=== PATIENT | male | born 1935 | race Caucasian/White ===

== ENCOUNTER 2016-07-09 16:25 | Inpatient (IN) | payer MEDICARE ==
[2016-07-09] MEDS ORDERED: SODIUM CHLORIDE 0.9% 1,000 ML IV ONE (18:22)
--- NOTE | 2016-07-09 18:29 | ED ---
Eye Problem HPI - General Chief complaint: Eye Problems Stated complaint: Eye Problems, sent by dr Time Seen by Provider: 07/09/16 18:03 Source: patient, RN notes reviewed Mode of arrival: wheelchair Limitations: no limitations - History of Present Illness Initial comments: Patient is an 81-year-old male presents to the emergency room for evaluation of right eye swelling and pain. Patient states about a month ago he began having right upper eyelid swelling. Patient states he went to his time study engineer and they prescribed him eyedrops. Patient states that eye swelling did slightly subside and then came back. Patient states that he went to his eye doctor again on and was prescribed doxycycline. Patient's son is present with patient. Patient's son states that patient moved and on Thursday he noticed that his right eye was very swollen. Patient went back to his eye doctor today and was advised to come to the emergency room for IV antibiotics. Patient states he is currently going through chemo for lymphoma. - Related Data Home Medications Medication Instructions Recorded Confirmed Losartan [Cozaar] 25 mg PO DAILY 12/07/15 07/09/16 Metoprolol Succinate (ER) [Toprol 25 mg PO HS 12/07/15 07/09/16 Xl] Omeprazole 20 mg PO DAILY 12/07/15 07/09/16 Simvastatin [Zocor] 40 mg PO HS 12/07/15 07/09/16 traZODone HCL [Desyrel] 100 mg PO HS 12/07/15 07/09/16 Doxycycline Hyclate [Vibramycin] 100 mg PO BID 07/09/16 07/09/16 Gentamicin/Prednisol AC [Pred-G 1 applicate RIGHT EYE HS 07/09/16 07/09/16 S.O.P. Eye Ointment] Gluten Aid 1 tab PO DAILY 07/09/16 07/09/16 Naproxen Na-Diphenhydramin HCl 1 tab PO HS PRN 07/09/16 07/09/16 [Aleve Pm Caplet] Propylene Glycol/Peg 400/Pf 1 dropper RIGHT EYE BID 07/09/16 07/09/16 [Systane 0.3-0.4% Eye Drops] Sertraline [Zoloft] 100 mg PO QAM 07/09/16 07/09/16 Allergies Allergy/AdvReac Type Severity Reaction Status Date / Time gluten AdvReac Severe Diarrhea Verified 06/13/16 12:59 Review of Systems ROS Statement: Those systems with pertinent positive or pertinent negative responses have been documented in the HPI. ROS Other: All systems not noted in ROS Statement are negative. 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 HX MELANOMA CHEST. UCHE RETINITIS PIGMENTOSIS, LOSS OF PERIPHERAL VISION, LEGALLY BLIND. SL NELSON LAGOON. History of Any Multi-Drug Resistant Organisms: None Reported Past Surgical History: Heart Catheterization With Stent, Hernia Repair, Orthopedic Surgery, Tonsillectomy Additional Past Surgical History / Comment(s): EXC RFA, LYMPH NODE RESECTION, SPLENECTOMY 1974. UCHE ING HERNIA. ORIF RT ELBOW. Past Anesthesia/Blood Transfusion Reactions: No Reported Reaction Date of Last Stent Placement:: 2009 Past Psychological History: No Psychological Hx Reported Smoking Status: Never smoker Past Alcohol Use History: None Reported Past Drug Use History: None Reported - Past Family History Mother Family Medical History: No Reported History Father Family Medical History: CVA/TIA, Deep Vein Thrombosis (DVT) General Exam - General Exam Comments Initial Comments: Laying in exam room in no acute distress. Limitations: no limitations General appearance: alert, in no apparent distress Head exam: Present: atraumatic, normocephalic, normal inspection Expanded Eyelids: Swelling: Right (edema of upper eyelid) Pupils: Regular, Round: Right, Reactive: Right Sclera/Conjunctival: Injection: Right, Exudate: Right ENT exam: Present: normal exam Neck exam: Present: normal inspection Respiratory exam: Present: normal lung sounds bilaterally. Absent: respiratory distress Cardiovascular Exam: Present: regular rate, normal rhythm, normal heart sounds Extremities exam: Present: normal inspection Back exam: Present: normal inspection Neurological exam: Present: alert, oriented X3, CN II-XII intact, normal gait Psychiatric exam: Present: normal affect, normal mood Skin exam: Present: warm, dry, intact, normal color. Absent: rash Course Vital Signs 07/09/16 07/09/16 07/09/16 16:39 18:07 20:00 Temperature 98.2 F Pulse Rate 75 72 74 Respiratory 18 15 16 Rate Blood Pressure 145/72 140/84 141/72 O2 Sat by Pulse 95 98 97 Oximetry 07/09/16 22:26 Temperature Pulse Rate 64 Respiratory 16 Rate Blood Pressure 136/88 O2 Sat by Pulse 97 Oximetry Medical Decision Making - Medical Decision Making Patient is a 81-year-old male presents to the emergency room for evaluation of right eye swelling and pain. CT orbits with contrast: Significant preseptal soft tissue swelling on the right side. This is consistent with cellulitis. No drainable fluid collection seen. No evidence of an abscess (per radiology). Patient started on vancomycin and Zosyn. Patient switched to Cipro eyedrops. Case discussed with Dr. Dye. Dr. Dye discussed case with Dr. Gomes agreed to admit patient. Patient will be consulted with infectious disease and ophthalmology. Patient will also be consulted with oncology due to lymphoma. Results and plan discussed with patient and his son. - Lab Data Result diagrams: 07/09/16 19:28 07/09/16 19:28 Lab Results 07/09/16 07/09/16 07/09/16 Range/Units 19:28 19:28 19:28 WBC 3.2 L (3.8-10.6) k/uL RBC 3.84 L (4.30-5.90) m/uL Hgb 13.5 (13.0-17.5) gm/dL Hct 39.1 (39.0-53.0) % MCV 101.7 H (80.0-100.0) fL MCH 35.1 H (25.0-35.0) pg MCHC 34.5 (31.0-37.0) g/dL RDW 14.2 (11.5-15.5) % Plt Count 92 L (150-450) k/uL Neutrophils % (Manual) 65.0 % Band Neutrophils % 2.0 % Lymphocytes % (Manual) 14.0 % Monocytes % (Manual) 15.0 % Eosinophils % (Manual) 4.0 % Neutrophils # (Manual) 2.1 (1.3-7.7) k/uL Lymphocytes # (Manual) 0.4 L (1.0-4.8) k/uL Monocytes # (Manual) 0.5 (0-1.0) k/uL Eosinophils # (Manual) 0.1 (0-0.7) k/uL Nucleated RBCs 0 (0-0) /100 WBC Polychromasia Present Macrocytosis Slight Sodium 139 (137-145) mmol/L Potassium 3.9 (3.5-5.1) mmol/L Chloride 106 (98-107) mmol/L Carbon Dioxide 25 (22-30) mmol/L Anion Gap 8 mmol/L BUN 21 H (9-20) mg/dL Creatinine 0.97 (0.66-1.25) mg/dL Est GFR (MDRD) Af Amer >60 (>60 ml/min/1.73 sqM) Est GFR (MDRD) Non-Af >60 (>60 ml/min/1.73 sqM) Glucose 108 H (74-99) mg/dL Plasma Lactic Acid Carson 0.8 (0.7-2.0) mmol/L Calcium 9.0 (8.4-10.2) mg/dL Total Bilirubin 0.7 (0.2-1.3) mg/dL AST 40 (17-59) U/L ALT 32 (21-72) U/L Alkaline Phosphatase 94 (38-126) U/L Total Protein 6.0 L (6.3-8.2) g/dL Albumin 3.3 L (3.5-5.0) g/dL - Radiology Data Radiology results: report reviewed, image reviewed Disposition Clinical Impression: Periorbital cellulitis of right eye Disposition: ADMITTED IP TO THIS [facility] Condition: Stable Decision Date: 07/09/16
[2016-07-09] MEDS ORDERED: RX INFO: IV CONTRAST WAS GIVEN 1 EACH MISC MISCELLANE PRN (18:30)
[2016-07-09] MEDS ORDERED: IV VANCOMYCIN PER PHARMACY 1 EACH MISC MISCELLANE PRN (18:31)
[2016-07-09] MEDS ORDERED: PROPARACAINE 0.5% OPHTH DROPS 15 ML BTL RIGHT EYE STA (18:32)
[2016-07-09] MEDS ORDERED: VANCOMYCIN 1,500 MG in SODIUM CHLORIDE 0.9% 250 ML IVPB STA (18:42)
[2016-07-09] MEDS ORDERED: CIPROFLOXACIN 0.3% OPHTH SOLN 2.5 ML BTL RIGHT EYE STA (19:07)
[2016-07-09 19:56] LABS: ALT 32 U/L (21-72); AST 40 U/L (17-59); Alkaline Phosphatase 94 U/L (38-126); Anion Gap 8 mmol/L; Blood Urea Nitrogen 21 mg/dL (9-20); CH 34.7; CHCM 34.3; Carbon Dioxide 25 mmol/L (22-30); Chloride 106 mmol/L (98-107); Glucose 108 mg/dL (74-99); HCT 39.1 % (39.0-53.0); HDW 2.36; HGB 13.5 gm/dL (13.0-17.5); MCH 35.1 pg (25.0-35.0); MCHC 34.5 g/dL (31.0-37.0); MCV 101.7 fL (80.0-100.0); Macrocytosis Slight; Non-African American GFR(MDRD) >60 (>60 ml/min/1.73 sqM); Potassium 3.9 mmol/L (3.5-5.1); RBC 3.84 m/uL (4.30-5.90); RDW 14.2 % (11.5-15.5); Sodium 139 mmol/L (137-145); Total Bilirubin 0.7 mg/dL (0.2-1.3); WBC 3.2 k/uL (3.8-10.6); WBC (Perox) 3.25
[2016-07-09 20:23] LABS: Add Differential Manual Differential
[2016-07-09 20:25] LABS: Nucleated Red Blood Cells 0 /100 WBC (0-0); Total Cells Counted 100
[2016-07-09 20:26] LABS: Polychromasia Present
[2016-07-09] MEDS ORDERED: ACETAMINOPHEN TAB 500 MG TAB PO STA (21:00)
--- NOTE | 2016-07-09 21:00 | CT ---
EXAMINATION TYPE: CT orbits w con DATE OF EXAM: 07/09/2016 8:43 PM COMPARISON: NONE HISTORY: Right sided eye swelling. CT DLP: 416.5 mGycm Automated exposure control for dose reduction was used. CONTRAST: Performed with IV Contrast, patient injected with 100 mL of Omnipaque 300. FINDINGS: There is significant soft tissue swelling anterior to the right globe. This appears to be preseptal s oft tissue swelling that measures up to 1.3 cm in thickness. The globes are symmetric. There is no ev idence of a retro-orbital mass. Nasal bone appears intact. There is minimal mucosal thickening in the frontal sinus. Maxillary sinuses are fairly well aerated. There is patency of the ostiomeatal comple x bilaterally. There is minimal mucosal thickening at the floor of the right maxillary sinus. The orb ital margins are intact. There is no evidence of a radiopaque foreign body. There is enhancement of t he soft tissues related to the preseptal swelling on the right side. Zygomatic arches appear normal. The maxilla appears intact. IMPRESSION: THERE IS SIGNIFICANT PRESEPTAL SOFT TISSUE SWELLING ON THE RIGHT SIDE. THIS IS CONSISTENT WITH CELLUL ITIS. NO DRAINABLE FLUID COLLECTION SEEN. NO EVIDENCE OF AN ABSCESS. MINIMAL FRONTAL SINUSITIS.
[2016-07-09] MEDS ORDERED: PIPERACILLIN-TAZOBACTAM 3.375 GM in DEXTROSE/WATER 1 50ML.BAG IVPB STA (21:06)
[2016-07-09] MEDS ORDERED: NALOXONE 0.4 MG/ML 1 ML VIAL IV PRN (21:37)
[2016-07-09] MEDS ORDERED: HYDROmorphone 1 MG/ML 1 ML SYRINGE IV PRN (21:37)
[2016-07-09] MEDS: SODIUM CHLORIDE 0.9% 1,000 ML IV SCH (23:00)
[2016-07-09 23:24] VITALS: BMI 25.4
[2016-07-09] MEDS: ATORVASTATIN 20 MG TAB PO SCH (23:44)
[2016-07-09] MEDS: traZODone HCL 100 MG TAB PO SCH (23:45)
[2016-07-09] MEDS: METOPROLOL SUCCINATE (ER) 25 MG TAB.ER.24H PO SCH (23:45)
[2016-07-10] MEDS: VANCOMYCIN 1,500 MG in SODIUM CHLORIDE 0.9% 250 ML IVPB SCH ×2 (05:10→18:10)
[2016-07-10 07:49] LABS: Anion Gap 10 mmol/L; Blood Urea Nitrogen 18 mg/dL (9-20); Calcium 8.8 mg/dL (8.4-10.2); Carbon Dioxide 26 mmol/L (22-30); Chloride 107 mmol/L (98-107); Glucose 85 mg/dL (74-99); Non-African American GFR(MDRD) >60 (>60 ml/min/1.73 sqM); Potassium 4.2 mmol/L (3.5-5.1); Sodium 143 mmol/L (137-145)
[2016-07-10] MEDS: SERTRALINE 100 MG TAB PO SCH (07:58)
[2016-07-10] MEDS: LOSARTAN 25 MG TAB PO SCH (07:59)
[2016-07-10] MEDS: PIPERACILLIN-TAZOBACTAM 3.375 GM in DEXTROSE/WATER 1 50ML.BAG IVPB SCH ×2 (12:44→21:08)
[2016-07-10] MEDS: ARTIFICIAL TEARS-HYPROMELLOSE DROPS 15 ML BTL RIGHT EYE SCH ×2 (13:58→21:08)
[2016-07-10] MEDS: ENOXAPARIN 40 MG/0.4 ML SYRINGE SQ SCH (13:58)
[2016-07-10] MEDS: PANTOPRAZOLE 40 MG TABLET PO SCH (13:58)
--- NOTE | 2016-07-10 16:13 | HP ---
DATE OF ADMISSION: 07/09/2016 PRESENTING COMPLAINT: Swelling of the right eye. HISTORY OF PRESENTING COMPLAINT: This is an 81-year-old patient of Dr. Marta Ignacio whose chronic stable medical conditions include coronary artery disease with stent, GERD, hyperlipidemia, hypertension; also has had B-cell lymphoma. The patient also has retinitis pigmentosa with loss of vision. Patient is also undergoing chemotherapy currently for a type of lymphoma; he does not know which type. Five weeks ago patient noticed swelling of the right eye. His oncologist gave him antibiotics, which really did not help much. Subsequently he went to see an eye doctor and was given eyedrops and antibiotics. That did not help. Then last he went to see Dr. Godinez and was given some antibiotics again and a hot compress. Things really did not get better, so he decided to come in. Right eyelid is rather swollen, especially the upper eyelid. There is not much pain. There is no fever. There is no headache. REVIEW OF SYSTEMS: CONSTITUTIONAL: None. HEENT: As above. RESPIRATORY: None. CARDIOVASCULAR: None. GASTROINTESTINAL: None. GENITOURINARY: None. MUSCULOSKELETAL: None. DERMATOLOGIC: As above. LYMPHATICS: As above. PSYCHIATRY: None. NEUROLOGICAL: None. PAST HISTORY: 1. Coronary artery disease with stent. 2. GERD. 3. Hyperlipidemia. 4. Hypertension. 5. Lymphoma. 6. Retinitis pigmentosa with limited vision. PAST SURGICAL HISTORY: 1. Cardiac catheterization with stent. 2. Hernia repair. 3. Tonsillectomy. 4. Lymph node resection. 5. Splenectomy in 1974. 6. Bilateral inguinal hernia. 7. ORIF of the right elbow. SOCIAL HISTORY: No smoking or alcohol. Living with son. FAMILY HISTORY: Reviewed; non-contributory to presentation. HOME MEDICATIONS: 1. Systane 0.3% to 0.4% eyedrops one drop to right eye b.i.d. 2. Gentamicin steroid one application to right eye at bedtime. 3. Toprol XL 25 mg at bedtime. 4. Cozaar 25 mg p.o. daily. 5. Gluten Aid 1 tablet p.o. daily. 6. Doxycycline 100 mg p.o. b.i.d. 7. Zoloft 100 mg p.o. daily. 8. Omeprazole 20 mg p.o. daily. 9. Aleve P.M. tablets 1 tablet at bedtime p.r.n. 10. Trazodone 100 mg at bedtime. 11. Zocor 40 mg at bedtime. ALLERGIES: GLUTEN. On examination, temperature 98.2, pulse 75, respiration 18, blood pressure 141/72, pulse ox 95% on room air. GENERAL APPEARANCE: Average build. Sitting up. EYES: Right eyelid is swollen, especially the upper eyelid, but it is not much tender. It is somewhat inflamed. The conjunctiva seems to be a bit swollen; the palpable part. Has decreased vision. NECK: JVD not raised. Mass not palpable. RESPIRATORY: Effort normal. LUNGS: Fair air entry. CARDIOVASCULAR: First and second sounds normal. No edema. ABDOMEN: Soft, nontender. Liver and spleen not palpable. LYMPHATIC: No lymph node palpable in neck or axillae. PSYCHIATRY: Alert and oriented x3. Mood and affect normal. NEUROLOGICAL: Pupils equal. Diminished vision. No facial asymmetry. Power and sensation grossly intact. INVESTIGATIONS: White count 3.2, hemoglobin 13.5, platelets 92. Potassium 3.9. BUN 21, creatinine 0.97. ASSESSMENT: 1. Swelling of the right eyelid. This could be inflammation. Infection is possible, but patient is not much tender. This could be some chronic changes. 2. Coronary artery disease with prior history of stent. 3. Gastroesophageal reflux disease. 4. Hyperlipidemia. 5. Hypertension. 6. Lymphoma; getting treated; type unknown. 7. Retinitis pigmentosa with peripheral decreased vision. PLAN: Dr. Godinez was consulted from the ER. Patient is on vancomycin and Zosyn. Also Dr. Rothman was consulted; so was Oncology. Home medications are resumed. Care was discussed with the patient. Will await input from Dr. Godinez and my colleagues.
[2016-07-10] MEDS: ACETAMINOPHEN TAB 325 MG TAB PO PRN (18:13)
--- NOTE | 2016-07-10 18:33 | CONS ---
DATE OF CONSULTATION: This is an 81-year-old white male known to my office with a history of retinitis pigmentosa. This patient has been undergoing chemotherapy treatments for the last several months. The patient states that several weeks ago he noticed some swelling on his right upper lid and has been treated with initially some topical eye drops prescribed by a primary care physician. These had not improved his situation and eventually he was seen repeatedly. The patient was seen repeatedly over the last few weeks by his oncologist and as well as an integrity manager who last week prescribed oral antibiotics for presumed preseptal cellulitis of the right upper lid. I personally have not seen this patient for this problem. The patient reported to my integrity manager again yesterday who noted that instead of the doxycycline and topical drops improving his condition, the swelling was markedly worse and the patient was referred to [facility] for admission and IV antibiotics. Exam: The patient was resting comfortably. He states that his vision is poor in the right eye though he does not believe it is any worse than what he has been experiencing in the office. Visual acuity measured "hand motion" bilaterally. The pupils were equal and reactive to light. There was no afferent defect noted. There was marked swelling of the right upper lid and in fact I was forced to pry the lid open forcibly in order to visualize the ocular globe. Extraocular movements were full in all gaze positions with the exception of possibly some lateral abduction deficits in the right side. The patient did not complain of diplopia in any gaze position so with such poor vision due to is retinitis pigmentosa, this was not surprising. Other than the marked lid swelling, there was a mild amount of ( ) present of the conjunctivae along with a 2+ injection. The cornea was clear. The anterior chamber was well formed and the posterior chamber intraocular lens appeared centered. IMPRESSION: 1. Preseptal cellulitis this likely has worsened due to the patient's immunosuppressed status and his ongoing chemo treatment, due to from his ongoing chemotherapy treatment. He is currently on IV vancomycin and Zosyn, which have only been administered over the last 12 hours or so. He does not report any significant improvement yet though I believe it is likely this will start to improve in the next 48 hours. I would also recommend using warm compresses topically 3 to 4 times daily, which will help diminish some of the swelling. I will continue to follow this patient. Thank you very much for this consultation. Sincerely yours,
[2016-07-10] MEDS: SODIUM CHLORIDE 0.9% 1,000 ML IV SCH (19:08)
[2016-07-10] MEDS: GENTAMICIN/PREDNISOL AC OPHTH OINT 3.5GM RIGHT EYE SCH (21:08)
[2016-07-10] MEDS: traZODone HCL 100 MG TAB PO SCH (21:09)
[2016-07-10] MEDS: ATORVASTATIN 20 MG TAB PO SCH (21:09)
[2016-07-10] MEDS: METOPROLOL SUCCINATE (ER) 25 MG TAB.ER.24H PO SCH (21:09)
--- NOTE | 2016-07-10 22:17 | P.CONS ---
History of Present Illness - Reason for Consult Consult date: 07/10/16 - Chief Complaint Right eye pain and swelling - History of Present Illness Lina 81-year-old male who is a known history of B-cell lymphoma currently receiving chemotherapy. He was due to have some chemotherapy at this point in time. However was put on hold because of his several-day history of increasing pain and swelling to his right eye. 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 Despite oral antibiotic therapy, and ophthalmic antibiotics he was not improving. And because of this was admitted to hospital for further intervention. Chemotherapy is on hold because of his infection. Due to the significant abnormalities on exam and the computed tomography scan the infectious diseases consultation was requested. 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 This developed later in his life and did not stop him from having a long working career. The patient relates he is feeling slightly better. Still having some significant discomfort to the swelling of the eye but the pain is not severe. He's had some chill without significant fever or rigor. He has had several loose stools throughout the day. Is denying crampy abdominal pain. Does not have significant troubles with diarrhea usually. Review of Systems HEENT:Denies headache he has baseline poor vision. Denies sinus or mouth discomforts. Denies neck stiffness or pain. Denies significant oral cavity pain. Denies difficulty on swallowing. As per the HPI has a significant swelling to the right eye Lungs: Denies significant shortness of breath, cough, sputum production, or hemoptysis. Cardiovascular: Denies significant shortness of breath, chest pain, chest wall pain, orthopnea, dyspnea on exertion, syncope Gastrointestinal:Denies nausea, vomiting, constipation, hematemesis, melena, hematochezia. As noted is having diarrhea. Musculoskeletal: denies significant myalgias or arthralgias. No new joint swelling. Denies new back pain. Skin: Denies new rash or lesions. No new ulcers or wounds are related.. Neuro: Denies headache or visual change. Denies any new onset weakness or difficulty with ambulation. Denies falls or seizures. Psychiatric:Denies anxiety or depression. Endocrine: Denies significant fatigue, denies significant weight loss or weight gain. 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 HX MELANOMA CHEST. UCHE RETINITIS PIGMENTOSIS, LOSS OF PERIPHERAL VISION, LEGALLY BLIND. SL TELIDA. History of Any Multi-Drug Resistant Organisms: None Reported Past Surgical History: Heart Catheterization With Stent, Hernia Repair, Orthopedic Surgery, Tonsillectomy Additional Past Surgical History / Comment(s): EXC RFA, LYMPH NODE RESECTION, SPLENECTOMY 1974. UCEH ING HERNIA. ORIF RT ELBOW. Past Anesthesia/Blood Transfusion Reactions: No Reported Reaction Additional Past Anesthesia/Blood Transfusion Reaction / Comm: NO HISTORY OF BLOOD TRANSFUSION Date of Last Stent Placement:: 2009 Past Psychological History: No Psychological Hx Reported Additional Psychological History / Comment(s): Retired from [employer]. has adult son and [id number] who he lives with. Was in the [employer] stationed in [place]. Denies tobacco use or alcohol use. No recreational drug use. No animal exposures. 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 [employer] Smoking Status: Never smoker Past Alcohol Use History: None Reported Past Drug Use History: None Reported - Past Family History Mother Family Medical History: No Reported History Father Family Medical History: CVA/TIA, Deep Vein Thrombosis (DVT) Medications and Allergies Home Medications and Allergies Comment(s): Current Medications Acetaminophen (Tylenol Tab) 650 mg PO Q6HR PRN PRN Reason: Mild Pain or Fever > 100.5 Last Admin: 07/10/16 18:13 Dose: 650 mg Acetaminophen/Hydrocodone Bitart (Bristow 5-325) 1 each PO Q4HR PRN PRN Reason: Moderate Pain Artificial Tears (Artificial Tear Drops) 1 drops RIGHT EYE BID [facility] Last Admin: 07/10/16 21:08 Dose: 1 drops Atorvastatin Calcium (Lipitor) 20 mg PO HS [facility] Last Admin: 07/10/16 21:09 Dose: 20 mg Cholestyramine Resin (Questran) 4 gm PO TID BETWEEN MEALS [facility] Enoxaparin Sodium (Lovenox) 40 mg SQ DAILY [facility] Last Admin: 07/10/16 13:58 Dose: 40 mg Hydromorphone HCl (Dilaudid) 1 mg IV Q3HR PRN PRN Reason: Severe Pain Vancomycin HCl 1,500 mg/ (Sodium Chloride) 250 mls @ 125 mls/hr IVPB Q12H [facility] Last Admin: 07/10/16 18:10 Dose: 125 mls/hr Sodium Chloride (Saline 0.9%) 1,000 mls @ 75 mls/hr IV .[id number] [facility] Last Admin: 07/10/16 19:08 Dose: Not Given Piperacillin/Tazobactam/ (Dextrose 3.375 gm/ IV Solution) 50 mls @ 12.5 mls/hr IVPB Q8H [facility] Last Admin: 07/10/16 21:08 Dose: 12.5 mls/hr Losartan Potassium (Cozaar) 25 mg PO DAILY [facility] Last Admin: 07/10/16 07:59 Dose: 25 mg Metoprolol Succinate (Toprol Xl) 25 mg PO [facility] Last Admin: 07/10/16 21:09 Dose: 25 mg Miscellaneous Information (Rx Info: Iv Contrast Was Given) 1 each MISCELLANE DAILY PRN PRN Reason: Per Protocol Stop: 07/11/16 18:30 Miscellaneous Information (Vancomycin Trough Due) 0 each MISCELLANE DIRECTED ONE Stop: 07/11/16 05:01 Naloxone HCl (Narcan) 0.2 mg IV Q2M PRN PRN Reason: Opioid Reversal Pantoprazole Sodium (Protonix) 40 mg PO [id number] [facility] Last Admin: 07/10/16 13:58 Dose: 40 mg Prednisolone Acet/Gentamicin Sulf (Pred-G S.O.P. Eye Ointment) 1 applic RIGHT EYE [facility] Last Admin: 07/10/16 21:08 Dose: 1 applic Sertraline HCl (Zoloft) 100 mg PO QAM [facility] Last Admin: 07/10/16 07:58 Dose: 100 mg Trazodone HCl (Desyrel) 100 mg PO [facility] Last Admin: 07/10/16 21:09 Dose: 100 mg Home Medications Medication Instructions Recorded Confirmed Type Losartan [Cozaar] 25 mg PO DAILY 12/07/15 07/09/16 History Metoprolol Succinate (ER) [Toprol 25 mg PO 12/07/15 07/09/16 History Xl] Omeprazole 20 mg PO DAILY 12/07/15 07/09/16 History Simvastatin [Zocor] 40 mg PO 12/07/15 07/09/16 History traZODone HCL [Desyrel] 100 mg PO HS 12/07/15 07/09/16 History Doxycycline Hyclate [Vibramycin] 100 mg PO BID 07/09/16 07/09/16 History Gentamicin/Prednisol AC [Pred-G 1 applicate RIGHT EYE HS 07/09/16 07/09/16 History S.O.P. Eye Ointment] Gluten Aid 1 tab PO DAILY 07/09/16 07/09/16 History Naproxen Na-Diphenhydramin HCl 1 tab PO HS PRN 07/09/16 07/09/16 History [Aleve Pm Caplet] Propylene Glycol/Peg 400/Pf 1 dropper RIGHT EYE BID 07/09/16 07/09/16 History [Systane 0.3-0.4% Eye Drops] Sertraline [Zoloft] 100 mg PO QAM 07/09/16 07/09/16 History Allergies Allergy/AdvReac Type Severity Reaction Status Date / Time gluten AdvReac Severe Diarrhea Verified 06/13/16 12:59 Physical Exam Vitals: Vital Signs Temp Pulse Pulse Resp BP BP Pulse Ox 07/10/16 20:00 97.4 F L 76 16 154/72 94 L 07/10/16 15:38 97.8 F 61 16 133/71 97 07/10/16 07:00 97.4 F L 56 L 16 150/88 98 07/10/16 05:05 64 16 129/67 07/09/16 22:50 98.0 F 67 16 170/89 98 07/09/16 22:26 64 16 136/88 97 Intake and Output 07/10/16 07/10/16 07/10/16 06:59 14:59 22:59 Intake Total 600 590 0 Output Total 500 600 Balance 600 90 -600 Intake: IV 600 300 Sodium Chloride 0.9% 1, 600 300 000 ml @ 75 mls/hr IV . [id number] [facility] Rx#:[id number] Intake, IV Titration 50 Amount Piperacillin-Tazobactam 3 50 .375 gm In Dextrose/Water 1 50ml.bag @ 12.5 mls/hr IVPB Q8H [facility] Rx#: [id number] Oral 240 0 Output: Urine 500 600 Other: Voiding Method Urinal # Voids 1 2 # Bowel Movements 1 1 Weight 89.811 kg 81-year-old male relates to minimal discomfort but has significant swelling to his right eye. HEENT: Left eye without abnormalities. Right eye shows evidence of the extensive swelling of the upper lid with significant injection of the sclera. There is not maxime purulence but there is some scant drainage. There is distinct swelling also above the tissue around the upper lid. It does not cross the midline. There is no significant lesions seen on the nares ,below the eye, also no lesions seen on the right auricle or within the external auditory canal. No lesions on the scalp. nasal mucosa grossly intact without significant lesions, there is no thrush. Neck: The neck is supple without significant lymphadenopathy or thyromegaly. Lungs: Good bilateral air entry without significant crackles or wheezing. There is no significant bronchial sounds. There is no egophony or dullness. Heart: Regular rate and rhythm with an audible S1-S2, no S3 no S4. There is no significant murmur click or rub, PMI was nondisplaced. Abdomen: Positive bowel sounds soft and nontender without palpable masses or organomegaly. There was no guarding or rebound. Extremities: The upper extremities have excellent pulses they are symmetric, no significant petechiae or telangiectasia. No splinter hemorrhages were noted. The lower extremities are free from significant edema. The peripheral pulses were 2+ and symmetric. Neuro: Awake alert oriented to person place and time. There are no acute new gross focal sensory motor deficits. The patient has hand motion only upon approach I exam which is not new. Results Results: Laboratory Results WBC 3.2 k/uL (3.8-10.6) L 07/09/16 19: RBC 3.84 m/uL (4.30-5.90) L 07/09/16 19:28 Hgb 13.5 gm/dL (13.0-17.5) 07/09/16 19: Hct 39.1 % (39.0-53.0) 07/09/16 19: MCV 101.7 fL (80.0-100.0) H 07/09/16 19:28 MCH 35.1 pg (25.0-35.0) H 07/09/16 19: MCHC 34.5 g/dL (31.0-37.0) 07/09/16 19: RDW 14.2 % (11.5-15.5) 07/09/16 19:28 Plt Count 92 k/uL (150-450) L 07/09/16 19: Neutrophils % (Manual) 65.0 % 07/09/16 19: Band Neutrophils % 2.0 % 07/09/16 19: Lymphocytes % (Manual) 14.0 % 07/09/16 19: Monocytes % (Manual) 15.0 % 07/09/16 19: Eosinophils % (Manual) 4.0 % 07/09/16 19: Neutrophils # (Manual) 2.1 k/uL (1.3-7.7) 07/09/16 19: Lymphocytes # (Manual) 0.4 k/uL (1.0-4.8) L 07/09/16: Monocytes # (Manual) 0.5 k/uL (0-1.0) 07/09/16: Eosinophils # (Manual) 0.1 k/uL (0-0.7) 07/09/16 19: Nucleated RBCs 0 /100 WBC (0-0) 07/09/16 19: Polychromasia Present 07/09/16 19:28 Macrocytosis Slight 07/09/16 19:28 Sodium 143 mmol/L (137-145) 07/10/16 07:03 Potassium 4.2 mmol/L (3.5-5.1) 07/10/16 07:03 Chloride 107 mmol/L (98-107) 07/10/16 07:03 Carbon Dioxide 26 mmol/L (22-30) 07/10/16 07:03 Anion Gap 10 mmol/L 07/10/16 07:03 BUN 18 mg/dL (9-20) 07/10/16 07:03 Creatinine 1.01 mg/dL (0.66-1.25) 07/10/16 07:03 Est GFR (MDRD) Af Amer >60 (>60 ml/min/1.73 sqM) 07/10/16 07:03 Est GFR (MDRD) Non-Af >60 (>60 ml/min/1.73 sqM) 07/10/16 07:03 Glucose 85 mg/dL (74-99) 07/10/16 07:03 Plasma Lactic Acid Carson 0.8 mmol/L (0.7-2.0) 07/09/16 19: Calcium 8.8 mg/dL (8.4-10.2) 07/10/16 07:03 Total Bilirubin 0.7 mg/dL (0.2-1.3) 07/09/16 19:28 AST 40 U/L (17-59) 07/09/16 19: ALT 32 U/L (21-72) 07/09/16: Alkaline Phosphatase 94 U/L (38-126) 07/09/16 19: Total Protein 6.0 g/dL (6.3-8.2) L 07/09/16: Albumin 3.3 g/dL (3.5-5.0) L 07/09/16: CBC & Chem 7: 07/09/16 19:28 07/10/16 07:03 Labs: Microbiology 07/09/16: Blood Blood Culture - Preliminary No Growth after 24 hours Assessment and Plan (1) Preseptal cellulitis of right upper eyelid Narrative/Plan: Pleasant 81-year-old male presents to Hospital with significant swelling some discomfort to the right eye. Given following the outpatient setting with oral antibiotic therapy and topical antibiotic to the eye. There was no severe improvement and constantly was admitted to hospital. He has been seen by ophthalmology without need for surgical intervention. Intravenous antibiotic therapy with vancomycin was started at admission and at the time of the consult ,piperacillin tazobactam was added for coverage of the other pathogens of the upper respiratory tract including pseudomonas given his immunocompromised status. Blood cultures are in process and are negative so far. The patient does have history of lymphoma, in the middle of chemotherapy. He is immunocompromised. We'll check his pre-albumin to assess his nutritional status and supplement as indicated . IgG level also be obtained and supplemented if indicated. Patient is complaining of some diarrhea. If it persisted has the consistency a C. diff test should be performed. Status: Acute (2) Periorbital cellulitis of right eye Status: Acute (3) Lymphoma Status: Acute (4) Leukopenia Status: Acute
[2016-07-10] MEDS: CHOLESTYRAMINE (WITH SUGAR) 4 GM PACKET PO SCH (22:46)
[2016-07-11] MEDS: SODIUM CHLORIDE 0.9% 1,000 ML IV SCH ×2 (02:16→14:42)
[2016-07-11] MEDS ORDERED: VANCOMYCIN TROUGH DUE 1 EACH MISC MISCELLANE ONE (05:00)
[2016-07-11 06:06] LABS: Anion Gap 8 mmol/L; Blood Urea Nitrogen 14 mg/dL (9-20); Calcium 8.4 mg/dL (8.4-10.2); Carbon Dioxide 24 mmol/L (22-30); Chloride 110 mmol/L (98-107); Glucose 104 mg/dL (74-99); Non-African American GFR(MDRD) >60 (>60 ml/min/1.73 sqM); Potassium 3.8 mmol/L (3.5-5.1); Sodium 142 mmol/L (137-145)
[2016-07-11] MEDS: VANCOMYCIN 1,500 MG in SODIUM CHLORIDE 0.9% 250 ML IVPB SCH ×2 (06:09→19:58)
[2016-07-11] MEDS: PANTOPRAZOLE 40 MG TABLET PO SCH (07:36)
[2016-07-11] MEDS: ENOXAPARIN 40 MG/0.4 ML SYRINGE SQ SCH (07:36)
[2016-07-11] MEDS: SERTRALINE 100 MG TAB PO SCH (07:36)
[2016-07-11] MEDS: LOSARTAN 25 MG TAB PO SCH (07:37)
[2016-07-11] MEDS: ARTIFICIAL TEARS-HYPROMELLOSE DROPS 15 ML BTL RIGHT EYE SCH ×2 (07:37→19:59)
[2016-07-11] MEDS ORDERED: PIPERACILLIN-TAZOBACTAM 3.375 GM in DEXTROSE/WATER 1 50ML.BAG IVPB SCH (08:00)
[2016-07-11] MEDS: CHOLESTYRAMINE (WITH SUGAR) 4 GM PACKET PO SCH ×3 (12:32→17:59)
[2016-07-11] MEDS: PIPERACILLIN-TAZOBACTAM 3.375 GM in DEXTROSE/WATER 1 50ML.BAG IVPB SCH ×2 (15:50→23:56)
--- NOTE | 2016-07-11 17:41 | P.CONS ---
History of Present Illness - Reason for Consult Consult date: 07/11/16 Orbital cellulitis, on chemo for lymphoma - History of Present Illness The patient is an 81-year-old gentleman well known to our service. He is followed by Dr. forrest in the outpatient setting. He was diagnosed with lymphoma initially in 1974 any headache had a large mass in the medial aspect of the right forearm. This was treated with resection and right axillary node dissection and splenectomy. He then received radiation to the right upper extremity primary site and the axilla. In 10/31 he presented to his PCP with enlarging painless neck nodes. He had an FNA on 11/15/15, positive for large B-cell lymphoma. PET scan in 11/30 showed hypermetabolic lymphadenopathy involving the neck, bilateral axillae, mediastinum, as well as abdominopelvic lymph nodes. He was started on chemotherapy with bendamustine and Rituxan, and has completed 7 of the planned 8 cycles. Follow-up PET scan in 04/02 showed marked improvement. He was supposed to receive his last cycle on 07/10/16. When seen in the office on 06/06/16, he had complained of some right eye redness and irritation. He was felt to have conjunctivitis and was given a prescription of Cipro ophthalmic solution. However his symptoms did not improve. 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 He continued to have progressive swelling of the upper eyelid, which was later reduced eye opening. He was therefore sent in to the hospital. He underwent a computed tomography scan, which showed no evidence of an abscess, but significant preseptal cellulitis. He was therefore admitted for further management with IV antibiotics Review of Systems Constitutional: Reports weakness Eyes: right discharge, right itching, bilateral decreased vision Ears: deny: decreased hearing, ear discharge, earache, tinnitus Ears, nose, mouth and throat: Denies headache, Denies sore throat Cardiovascular: Denies chest pain, Denies shortness of breath Respiratory: Denies cough Gastrointestinal: Denies abdominal pain, Denies diarrhea, Denies nausea, Denies vomiting Genitourinary: Reports as per HPI (No specific complete) Musculoskeletal: Denies myalgias Integumentary: Denies pruritus, Denies rash Neurological: Reports visual changes (Markedly reduced vision on the left eye due to retinitis pigmentosa.), Denies numbness, Denies weakness Psychiatric: Denies anxiety, Denies depression Endocrine: Denies fatigue, Denies weight change Hematologic/Lymphatic: Reports as per HPI Past Medical History Past Medical History: Coronary Artery Disease (CAD), Cancer, Eye Disorder, GERD/ Reflux, Hearing Disorder / Deafness, Hyperlipidemia, Hypertension, Skin Disorder Additional Past Medical History / Comment(s): 1974 LYMPHOMA, TREATED W/ RADIATION; 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 HX MELANOMA CHEST. UCHE RETINITIS PIGMENTOSIS, LOSS OF PERIPHERAL VISION, LEGALLY BLIND. SL ANGOON. History of Any Multi-Drug Resistant Organisms: None Reported Past Surgical History: Heart Catheterization With Stent, Hernia Repair, Orthopedic Surgery, Tonsillectomy Additional Past Surgical History / Comment(s): EXC RFA, LYMPH NODE RESECTION, SPLENECTOMY 1974. UCHE ING HERNIA. ORIF RT ELBOW. Past Anesthesia/Blood Transfusion Reactions: No Reported Reaction Additional Past Anesthesia/Blood Transfusion Reaction / Comm: NO HISTORY OF BLOOD TRANSFUSION Date of Last Stent Placement:: 2009 Past Psychological History: No Psychological Hx Reported Additional Psychological History / Comment(s): Retired from [employer]. has adult son and [id number] who he lives with. Was in the [employer] stationed in [place]. Denies tobacco use or alcohol use. No recreational drug use. No animal exposures. 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 [employer] Smoking Status: Never smoker Past Alcohol Use History: None Reported Past Drug Use History: None Reported - Past Family History Mother Family Medical History: No Reported History Father Family Medical History: CVA/TIA, Deep Vein Thrombosis (DVT) Medications and Allergies Home Medications Medication Instructions Recorded Confirmed Type Losartan [Cozaar] 25 mg PO DAILY 12/07/15 07/09/16 History Metoprolol Succinate (ER) [Toprol 25 mg PO HS 12/07/15 07/09/16 History Xl] Omeprazole 20 mg PO DAILY 12/07/15 07/09/16 History Simvastatin [Zocor] 40 mg PO HS 12/07/15 07/09/16 History traZODone HCL [Desyrel] 100 mg PO HS 12/07/15 07/09/16 History Doxycycline Hyclate [Vibramycin] 100 mg PO BID 07/09/16 07/09/16 History Gentamicin/Prednisol AC [Pred-G 1 applicate RIGHT EYE HS 07/09/16 07/09/16 History S.O.P. Eye Ointment] Gluten Aid 1 tab PO DAILY 07/09/16 07/09/16 History Naproxen Na-Diphenhydramin HCl 1 tab PO HS PRN 07/09/16 07/09/16 History [Aleve Pm Caplet] Propylene Glycol/Peg 400/Pf 1 dropper RIGHT EYE BID 07/09/16 07/09/16 History [Systane 0.3-0.4% Eye Drops] Sertraline [Zoloft] 100 mg PO QAM 07/09/16 07/09/16 History Allergies Allergy/AdvReac Type Severity Reaction Status Date / Time gluten AdvReac Severe Diarrhea Verified 06/13/16 12:59 Physical Exam Vitals: Vital Signs Temp Pulse Resp BP Pulse Ox 07/11/16 14:55 98.2 F 71 16 130/64 98 07/11/16 07:49 98.0 F 66 17 142/87 95 07/11/16 02:12 97.4 F L 88 16 172/81 93 L 07/10/16 20:00 97.4 F L 76 16 154/72 94 L 07/10/16 15:38 97.8 F 61 16 133/71 97 Intake and Output 07/11/16 07/11/16 07/11/16 06:59 14:59 22:59 Intake Total 600 450 Balance 600 450 Intake: IV 600 150 Sodium Chloride 0.9% 1, 600 150 000 ml @ 75 mls/hr IV . [id number] [facility] Rx#:[id number] Intake, IV Titration 300 Amount Piperacillin-Tazobactam 3 50 .375 gm In Dextrose/Water 1 50ml.bag @ 12.5 mls/hr IVPB 0000,0800,1500 [facility] Rx#:[id number] Vancomycin 1,500 mg In 250 Sodium Chloride 0.9% 250 ml @ 125 mls/hr IVPB Q12H [facility] Rx#:[id number] Other: # Voids 2 # Bowel Movements 1 - Constitutional General appearance: no acute distress - EENT Marked swelling and redness of the right upper eyelid. The patient cannot open the right eye. Vision is markedly diminished in the left eye. Left pupil is reactive ENT: normal oropharynx - Neck Neck: no lymphadenopathy Thyroid: bilateral: normal size - Respiratory Respiratory: bilateral: CTA - Cardiovascular Rhythm: regular Heart sounds: normal: S1, S2 - Gastrointestinal General gastrointestinal: normal bowel sounds, soft - Integumentary Integumentary: cellulitis (Right eyelid) - Neurologic Neurologic: CNII-XII intact - Musculoskeletal Musculoskeletal: strength equal bilaterally - Psychiatric Psychiatric: A&O x's 3, appropriate affect Results CBC & Chem 7: 07/09/16 19:28 07/11/16 05:24 Labs: Abnormal Lab Results - Last 24 Hours (Table) 07/11/16 Range/Units 05:24 Chloride 110 H (98-107) mmol/L Glucose 104 H (74-99) mg/dL Comments: Report of CT of the head and orbit reviewed Assessment and Plan (1) Preseptal cellulitis of right upper eyelid Narrative/Plan: The patient's course is as noted in the HPI. He was admitted for IV antibiotics. The case was discussed with the admitting service, as well as infectious diseases. He has had significant improvement in the swelling. Continue antibiotics per ID. His white blood cell count, though reduced, is adequate. Given his history, and the nature of infection, it would be reasonable to check immunoglobulin levels, and infuse IVIG if found to be low. This was discussed with ID, already ordered the IgG levels. We'll await the same. Status: Acute (2) Bicytopenia Narrative/Plan: This is due to chemotherapy effect. White cell count is in a safe range with ANC well above 1000. Platelets are also in the 90,000 range. Continue to monitor. Status: Acute (3) Lymphoma Narrative/Plan: The patient has diffuse large B-cell non-Hodgkin's lymphoma, at least stage III. He has responded well to chemotherapy and had 1 cycle remaining. That was due yesterday . Chemotherapy will be on hold to acute condition resolves. Status: Acute
[2016-07-11] MEDS: ACETAMINOPHEN TAB 325 MG TAB PO PRN (17:57)
--- NOTE | 2016-07-11 18:03 | P.PN ---
Subjective Principal diagnosis: Right eye pain and swelling Lina 81-year-old male who is a known history of B-cell lymphoma currently receiving chemotherapy. He was due to have some chemotherapy at this point in time. However was put on hold because of his several-day history of increasing pain and swelling to his right eye. 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 Despite oral antibiotic therapy, and ophthalmic antibiotics he was not improving. And because of this was admitted to hospital for further intervention. Chemotherapy is on hold because of his infection. Due to the significant abnormalities on exam and the computed tomography scan the infectious diseases consultation was requested. 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 This developed later in his life and did not stop him from having a long working career. The patient relates he is feeling slightly better. Still having some significant discomfort to the swelling of the eye but the pain is not severe. He's had some chill without significant fever or rigor. The patient had multiple loose stools yesterday. This is now markedly improved. Had one soft stool today. No more diarrhea has occurred and he is feeling considerably better. He has very little discomfort to the eye today. Objective - Vital Signs Vital signs: Vital Signs Temp 98.2 F 07/11/16 14:55 Pulse 71 07/11/16 14:55 Resp 16 07/11/16 14:55 BP 130/64 07/11/16 14:55 Pulse Ox 98 07/11/16 14:55 Intake & Output 07/10/16 07/11/16 07/11/16 18:59 06:59 18:59 Intake Total 590 825 450 Output Total 1100 Balance -510 825 450 Intake: IV 300 825 150 Sodium Chloride 0.9% 1, 300 825 150 000 ml @ 75 mls/hr IV . [id number] [facility] Rx#:[id number] Intake, IV Titration 50 300 Amount Piperacillin-Tazobactam 3 50 .375 gm In Dextrose/Water 1 50ml.bag @ 12.5 mls/hr IVPB 0000,0800,1500 [facility] Rx#:[id number] Piperacillin-Tazobactam 3 50 .375 gm In Dextrose/Water 1 50ml.bag @ 12.5 mls/hr IVPB Q8H [facility] Rx#: [id number] Vancomycin 1,500 mg In 250 Sodium Chloride 0.9% 250 ml @ 125 mls/hr IVPB Q12H [facility] Rx#:[id number] Oral 240 Output: Urine 1100 Other: Voiding Method Toilet Toilet Urinal Urinal # Voids 2 2 # Bowel Movements 1 1 - Exam 81-year-old male relates to minimal discomfort but has significant swelling to his right eye. HEENT: Left eye without abnormalities. Right eye shows evidence of the extensive swelling of the upper lid with significant injection of the sclera. There is not maxime purulence but there is some scant drainage. There is distinct swelling also above the tissue around the upper lid. It does not cross the midline. There is no significant lesions seen on the nares ,below the eye, also no lesions seen on the right auricle or within the external auditory canal. No lesions on the scalp. nasal mucosa grossly intact without significant lesions, there is no thrush. Neck: The neck is supple without significant lymphadenopathy or thyromegaly. Lungs: Good bilateral air entry without significant crackles or wheezing. There is no significant bronchial sounds. There is no egophony or dullness. Heart: Regular rate and rhythm with an audible S1-S2, no S3 no S4. There is no significant murmur click or rub, PMI was nondisplaced. Abdomen: Positive bowel sounds soft and nontender without palpable masses or organomegaly. There was no guarding or rebound. Extremities: The upper extremities have excellent pulses they are symmetric, no significant petechiae or telangiectasia. No splinter hemorrhages were noted. The lower extremities are free from significant edema. The peripheral pulses were 2+ and symmetric. Neuro: Awake alert oriented to person place and time. There are no acute new gross focal sensory motor deficits. The patient has hand motion only upon approach I exam which is not new. - Labs CBC & Chem 7: 07/09/16 19:28 07/11/16 05:24 Labs: Abnormal Lab Results - Last 24 Hours (Table) 07/11/16 Range/Units 05:24 Chloride 110 H (98-107) mmol/L Glucose 104 H (74-99) mg/dL Assessment and Plan (1) Preseptal cellulitis of right upper eyelid Narrative/Plan: Pleasant 81-year-old male presents to Hospital with significant swelling some discomfort to the right eye. Given following the outpatient setting with oral antibiotic therapy and topical antibiotic to the eye. There was no severe improvement and constantly was admitted to hospital. He has been seen by ophthalmology without need for surgical intervention. Intravenous antibiotic therapy with vancomycin was started at admission and at the time of the consult ,piperacillin tazobactam was added for coverage of the other pathogens of the upper respiratory tract including pseudomonas given his immunocompromised status. Blood cultures are in process and are negative so far. The patient does have history of lymphoma, in the middle of chemotherapy. He is immunocompromised. We'll check his pre-albumin to assess his nutritional status and supplement as indicated . IgG level also be obtained and supplemented if indicated. The patient has much improvement in his diarrhea. Does not appear to have C. diff at this time. Await the IgG level to determine if he needs an intravenous in the globulin supplement. Status: Acute (2) Periorbital cellulitis of right eye Status: Acute (3) Lymphoma Status: Acute (4) Leukopenia Status: Acute
--- NOTE | 2016-07-11 18:34 | PN ---
DATE OF SERVICE: 07/11/2016 PRESENTING COMPLAINT: Cellulitis and periorbital cellulitis over the right eye. INTERVAL HISTORY: This patient presented with having failed outpatient treatment for cellulitis of the right eyelid and periorbital viral cellulitis, been on antibiotics, feels a bit better. Seen by Dr. Godinez yesterday. The patient chronically has diminished vision. Review of systems done for constitutional, cardiovascular, GI, pulmonary; relevant findings as above. The patient did have some diarrhea last night which was actually better. Current medications are reviewed that include: 1. Artificial tears. 2. Questran. 3. IV Zosyn. 4. Prednisone. 5. Gentamicin eye drops. 6. Vancomycin. 7. Clindamycin. On examination, temperature 98.2, pulse 71, respirations 16, blood pressure 130/64, pulse ox 98% on room air. GENERAL APPEARANCE: Lying in bed, comfortable. EYES: Right upper eyelid is swollen and red. Slightly less than before and decreased tenderness. LUNGS: Clear. CARDIOVASCULAR: First and second sounds normal. ABDOMEN: Soft, nontender. Liver and spleen not palpable. PSYCHIATRY: Alert and oriented x3. Mood and affect normal. INVESTIGATIONS: Potassium 3.8. Blood cultures are negative. ASSESSMENT: 1. Acute infection/inflammation of the right eyelid and periorbital cellulitis having failed outpatient treatment. 2. Coronary artery disease with prior history of stent. 3. Gastroesophageal reflux disease. 4. Hyperlipidemia. 5. Essential hypertension. 6. Lymphoma type unknown, getting treated. 7. Retinitis pigmentosa with peripheral decreased vision. PLAN: Continue current medication treatment plan. Care was discussed with the patient. Will follow.
[2016-07-11] MEDS: ATORVASTATIN 20 MG TAB PO SCH (19:59)
[2016-07-11] MEDS: GENTAMICIN/PREDNISOL AC OPHTH OINT 3.5GM RIGHT EYE SCH (19:59)
[2016-07-11] MEDS: traZODone HCL 100 MG TAB PO SCH (19:59)
[2016-07-11] MEDS: METOPROLOL SUCCINATE (ER) 25 MG TAB.ER.24H PO SCH (20:03)
[2016-07-12] MEDS: SODIUM CHLORIDE 0.9% 1,000 ML IV SCH ×2 (03:05→15:44)
[2016-07-12] MEDS: VANCOMYCIN 1,500 MG in SODIUM CHLORIDE 0.9% 250 ML IVPB SCH ×2 (06:23→17:33)
[2016-07-12 07:42] LABS: Basophils % (A) 1 %; CH 34.3; CHCM 33.4; Eosinophils # (A) 0.2 k/uL (0-0.7); Eosinophils % (A) 5 %; HCT 37.6 % (39.0-53.0); HDW 2.38; HGB 12.6 gm/dL (13.0-17.5); Luc # (Auto) 0.11; Luc % (Auto) 4; Lymphocytes # (A) 0.4 k/uL (1.0-4.8); Lymphocytes % (A) 13 %; MCH 34.6 pg (25.0-35.0); MCHC 33.5 g/dL (31.0-37.0); MCV 103.1 fL (80.0-100.0); Macrocytosis Slight; Mean Platelet Volume 7.7; Monocytes # (A) 0.3 k/uL (0-1.0); Monocytes % (A) 11 %; Neutrophils # (A) 1.9 k/uL (1.3-7.7); Neutrophils % (A) 66 %; RBC 3.65 m/uL (4.30-5.90); WBC 2.9 k/uL (3.8-10.6); WBC (Perox) 3.09
[2016-07-12 07:57] LABS: Anion Gap 7 mmol/L; Blood Urea Nitrogen 11 mg/dL (9-20); Calcium 8.2 mg/dL (8.4-10.2); Carbon Dioxide 26 mmol/L (22-30); Chloride 110 mmol/L (98-107); Glucose 91 mg/dL (74-99); Non-African American GFR(MDRD) >60 (>60 ml/min/1.73 sqM); Potassium 3.5 mmol/L (3.5-5.1); Sodium 143 mmol/L (137-145)
[2016-07-12] MEDS: CHOLESTYRAMINE (WITH SUGAR) 4 GM PACKET PO SCH ×3 (08:43→17:34)
[2016-07-12] MEDS: ENOXAPARIN 40 MG/0.4 ML SYRINGE SQ SCH (08:43)
[2016-07-12] MEDS: SERTRALINE 100 MG TAB PO SCH (08:43)
[2016-07-12] MEDS: ARTIFICIAL TEARS-HYPROMELLOSE DROPS 15 ML BTL RIGHT EYE SCH ×2 (08:43→20:44)
[2016-07-12] MEDS: PIPERACILLIN-TAZOBACTAM 3.375 GM in DEXTROSE/WATER 1 50ML.BAG IVPB SCH ×3 (08:43→23:15)
[2016-07-12] MEDS: PANTOPRAZOLE 40 MG TABLET PO SCH (08:43)
[2016-07-12] MEDS: LOSARTAN 25 MG TAB PO SCH (08:43)
--- NOTE | 2016-07-12 15:38 | P.PN ---
Subjective Principal diagnosis: Right eye pain and swelling Lina 81-year-old male who is a known history of B-cell lymphoma currently receiving chemotherapy. He was due to have some chemotherapy at this point in time. However was put on hold because of his several-day history of increasing pain and swelling to his right eye. 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 Despite oral antibiotic therapy, and ophthalmic antibiotics he was not improving. And because of this was admitted to hospital for further intervention. Chemotherapy is on hold because of his infection. Due to the significant abnormalities on exam and the computed tomography scan the infectious diseases consultation was requested. 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 This developed later in his life and did not stop him from having a long working career. The patient relates he is feeling slightly better. Still having some significant discomfort to the swelling of the eye but the pain is not severe. He's had some chill without significant fever or rigor. The patient had multiple loose stools yesterday. This is now markedly improved. Had one soft stool today. No more diarrhea has occurred and he is feeling considerably better. . He has very little discomfort to the eye but is noting some drainage which is not painful. Objective - Vital Signs Vital signs: Vital Signs Temp 98.2 F 07/12/16 07:00 Pulse 64 07/12/16 07:00 Resp 18 07/12/16 07:00 BP 146/79 07/12/16 07:00 Pulse Ox 93 L 07/12/16 07:00 Intake & Output 07/11/16 07/12/16 07/12/16 18:59 06:59 18:59 Intake Total 450 540 350 Balance 450 540 350 Intake: IV 150 300 300 Sodium Chloride 0.9% 1, 150 300 300 000 ml @ 75 mls/hr IV . [id number] [facility] Rx#:[id number] Intake, IV Titration 300 50 Amount Piperacillin-Tazobactam 3 50 50 .375 gm In Dextrose/Water 1 50ml.bag @ 12.5 mls/hr IVPB 0000,0800,1500 [facility] Rx#:[id number] Vancomycin 1,500 mg In 250 Sodium Chloride 0.9% 250 ml @ 125 mls/hr IVPB Q12H [facility] Rx#:[id number] Oral 240 Other: Voiding Method Toilet Toilet Urinal Urinal # Voids 1 # Bowel Movements 1 - Exam 81-year-old male relates to minimal discomfort but has significant swelling to his right eye. HEENT: Left eye without abnormalities. Right eye shows evidence of the extensive swelling of the upper lid with significant injection of the sclera. There is now some purulent and bloody drainage coming from the upper lid and is most medial aspect. Manipulation of the lid causes some drainage. It is not extremely tender. There is distinct swelling also above the tissue around the upper lid. It does not cross the midline. There is no significant lesions seen on the nares ,below the eye, also no lesions seen on the right auricle or within the external auditory canal. No lesions on the scalp. nasal mucosa grossly intact without significant lesions, there is no thrush. Neck: The neck is supple without significant lymphadenopathy or thyromegaly. Lungs: Good bilateral air entry without significant crackles or wheezing. There is no significant bronchial sounds. There is no egophony or dullness. Heart: Regular rate and rhythm with an audible S1-S2, no S3 no S4. There is no significant murmur click or rub, PMI was nondisplaced. Abdomen: Positive bowel sounds soft and nontender without palpable masses or organomegaly. There was no guarding or rebound. Extremities: The upper extremities have excellent pulses they are symmetric, no significant petechiae or telangiectasia. No splinter hemorrhages were noted. The lower extremities are free from significant edema. The peripheral pulses were 2+ and symmetric. Neuro: Awake alert oriented to person place and time. There are no acute new gross focal sensory motor deficits. The patient has hand motion only upon approach I exam which is not new. - Labs CBC & Chem 7: 07/12/16 06:00 07/12/16 06:00 Labs: Abnormal Lab Results - Last 24 Hours (Table) 07/12/16 07/12/16 Range/Units 06:00 06:00 WBC 2.9 L (3.8-10.6) k/uL RBC 3.65 L (4.30-5.90) m/uL Hgb 12.6 L (13.0-17.5) gm/dL Hct 37.6 L (39.0-53.0) % MCV 103.1 H (80.0-100.0) fL Plt Count 80 L (150-450) k/uL Lymphocytes # 0.4 L (1.0-4.8) k/uL Chloride 110 H (98-107) mmol/L Calcium 8.2 L (8.4-10.2) mg/dL Laboratory Results WBC 2.9 k/uL (3.8-10.6) L 07/12/16 06:00 RBC 3.65 m/uL (4.30-5.90) L 07/12/16 06:00 Hgb 12.6 gm/dL (13.0-17.5) L 07/12/16 06:00 Hct 37.6 % (39.0-53.0) L 07/12/16 06:00 MCV 103.1 fL (80.0-100.0) H 07/12/16 06:00 MCH 34.6 pg (25.0-35.0) 07/12/16 06:00 MCHC 33.5 g/dL (31.0-37.0) 07/12/16 06:00 RDW 14.0 % (11.5-15.5) 07/12/16 06:00 Plt Count 80 k/uL (150-450) L 07/12/16 06:00 Neutrophils % 66 % 07/12/16 06:00 Neutrophils % (Manual) 65.0 % 07/09/16 19:28 Band Neutrophils % 2.0 % 07/09/16 19:28 Lymphocytes % 13 % 07/12/16 06:00 Lymphocytes % (Manual) 14.0 % 07/09/16 19:28 Monocytes % 11 % 07/12/16 06:00 Monocytes % (Manual) 15.0 % 07/09/16 19:28 Eosinophils % 5 % 07/12/16 06:00 Eosinophils % (Manual) 4.0 % 07/09/16 19:28 Basophils % 1 % 07/12/16 06:00 Neutrophils # 1.9 k/uL (1.3-7.7) 07/12/16 06:00 Neutrophils # (Manual) 2.1 k/uL (1.3-7.7) 07/09/16 19:28 Lymphocytes # 0.4 k/uL (1.0-4.8) L 07/12/16 06:00 Lymphocytes # (Manual) 0.4 k/uL (1.0-4.8) L 07/09/16 19: Monocytes # 0.3 k/uL (0-1.0) 07/12/16 06:00 Monocytes # (Manual) 0.5 k/uL (0-1.0) 07/09/16 19: Eosinophils # 0.2 k/uL (0-0.7) 07/12/16 06:00 Eosinophils # (Manual) 0.1 k/uL (0-0.7) 07/09/16 19:28 Basophils # 0.0 k/uL (0-0.2) 07/12/16 06:00 Nucleated RBCs 0 /100 WBC (0-0) 07/09/16: Polychromasia Present 07/09/16: Macrocytosis Slight 07/12/16 06:00 Sodium 143 mmol/L (137-145) 07/12/16 06:00 Potassium 3.5 mmol/L (3.5-5.1) 07/12/16 06:00 Chloride 110 mmol/L (98-107) H 07/12/16 06:00 Carbon Dioxide 26 mmol/L (22-30) 07/12/16 06:00 Anion Gap 7 mmol/L 07/12/16 06:00 BUN 11 mg/dL (9-20) 07/12/16 06:00 Creatinine 1.00 mg/dL (0.66-1.25) 07/12/16 06:00 Est GFR (MDRD) Af Amer >60 (>60 ml/min/1.73 sqM) 07/12/16 06:00 Est GFR (MDRD) Non-Af >60 (>60 ml/min/1.73 sqM) 07/12/16 06:00 Glucose 91 mg/dL (74-99) 07/12/16 06:00 Plasma Lactic Acid Carson 0.8 mmol/L (0.7-2.0) 07/09/16: Calcium 8.2 mg/dL (8.4-10.2) L 07/12/16 06:00 Total Bilirubin 0.7 mg/dL (0.2-1.3) 07/09/16: AST 40 U/L (17-59) 07/09/16 19:28 ALT 32 U/L (21-72) 07/09/16 19:28 Alkaline Phosphatase 94 U/L (38-126) 07/09/16 19:28 Total Protein 6.0 g/dL (6.3-8.2) L 07/09/16 19:28 Albumin 3.3 g/dL (3.5-5.0) L 07/09/16 19:28 Prealbumin 18 mg/dL (18-36) 07/10/16 07:03 Vancomycin Trough 17.2 ug/mL 07/11/16 05:24 Microbiology 07/09/16 19:28 Blood Blood Culture - Preliminary No Growth after 48 hours Assessment and Plan (1) Preseptal cellulitis of right upper eyelid Narrative/Plan: Pleasant 81-year-old male presents to Hospital with significant swelling some discomfort to the right eye. Given following the outpatient setting with oral antibiotic therapy and topical antibiotic to the eye. There was no severe improvement and constantly was admitted to hospital. He has been seen by ophthalmology without need for surgical intervention. Intravenous antibiotic therapy with vancomycin was started at admission and at the time of the consult ,piperacillin tazobactam was added for coverage of the other pathogens of the upper respiratory tract including pseudomonas given his immunocompromised status. Blood cultures are in process and are negative so far. The patient does have history of lymphoma, in the middle of chemotherapy. He is immunocompromised. We'll check his pre-albumin to assess his nutritional status and supplement as indicated . IgG level also be obtained and supplemented if indicated. The patient has much improvement in his diarrhea. Does not appear to have C. diff at this time. Await the IgG level to determine if he needs an intravenous in the globulin supplement. Status: Acute (2) Periorbital cellulitis of right eye Status: Acute (3) Lymphoma Status: Acute (4) Leukopenia Status: Acute
[2016-07-12] MEDS ORDERED: MD COMMUNICATION TO PHARMACY 1 EACH MISC PO SCH (16:30)
[2016-07-12] MEDS: METOPROLOL SUCCINATE (ER) 25 MG TAB.ER.24H PO SCH (20:46)
[2016-07-12] MEDS: ATORVASTATIN 20 MG TAB PO SCH (20:46)
[2016-07-12] MEDS: GENTAMICIN/PREDNISOL AC OPHTH OINT 3.5GM RIGHT EYE SCH (20:46)
[2016-07-12] MEDS: traZODone HCL 100 MG TAB PO SCH (20:46)
[2016-07-12] MEDS: HYDROcodone/APAP 5-325MG 1 EACH TAB PO PRN (23:18)
[2016-07-13] MEDS: VANCOMYCIN 1,500 MG in SODIUM CHLORIDE 0.9% 250 ML IVPB SCH ×2 (06:09→18:32)
[2016-07-13] MEDS: SODIUM CHLORIDE 0.9% 1,000 ML IV SCH ×2 (06:10→18:38)
[2016-07-13 06:39] LABS: Anion Gap 7 mmol/L; Blood Urea Nitrogen 10 mg/dL (9-20); Calcium 8.2 mg/dL (8.4-10.2); Carbon Dioxide 27 mmol/L (22-30); Chloride 109 mmol/L (98-107); Glucose 91 mg/dL (74-99); Non-African American GFR(MDRD) >60 (>60 ml/min/1.73 sqM); Potassium 3.5 mmol/L (3.5-5.1); Sodium 143 mmol/L (137-145)
[2016-07-13] MEDS: ARTIFICIAL TEARS-HYPROMELLOSE DROPS 15 ML BTL RIGHT EYE SCH ×2 (08:39→20:51)
[2016-07-13] MEDS: ENOXAPARIN 40 MG/0.4 ML SYRINGE SQ SCH (08:39)
[2016-07-13] MEDS: PANTOPRAZOLE 40 MG TABLET PO SCH (08:39)
[2016-07-13] MEDS: SERTRALINE 100 MG TAB PO SCH (08:39)
[2016-07-13] MEDS: LOSARTAN 25 MG TAB PO SCH (08:39)
[2016-07-13] MEDS: PIPERACILLIN-TAZOBACTAM 3.375 GM in DEXTROSE/WATER 1 50ML.BAG IVPB SCH ×3 (08:40→23:34)
[2016-07-13] MEDS: CHOLESTYRAMINE (WITH SUGAR) 4 GM PACKET PO SCH ×3 (10:15→18:32)
[2016-07-13] MEDS: HYDROcodone/APAP 5-325MG 1 EACH TAB PO PRN ×3 (12:10→18:32)
--- NOTE | 2016-07-13 12:27 | PN ---
DATE OF SERVICE: 07/12/2016 PRESENTING COMPLAINT: Right eyelid cellulitis. INTERVAL HISTORY: This patient was seen by me yesterday on 07/12/2016 for right eyelid cellulitis. Pain and swelling has been coming down. Feels a bit better. Tolerating a diet. Patient had some diarrhea initially which has settled down. Review of systems done for constitutional, cardiovascular, GI, pulmonary, eyes; relevant findings as above. The patient has chronically diminished vision. Current medications are reviewed. On examination, temperature 98.6, pulse 55, respirations 18, blood pressure 150/84, pulse ox 95% on room air. GENERAL APPEARANCE: Lying in bed, comfortable. EYES: Right upper eyelid is slightly less red and swollen; decreased tenderness. LUNGS: Clear. CARDIOVASCULAR: First and second sounds normal. No edema. ABDOMEN: Soft, nontender. Liver and spleen and spleen not palpable. PSYCHIATRY: Alert and oriented x3. Mood and affect normal. NEUROLOGICAL: Diminished vision. INVESTIGATIONS: White count 2.9, hemoglobin 12.6, platelets 80, potassium 3.5. ASSESSMENT: 1. Acute infection inflammation of the right eye lid and periorbital cellulitis having failed outpatient treatment. 2. Coronary artery disease with prior history of stent. 3. Gastroesophageal reflux disease. 4. Hyperlipidemia. 5. Essential hypertension. 6. Lymphoma type unknown, getting treated. 7. Retinitis pigmentosa with peripheral decreased vision. PLAN: Continue current medication and treatment plan. Spoke to nurse to reinforce moist to warm compresses right eyelid and to the patient.
--- NOTE | 2016-07-13 13:35 | P.PN ---
Subjective Principal diagnosis: Right eye pain and swelling Lina 81-year-old male who is a known history of B-cell lymphoma currently receiving chemotherapy. He was due to have some chemotherapy at this point in time. However was put on hold because of his several-day history of increasing pain and swelling to his right eye. 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 Despite oral antibiotic therapy, and ophthalmic antibiotics he was not improving. And because of this was admitted to hospital for further intervention. Chemotherapy is on hold because of his infection. Due to the significant abnormalities on exam and the computed tomography scan the infectious diseases consultation was requested. 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 This developed later in his life and did not stop him from having a long working career. The patient relates he is feeling slightly better. Still having some significant discomfort to the swelling of the eye but the pain is not severe. He's had some chill without significant fever or rigor. The patient had multiple loose stools yesterday. This is now markedly improved. Had one soft stool today. No more diarrhea has occurred and he is feeling considerably better. . He has very little discomfort to the eye but is noting some drainage which is not painful. Objective - Vital Signs Vital signs: Vital Signs Temp 97.8 F 07/13/16 07:00 Pulse 60 07/13/16 07:00 Resp 16 07/13/16 07:00 BP 115/57 07/13/16 07:00 Pulse Ox 95 07/13/16 07:00 Intake & Output 07/12/16 07/13/16 07/13/16 18:59 06:59 18:59 Intake Total 570 650 Output Total 325 500 Balance 245 150 Intake: IV 300 650 Piperacillin-Tazobactam 3 50 .375 gm In Dextrose/Water 1 50ml.bag @ 12.5 mls/hr IVPB 0000,0800,1500 [facility] Rx#:[id number] Sodium Chloride 0.9% 1, 300 600 000 ml @ 75 mls/hr IV . [id number] [facility] Rx#:[id number] Intake, IV Titration 50 Amount Piperacillin-Tazobactam 3 50 .375 gm In Dextrose/Water 1 50ml.bag @ 12.5 mls/hr IVPB 0000,0800,1500 [facility] Rx#:[id number] Oral 220 Output: Urine 325 500 Other: Voiding Method Urinal Urinal - Exam 81-year-old male relates to minimal discomfort but has significant swelling to his right eye. HEENT: Left eye without abnormalities. Right eye shows evidence of the extensive swelling of the upper lid with significant injection of the sclera. There is now some purulent and bloody drainage coming from the upper lid and is most medial aspect. Manipulation of the lid causes some drainage. It is not extremely tender. There is distinct swelling also above the tissue around the upper lid. It does not cross the midline. There is no significant lesions seen on the nares ,below the eye, also no lesions seen on the right auricle or within the external auditory canal. No lesions on the scalp. nasal mucosa grossly intact without significant lesions, there is no thrush. Neck: The neck is supple without significant lymphadenopathy or thyromegaly. Lungs: Good bilateral air entry without significant crackles or wheezing. There is no significant bronchial sounds. There is no egophony or dullness. Heart: Regular rate and rhythm with an audible S1-S2, no S3 no S4. There is no significant murmur click or rub, PMI was nondisplaced. Abdomen: Positive bowel sounds soft and nontender without palpable masses or organomegaly. There was no guarding or rebound. Extremities: The upper extremities have excellent pulses they are symmetric, no significant petechiae or telangiectasia. No splinter hemorrhages were noted. The lower extremities are free from significant edema. The peripheral pulses were 2+ and symmetric. Neuro: Awake alert oriented to person place and time. There are no acute new gross focal sensory motor deficits. The patient has hand motion only upon approach I exam which is not new. - Labs CBC & Chem 7: 07/12/16 06:00 07/13/16 06:15 Labs: Abnormal Lab Results - Last 24 Hours (Table) 07/13/16 Range/Units 06:15 Chloride 109 H (98-107) mmol/L Calcium 8.2 L (8.4-10.2) mg/dL Laboratory Results WBC 2.9 k/uL (3.8-10.6) L 07/12/16 06:00 RBC 3.65 m/uL (4.30-5.90) L 07/12/16 06:00 Hgb 12.6 gm/dL (13.0-17.5) L 07/12/16 06:00 Hct 37.6 % (39.0-53.0) L 07/12/16 06:00 MCV 103.1 fL (80.0-100.0) H 07/12/16 06:00 MCH 34.6 pg (25.0-35.0) 07/12/16 06:00 MCHC 33.5 g/dL (31.0-37.0) 07/12/16 06:00 RDW 14.0 % (11.5-15.5) 07/12/16 06:00 Plt Count 80 k/uL (150-450) L 07/12/16 06:00 Neutrophils % 66 % 07/12/16 06:00 Neutrophils % (Manual) 65.0 % 07/09/16 19:28 Band Neutrophils % 2.0 % 07/09/16 19:28 Lymphocytes % 13 % 07/12/16 06:00 Lymphocytes % (Manual) 14.0 % 07/09/16 19:28 Monocytes % 11 % 07/12/16 06:00 Monocytes % (Manual) 15.0 % 07/09/16 19:28 Eosinophils % 5 % 07/12/16 06:00 Eosinophils % (Manual) 4.0 % 07/09/16 19:28 Basophils % 1 % 07/12/16 06:00 Neutrophils # 1.9 k/uL (1.3-7.7) 07/12/16 06:00 Neutrophils # (Manual) 2.1 k/uL (1.3-7.7) 07/09/16 19:28 Lymphocytes # 0.4 k/uL (1.0-4.8) L 07/12/16 06:00 Lymphocytes # (Manual) 0.4 k/uL (1.0-4.8) L 07/09/16 19:28 Monocytes # 0.3 k/uL (0-1.0) 07/12/16 06:00 Monocytes # (Manual) 0.5 k/uL (0-1.0) 07/09/16 19:28 Eosinophils # 0.2 k/uL (0-0.7) 07/12/16 06:00 Eosinophils # (Manual) 0.1 k/uL (0-0.7) 07/09/16 19:28 Basophils # 0.0 k/uL (0-0.2) 07/12/16 06:00 Nucleated RBCs 0 /100 WBC (0-0) 07/09/16 19:28 Polychromasia Present 07/09/16 19:28 Macrocytosis Slight 07/12/16 06:00 Sodium 143 mmol/L (137-145) 07/13/16 06:15 Potassium 3.5 mmol/L (3.5-5.1) 07/13/16 06:15 Chloride 109 mmol/L (98-107) H 07/13/16 06:15 Carbon Dioxide 27 mmol/L (22-30) 07/13/16 06:15 Anion Gap 7 mmol/L 07/13/16 06:15 BUN 10 mg/dL (9-20) 07/13/16 06:15 Creatinine 0.99 mg/dL (0.66-1.25) 07/13/16 06:15 Est GFR (MDRD) Af Amer >60 (>60 ml/min/1.73 sqM) 07/13/16 06:15 Est GFR (MDRD) Non-Af >60 (>60 ml/min/1.73 sqM) 07/13/16 06:15 Glucose 91 mg/dL (74-99) 07/13/16 06:15 Plasma Lactic Acid Carson 0.8 mmol/L (0.7-2.0) 07/09/16 19:28 Calcium 8.2 mg/dL (8.4-10.2) L 07/13/16 06:15 Total Bilirubin 0.7 mg/dL (0.2-1.3) 07/09/16 19:28 AST 40 U/L (17-59) 07/09/16 19:28 ALT 32 U/L (21-72) 07/09/16 19:28 Alkaline Phosphatase 94 U/L (38-126) 07/09/16 19:28 Total Protein 6.0 g/dL (6.3-8.2) L 07/09/16 19:28 Albumin 3.3 g/dL (3.5-5.0) L 07/09/16 19:28 Prealbumin 18 mg/dL (18-36) 07/10/16 07:03 Vancomycin Trough 17.2 ug/mL 07/11/16 05:24 Microbiology 07/09/16 19:28 Blood Blood Culture - Preliminary No Growth after 72 hours Assessment and Plan (1) Preseptal cellulitis of right upper eyelid Narrative/Plan: Pleasant 81-year-old male presents to Hospital with significant swelling some discomfort to the right eye. Given following the outpatient setting with oral antibiotic therapy and topical antibiotic to the eye. There was no severe improvement and constantly was admitted to hospital. He has been seen by ophthalmology without need for surgical intervention. Intravenous antibiotic therapy with vancomycin was started at admission and at the time of the consult ,piperacillin tazobactam was added for coverage of the other pathogens of the upper respiratory tract including pseudomonas given his immunocompromised status. Blood cultures are in process and are negative so far. The patient does have history of lymphoma, in the middle of chemotherapy. He is immunocompromised. We'll check his pre-albumin to assess his nutritional status and supplement as indicated . IgG level also be obtained and supplemented if indicated. The patient has much improvement in his diarrhea. Does not appear to have C. diff at this time. Await the IgG level to determine if he needs an intravenous in the globulin supplement. With a slow improvement would like to have ophthalmology come back to see him once more to ensure that he does not need a surgical incision and drainage to the site for assisting in his improvement. Status: Acute (2) Periorbital cellulitis of right eye Status: Acute (3) Lymphoma Status: Acute (4) Leukopenia Status: Acute
[2016-07-13] MEDS: GENTAMICIN/PREDNISOL AC OPHTH OINT 3.5GM RIGHT EYE SCH (20:50)
[2016-07-13] MEDS: traZODone HCL 100 MG TAB PO SCH (20:50)
[2016-07-13] MEDS: METOPROLOL SUCCINATE (ER) 25 MG TAB.ER.24H PO SCH (20:50)
[2016-07-13] MEDS: ATORVASTATIN 20 MG TAB PO SCH (20:50)
[2016-07-14] MEDS: VANCOMYCIN 1,500 MG in SODIUM CHLORIDE 0.9% 250 ML IVPB SCH ×2 (06:03→19:50)
[2016-07-14 06:40] LABS: Anion Gap 6 mmol/L; Blood Urea Nitrogen 10 mg/dL (9-20); Calcium 8.3 mg/dL (8.4-10.2); Carbon Dioxide 26 mmol/L (22-30); Chloride 110 mmol/L (98-107); Glucose 88 mg/dL (74-99); Non-African American GFR(MDRD) >60 (>60 ml/min/1.73 sqM); Potassium 3.5 mmol/L (3.5-5.1); Sodium 142 mmol/L (137-145)
[2016-07-14] MEDS: PIPERACILLIN-TAZOBACTAM 3.375 GM in DEXTROSE/WATER 1 50ML.BAG IVPB SCH ×3 (07:03→23:48)
[2016-07-14] MEDS: SODIUM CHLORIDE 0.9% 1,000 ML IV SCH (07:05)
[2016-07-14] MEDS: PANTOPRAZOLE 40 MG TABLET PO SCH (07:05)
[2016-07-14] MEDS: ENOXAPARIN 40 MG/0.4 ML SYRINGE SQ SCH (07:06)
[2016-07-14] MEDS: ARTIFICIAL TEARS-HYPROMELLOSE DROPS 15 ML BTL RIGHT EYE SCH ×2 (07:06→19:57)
[2016-07-14] MEDS: SERTRALINE 100 MG TAB PO SCH (07:07)
[2016-07-14] MEDS: LOSARTAN 25 MG TAB PO SCH (07:08)
[2016-07-14] MEDS: ACETAMINOPHEN TAB 325 MG TAB PO PRN ×2 (07:18→21:30)
--- NOTE | 2016-07-14 07:57 | PN ---
DATE OF SERVICE: 07/13/2016 PRESENTING COMPLAINT: Right eye cellulitis. INTERVAL HISTORY: This patient presented with right eye cellulitis having failed outpatient treatment, was on IV antibiotics, not taking his warm compresses. Otherwise, tolerating a diet, comfortable. Vision is chronically down. Review of systems done for constitutional, cardiovascular, GI, pulmonary; relevant findings as above. Current medications are reviewed that include IV Zosyn and vancomycin and eye ointment. On examination, temperature 98, pulse 59, respiratory rate 16, blood pressure 142/70, pulse ox 95% on room air. GENERAL APPEARANCE: Sitting up, not in distress. EYES: Right eyelid is red and swollen from admission. LUNGS: Clear. CARDIOVASCULAR: First and second sounds normal. No edema. ABDOMEN: Soft, nontender. Liver and spleen not palpable. NEUROLOGICAL: Alert and oriented x3. Mood and affect normal. Vision is chronically decreased. INVESTIGATIONS: Potassium 3.5. BUN and Creatinine are normal. ASSESSMENT: 1. Acute infectious inflammation of the right eyelid with ( ) cellulitis having failed outpatient treatment showing clinical response. 2. Coronary artery disease with prior history of stent. 3. Gastroesophageal reflux disease. 4. Hyperlipidemia. 5. Essential hypertension. 6. Lymphoma ( ) getting treated. 7. Retina pigmentosa with peripheral decreased vision. PLAN: Continue current medication and treatment plan. Again the patient was told to use warm eye compress. Follow.
[2016-07-14] MEDS: CHOLESTYRAMINE (WITH SUGAR) 4 GM PACKET PO SCH ×3 (09:26→19:49)
--- NOTE | 2016-07-14 18:53 | P.PN ---
Subjective Principal diagnosis: Right eye pain and swelling Lina 81-year-old male who is a known history of B-cell lymphoma currently receiving chemotherapy. He was due to have some chemotherapy at this point in time. However was put on hold because of his several-day history of increasing pain and swelling to his right eye. 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 Despite oral antibiotic therapy, and ophthalmic antibiotics he was not improving. And because of this was admitted to hospital for further intervention. Chemotherapy is on hold because of his infection. Due to the significant abnormalities on exam and the computed tomography scan the infectious diseases consultation was requested. 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 This developed later in his life and did not stop him from having a long working career. The patient relates he is feeling slightly better. Still having some significant discomfort to the swelling of the eye but the pain is not severe. He's had some chill without significant fever or rigor. The patient had multiple loose stools yesterday. This is now markedly improved. Had one soft stool today. No more diarrhea has occurred and he is feeling considerably better. . He has very little discomfort to the eye but is noting some drainage which is not painful. Drainage is sent for culture Objective - Vital Signs Vital signs: Vital Signs Temp 98.2 F 07/14/16 15:00 Pulse 77 07/14/16 15:00 Resp 16 07/14/16 16:00 BP 177/80 07/14/16 15:00 Pulse Ox 96 07/14/16 15:00 Intake & Output 07/13/16 07/14/16 07/14/16 18:59 06:59 18:59 Intake Total 632 1090 Output Total 800 1100 Balance 632 290 -1100 Weight 89.811 kg Intake: IV 750 Piperacillin-Tazobactam 3 50 .375 gm In Dextrose/Water 1 50ml.bag @ 12.5 mls/hr IVPB 0000,0800,1500 [facility] Rx#:[id number] Sodium Chloride 0.9% 1, 450 000 ml @ 75 mls/hr IV . [id number] [facility] Rx#:[id number] Vancomycin 1,500 mg In 250 Sodium Chloride 0.9% 250 ml @ 125 mls/hr IVPB Q12H [facility] Rx#:[id number] Intake, IV Titration 632 Amount Piperacillin-Tazobactam 3 50 .375 gm In Dextrose/Water 1 50ml.bag @ 12.5 mls/hr IVPB 0000,0800,1500 [facility] Rx#:[id number] Sodium Chloride 0.9% 1, 582 000 ml @ 75 mls/hr IV . [id number] [facility] Rx#:[id number] Oral 340 Output: Urine 800 1100 Other: Voiding Method Urinal Urinal Urinal # Voids 1 - Exam 81-year-old male relates to minimal discomfort but has significant swelling to his right eye. HEENT: Left eye without abnormalities. Right eye shows evidence of the extensive swelling of the upper lid with significant injection of the sclera. There is now some purulent and bloody drainage coming from the upper lid and is most medial aspect. Manipulation of the lid causes some drainage. It is not extremely tender. There is distinct swelling also above the tissue around the upper lid. It does not cross the midline. There is no significant lesions seen on the nares ,below the eye, also no lesions seen on the right auricle or within the external auditory canal. No lesions on the scalp. nasal mucosa grossly intact without significant lesions, there is no thrush. Neck: The neck is supple without significant lymphadenopathy or thyromegaly. Lungs: Good bilateral air entry without significant crackles or wheezing. There is no significant bronchial sounds. There is no egophony or dullness. Heart: Regular rate and rhythm with an audible S1-S2, no S3 no S4. There is no significant murmur click or rub, PMI was nondisplaced. Abdomen: Positive bowel sounds soft and nontender without palpable masses or organomegaly. There was no guarding or rebound. Extremities: The upper extremities have excellent pulses they are symmetric, no significant petechiae or telangiectasia. No splinter hemorrhages were noted. The lower extremities are free from significant edema. The peripheral pulses were 2+ and symmetric. Neuro: Awake alert oriented to person place and time. There are no acute new gross focal sensory motor deficits. The patient has hand motion only upon visual approach on exam which is not new. - Labs CBC & Chem 7: 07/12/16 06:00 07/14/16 06:05 Labs: Abnormal Lab Results - Last 24 Hours (Table) 07/10/16 07/14/16 Range/Units 07:03 06:05 Chloride 110 H (98-107) mmol/L Calcium 8.3 L (8.4-10.2) mg/dL IgM 24 L (40 - 230) mg/dL Laboratory Results WBC 2.9 k/uL (3.8-10.6) L 07/12/16 06:00 RBC 3.65 m/uL (4.30-5.90) L 07/12/16 06:00 Hgb 12.6 gm/dL (13.0-17.5) L 07/12/16 06:00 Hct 37.6 % (39.0-53.0) L 07/12/16 06:00 MCV 103.1 fL (80.0-100.0) H 07/12/16 06:00 MCH 34.6 pg (25.0-35.0) 07/12/16 06:00 MCHC 33.5 g/dL (31.0-37.0) 07/12/16 06:00 RDW 14.0 % (11.5-15.5) 07/12/16 06:00 Plt Count 80 k/uL (150-450) L 07/12/16 06:00 Neutrophils % 66 % 07/12/16 06:00 Neutrophils % (Manual) 65.0 % 07/09/16 19:28 Band Neutrophils % 2.0 % 07/09/16 19:28 Lymphocytes % 13 % 07/12/16 06:00 Lymphocytes % (Manual) 14.0 % 07/09/16 19:28 Monocytes % 11 % 07/12/16 06:00 Monocytes % (Manual) 15.0 % 07/09/16 19:28 Eosinophils % 5 % 07/12/16 06:00 Eosinophils % (Manual) 4.0 % 07/09/16 19:28 Basophils % 1 % 07/12/16 06:00 Neutrophils # 1.9 k/uL (1.3-7.7) 07/12/16 06:00 Neutrophils # (Manual) 2.1 k/uL (1.3-7.7) 07/09/16 19:28 Lymphocytes # 0.4 k/uL (1.0-4.8) L 07/12/16 06:00 Lymphocytes # (Manual) 0.4 k/uL (1.0-4.8) L 07/09/16 19:28 Monocytes # 0.3 k/uL (0-1.0) 07/12/16 06:00 Monocytes # (Manual) 0.5 k/uL (0-1.0) 07/09/16 19:28 Eosinophils # 0.2 k/uL (0-0.7) 07/12/16 06:00 Eosinophils # (Manual) 0.1 k/uL (0-0.7) 07/09/16 19: Basophils # 0.0 k/uL (0-0.2) 07/12/16 06:00 Nucleated RBCs 0 /100 WBC (0-0) 07/09/16 19: Polychromasia Present 07/09/16 19: Macrocytosis Slight 07/12/16 06:00 Sodium 142 mmol/L (137-145) 07/14/16 06:05 Potassium 3.5 mmol/L (3.5-5.1) 07/14/16 06:05 Chloride 110 mmol/L (98-107) H 07/14/16 06:05 Carbon Dioxide 26 mmol/L (22-30) 07/14/16 06:05 Anion Gap 6 mmol/L 07/14/16 06:05 BUN 10 mg/dL (9-20) 07/14/16 06:05 Creatinine 1.00 mg/dL (0.66-1.25) 07/14/16 06:05 Est GFR (MDRD) Af Amer >60 (>60 ml/min/1.73 sqM) 07/14/16 06:05 Est GFR (MDRD) Non-Af >60 (>60 ml/min/1.73 sqM) 07/14/16 06:05 Glucose 88 mg/dL (74-99) 07/14/16 06:05 Plasma Lactic Acid Carson 0.8 mmol/L (0.7-2.0) 07/09/16 19: Calcium 8.3 mg/dL (8.4-10.2) L 07/14/16 06:05 Total Bilirubin 0.7 mg/dL (0.2-1.3) 07/09/16 19: AST 40 U/L (17-59) 07/09/16 19:28 ALT 32 U/L (21-72) 07/09/16 19:28 Alkaline Phosphatase 94 U/L (38-126) 07/09/16 19:28 Total Protein 6.0 g/dL (6.3-8.2) L 07/09/16 19:28 Albumin 3.3 g/dL (3.5-5.0) L 07/09/16 19:28 Prealbumin 18 mg/dL (18-36) 07/10/16 07:03 Vancomycin Trough 17.2 ug/mL 07/11/16 05:24 IgG 825 mg/dL (700 - 1600) 07/10/16 07:03 IgA 179 mg/dL (70 - 400) 07/10/16 07:03 IgM 24 mg/dL (40 - 230) L 07/10/16 07:03 IgE 32.4 IU/mL (<114.0) 07/10/16 07:03 Microbiology 07/09/16 19:28 Blood Blood Culture - Preliminary No Growth after 96 hours Assessment and Plan (1) Preseptal cellulitis of right upper eyelid Narrative/Plan: Pleasant 81-year-old male presents to Hospital with significant swelling some discomfort to the right eye. Given following the outpatient setting with oral antibiotic therapy and topical antibiotic to the eye. There was no severe improvement and constantly was admitted to hospital. He has been seen by ophthalmology without need for surgical intervention. Intravenous antibiotic therapy with vancomycin was started at admission and at the time of the consult ,piperacillin tazobactam was added for coverage of the other pathogens of the upper respiratory tract including pseudomonas given his immunocompromised status. Blood cultures are in process and are negative so far. The patient does have history of lymphoma, in the middle of chemotherapy. He is immunocompromised. We'll check his pre-albumin to assess his nutritional status and supplement as indicated . The patient has much improvement in his diarrhea. Does not appear to have C. diff at this time. IgG level comes back again 825 and the patient does not need intravenous immunoglobulin. With a slow improvement would like to have ophthalmology come back to see him once more to ensure that he does not need a surgical incision and drainage to the site for assisting in his improvement. We'll make arrangements for outpatient intravenous antibiotic therapy. He already has a port in place. Prescription is sent to [facility] for antibiotic therapy. Status: Acute (2) Periorbital cellulitis of right eye Status: Acute (3) Lymphoma Status: Acute (4) Leukopenia Status: Acute
[2016-07-14] MEDS: METOPROLOL SUCCINATE (ER) 25 MG TAB.ER.24H PO SCH (19:54)
[2016-07-14] MEDS: traZODone HCL 100 MG TAB PO SCH ×2 (19:54→19:57)
[2016-07-14] MEDS: GENTAMICIN/PREDNISOL AC OPHTH OINT 3.5GM RIGHT EYE SCH (19:57)
[2016-07-14] MEDS: ATORVASTATIN 20 MG TAB PO SCH (21:31)
--- NOTE | 2016-07-14 22:31 | PN ---
DATE OF SERVICE: 07/14/2016 PRESENTING COMPLAINT: Right eyelid cellulitis. INTERVAL HISTORY: This patient presented with right eyelid cellulitis of the upper lid, having failed outpatient treatment. Continues on IV antibiotics. Pain and swelling continue to go down. Tolerating a diet. Review of systems done for constitutional, cardiovascular, GI, pulmonary; relevant findings as above. Current medications are reviewed that include IV Zosyn and vancomycin. On examination, temperature 97.9, pulse 63, respiration 18, blood pressure 150/72, pulse ox 97% on room air. GENERAL APPEARANCE: Sitting up, comfortable. EYES: Right eyelid is less red and swollen from admission. LUNGS: Clear. CARDIOVASCULAR: First and second sounds normal. No edema. ABDOMEN: Soft, nontender. Liver and spleen not palpable. PSYCHIATRY: Alert and oriented x3. Mood and affect normal. INVESTIGATIONS: Potassium 3.5. ASSESSMENT: 1. Acute infection and inflammation of the right upper eyelid with cellulitis, having failed outpatient treatment. 2. Coronary artery disease with prior history of stent. 3. Gastroesophageal reflux disease. 4. Hyperlipidemia. 5. Essential hypertension. 6. Lymphoma, type unknown, getting treated. 7. Retinitis pigmentosa, chronic, with peripherally decreased vision. PLAN: Continue current medication and treatment plan. Per Dr. Rothman, he is planning to send the patient home on IV antibiotics. Will follow.
[2016-07-15] MEDS: SODIUM CHLORIDE 0.9% 1,000 ML IV SCH ×2 (06:23→11:21)
[2016-07-15] MEDS: VANCOMYCIN 1,500 MG in SODIUM CHLORIDE 0.9% 250 ML IVPB SCH (06:23)
[2016-07-15 08:36] VITALS: BP 149/66; PULSE 57; RESP 18; TEMP 97.5
[2016-07-15] MEDS: ARTIFICIAL TEARS-HYPROMELLOSE DROPS 15 ML BTL RIGHT EYE SCH (08:37)
[2016-07-15] MEDS: PIPERACILLIN-TAZOBACTAM 3.375 GM in DEXTROSE/WATER 1 50ML.BAG IVPB SCH (08:37)
[2016-07-15] MEDS: ENOXAPARIN 40 MG/0.4 ML SYRINGE SQ SCH (08:37)
[2016-07-15] MEDS: PANTOPRAZOLE 40 MG TABLET PO SCH (08:38)
[2016-07-15] MEDS: SERTRALINE 100 MG TAB PO SCH (08:38)
[2016-07-15] MEDS: CHOLESTYRAMINE (WITH SUGAR) 4 GM PACKET PO SCH (08:38)
[2016-07-15] MEDS: LOSARTAN 25 MG TAB PO SCH (08:38)
--- NOTE | 2016-07-15 19:14 | P.PN ---
Subjective Principal diagnosis: Right eye pain and swelling Pleasant 81-year-old male who is a known history of B-cell lymphoma currently receiving chemotherapy. He was due to have some chemotherapy at this point in time. However was put on hold because of his several-day history of increasing pain and swelling to his right eye. 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 Despite oral antibiotic therapy, and ophthalmic antibiotics he was not improving. And because of this was admitted to hospital for further intervention. Chemotherapy is on hold because of his infection. Due to the significant abnormalities on exam and the computed tomography scan the infectious diseases consultation was requested. 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 This developed later in his life and did not stop him from having a long working career. The patient relates he is feeling slightly better. Still having some significant discomfort to the swelling of the eye but the pain is not severe. He's had some chill without significant fever or rigor. The patient had multiple loose stools yesterday. This is now markedly improved. Had one soft stool today. No more diarrhea has occurred and he is feeling considerably better. . He has very little discomfort to the eye but is noting some drainage which is not painful. Drainage is sent for culture Objective - Vital Signs Vital signs: Vital Signs Temp 97.5 F L 07/15/16 07:00 Pulse 57 L 07/15/16 07:00 Resp 18 07/15/16 07:00 BP 149/66 07/15/16 07:00 Pulse Ox 96 07/15/16 07:00 Intake & Output 07/15/16 07/15/16 07/16/16 06:59 18:59 06:59 Intake Total 1180 350 Output Total 700 200 Balance 480 150 Intake: IV 350 Piperacillin-Tazobactam 3 50 .375 gm In Dextrose/Water 1 50ml.bag @ 12.5 mls/hr IVPB 0000,0800,1500 [facility] Rx#:[id number] Sodium Chloride 0.9% 1, 300 000 ml @ 75 mls/hr IV . [id number] MANDY Rx#:[id number] Oral 1180 Output: Urine 700 200 Other: Voiding Method Urinal # Voids 1 # Bowel Movements 1 - Exam 81-year-old male relates to minimal discomfort but has significant swelling to his right eye. HEENT: Left eye without abnormalities. Right eye shows evidence of the extensive swelling of the upper lid with significant injection of the sclera. There is now some purulent and bloody drainage coming from the upper lid and is most medial aspect. Manipulation of the lid causes some drainage. It is not extremely tender. The swelling around the eye has generally resolved now only significant swelling left lid itself There is no significant lesions seen on the nares ,below the eye, also no lesions seen on the right auricle or within the external auditory canal. No lesions on the scalp. nasal mucosa grossly intact without significant lesions, there is no thrush. Neck: The neck is supple without significant lymphadenopathy or thyromegaly. Lungs: Good bilateral air entry without significant crackles or wheezing. There is no significant bronchial sounds. There is no egophony or dullness. Heart: Regular rate and rhythm with an audible S1-S2, no S3 no S4. There is no significant murmur click or rub, PMI was nondisplaced. Abdomen: Positive bowel sounds soft and nontender without palpable masses or organomegaly. There was no guarding or rebound. Extremities: The upper extremities have excellent pulses they are symmetric, no significant petechiae or telangiectasia. No splinter hemorrhages were noted. The lower extremities are free from significant edema. The peripheral pulses were 2+ and symmetric. Neuro: Awake alert oriented to person place and time. There are no acute new gross focal sensory motor deficits. The patient has hand motion only upon visual approach on exam which is not new. - Labs CBC & Chem 7: 07/12/16 06:00 07/14/16 06:05 Labs: Microbiology - Last 24 Hours (Table) 07/14/16 15:45 Gram Stain - Preliminary Eye - Right Wound Culture - Preliminary Laboratory Results WBC 2.9 k/uL (3.8-10.6) L 07/12/16 06:00 RBC 3.65 m/uL (4.30-5.90) L 07/12/16 06:00 Hgb 12.6 gm/dL (13.0-17.5) L 07/12/16 06:00 Hct 37.6 % (39.0-53.0) L 07/12/16 06:00 MCV 103.1 fL (80.0-100.0) H 07/12/16 06:00 MCH 34.6 pg (25.0-35.0) 07/12/16 06:00 MCHC 33.5 g/dL (31.0-37.0) 07/12/16 06:00 RDW 14.0 % (11.5-15.5) 07/12/16 06:00 Plt Count 80 k/uL (150-450) L 07/12/16 06:00 Neutrophils % 66 % 07/12/16 06:00 Neutrophils % (Manual) 65.0 % 07/09/16 19:28 Band Neutrophils % 2.0 % 07/09/16 19:28 Lymphocytes % 13 % 07/12/16 06:00 Lymphocytes % (Manual) 14.0 % 07/09/16 19:28 Monocytes % 11 % 07/12/16 06:00 Monocytes % (Manual) 15.0 % 07/09/16 19:28 Eosinophils % 5 % 07/12/16 06:00 Eosinophils % (Manual) 4.0 % 07/09/16 19:28 Basophils % 1 % 07/12/16 06:00 Neutrophils # 1.9 k/uL (1.3-7.7) 07/12/16 06:00 Neutrophils # (Manual) 2.1 k/uL (1.3-7.7) 07/09/16 19:28 Lymphocytes # 0.4 k/uL (1.0-4.8) L 07/12/16 06:00 Lymphocytes # (Manual) 0.4 k/uL (1.0-4.8) L 07/09/16 19:28 Monocytes # 0.3 k/uL (0-1.0) 07/12/16 06:00 Monocytes # (Manual) 0.5 k/uL (0-1.0) 07/09/16 19:28 Eosinophils # 0.2 k/uL (0-0.7) 07/12/16 06:00 Eosinophils # (Manual) 0.1 k/uL (0-0.7) 07/09/16 19:28 Basophils # 0.0 k/uL (0-0.2) 07/12/16 06:00 Nucleated RBCs 0 /100 WBC (0-0) 07/09/16 19:28 Polychromasia Present 07/09/16 19:28 Macrocytosis Slight 07/12/16 06:00 Sodium 142 mmol/L (137-145) 07/14/16 06:05 Potassium 3.5 mmol/L (3.5-5.1) 07/14/16 06:05 Chloride 110 mmol/L (98-107) H 07/14/16 06:05 Carbon Dioxide 26 mmol/L (22-30) 07/14/16 06:05 Anion Gap 6 mmol/L 07/14/16 06:05 BUN 10 mg/dL (9-20) 07/14/16 06:05 Creatinine 1.00 mg/dL (0.66-1.25) 07/14/16 06:05 Est GFR (MDRD) Af Amer >60 (>60 ml/min/1.73 sqM) 07/14/16 06:05 Est GFR (MDRD) Non-Af >60 (>60 ml/min/1.73 sqM) 07/14/16 06:05 Glucose 88 mg/dL (74-99) 07/14/16 06:05 Plasma Lactic Acid Carson 0.8 mmol/L (0.7-2.0) 07/09/16 19:28 Calcium 8.3 mg/dL (8.4-10.2) L 07/14/16 06:05 Total Bilirubin 0.7 mg/dL (0.2-1.3) 07/09/16 19:28 AST 40 U/L (17-59) 07/09/16 19:28 ALT 32 U/L (21-72) 07/09/16 19:28 Alkaline Phosphatase 94 U/L (38-126) 07/09/16 19:28 Total Protein 6.0 g/dL (6.3-8.2) L 07/09/16 19:28 Albumin 3.3 g/dL (3.5-5.0) L 07/09/16 19:28 Prealbumin 18 mg/dL (18-36) 07/10/16 07:03 Vancomycin Trough 17.2 ug/mL 07/11/16 05:24 IgG 825 mg/dL (700 - 1600) 07/10/16 07:03 IgA 179 mg/dL (70 - 400) 07/10/16 07:03 IgM 24 mg/dL (40 - 230) L 07/10/16 07:03 IgE 32.4 IU/mL (<114.0) 07/10/16 07:03 Microbiology 07/14/16 15:45 Eye - Right Gram Stain - Preliminary 07/14/16 15:45 Eye - Right Wound Culture - Preliminary 07/09/16 19:28 Blood Blood Culture - Preliminary No Growth after 120 hours Assessment and Plan (1) Preseptal cellulitis of right upper eyelid Narrative/Plan: Pleasant 81-year-old male presents to Hospital with significant swelling some discomfort to the right eye. Given following the outpatient setting with oral antibiotic therapy and topical antibiotic to the eye. There was no severe improvement and constantly was admitted to hospital. He has been seen by ophthalmology without need for surgical intervention. Intravenous antibiotic therapy with vancomycin was started at admission and at the time of the consult ,piperacillin tazobactam was added for coverage of the other pathogens of the upper respiratory tract including pseudomonas given his immunocompromised status. Blood cultures are in process and are negative so far. The patient does have history of lymphoma, in the middle of chemotherapy. He is immunocompromised. We'll check his pre-albumin to assess his nutritional status and supplement as indicated . The patient has much improvement in his diarrhea. Does not appear to have C. diff at this time. IgG level comes back again 825 and the patient does not need intravenous immunoglobulin. With a slow improvement would like to have ophthalmology come back to see him once more to ensure that he does not need a surgical incision and drainage to the site for assisting in his improvement. We'll follow-up with ophthalmology as an outpatient We'll make arrangements for outpatient intravenous antibiotic therapy. He already has a port in place. She did receive Invanz 1 g daily follow up in the office within 2 weeks. Status: Acute (2) Periorbital cellulitis of right eye Status: Acute (3) Lymphoma Status: Acute (4) Leukopenia Status: Acute
--- NOTE | 2016-07-16 08:52 | DS ---
DATE OF ADMISSION: 07/09/2016 DATE OF DISCHARGE: 07/15/2016 FINAL DIAGNOSES: 1. Acute severe right upper eyelid cellulitis, having failed outpatient treatment. 2. Coronary artery disease with prior history of stent. 3. Gastroesophageal reflux disease. 4. Hyperlipidemia. 5. Essential hypertension. 6. Lymphoma type unknown, getting treated as an outpatient. 7. Retinitis pigmentosa chronic with peripherally decreased vision. HOSPITAL COURSE: This patient presented with right upper eyelid severe cellulitis having failed outpatient took course of antibiotics. Patient was given IV Zosyn and vancomycin here and warm compresses, doing much better at the time of discharge. CONSULTATIONS: 1. Dr. Godinez from Ophthalmology. 2. Dr. Rothman from Infectious Disease. 3. Dr. Martin from Oncology. 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 Patient to follow up with Dr. Godinez on 07/17/2016; Dr. Marta Ignacio on 07/22/2016 and follow with his oncologist. LABS: CBC, BMP as ordered. DISCHARGE MEDICATIONS: 1. Cozaar 25 mg a day. 2. Toprol-XL 25 mg q.h.s. 3. Omeprazole 20 mg a day. 4. Zocor 40 mg at bedtime. 5. Desyrel 100 mg q.h.s. 6. Prednisone-G S.O.P. eye ointment 1 application right eye q.h.s. 7. Gluten Aid 1 tablet p.o. daily. 8. Systane 0.3-0.4% eye drop, 1 drop to right eye b.i.d. 9. Zoloft 100 mg p.o. daily. 10. Invanz 1 gm IV piggyback q.24 for 10 days. 11. Questran 4 gm p.o. t.i.d. 30 packets. [facility] to follow.
--- NOTE | 2016-08-05 14:52 | DS ---
ADDENDUM: DATE OF ADMISSION: 07/09/2016 DATE OF DISCHARGE: 07/15/2016 On examination, the right eyelid is swollen, slightly tender. Patient is able to answer questions. This is a ( ) examination upon discharge.
== END 2016-07-15 16:30 | disposition home health service (06) | DRG 603 ==
LOC: EC 16:25 → 3SUR 21:45 → 5ONC 07-11 11:15
PROVIDERS: ADMIT Hospitalist; ATTEND Hospitalist
DX: L03.213 Periorbital cellulitis (principal); C85.98 Non-Hodgkin lymphoma, unspecified, lymph nodes of multiple sites; I10 Essential (primary) hypertension; I25.10 Atherosclerotic heart disease of native coronary artery without angina pectoris; R19.7 Diarrhea, unspecified; H35.52 Pigmentary retinal dystrophy; H91.90 Unspecified hearing loss, unspecified ear; D72.819 Decreased white blood cell count, unspecified; T45.1X5A Adverse effect of antineoplastic and immunosuppressive drugs, initial encounter; K21.9 Gastro-esophageal reflux disease without esophagitis; E78.5 Hyperlipidemia, unspecified; H54.8 Legal blindness, as defined in USA; R51 Headache; R68.83 Chills (without fever); Z95.5 Presence of coronary angioplasty implant and graft; Z79.2 Long term (current) use of antibiotics; Z79.1 Long term (current) use of non-steroidal anti-inflammatories (NSAID); Z88.8 Allergy status to other drugs, medicaments and biological substances; Z92.21 Personal history of antineoplastic chemotherapy; Z82.3 Family history of stroke; Z82.49 Family history of ischemic heart disease and other diseases of the circulatory system; Z90.81 Acquired absence of spleen; Z87.81 Personal history of (healed) traumatic fracture; Z79.899 Other long term (current) drug therapy; Z92.3 Personal history of irradiation; Z85.820 Personal history of malignant melanoma of skin
CPT/HCPCS: 36415; 70481; 80048; 80053; 80202; 82784; 82785; 83605; 84134; 85025; 87040; 87070; 87205; 96365; 96366; 99284

== ENCOUNTER 2016-07-27 12:35 | Inpatient (IN) | payer MEDICARE ==
--- NOTE | 2016-07-27 13:13 | ED ---
General Adult HPI - General Chief complaint: Urogenital Stated complaint: Poss UTI Time Seen by Provider: 07/27/16 12:48 Source: patient, family, RN notes reviewed Mode of arrival: wheelchair Limitations: no limitations - History of Present Illness Initial comments: This is an 81-year-old male presents emergency with family chief complaint of urinary frequency, confusion and hallucinations. Family states that he's been hallucinating at home has been more confused than usual over the last week. Patient recently stopped IV antibiotics for right orbital cellulitis. Patient was on Invanz. Patient scheduled see an proposal specialist for his right eyelid secondary to large hematoma. Patient's states that he has no history of urinary tract infections. Patient has had some urinary incontinence. Patient denies abdominal pain, nausea, vomiting diarrhea constipation. Denies fever, chills. Patient does have lymphoma and currently sees Dr. Zuleta. Patient was scheduled for his last treatment though they postponed it secondary to his recent infections. - Related Data Home Medications Medication Instructions Recorded Confirmed Losartan [Cozaar] 25 mg PO DAILY 12/07/15 07/27/16 Metoprolol Succinate (ER) [Toprol 25 mg PO HS 12/07/15 07/27/16 XL] Omeprazole 20 mg PO DAILY 12/07/15 07/27/16 Simvastatin [Zocor] 40 mg PO HS 12/07/15 07/27/16 traZODone HCL [Desyrel] 100 mg PO HS 12/07/15 07/27/16 Gentamicin/Prednisol AC [Pred-G 1 applicate RIGHT EYE HS 07/09/16 07/27/16 S.O.P. Eye Ointment] Gluten Aid 1 tab PO DAILY 07/09/16 07/27/16 Naproxen Na-Diphenhydramin HCl 1 tab PO HS PRN 07/09/16 07/27/16 [Aleve Pm Caplet] Propylene Glycol/Peg 400/Pf 1 dropper RIGHT EYE BID 07/09/16 07/27/16 [Systane 0.3-0.4% Eye Drops] Sertraline [Zoloft] 100 mg PO QAM 07/09/16 07/27/16 Nystatin 100,000 Unit/ml Susp 1,000,000 unit PO QID 07/27/16 07/27/16 [Mycostatin Oral Susp] Previous Rx's Medication Instructions Recorded Ertapenem [INVanz] 1 gm IVPB Q24H #10 bag 07/14/16 Cholestyramine (with Sugar) 4 gm PO TID BETWEEN MEALS #30 07/15/16 [Questran Packet] packet Allergies Allergy/AdvReac Type Severity Reaction Status Date / Time gluten AdvReac Severe Diarrhea Verified 07/27/16 13:02 Review of Systems ROS Statement: Those systems with pertinent positive or pertinent negative responses have been documented in the HPI. ROS Other: All systems not noted in ROS Statement are negative. 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 HX MELANOMA CHEST. UCHE RETINITIS PIGMENTOSIS, LOSS OF PERIPHERAL VISION, LEGALLY BLIND. SL H[place]IL[place]. History of Any Multi-Drug Resistant Organisms: None Reported Past Surgical History: Heart Catheterization With Stent, Hernia Repair, Orthopedic Surgery, Tonsillectomy Additional Past Surgical History / Comment(s): EXC RFA, LYMPH NODE RESECTION, SPLENECTOMY 1974. UCHE ING HERNIA. ORIF RT ELBOW. Past Anesthesia/Blood Transfusion Reactions: No Reported Reaction Additional Past Anesthesia/Blood Transfusion Reaction / Comment(s): NO HISTORY OF BLOOD TRANSFUSION Date of Last Stent Placement:: 2009 Past Psychological History: No Psychological Hx Reported Additional Psychological History / Comment(s): Retired from [employer]. has adult son and [id number] who he lives with. Was in the [employer] stationed in [place]. Denies tobacco use or alcohol use. No recreational drug use. No animal exposures. 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 Absent: normal appearance (Large hematoma noted of the right eyelid), scleral icterus, conjunctival injection, periorbital swelling ENT exam: Present: normal exam, normal oropharynx, mucous membranes moist, TM's normal bilaterally, normal external ear exam Neck exam: Present: normal inspection, full ROM. Absent: tenderness, meningismus, lymphadenopathy Respiratory exam: Present: normal lung sounds bilaterally. Absent: respiratory distress, wheezes, rales, rhonchi, stridor Cardiovascular Exam: Present: regular rate, normal rhythm, normal heart sounds. Absent: systolic murmur, diastolic murmur, rubs, gallop, clicks GI/Abdominal exam: Present: soft, normal bowel sounds. Absent: distended, tenderness, guarding, rebound, rigid Back exam: Absent: CVA tenderness (R), CVA tenderness (L) Neurological exam: Present: alert, oriented X3, CN II-XII intact Skin exam: Present: warm, dry, intact, normal color. Absent: rash Course Vital Signs 07/27/16 07/27/16 12:40 13:14 Temperature 98.1 F 98 F Pulse Rate 71 71 Respiratory 18 18 Rate Blood Pressure 135/69 162/89 O2 Sat by Pulse 97 Oximetry Medical Decision Making - Lab Data Result diagrams: 07/27/16 13:09 07/27/16 13:09 Lab Results 07/27/16 07/27/16 07/27/16 Range/Units 13:09 13:09 13:09 WBC 3.2 L (3.8-10.6) k/uL RBC 3.63 L (4.30-5.90) m/uL Hgb 12.5 L (13.0-17.5) gm/dL Hct 37.5 L (39.0-53.0) % MCV 103.3 H (80.0-100.0) fL MCH 34.5 (25.0-35.0) pg MCHC 33.4 (31.0-37.0) g/dL RDW 14.2 (11.5-15.5) % Plt Count 149 L (150-450) k/uL Neutrophils % (Manual) 65.5 % Band Neutrophils % 4.0 % Lymphocytes % (Manual) 11.5 % Monocytes % (Manual) 15.0 % Eosinophils % (Manual) 3.0 % Metamyelocytes % 1.0 % Neutrophils # (Manual) 2.2 (1.3-7.7) k/uL Lymphocytes # (Manual) 0.4 L (1.0-4.8) k/uL Monocytes # (Manual) 0.5 (0-1.0) k/uL Eosinophils # (Manual) 0.1 (0-0.7) k/uL Nucleated RBCs 0 (0-0) /100 WBC Manual Slide Review Performed Macrocytosis Slight PT (9.0-12.0) sec INR (<1.1) APTT (22.0-30.0) sec Sodium 141 (137-145) mmol/L Potassium 4.1 (3.5-5.1) mmol/L Chloride 104 (98-107) mmol/L Carbon Dioxide 27 (22-30) mmol/L Anion Gap 10 mmol/L BUN 19 (9-20) mg/dL Creatinine 1.50 H (0.66-1.25) mg/dL Est GFR (MDRD) Af Amer 54 (>60 ml/min/1.73 sqM) Est GFR (MDRD) Non-Af 45 (>60 ml/min/1.73 sqM) Glucose 104 H (74-99) mg/dL Plasma Lactic Acid Carson 1.0 (0.7-2.0) mmol/L Calcium 9.0 (8.4-10.2) mg/dL Total Bilirubin 0.7 (0.2-1.3) mg/dL AST 53 (17-59) U/L ALT 46 (21-72) U/L Alkaline Phosphatase 100 (38-126) U/L Total Protein 6.0 L (6.3-8.2) g/dL Albumin 3.4 L (3.5-5.0) g/dL Urine Color Urine Appearance (Clear) Urine pH (5.0-8.0) Ur Specific [place] (1.001-1.035) Urine Protein (Negative) Urine Glucose (UA) (Negative) Urine Ketones (Negative) Urine Blood (Negative) Urine Nitrate (Negative) Urine Bilirubin (Negative) Urine Urobilinogen (<2.0) mg/dL Ur Leukocyte Esterase (Negative) Urine RBC (0-5) /hpf Urine WBC (0-5) /hpf Ur Squamous Epith Cells (0-4) /hpf Urine Bacteria (None) /hpf Urine Mucus (None) /hpf 07/27/16 07/27/16 Range/Units 13:09 13:09 WBC (3.8-10.6) k/uL RBC (4.30-5.90) m/uL Hgb (13.0-17.5) gm/dL Hct (39.0-53.0) % MCV (80.0-100.0) fL MCH (25.0-35.0) pg MCHC (31.0-37.0) g/dL RDW (11.5-15.5) % Plt Count (150-450) k/uL Neutrophils % (Manual) % Band Neutrophils % % Lymphocytes % (Manual) % Monocytes % (Manual) % Eosinophils % (Manual) % Metamyelocytes % % Neutrophils # (Manual) (1.3-7.7) k/uL Lymphocytes # (Manual) (1.0-4.8) k/uL Monocytes # (Manual) (0-1.0) k/uL Eosinophils # (Manual) (0-0.7) k/uL Nucleated RBCs (0-0) /100 WBC Manual Slide Review Macrocytosis PT 11.8 (9.0-12.0) sec INR 1.2 (<1.1) APTT 28.1 (22.0-30.0) sec Sodium (137-145) mmol/L Potassium (3.5-5.1) mmol/L Chloride (98-107) mmol/L Carbon Dioxide (22-30) mmol/L Anion Gap mmol/L BUN (9-20) mg/dL Creatinine (0.66-1.25) mg/dL Est GFR (MDRD) Af Amer (>60 ml/min/1.73 sqM) Est GFR (MDRD) Non-Af (>60 ml/min/1.73 sqM) Glucose (74-99) mg/dL Plasma Lactic Acid Carson (0.7-2.0) mmol/L Calcium (8.4-10.2) mg/dL Total Bilirubin (0.2-1.3) mg/dL AST (17-59) U/L ALT (21-72) U/L Alkaline Phosphatase (38-126) U/L Total Protein (6.3-8.2) g/dL Albumin (3.5-5.0) g/dL Urine Color Yellow Urine Appearance Clear (Clear) Urine pH 5.5 (5.0-8.0) Ur Specific [place] 1.010 (1.001-1.035) Urine Protein Negative (Negative) Urine Glucose (UA) Negative (Negative) Urine Ketones Negative (Negative) Urine Blood Small H (Negative) Urine Nitrate Negative (Negative) Urine Bilirubin Negative (Negative) Urine Urobilinogen <2.0 (<2.0) mg/dL Ur Leukocyte Esterase Negative (Negative) Urine RBC 16 H (0-5) /hpf Urine WBC 2 (0-5) /hpf Ur Squamous Epith Cells <1 (0-4) /hpf Urine Bacteria Rare H (None) /hpf Urine Mucus Rare H (None) /hpf Disposition Clinical Impression: Hallucinations, Intermittent confusion, Lymphoma, Traumatic hematoma of eyelid Disposition: ADMITTED IP TO THIS HOSP Condition: Fair Referrals: Marta Ignacio MD [Primary Care Provider] - 1-2 days Decision to Admit Reason: Admit from EC Decision Date: 07/27/16 Decision Time: 15:40
[2016-07-27 13:31] LABS: HCT 37.5 % (39.0-53.0); HDW 2.39; HGB 12.5 gm/dL (13.0-17.5); Immature Gran Flag Marked; MCH 34.5 pg (25.0-35.0); MCHC 33.4 g/dL (31.0-37.0); MCV 103.3 fL (80.0-100.0); Macrocytosis Slight; Mean Platelet Volume 8.3; RBC 3.63 m/uL (4.30-5.90); RDW 14.2 % (11.5-15.5); WBC 3.2 k/uL (3.8-10.6); WBC (Perox) 3.57
[2016-07-27 13:38] LABS: Appearance,Urine Clear (Clear); Bacteria,Urine Rare /hpf; Bilirubin,Urine Negative (Negative); Glucose,Urine (UA) Negative (Negative); Ketones,Urine Negative (Negative); Leukocyte Esterase,Urine Negative (Negative); Mucus,Urine Rare /hpf; Nitrite,Urine Negative (Negative); PH, Urine 5.5 (5.0-8.0); Particle Count 1760; Protein,Urine Negative (Negative); RBC,Urine 16 /hpf (0-5); Squamous Epithelial Cell,Urine <1 /hpf (0-4); UA Billing (MACRO vs. MICRO) MICRO; Urobilinogen,Urine <2.0 mg/dL (<2.0); WBC,Urine 2 /hpf (0-5)
[2016-07-27 13:42] LABS: Potassium 4.1 mmol/L (3.5-5.1); Total Bilirubin 0.7 mg/dL (0.2-1.3)
[2016-07-27 13:50] LABS: INR 1.2 (<1.1); Partial Thromboplastin Time 28.1 sec (22.0-30.0); Prothrombin Time 11.8 sec (9.0-12.0)
[2016-07-27 13:55] LABS: Add Differential Manual Differential
[2016-07-27 14:02] LABS: Nucleated Red Blood Cells 0 /100 WBC (0-0); Total Cells Counted 200
[2016-07-27 14:04] LABS: Manual Review Performed
--- NOTE | 2016-07-27 14:38 | CT ---
EXAMINATION TYPE: CT brain wo con DATE OF EXAM: 07/27/2016 2:11 PM COMPARISON: CT orbits July 09, 2016 HISTORY: Decreased mental status. History of lymphoma. Hallucinations. CT DLP: 1090.4 mGycm. Automated Exposure Control for Dose Reduction was Utilized. FINDINGS: There is no acute intracranial hemorrhage or midline shift identified. There is diffuse v entricular and sulcal prominence consistent with diffuse age-related cerebral atrophy. There is low- attenuation in the periventricular white matter consistent with chronic small vessel ischemic change. Focus of hyperdensity left paraventricular level is nonspecific favor dural calcification, acute int raparenchymal hemorrhage felt less likely as is not significantly hyperdense. There are bilateral fro ntal more holes. The paranasal sinuses are clear. There is curvilinear heterogeneous soft tissue dens ity anterior to the right globe causing mass effect redemonstrated. Etiology uncertain. No signific ant change from prior study is seen. Patchy soft tissue density bilateral external auditory canals li art reflects cerumen. IMPRESSION: No acute intracranial hemorrhage or midline shift. There is mild to moderate diffuse ag e-related cerebral atrophy and moderate chronic small vessel ischemic change noted. Prominent right p reseptal soft tissue or hyperdense fluid redemonstrated surrounding the anterior aspect right globe, etiology uncertain.
--- NOTE | 2016-07-27 14:45 | CT ---
EXAMINATION TYPE: CT abdomen pelvis wo con DATE OF EXAM: 07/27/2016 2:11 PM HISTORY: Increased frequency of urination. Known lymphoma. CT DLP: 477.3 mGycm. Automated Exposure Control for Dose Reduction was Utilized. TECHNIQUE: CT scan of the abdomen and pelvis is performed without oral or IV contrast. COMPARISON: PET/CT March 29, 2016 FINDINGS: Within the limitations of a non-contrast study, the following observations are made. LUNG BASES: Dependent atelectatic change is present. Coronary artery calcification or stent in the ri ght coronary distribution is redemonstrated. LIVER/GB: No significant abnormality is appreciated. PANCREAS: Surgical clips surrounding pancreatic head are redemonstrated. SPLEEN: Multiple splenules or splenosis is redemonstrated ADRENALS: No significant abnormality is seen. KIDNEYS: There are scattered simple appearing cysts and nonobstructing renal calculi bilaterally. The re is some cortical thinning in both kidneys. No hydronephrosis is evident bilaterally. BOWEL: Evaluation bowel is suboptimal due to lack of enteric contrast. There is no suspicious small o r large bowel dilatation seen. There are diverticula sigmoid colon without CT evidence for acute dive rticulitis. GENITAL ORGANS: Central zone calcifications are seen in prostate gland. Higher dense round lesions co uld reflect brachii therapy seeds. LYMPH NODES: There is abnormal right groin lymph node on axial image 90 measuring 2.5 x 1.6 cm on cur rent study increased in size from prior. Second enlarged lymph node inferiorly on axial image 102 is noted. There are surgical clips along left iliac chain vessels. OSSEOUS STRUCTURES: There is disc space narrowing L2-L3 and L5-S1 levels with vacuum disc phenomenon present. OTHER: There is narrow neck ventral wall hernia containing fat and mesenteric vessels just above umbi licus redemonstrated on axial image 51 IMPRESSION: 1. Redemonstration of nonobstructing bilateral renal calculi bilaterally. No hydronephrosis is eviden t bilaterally. 2. Increasing right groin adenopathy is consistent with neoplastic or lymphoma progression.
[2016-07-27] MEDS ORDERED: NALOXONE 0.4 MG/ML 1 ML VIAL IV PRN (15:40)
[2016-07-27 18:14] VITALS: BMI 23.2
[2016-07-27] MEDS ORDERED: ACETAMINOPHEN TAB 500 MG TAB PO STA (21:14)
[2016-07-27] MEDS ORDERED: NAPROXEN NA DIPHENHYDRAMIN HCL PO PRN (23:06)
[2016-07-27] MEDS: traZODone HCL 100 MG TAB PO SCH (23:31)
[2016-07-27] MEDS: ARTIFICIAL TEARS-HYPROMELLOSE DROPS 15 ML BTL RIGHT EYE SCH (23:32)
[2016-07-28] MEDS: METOPROLOL SUCCINATE (ER) 25 MG TAB.ER.24H PO SCH ×2 (00:19→21:38)
[2016-07-28] MEDS: ATORVASTATIN 20 MG TAB PO SCH ×2 (01:39→22:37)
[2016-07-28] MEDS ORDERED: ERTAPENEM 1 GM VIAL IVPB SCH ×2 (09:00→11:15)
[2016-07-28] MEDS: PANTOPRAZOLE 40 MG TABLET PO SCH (09:37)
[2016-07-28] MEDS: LOSARTAN 25 MG TAB PO SCH (09:37)
[2016-07-28] MEDS: SERTRALINE 100 MG TAB PO SCH (09:37)
[2016-07-28] MEDS: CHOLESTYRAMINE (WITH SUGAR) 4 GM PACKET PO SCH ×2 (09:37→16:44)
[2016-07-28] MEDS: NYSTATIN 100,000 UNIT/ML SUSP 500,000 UNIT/5 ML CUP PO SCH ×4 (09:37→21:38)
--- NOTE | 2016-07-28 17:33 | P.CONS ---
History of Present Illness - Reason for Consult Consult date: 07/28/16 B cell lymphoma, chemotherapy Requesting physician: Glenn Hope - Chief Complaint confusion, AMS - History of Present Illness Mr. Coley is a very pleasant male pt of Dr. Penn who was initially diagnosed with Lymphoma in 1974. He presented with a large mass on medial aspect of R forearm, this was resected with right axillary lymph node dissection and splenectomy with adjuvant radiation RUE and R axilla. He presented to his PCP Dr. Ignacio in October of 2015 with c/o painless, enlarging cervical nodules, then referred to Dr. Sapp, CT scan was suggestive of multiple lymph node involvement, suspect recurrent lymphoma, FNA on 11/15/15 path revealed large B-Cell Lymphoma, pt was otherwise asymptomatic. He started Rituxan/Bendeka in November of 2015, follow up PET after 4 treatments showed significant improvement and he has now had 7 of 8 cycles, with decent tolerance to treatment. Unfortunately in May pt started having right eye pain and redness , he was treated for conjunctivitis without improvement and actually has had progression of symptoms over the last few weeks, he was being seen by eye doctor out patient and being treated with otic agents. Pt was brought to the hospital with hallucinations x 1 week, he was also feeling dizzy and unstable, he denies fevers, nasuea, vomiting, diarrhea. He feels ok today, his eye is not hurting at this time. He is not confused today. 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 HX MELANOMA CHEST. UCHE RETINITIS PIGMENTOSIS, LOSS OF PERIPHERAL VISION, LEGALLY BLIND. LOWER BRULE. History of Any Multi-Drug Resistant Organisms: None Reported Past Surgical History: Heart Catheterization With Stent, Hernia Repair, Orthopedic Surgery, Tonsillectomy Additional Past Surgical History / Comment(s): EXC RFA, LYMPH NODE RESECTION, SPLENECTOMY 1974. UCHE ING HERNIA. ORIF RT ELBOW. Past Anesthesia/Blood Transfusion Reactions: No Reported Reaction Additional Past Anesthesia/Blood Transfusion Reaction / Comm: NO HISTORY OF BLOOD TRANSFUSION Date of Last Stent Placement:: 2009 Past Psychological History: No Psychological Hx Reported Additional Psychological History / Comment(s): Retired from [employer]. has adult son and [id number] who he lives with. Was in the [employer] stationed in [place]. Denies tobacco use or alcohol use. No recreational drug use. No animal exposures. Works in [employer] for [employer] Smoking Status: Never smoker Past Alcohol Use History: None Reported Past Drug Use History: None Reported - Past Family History Mother Family Medical History: No Reported History Father Family Medical History: CVA/TIA, Deep Vein Thrombosis (DVT) Medications and Allergies Home Medications Medication Instructions Recorded Confirmed Type Losartan [Cozaar] 25 mg PO DAILY 12/07/15 07/27/16 History Metoprolol Succinate (ER) [Toprol 25 mg PO HS 12/07/15 07/27/16 History XL] Omeprazole 20 mg PO DAILY 12/07/15 07/27/16 History Simvastatin [Zocor] 40 mg PO HS 12/07/15 07/27/16 History traZODone HCL [Desyrel] 100 mg PO HS 12/07/15 07/27/16 History Gentamicin/Prednisol AC [Pred-G 1 applicate RIGHT EYE HS 07/09/16 07/27/16 History S.O.P. Eye Ointment] Gluten Aid 1 tab PO DAILY 07/09/16 07/27/16 History Naproxen Na-Diphenhydramin HCl 1 tab PO HS PRN 07/09/16 07/27/16 History [Aleve Pm Caplet] Propylene Glycol/Peg 400/Pf 1 dropper RIGHT EYE BID 07/09/16 07/27/16 History [Systane 0.3-0.4% Eye Drops] Sertraline [Zoloft] 100 mg PO QAM 07/09/16 07/27/16 History Nystatin 100,000 Unit/ml Susp 1,000,000 unit PO QID 07/27/16 07/27/16 History [Mycostatin Oral Susp] Allergies Allergy/AdvReac Type Severity Reaction Status Date / Time gluten AdvReac Severe Diarrhea Verified 07/27/16 13:02 Physical Exam Vitals: Vital Signs Temp Pulse Pulse Resp BP Pulse Ox 07/28/16 15:00 98.1 F 65 16 178/75 95 07/28/16 07:00 97.6 F 60 16 173/92 95 07/28/16 00:00 64 70 16 07/27/16 23:00 98.3 F 64 16 180/84 94 L 07/27/16 17:38 98.3 F 70 16 188/88 93 L Intake and Output 07/28/16 07/28/16 07/28/16 06:59 14:59 22:59 Intake Total 10 240 Output Total 300 Balance 10 -60 Intake: IV 10 0.9 NS flush 10ML 10 Oral 240 Output: Urine 300 Other: Voiding Method Urinal # Voids 2 3 # Bowel Movements 1 - Constitutional General appearance: average body habitus, cooperative, no acute distress - EENT right eyeball severely swollen, red conjunctiva, thick yellow/white drainage, no swelling around the eye. left eye, EOMs intact Pt is legally blind - Neck Neck: no lymphadenopathy - Respiratory Respiratory: bilateral: CTA - Cardiovascular Heart sounds: normal: S1, S2 leg Peripheral Edema: bilateral: None - Gastrointestinal General gastrointestinal: no absent bowel sounds, no decreased bowel sounds, no distended, no hepatomegaly, no hyperactive bowel sounds, normal bowel sounds, no organomegaly, no rigid, no scaphoid, soft, no splenomegaly, no tenderness, no umbilical hernia, no ventral hernia - Musculoskeletal Musculoskeletal: generalized weakness, strength equal bilaterally - Psychiatric Pt oriented to self, place, time, situation (he did get date wrong, he thought it was the 11th) Psychiatric: A&O x's 3, appropriate affect, intact judgment & insight Results CBC & Chem 7: 07/27/16 13:09 07/27/16 13:09 CT scan - abdomen: report reviewed CT Scan - head: report reviewed CT scan - pelvis: report reviewed Assessment and Plan (1) B-cell lymphoma Narrative/Plan: Pt was supposed to have 8th cycle of treatment a few weeks ago, it is not exactly clear if pt received, I believe it would have been delayed due to his right eye infection, will verify with Zeinabmer. If pt did or did not have treatment his CBC is adequate at this time. Cultures are pending. Ig levels will be evaluated. Pt confusion is improved since admission, will continue to monitor. Status: Chronic (2) Pancytopenia due to antineoplastic chemotherapy Narrative/Plan: Very mild, no interventions required. Status: Acute Plan: Ophthalmology has been consulted
[2016-07-28] MEDS ORDERED: METOPROLOL SUCCINATE (ER) 25 MG TAB.ER.24H PO SCH (21:00)
[2016-07-28] MEDS ORDERED: ATORVASTATIN 20 MG TAB PO SCH (21:00)
[2016-07-28] MEDS: ARTIFICIAL TEARS-HYPROMELLOSE DROPS 15 ML BTL RIGHT EYE SCH (21:37)
[2016-07-28] MEDS: traZODone HCL 100 MG TAB PO SCH (21:38)
[2016-07-28] MEDS: GENTAMICIN/PREDNISOL AC OPHTH OINT 3.5GM RIGHT EYE SCH (21:38)
--- NOTE | 2016-07-29 07:55 | HP ---
DATE OF ADMISSION: 07/27/2016 PRESENTING COMPLAINT: Hallucinations, swelling of the right eyelid. HISTORY OF PRESENTING COMPLAINT: This is a very pleasant 81-year-old patient who was discharged from the hospital recently on 07/15/2016. The patient follows with Dr. Ignacio whose chronic stable medical conditions include coronary artery disease with stent, GERD, hyperlipidemia, hypertension, B-cell lymphoma. Patient also has retinitis pigmentosa with loss of vision and has been undergoing chemotherapy for the lymphoma. Patient prior to the previous admission had swelling of the right eye for 5 weeks. He did get a course of antibiotics. Then he went to see an eye doctor and got eye drops and further antibiotics and then after the third course he decided to come to the hospital. Patient was seen by Dr. Rothman from infectious disease and was sent home on Invanz for 10 days. He was seen by Dr. Godinez from eye and patient was given topical eye drops. The patient now returns because of some urinary frequency, confusion, hallucinations and patient just finished his course of Invanz antibiotic. Patient apparently was told by eye doctor that he may also have a large hematoma. When I reviewed the patient today, patient knows where he is and why he is here. Able to answer questions. REVIEW OF SYSTEMS: CONSTITUTIONAL: Tired. HEENT: Swelling of the right upper eyelid and decreased vision in both the eyes. RESPIRATORY: None. CARDIOVASCULAR: None. GASTROINTESTINAL: Diarrhea now resolved. GENITOURINARY: None. MUSCULOSKELETAL: None. DERMATOLOGICAL: None. HEMATOLOGICAL: None. LYMPHATICS: Treated for B-cell lymphoma. PSYCHIATRY: Some hallucinations at home. NEUROLOGICAL: None. Past history of coronary artery disease with stent, GERD, hyperlipidemia, hypertension, lymphoma, retinitis pigmentosa, limited vision. PAST SURGICAL HISTORY: Cardiac cath with stent, hernia repair, tonsillectomy, lymph node resection, splenectomy in 1974, bilateral inguinal hernia repair, ORIF of the right elbow. SOCIAL HISTORY: No smoking. No alcohol. Lives with his son. FAMILY HISTORY: Reviewed, noncontributory to presentation. HOME MEDICATIONS: 1. Desyrel 100 mg q.h.s. 2. Zocor 40 mg q.h.s. 3. Zoloft 100 mg p.o. daily. 4. Systane 0.3-0.4% one drop to right eye b.i.d. 5. Omeprazole 20 mg daily. 6. Nystatin ( ) units p.o. q.i.d. 7. Aleve PM caplet 1 tablet q.h.s. p.r.n. 8. Toprol XL 25 mg q.h.s. 9. Cozaar 25 mg a day. 10. Gluten Aid 1 tablet p.o. daily. 11. Gentamicin prednisolone AC one application right eye q.h.s. 12. Questran 4 grams p.o. t.i.d. between meals. Allergies to GLUTEN. ON EXAMINATION: VITAL SIGNS ON PRESENTATION: Temperature 98.1, pulse 71, respirations 18, blood pressure 135/69, pulse ox 97% on room air. GENERAL APPEARANCE: Lying in bed, awake. EYES: Decreased vision. Right eyelid is greatly swollen with some tenderness. NECK: JVD not raised. Mass not palpable. RESPIRATORY: Effort normal. LUNGS: Fair air entry. CARDIOVASCULAR: First and second sounds normal. No edema. ABDOMEN: Soft, nontender. Liver and spleen not palpable. LYMPHATIC: No lymph nodes palpable in the neck or axillae. PSYCHIATRY: Alert and oriented x3. Mood and affect normal. NEUROLOGICAL: Pupils equal. Cranial nerves grossly intact. Power and sensation grossly intact. INVESTIGATIONS: White count 3.2, hemoglobin 12.5, platelet count 49. Potassium 4.1. BUN 19, creatinine 1.50. ASSESSMENT: 1. Acute delirium at home, could be from underlying infection or renal failure. 2. Acute renal failure. Patient's creatinine has been ( ) since last admission. 3. Swelling of the right eyelid with underlying inflammation, infection and could be underlying hematoma. 4. Coronary artery disease with prior history of stent. 5. Gastroesophageal reflux disease. 6. Hyperlipidemia. 7. Hypertension. 8. Lymphoma, type unknown. 9. Retinitis pigmentosa, peripherally decreased vision. 10. Acute renal failure, present on admission, probably prerenal. Patient was on Cozaar. PLAN: Patient's Cozaar will be discontinued. Patient will be given IV fluids 125 an hour. Infection Disease and Dr. Godinez from eye will be consulted. Overall prognosis is guarded. Warm compress to right eye will be resumed.
[2016-07-29] MEDS: PANTOPRAZOLE 40 MG TABLET PO SCH (09:30)
[2016-07-29 09:52] LABS: Potassium 3.9 mmol/L (3.5-5.1)
[2016-07-29] MEDS: ARTIFICIAL TEARS-HYPROMELLOSE DROPS 15 ML BTL RIGHT EYE SCH ×2 (10:33→21:47)
[2016-07-29] MEDS: NYSTATIN 100,000 UNIT/ML SUSP 500,000 UNIT/5 ML CUP PO SCH ×4 (10:34→21:46)
[2016-07-29] MEDS: LOSARTAN 25 MG TAB PO SCH (10:34)
[2016-07-29] MEDS: SERTRALINE 100 MG TAB PO SCH (10:34)
--- NOTE | 2016-07-29 12:10 | CONS ---
DATE OF CONSULTATION: HISTORY: This is an 81-year-old white male known to my practice with a history of retinitis pigmentosa. More recently the patient has been undergoing chemotherapy as treatment for lymphoma. Several weeks ago the patient was seen in my office with acute onset of swelling and inflammation of his right upper lid. He was treated initially with oral antibiotics and did not respond. Ultimately, he was admitted to the hospital for a course of IV antibiotics as treatment for preseptal and/or orbital cellulitis. He was subsequently discharged from the hospital on oral antibiotics and followed up in my office where there was mild improvement of his lid swelling. There was no resolution of it, however. Examining the patient showed continued upper lid swelling and the possibility of hematoma due to her low platelet count as a direct result of his chemotherapy was considered along with the possibility of a metastatic lesion of his lymphoma to the upper lid. Arrangements were made for him to see the eye and oculoplastic specialist on an outpatient basis; however, the patient has subsequently been readmitted to this hospital. He is lying comfortably and states that he continues to exhibit swelling of his right upper lid with no significant improvement from the last visit in my office. Visual acuity measured 2200 bilaterally. The pupils are equal and reactive to light. There was no afferent defect. Extraocular movements were full in all gaze positions. On examination, the right upper lid exhibited marked swelling although there was no accompanying erythema. The lid was discolored a bluish purple color. The conjunctiva was quiet, both corneas were clear and the remainder of the anterior segment exam was otherwise unremarkable. IMPRESSION: 1. Right upper lid swelling: This patient has persistent swelling of his right upper lid and the possibility of a lymphomatous metastasis should be considered. I will obtain an MRI of the brain and orbits with and without contrast and hope to determine the consistency of this lesion and whether further intervention is indicated. 2. Retinitis pigmentosa: This is long-standing and the natural course of this has already taken place. There is no indication for intervention at this time. Thank you for this consultation. I will continue to follow this patient closely and will help determine the best course of action for treatment.
[2016-07-29] MEDS ORDERED: SODIUM CHLORIDE 0.9% 1,000 ML IV SCH (20:00)
--- NOTE | 2016-07-29 21:24 | MR ---
MR brain and orbits with and without contrast HISTORY: Lymphoma, I swelling Multiplanar multisequence and postcontrast images obtained through the brain and orbits following 15 cc MultiHance IV. Correlated to CT brain 27 July 2016, CT orbits 09 July 2016 Right frontal craniotomy change, encephalomalacia present likely due to prior shunt placement, left c raniotomy change also present. Periventricular white matter shows patchy increased signal on inversio n recovery and T2-weighted sequences compatible with chronic small vessel ischemia. There is no hemor rhage or hydrocephalus. Corpus callosum, pituitary, cervical medullary junction, cerebellopontine ang les are within normal limits. Cortical atrophy is present. No definite subacute ischemia, small focus of T2 shine through suspected in the periventricular white matter on the left. Posterior scalp sebac eous cyst is noted incidentally measuring 2 cm towards the convexity on the left. Orbits show the previously identified mass within the right orbit causing mass effect on the globe an d encasing the anterior aspect of the right globe and extending from the anterior aspect of the orbit peripherally. Mass effect is noted on the lateral aspect of the globe and there is likely involvemen t of the extraocular musculature laterally with the tumor mass. The lesion measures approximately 4 c m in transverse dimension by 4.4 cm in anterior to posterior dimension by 3.3 cm in cephalocaudal dim ension. The mass is relatively decreased signal on T2-weighted sequences, isointense on T1 weighted s equences and shows relatively uniform enhancement following contrast administration. There is some mo tion the exam. This may limit sensitivity. 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 There is motion on the exam. P robable chronic small vessel ischemia, age related atrophy, postop changes as described.
[2016-07-29] MEDS: METOPROLOL SUCCINATE (ER) 25 MG TAB.ER.24H PO SCH (21:48)
[2016-07-29] MEDS: traZODone HCL 100 MG TAB PO SCH (21:48)
[2016-07-29] MEDS: ATORVASTATIN 20 MG TAB PO SCH (21:48)
[2016-07-29] MEDS: GENTAMICIN/PREDNISOL AC OPHTH OINT 3.5GM RIGHT EYE SCH (21:48)
--- NOTE | 2016-07-29 23:42 | PN ---
DATE OF SERVICE: 07/29/2016 PRESENTING COMPLAINT: Hallucinations and swelling of the right eyelid. INTERVAL HISTORY: This is a patient with a diagnosis of B-cell lymphoma ( ) presented yet again with significant swelling of the right eyelid. The diagnosis is not clear whether this is a hematoma, cellulitis or extremely unlikely ( ) lymphoma present. Patient has some pain and discomfort in the eyelid. Review of systems done for constitutional, cardiovascular, GI, pulmonary; relevant findings as above. Current medications are reviewed. On examination, temperature 97.7, pulse 74, respiration 16, blood pressure 154/73, pulse ox 96% on room air. GENERAL APPEARANCE: Lying in bed. EYES: Swelling of the right upper eyelid; not extremely warm, but still a little bit tender. Mainly ( ) in upper eyelid. RESPIRATORY: Effort normal. LUNGS: Clear. CARDIOVASCULAR: First and second sounds normal. No edema. ABDOMEN: Soft, nontender. Liver and spleen not palpable. PSYCHIATRY: Alert and oriented x3. Mood and affect normal. NEUROLOGICAL: Patient's vision is limited. INVESTIGATIONS: Potassium 3.9. BUN 18, creatinine 1.49. ASSESSMENT: 1. Acute delirium at home; could be underlying infection or renal failure, improving. 2. Acute renal failure, present on admission. 3. Acute severe swelling of the right eyelid with possible inflammation, infection and hematoma or localized lymphoma, all in the differential. 4. Coronary artery disease with prior history of stent. 5. Gastroesophageal reflux disease. 6. Hyperlipidemia. 7. Hypertension. 8. B-cell lymphoma. 9. Retinitis pigmentosa, peripherally decreased vision. PLAN: I did talk to Dr. Godinez, who ordered an MRA of the eye. Also spoke to Dr. Martin from Oncology. If need be, patient may get localized radiation treatment here. Also Dr. Rothman was consulted to see if any antibiotics will be given at the present time. Continue current medication and treatment plan, hydration. Will follow.
[2016-07-30 07:49] VITALS: RESP 16
[2016-07-30] MEDS: NYSTATIN 100,000 UNIT/ML SUSP 500,000 UNIT/5 ML CUP PO SCH ×4 (09:20→21:37)
[2016-07-30] MEDS: SERTRALINE 100 MG TAB PO SCH (09:20)
[2016-07-30] MEDS: ARTIFICIAL TEARS-HYPROMELLOSE DROPS 15 ML BTL RIGHT EYE SCH ×2 (09:20→21:37)
[2016-07-30] MEDS: PANTOPRAZOLE 40 MG TABLET PO SCH (09:21)
[2016-07-30 12:46] LABS: Calcium 9.3 mg/dL (8.4-10.2); Potassium 4.1 mmol/L (3.5-5.1)
--- NOTE | 2016-07-30 15:36 | P.CONS ---
History of Present Illness - Reason for Consult Consult date: 07/30/16 Eye infection - History of Present Illness This is an 81-year-old male who is a known history of B-cell lymphoma currently receiving chemotherapyhe is known to ID service as he had a recent hospitalization June for possible cellulitis of the right upper eyelid for which she was treated with antibiotics and discharged home on Invanz which he completed. Patient now presented to [facility] emergency center due to urinary frequency, confusion and hallucinations going on for the past week. Patient was afebrile with white count of 3.2, platelet count 149. BUN 19 and creatinine 1.5. Albumin 3.4. Urinalysis was clear nitrate and leukoesterase negative. Blood culture shows no growth at 48 hours and urine culture finalized with no growth. He underwent a CAT scan of the brain showed no acute intracranial hemorrhage or midline shift. There is [id number] diffuse age-related cerebral atrophy and moderate chronic small vessel ischemic change. Prominent right preseptal soft tissue or hyperdense fluid redemonstrate around the anterior aspect of the right globe.patient has been admitted to the oncology unit. He has not had antibiotics. He underwent CAT scan of the abdomen and pelvis without contrast that showed a nonobstructive bilateral renal calculi. No hydronephrosis. Increased right groin adenopathy consistent with neoplastic or lymphoma progression. He has been seen by oncology and also by Dr. 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 He subsequently underwent an MRI of the orbits which showed orbital involvement of lymphoma on the right. Probable chronic small vessel ischemia, age-related atrophy. apparently patient has also had worsening of his mental status over the past couple of days and is very confused at this point. Patient is unable to provide any history. He can follow a few simple commands. 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 HX MELANOMA CHEST. UCHE RETINITIS PIGMENTOSIS, LOSS OF PERIPHERAL VISION, LEGALLY BLIND. [place]. History of Any Multi-Drug Resistant Organisms: None Reported Past Surgical History: Heart Catheterization With Stent, Hernia Repair, Orthopedic Surgery, Tonsillectomy Additional Past Surgical History / Comment(s): EXC RFA, LYMPH NODE RESECTION, SPLENECTOMY 1974. UCHE ING HERNIA. ORIF RT ELBOW. Past Anesthesia/Blood Transfusion Reactions: No Reported Reaction Additional Past Anesthesia/Blood Transfusion Reaction / Comm: NO HISTORY OF BLOOD TRANSFUSION Date of Last Stent Placement:: 2009 Past Psychological History: No Psychological Hx Reported Additional Psychological History / Comment(s): Retired from [employer]. has adult son and [id number] who he lives with. Was in the [employer] stationed in [place]. Denies tobacco use or alcohol use. No recreational drug use. No animal exposures. 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 [employer] Smoking Status: Never smoker Past Alcohol Use History: None Reported Past Drug Use History: None Reported - Past Family History Mother Family Medical History: No Reported History Father Family Medical History: CVA/TIA, Deep Vein Thrombosis (DVT) Medications and Allergies Home Medications Medication Instructions Recorded Confirmed Type Losartan [Cozaar] 25 mg PO DAILY 12/07/15 07/27/16 History Metoprolol Succinate (ER) [Toprol 25 mg PO HS 12/07/15 07/27/16 History XL] Omeprazole 20 mg PO DAILY 12/07/15 07/27/16 History Simvastatin [Zocor] 40 mg PO HS 12/07/15 07/27/16 History traZODone HCL [Desyrel] 100 mg PO HS 12/07/15 07/27/16 History Gentamicin/Prednisol AC [Pred-G 1 applicate RIGHT EYE HS 07/09/16 07/27/16 History S.O.P. Eye Ointment] Gluten Aid 1 tab PO DAILY 07/09/16 07/27/16 History Naproxen Na-Diphenhydramin HCl 1 tab PO HS PRN 07/09/16 07/27/16 History [Aleve Pm Caplet] Propylene Glycol/Peg 400/Pf 1 dropper RIGHT EYE BID 07/09/16 07/27/16 History [Systane 0.3-0.4% Eye Drops] Sertraline [Zoloft] 100 mg PO QAM 07/09/16 07/27/16 History Nystatin 100,000 Unit/ml Susp 1,000,000 unit PO QID 07/27/16 07/27/16 History [Mycostatin Oral Susp] Allergies Allergy/AdvReac Type Severity Reaction Status Date / Time gluten AdvReac Severe Diarrhea Verified 07/27/16 13:02 Physical Exam Vitals: Vital Signs Temp Pulse Pulse Resp BP Pulse Ox 07/30/16 07:00 99 F 84 16 160/72 93 L 07/30/16 00:00 74 18 07/29/16 22:45 97.9 F 65 18 166/81 93 L 07/29/16 16:00 16 07/29/16 15:00 97.7 F 74 16 154/73 96 Intake and Output 07/29/16 07/30/16 07/30/16 22:59 06:59 14:59 Intake Total 250 10 Output Total 150 Balance 250 -140 Intake: IV 10 10 0.9 NS flush 10ML 10 10 Oral 240 Output: Urine 150 Other: Voiding Method Urinal Urinal Urinal Diaper Diaper Diaper # Voids 1 2 Gen: This is an 81-year-old male. He is in bed and slid down with his feet against the board. He does not open his eyes until requested to do so. HEENT: Head is atraumatic. left pupil round and reactive to light. Right thigh shows extensive swelling to the upper lid. NECK: Supple. No JVD. No lymphadenopathy. No thyromegaly. LUNGS: Clear to auscultation. No wheezes or rhonchi. No intercostal retractions. HEART: Regular rate and rhythm. No murmur. ABDOMEN: Soft. Bowel sounds are present. No masses. No tenderness. EXTREMITIES: No pedal edema. No calf tenderness. NEUROLOGICAL: Patient is awake, and can follow a few simple commands such as hand sign maker or lifting his leg. He does not make eye contact. He is unable to sit himself up in bed. Hand laundry machine tender are moderately strong and equal bilaterally as well as foot push pull equal bilaterally. Sitter is at the bedside. Results Results: Laboratory Results WBC 3.2 k/uL (3.8-10.6) L 07/27/16 13:09 RBC 3.63 m/uL (4.30-5.90) L 07/27/16 13:09 Hgb 12.5 gm/dL (13.0-17.5) L 07/27/16 13:09 Hct 37.5 % (39.0-53.0) L 07/27/16 13:09 MCV 103.3 fL (80.0-100.0) H 07/27/16 13:09 MCH 34.5 pg (25.0-35.0) 07/27/16 13:09 MCHC 33.4 g/dL (31.0-37.0) 07/27/16 13:09 RDW 14.2 % (11.5-15.5) 07/27/16 13:09 Plt Count 149 k/uL (150-450) L 07/27/16 13:09 Neutrophils % (Manual) 65.5 % 07/27/16 13:09 Band Neutrophils % 4.0 % 07/27/16 13:09 Lymphocytes % (Manual) 11.5 % 07/27/16 13:09 Monocytes % (Manual) 15.0 % 07/27/16 13:09 Eosinophils % (Manual) 3.0 % 07/27/16 13:09 Metamyelocytes % 1.0 % 07/27/16 13:09 Neutrophils # (Manual) 2.2 k/uL (1.3-7.7) 07/27/16 13:09 Lymphocytes # (Manual) 0.4 k/uL (1.0-4.8) L 07/27/16 13:09 Monocytes # (Manual) 0.5 k/uL (0-1.0) 07/27/16 13:09 Eosinophils # (Manual) 0.1 k/uL (0-0.7) 07/27/16 13:09 Nucleated RBCs 0 /100 WBC (0-0) 07/27/16 13:09 Manual Slide Review Performed 07/27/16 13:09 Macrocytosis Slight 07/27/16 13:09 PT 11.8 sec (9.0-12.0) 07/27/16 13:09 INR 1.2 (<1.1) 07/27/16 13:09 APTT 28.1 sec (22.0-30.0) 07/27/16 13:09 Sodium 143 mmol/L (137-145) 07/30/16 11:50 Potassium 4.1 mmol/L (3.5-5.1) 07/30/16 11:50 Chloride 105 mmol/L (98-107) 07/30/16 11:50 Carbon Dioxide 29 mmol/L (22-30) 07/30/16 11:50 Anion Gap 9 mmol/L 07/30/16 11:50 BUN 18 mg/dL (9-20) 07/30/16 11:50 Creatinine 1.65 mg/dL (0.66-1.25) H 07/30/16 11:50 Est GFR (MDRD) Af Amer 49 (>60 ml/min/1.73 sqM) 07/30/16 11:50 Est GFR (MDRD) Non-Af 40 (>60 ml/min/1.73 sqM) 07/30/16 11:50 Glucose 101 mg/dL (74-99) H 07/30/16 11:50 Plasma Lactic Acid [place] 1.0 mmol/L (0.7-2.0) 07/27/16 13:09 Calcium 9.3 mg/dL (8.4-10.2) 07/30/16 11:50 Total Bilirubin 0.7 mg/dL (0.2-1.3) 07/27/16 13:09 AST 53 U/L (17-59) 07/27/16 13:09 ALT 46 U/L (21-72) 07/27/16 13:09 Alkaline Phosphatase 100 U/L (38-126) 07/27/16 13:09 Total Protein 6.0 g/dL (6.3-8.2) L 07/27/16 13:09 Albumin 3.4 g/dL (3.5-5.0) L 07/27/16 13:09 Urine Color Yellow 07/27/16 13:09 Urine Appearance Clear (Clear) 07/27/16 13:09 Urine pH 5.5 (5.0-8.0) 07/27/16 13:09 Ur Specific [place] 1.010 (1.001-1.035) 07/27/16 13:09 Urine Protein Negative (Negative) 07/27/16 13:09 Urine Glucose (UA) Negative (Negative) 07/27/16 13:09 Urine Ketones Negative (Negative) 07/27/16 13:09 Urine Blood Small (Negative) H 07/27/16 13:09 Urine Nitrate Negative (Negative) 07/27/16 13:09 Urine Bilirubin Negative (Negative) 07/27/16 13:09 Urine Urobilinogen <2.0 mg/dL (<2.0) 07/27/16 13:09 Ur Leukocyte Esterase Negative (Negative) 07/27/16 13:09 Urine RBC 16 /hpf (0-5) H 07/27/16 13:09 Urine WBC 2 /hpf (0-5) 07/27/16 13:09 Ur Squamous Epith Cells <1 /hpf (0-4) 07/27/16 13:09 Urine Bacteria Rare /hpf (None) H 07/27/16 13:09 Urine Mucus Rare /hpf (None) H 07/27/16 13:09 CBC & Chem 7: 07/27/16 13:09 07/30/16 11:50 Assessment and Plan Plan: this is an 81-year-old male with history of B-cell lymphoma with involvement of the right orbit. At this time, no signs of infection and no plan for antibiotics. Blood culture and urine culture are both showing no growth. At this time, patient may be good candidate for palliative or hospice care. Further recommendations as patient progresses. The above dictated assessment and findings were discussed with Dr. Rothman. The impression and plan of care have been directed as dictated. Devika Montgomery nurse practitioner acting as scribe for Dr. Rothman. Time with Patient: Greater than 30
--- NOTE | 2016-07-30 19:17 | P.PN ---
Subjective Principal diagnosis: B cell lymphoma, recent treatment Pt seen today in follow up, he is eating breakfast, he denies any pain, nausea, KATIA, abd pain, diarrhea or constipation. He states he feels good. Objective - Vital Signs Vital signs: Vital Signs Temp 98.2 F 07/30/16 15:00 Pulse 87 07/30/16 15:00 Resp 16 07/30/16 15:00 BP 138/77 07/30/16 15:00 Pulse Ox 93 L 07/30/16 15:00 Intake & Output 07/30/16 07/30/16 07/31/16 06:59 18:59 06:59 Intake Total 260 Output Total 150 Balance 110 Intake: IV 20 0.9 NS flush 10ML 20 Oral 240 Output: Urine 150 Other: Voiding Method Urinal Urinal Diaper Diaper # Voids 2 3 # Bowel Movements 1 - Constitutional General appearance: Present: cooperative, no acute distress, thin - EENT EENT Comment(s): right eye lid is profoundly swollen, small amt of white drainage noted under eye , lid is purple in color, venous prominence, firm to touch, cannot palpate a specific mass - Respiratory Respiratory: bilateral: CTA - Cardiovascular Heart sounds: normal: S1, S2 - Peripheral edema foot Peripheral Edema: bilateral: None - Gastrointestinal General gastrointestinal: Present: normal bowel sounds, soft - Musculoskeletal Musculoskeletal: Present: generalized weakness, strength equal bilaterally - Psychiatric Psychiatric: Present: A&O x's 3, appropriate affect, intact judgment & insight - Labs CBC & Chem 7: 07/27/16 13:09 07/30/16 11:50 Labs: Abnormal Lab Results - Last 24 Hours (Table) 07/30/16 Range/Units 11:50 Creatinine 1.65 H (0.66-1.25) mg/dL Glucose 101 H (74-99) mg/dL Assessment and Plan (1) B-cell lymphoma Narrative/Plan: Pt did not have 8th cycle of treatment due to eye infection. Ig levels evaluated, no acute intervention. CBC in AM. Pt confusion improved. Pt disease had a very good response to treatment, pt tolerated treatment well. Status: Chronic (2) Pancytopenia due to antineoplastic chemotherapy Narrative/Plan: Labs in AM Status: Acute Plan: Eye lid selling vs mass behind the eye. Image was viewed. Dr. Martin is going to discuss the case with Radiology, case briefly discussed with IM. Once there is verification of a mass plan will be for biopsy. Concern is that with good response systemically of pt lymphoma to treatment what is truly going on with the eye. Recommendations and orders to follow.
--- NOTE | 2016-07-30 19:50 | P.CON ---
Consult Note - . Consult date: 07/30/16 Assessment/Plan:: This is an 81-year-old male who is a known history of B-cell lymphoma currently receiving chemotherapyhe is known to ID service as he had a recent hospitalization June for possible cellulitis of the right upper eyelid for which she was treated with antibiotics and discharged home on Invanz which he completed. Patient now presented to [facility] emergency center due to urinary frequency, confusion and hallucinations going on for the past week. Patient was afebrile with white count of 3.2, platelet count 149. BUN 19 and creatinine 1.5. Albumin 3.4. Urinalysis was clear nitrate and leukoesterase negative. Blood culture shows no growth at 48 hours and urine culture finalized with no growth. He underwent a CAT scan of the brain showed no acute intracranial hemorrhage or midline shift. There is [id number] diffuse age-related cerebral atrophy and moderate chronic small vessel ischemic change. Prominent right preseptal soft tissue or hyperdense fluid redemonstrate around the anterior aspect of the right globe.patient has been admitted to the oncology unit. He has not had antibiotics. He underwent CAT scan of the abdomen and pelvis without contrast that showed a nonobstructive bilateral renal calculi. No hydronephrosis. Increased right groin adenopathy consistent with neoplastic or lymphoma progression. He has been seen by oncology and also by Dr. 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 He subsequently underwent an MRI of the orbits which showed orbital involvement of lymphoma on the right. Probable chronic small vessel ischemia, age-related atrophy. apparently patient has also had worsening of his mental status over the past couple of days and is very confused at this point. Patient is unable to provide any history. He can follow a few simple commands. Please see the consult note as dictated by nurse practitioner Giancarlo Devika Montgomery. He has noted this pleasant gentleman is having ongoing difficulties related to his right eye. During his last stay he was seen by ophthalmology. He was treated for an infectious etiology. He however was not improving and was directed back to ophthalmology. However is status change and he became admitted. MRI is now been performed. It is noted shows evidence of the lymphoma involvement into the right eye explaining the marked abnormality center being seen. Ophthalmology is following and we await further input from oncology as to the potentials for treatment. Especially if there is going to be localized radiation to the area. Receiving topical antibiotic therapy but will not need systemic antibiotic therapy. The patient is a full code. He is an excellent candidate for palliative care at this time. I agree with evaluation, assessment and plan as dictated by nurse practitioner Mrs. Devika Montgomery.
[2016-07-30] MEDS: traZODone HCL 100 MG TAB PO SCH (21:37)
[2016-07-30] MEDS: ATORVASTATIN 20 MG TAB PO SCH (21:37)
[2016-07-30] MEDS: GENTAMICIN/PREDNISOL AC OPHTH OINT 3.5GM RIGHT EYE SCH (21:37)
[2016-07-30] MEDS: METOPROLOL SUCCINATE (ER) 25 MG TAB.ER.24H PO SCH (21:37)
--- NOTE | 2016-07-30 23:22 | PN ---
DATE OF SERVICE: 07/30/2016 PRESENTING COMPLAINT: Tired. INTERVAL HISTORY: This is a patient with ( ) B-cell lymphoma, had an MRA of the right eyelid, now suggestive of lymphoma. Dr. Martin from oncology will take this further in view to questionable biopsy for confirmatory diagnosis before treatment. Patient is eating about 50% of her meals. Review of systems done for constitutional, cardiovascular, GI, pulmonary; relevant findings as above. The patient does feel weak and tired. Current medications are reviewed that include IV fluids. On examination, temperature 99, pulse 84, respirations 16, blood pressure 150/72, pulse ox 93% on room air. GENERAL: Sitting up in bed, tired appearing. Oral cavity with dry mucous membrane. EYES: Pupils equal. Swelling of the right upper eyelid with some tenderness. RESPIRATORY: Effort normal. LUNGS: Clear. CARDIOVASCULAR: First and second sounds normal. No edema. ABDOMEN: Soft. Liver and spleen not palpable. PSYCHIATRY: Patient answering simple questions. NEUROLOGICAL: Vision is limited. INVESTIGATIONS: Potassium 4.1, creatinine 1.65. ASSESSMENT: 1. Acute delirium, could be from underlying lymphoma. 2. Acute renal failure, present at admission, probably acute tubular necrosis. 3. Acute severe swelling of the right eyelid now suggestive of lymphoma per MRI. 4. Coronary artery disease with prior history of stent. 5. Gastroesophageal reflux disease. 6. Hyperlipidemia. 7. Hypertension. 8. B cell lymphoma. 9. Retinitis pigmentosa with peripherally decreased vision. PLAN: I did communicate with Dr. Martin's team. He will take it further from here. I also informed Dr. Rothman. Will stay with the current medication.
[2016-07-31 06:31] LABS: CH 34.9; CHCM 33.4; HCT 38.3 % (39.0-53.0); HDW 2.29; HGB 12.6 gm/dL (13.0-17.5); Immature Gran Flag Marked; MCH 34.6 pg (25.0-35.0); MCV 104.8 fL (80.0-100.0); Macrocytosis Moderate; Mean Platelet Volume 7.9; RBC 3.65 m/uL (4.30-5.90); RDW 14.3 % (11.5-15.5); WBC 4.4 k/uL (3.8-10.6); WBC (Perox) 4.71
[2016-07-31 06:54] LABS: Add Differential Manual Differential
[2016-07-31 06:57] LABS: Manual Review Performed; Nucleated Red Blood Cells 0 /100 WBC (0-0); Total Cells Counted 100
[2016-07-31 08:00] VITALS: PULSE 71
[2016-07-31] MEDS: NYSTATIN 100,000 UNIT/ML SUSP 500,000 UNIT/5 ML CUP PO SCH ×3 (08:40→19:19)
[2016-07-31] MEDS: SERTRALINE 100 MG TAB PO SCH (08:40)
[2016-07-31] MEDS: PANTOPRAZOLE 40 MG TABLET PO SCH (08:40)
[2016-07-31] MEDS: ARTIFICIAL TEARS-HYPROMELLOSE DROPS 15 ML BTL RIGHT EYE SCH (08:41)
[2016-07-31] MEDS ORDERED: ACETAMINOPHEN TAB 325 MG TAB PO PRN (14:13)
[2016-07-31 15:47] VITALS: BP 136/86; TEMP 98.6
--- NOTE | 2016-07-31 22:21 | P.PN ---
Subjective Principal diagnosis: Swelling right eye This is an 81-year-old male who is a known history of B-cell lymphoma currently receiving chemotherapyhe is known to ID service as he had a recent hospitalization June for possible cellulitis of the right upper eyelid for which she was treated with antibiotics and discharged home on Invanz which he completed. Patient now presented to [facility] emergency center due to urinary frequency, confusion and hallucinations going on for the past week. Patient was afebrile with white count of 3.2, platelet count 149. BUN 19 and creatinine 1.5. Albumin 3.4. Urinalysis was clear nitrate and leukoesterase negative. Blood culture shows no growth at 48 hours and urine culture finalized with no growth. He underwent a CAT scan of the brain showed no acute intracranial hemorrhage or midline shift. There is [id number] diffuse age-related cerebral atrophy and moderate chronic small vessel ischemic change. Prominent right preseptal soft tissue or hyperdense fluid redemonstrate around the anterior aspect of the right globe.patient has been admitted to the oncology unit. He has not had antibiotics. He underwent CAT scan of the abdomen and pelvis without contrast that showed a nonobstructive bilateral renal calculi. No hydronephrosis. Increased right groin adenopathy consistent with neoplastic or lymphoma progression. He has been seen by oncology and also by Dr. 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 He subsequently underwent an MRI of the orbits which showed orbital involvement of lymphoma on the right. Probable chronic small vessel ischemia, age-related atrophy. apparently patient has also had worsening of his mental status over the past couple of days and is very confused at this point. Patient is unable to provide any history. He can follow a few simple commands. As noted the MRI is evidence the marked abnormality like lymphoma. We transferred to [place] for further intervention. PET scan is planned. And then biopsy of lid or area for further diagnostics and plans down for radiation therapy if indicated. Objective - Vital Signs Vital signs: Vital Signs Temp 98.6 F 07/31/16 15:00 Pulse 71 07/31/16 15:00 Resp 16 07/31/16 15:00 BP 136/86 07/31/16 15:00 Pulse Ox 96 07/31/16 15:00 Intake & Output 07/31/16 07/31/16 08/01/16 06:59 18:59 06:59 Output Total 275 Balance -275 Output: Urine 275 Other: Voiding Method Urinal Urinal Diaper Diaper # Voids 1 1 # Bowel Movements 1 - Exam Gen: This is an 81-year-old male. He is in bed and slid down with his feet against the board. He does not open his eyes until requested to do so. HEENT: Head is atraumatic. left pupil round and reactive to light. Right thigh shows extensive swelling to the upper lid. NECK: Supple. No JVD. No lymphadenopathy. No thyromegaly. LUNGS: Clear to auscultation. No wheezes or rhonchi. No intercostal retractions. HEART: Regular rate and rhythm. No murmur. ABDOMEN: Soft. Bowel sounds are present. No masses. No tenderness. EXTREMITIES: No pedal edema. No calf tenderness. NEUROLOGICAL: Patient is awake, and can follow a few simple commands such as hand cut lace machine operator or lifting his leg. He does not make eye contact. He is unable to sit himself up in bed. Hand bunch breaker are moderately strong and equal bilaterally as well as foot push pull equal bilaterally. - Labs CBC & Chem 7: 07/31/16 06:23 07/30/16 11:50 Labs: Abnormal Lab Results - Last 24 Hours (Table) 07/31/16 Range/Units 06:23 RBC 3.65 L (4.30-5.90) m/uL Hgb 12.6 L (13.0-17.5) gm/dL Hct 38.3 L (39.0-53.0) % MCV 104.8 H (80.0-100.0) fL Lymphocytes # (Manual) 0.7 L (1.0-4.8) k/uL Laboratory Results WBC 4.4 k/uL (3.8-10.6) 07/31/16 06:23 RBC 3.65 m/uL (4.30-5.90) L 07/31/16 06:23 Hgb 12.6 gm/dL (13.0-17.5) L 07/31/16 06:23 Hct 38.3 % (39.0-53.0) L 07/31/16 06:23 MCV 104.8 fL (80.0-100.0) H 07/31/16 06:23 MCH 34.6 pg (25.0-35.0) 07/31/16 06:23 MCHC 33.0 g/dL (31.0-37.0) 07/31/16 06:23 RDW 14.3 % (11.5-15.5) 07/31/16 06:23 Plt Count 158 k/uL (150-450) 07/31/16 06:23 Neutrophils % (Manual) 65.0 % 07/31/16 06:23 Band Neutrophils % 4.0 % 07/27/16 13:09 Lymphocytes % (Manual) 17.0 % 07/31/16 06:23 Monocytes % (Manual) 14.0 % 07/31/16 06:23 Eosinophils % (Manual) 4.0 % 07/31/16 06:23 Metamyelocytes % 1.0 % 07/27/16 13:09 Neutrophils # (Manual) 2.9 k/uL (1.3-7.7) 07/31/16 06:23 Lymphocytes # (Manual) 0.7 k/uL (1.0-4.8) L 07/31/16 06:23 Monocytes # (Manual) 0.6 k/uL (0-1.0) 07/31/16 06:23 Eosinophils # (Manual) 0.2 k/uL (0-0.7) 07/31/16 06:23 Nucleated RBCs 0 /100 WBC (0-0) 07/31/16 06:23 Manual Slide Review Performed 07/31/16 06:23 Macrocytosis Moderate 07/31/16 06:23 PT 11.8 sec (9.0-12.0) 07/27/16 13:09 INR 1.2 (<1.1) 07/27/16 13:09 APTT 28.1 sec (22.0-30.0) 07/27/16 13:09 Sodium 143 mmol/L (137-145) 07/30/16 11:50 Potassium 4.1 mmol/L (3.5-5.1) 07/30/16 11:50 Chloride 105 mmol/L (98-107) 07/30/16 11:50 Carbon Dioxide 29 mmol/L (22-30) 07/30/16 11:50 Anion Gap 9 mmol/L 07/30/16 11:50 BUN 18 mg/dL (9-20) 07/30/16 11:50 Creatinine 1.65 mg/dL (0.66-1.25) H 07/30/16 11:50 Est GFR (MDRD) Af Amer 49 (>60 ml/min/1.73 sqM) 07/30/16 11:50 Est GFR (MDRD) Non-Af 40 (>60 ml/min/1.73 sqM) 07/30/16 11:50 Glucose 101 mg/dL (74-99) H 07/30/16 11:50 Plasma Lactic Acid [place] 1.0 mmol/L (0.7-2.0) 07/27/16 13:09 Calcium 9.3 mg/dL (8.4-10.2) 07/30/16 11:50 Total Bilirubin 0.7 mg/dL (0.2-1.3) 07/27/16 13:09 AST 53 U/L (17-59) 07/27/16 13:09 ALT 46 U/L (21-72) 07/27/16 13:09 Alkaline Phosphatase 100 U/L (38-126) 07/27/16 13:09 Total Protein 6.0 g/dL (6.3-8.2) L 07/27/16 13:09 Albumin 3.4 g/dL (3.5-5.0) L 07/27/16 13:09 Urine Color Yellow 07/27/16 13:09 Urine Appearance Clear (Clear) 07/27/16 13:09 Urine pH 5.5 (5.0-8.0) 07/27/16 13:09 Ur Specific [place] 1.010 (1.001-1.035) 07/27/16 13:09 Urine Protein Negative (Negative) 07/27/16 13:09 Urine Glucose (UA) Negative (Negative) 07/27/16 13:09 Urine Ketones Negative (Negative) 07/27/16 13:09 Urine Blood Small (Negative) H 07/27/16 13:09 Urine Nitrate Negative (Negative) 07/27/16 13:09 Urine Bilirubin Negative (Negative) 07/27/16 13:09 Urine Urobilinogen <2.0 mg/dL (<2.0) 07/27/16 13:09 Ur Leukocyte Esterase Negative (Negative) 07/27/16 13:09 Urine RBC 16 /hpf (0-5) H 07/27/16 13:09 Urine WBC 2 /hpf (0-5) 07/27/16 13:09 Ur Squamous Epith Cells <1 /hpf (0-4) 07/27/16 13:09 Urine Bacteria Rare /hpf (None) H 07/27/16 13:09 Urine Mucus Rare /hpf (None) H 07/27/16 13:09 Microbiology 07/27/16 13:09 Blood Blood Culture - Preliminary No Growth after 96 hours 07/27/16 13:09 Urine,Clean Catch Urine Culture - Final Assessment and Plan (1) Lymphoma Narrative/Plan: 81-year-old gentleman who has a history of lymphoma who now appears to have involvement of the disease to the periorbital area and the lid. Because of the complexity of this he was transferred to [facility] for further ophthalmologic and oncology evaluations with this very specific disease. It appears that he will have biopsy either of the lid or orbit for further diagnostic. PET scan will be performed. It will then be plans for potential localized radiation therapy if possible. We have negative cultures History been treated with a course of intravenous antibiotic therapy with no improvement making infection distinctly unlikely. However topical antibiotics are being utilized because of the irritation to the eye. Status: Acute
--- NOTE | 2016-08-02 13:41 | DS ---
DATE OF ADMISSION: 07/27/2016 DATE OF DISCHARGE: 07/31/2016 FINAL DIAGNOSES: 1. Acute delirium probably from underlying lymphoma and renal failure, metabolic. 2. Acute renal failure, present on admission, probably acute tubular necrosis. 3. Right eyelid lymphoma involvement, upper eyelid. 4. Coronary artery disease with prior history of stent. 5. Gastroesophageal reflux disease. 6. Hyperlipidemia. 7. Hypertension. 8. B cell lymphoma. 9. Retinitis pigmentosa with peripherally decreased vision. HOSPITAL COURSE: This is a patient who is getting treated for B-cell lymphoma, had a good response. Recently in the hospital what was felt to be right eyelid infection, which has actually gotten better with home antibiotics. Presented yet again with right eyelid swelling. MRI was strongly suggestive of B-cell lymphoma. Patient was seen by Dr. Daniels of infection disease; Dr. Martin from oncology and Dr. Godinez from ophthalmology. Dr. Godinez got a contact at [facility]. Patient will be transferred down there and may have a biopsy/PET scan and may have to get local irradiation. Prognosis is still decent. Patient's vision anyways is restricted by peripherally decreased vision. On exam, lungs decreased breath sounds. CARDIOVASCULAR: First and second sounds normal. MEDICATIONS: 1. Cozaar 25 mg a day. 2. Toprol-XL 25 mg q.h.s. 3. Omeprazole 20 mg p.o. daily. 4. Zocor 40 mg at bedtime. 5. Desyrel 100 mg q.h.s. 6. Prednisone G ( ) topical right eye q.h.s. 7. Gluten Aid 1 tablet p.o. daily. 8. Aleve PM 1 tablet q.h.s. p.r.n. 9. Systane 0.3% to 0.4% eye drop one drop to right eye b.i.d. 10. Zoloft 1 mg p.o. daily. 11. Questran 4 grams p.o. daily between meals. 12. Mycostatin 1 mg p.o. q.i.d. DISPOSITION: [facility]. Follow with Dr. Hortencia Ignacio on discharge from there and follow-up with Oncologist. Discharge planning more than 35 minutes. On examination, the right eyelid is swollen. LUNGS: Fair air entry. CARDIOVASCULAR: First and second sounds are normal. Patient is answering simple questions. Tolerating a diet.
== END 2016-07-31 20:10 | disposition short-term general hospital (02) | DRG 840 ==
LOC: EC 12:35 → 5ONC 16:05
PROVIDERS: ADMIT Hospitalist; ATTEND Hospitalist
DX: C85.11 Unspecified B-cell lymphoma, lymph nodes of head, face, and neck (principal); N17.0 Acute kidney failure with tubular necrosis; D61.810 Antineoplastic chemotherapy induced pancytopenia; F05 Delirium due to known physiological condition; I25.10 Atherosclerotic heart disease of native coronary artery without angina pectoris; K21.9 Gastro-esophageal reflux disease without esophagitis; E78.5 Hyperlipidemia, unspecified; H35.52 Pigmentary retinal dystrophy; H54.8 Legal blindness, as defined in USA; H91.90 Unspecified hearing loss, unspecified ear; T45.1X5A Adverse effect of antineoplastic and immunosuppressive drugs, initial encounter; I10 Essential (primary) hypertension; N20.0 Calculus of kidney; R32 Unspecified urinary incontinence; Z95.5 Presence of coronary angioplasty implant and graft; Z92.3 Personal history of irradiation; Z85.820 Personal history of malignant melanoma of skin; Z79.899 Other long term (current) drug therapy
CPT/HCPCS: 36415; 70450; 70543; 70553; 74176; 80048; 80053; 81001; 83605; 85025; 85610; 85730; 87040; 87086; 99285

== ENCOUNTER → 2016-09-01 | Outpatient (CLI) | payer MEDICARE ==
--- NOTE | 2016-09-02 10:14 | ECHOF ---
Referral Reason:C85.81 Nonhodgkins Lymphoma MEASUREMENTS -------- HEIGHT: 182.9 cm WEIGHT: 83.9 kg BP: IVSd: 1.1 cm (0.6 - 1.1) LVIDd: 5.6 cm (3.9 - 5.3) LVPWd: 1.2 cm (0.6 - 1.1) IVSs: 2.0 cm LVIDs: 3.3 cm LVPWs: 1.4 cm Ao Diam: 3.1 cm (2.0 - 3.7) AV Cusp: 2.5 cm (1.5 - 2.6) LA Diam: 3.2 cm (2.7 - 3.8) MV EXCURSION: 16.009 mm (> 18.000) MV EF SLOPE: 78 mm/s (70 - 150) EPSS: 2.6 cm MV E Steve: 0.71 m/s MV DecT: 208 ms MV A Steve: 0.85 m/s MV E/A Ratio: 0.84 RAP: 5.00 mmHg RVSP: 33.06 mmHg FINDINGS -------- Sinus rhythm. This was a technically good study. There is mild concentric left ventricular hypertrophy. Overall left ventricular systolic function is normal with, an EF between 55 - 60 %. The right ventricle is normal in size and function. The left atrium is normal in size. The right atrium is normal in size. Aortic valve is trileaflet and is mildly thickened. The mitral valve leaflets are mildly thickened. Mild mitral regurgitation is present. Trace tricuspid regurgitation present. The right ventricular systolic pressure, as measured by Doppler, is 33.06mmHg. Pulmonic valve appears structurally normal. The aortic root, ascending aorta and aortic arch are normal. The pericardium is normal. CONCLUSIONS -------- 1. Sinus rhythm. 2. Mild mitral regurgitation is present. 3. Trace tricuspid regurgitation present. 4. The right ventricular systolic pressure, as measured by Doppler, is 33.06mmHg. 5. Pulmonic valve appears structurally normal. 6. The aortic root, ascending aorta and aortic arch are normal. 7. The pericardium is normal. 8. This was a technically good study. 9. There is mild concentric left ventricular hypertrophy. 10. Overall left ventricular systolic function is normal with, an EF between 55 - 60 %. 11. The right ventricle is normal in size and function. 12. The left atrium is normal in size. 13. The right atrium is normal in size. 14. Aortic valve is trileaflet and is mildly thickened. 15. The mitral valve leaflets are mildly thickened. POLYMER TESTER: Jessica Marion RDCS
== END ==
LOC: RADECHMAIN 13:18
PROVIDERS: ATTEND Radiology Radiation Oncology
DX: C85.90 Non-Hodgkin lymphoma, unspecified, unspecified site (principal); I08.1 Rheumatic disorders of both mitral and tricuspid valves
CPT/HCPCS: 93306

== ENCOUNTER → 2016-09-06 | Outpatient (CLI) | payer MEDICARE ==
--- NOTE | 2016-09-07 10:19 | PE ---
EXAMINATION TYPE: PET CT fusion skull to thigh DATE OF EXAM: 09/06/2016 6:30 PM COMPARISON: CT abdomen pelvis 07/27/2016 Prior PET/CT: None HISTORY: Non-Hodgkin's lymphoma TECHNIQUE: Following the intravenous administration of 13.8 mCi of F-18 FDG, whole body images are p erformed from the skull base to the midthigh. Images are reviewed on the computer in the coronal, ax ial, and sagittal planes. Reconstructed rotating images are created on independent workstation and r eviewed on the computer. A localization and attenuation correction CT is performed in conjunction w ith the PET scan. DLP: 428.99 and 125.58 mGycm SCAN: Initial Blood glucose: 76 mg/dL Average Mediastinum SUV: 1.7 Average Liver SUV: 2.5 FINDINGS: NECK: There is an area of increased uptake in the preauricular region subcutaneous tissues. This has an SUV value of 3.7 could represent small lymph node. There is intense activity in the right parotid gland region with an SUV value of 11.9. There is a focal area of increased uptake within the deep ri ght parotid gland with an SUV value of 12.7 there is intense uptake within the region of the lateral right hypopharynx with an SUV value of 12.9. Within the subcutaneous tissues at this level there is a n additional area of uptake with an SUV value of 3.2, tiny underlying, lymph node may be present. In the right supraclavicular region there is a lymph node the level of the hyoid measuring 10.5 SUV valu e. Subtle increased uptake is in the subcutaneous tissue at this level with an SUV value of 3.3 THORAX: There is uptake in the superior mediastinum adjacent to the left border of the trachea with a n SUV value of 6.0 which can be compatible with a neoplastic process. Additional mediastinal adenopat hy is not evident. ABDOMEN: No abnormal uptake PELVIS: There is uptake within the left iliac chain with an SUV value of 16.6. Uptake within the ante rior right hemipelvis at this same level may be within a loop of bowel potentially could be normal. A bnormal neoplastic process with an SUV value of 8.9 is not excluded. There is a punctate nodular dens ity just posterior to the left external iliac artery PET image 219 with an SUV value of 4.1 suspiciou s for neoplastic metastasis. Additional hyperintense lymph node slightly more inferior with an SUV va lue of 7.2 approaching left inguinal region. There is a left inguinal lymph node of hyperintensity me asuring 7.1 marked increased uptake is within a large right inguinal lymph node measuring 22. Lower extremities: There is some intense uptake in the left popliteal space which may be related to a small lymph node. This has an SUV value of 7.3. There is some right uptake present as well related t o the vascular structures this level. Additional uptake is present posterior to the popliteal space c loser to the joint space this has marked increased uptake with an SUV value of 10.3. Fluid within the left knee joint space is hyperintense with an SUV value 1.6. This could be inflammatory. Some inflam matory type fluid may also be in the right knee joint space which appears smaller with an SUV value 1 .7. OSSEOUS STRUCTURES: No abnormal uptake within the osseous structures is identified. LOCALIZATION CT: Coronary artery calcification is noted. Renal stones without obstruction are present . Cysts are present on the kidneys. After calcification is within the aorta. Anterior abdominal wall hernia containing mesenteric fat is present. COMPARISON: Lymphadenopathy within the right inguinal region appears to have increased in size over t he interval 05/06/2017. IMPRESSION: 1. Multiple scattered areas suspicious for lymphoma including obvious masses in the neck, right supra clavicular region, superior mediastinum, left iliac chain, bilateral inguinal regions, posterior popl iteal spaces. 2. Malignant effusions within the knee joint spaces is not excluded.
== END | disposition home or self-care (01) ==
LOC: RADPETMAIN 12:38
PROVIDERS: ATTEND Radiology Radiation Oncology
DX: C85.81 Other specified types of non-Hodgkin lymphoma, lymph nodes of head, face, and neck (principal)
CPT/HCPCS: 78815; A9552

== ENCOUNTER 2016-09-18 09:33 | Inpatient (IN) | payer MEDICARE ==
[2016-09-18] MEDS ORDERED: SODIUM CHLORIDE 0.9% 1,000 ML IV STA (10:01)
--- NOTE | 2016-09-18 10:12 | ED ---
General Adult HPI - General Chief complaint: Shortness of Breath Stated complaint: Weakness Time Seen by Provider: 09/18/16 09:40 Source: patient, RN notes reviewed Mode of arrival: EMS Limitations: no limitations - History of Present Illness Initial comments: This is an 81-year-old male who comes in with a past medical history significant for lymphoma. Patient states he's had radiation on his eye and he has also had chemotherapy approximately 2 weeks ago per patient states he went to the cancer Center yesterday to give him a couple liters of fluid because he was dehydrated however this morning when he woke up he was so weak. Patient denies any focal weakness or focal numbness per patient denies any injury or trauma. Patient denies any headache patient denies any chest pain palpitations difficulty breathing or shortness of breath per patient denies abdominal pain. Patient denies any recent vomiting or diarrhea. Patient states his only complaint is he is just too tired to even get up on his own. - Related Data Home Medications Medication Instructions Recorded Confirmed Losartan [Cozaar] 25 mg PO DAILY 12/07/15 09/18/16 Metoprolol Succinate (ER) [Toprol 25 mg PO HS 12/07/15 09/18/16 XL] Omeprazole 20 mg PO DAILY 12/07/15 09/18/16 Simvastatin [Zocor] 40 mg PO HS 12/07/15 09/18/16 traZODone HCL [Desyrel] 50 - 100 mg PO HS 12/07/15 09/18/16 Gluten Aid 1 tab PO DAILY 07/09/16 09/18/16 Sertraline [Zoloft] 100 mg PO QA 07/09/16 09/18/16 Tamsulosin [Flomax] 0.4 mg PO DAILY 09/18/16 09/18/16 predniSONE [Deltasone] 100 mg PO DAILY 09/18/16 09/18/16 Allergies Allergy/AdvReac Type Severity Reaction Status Date / Time gluten AdvReac Severe Diarrhea Verified 09/18/16 10:15 Review of Systems ROS Statement: Those systems with pertinent positive or pertinent negative responses have been documented in the HPI. ROS Other: All systems not noted in ROS Statement are negative. 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 HX MELANOMA CHEST. UCHE RETINITIS PIGMENTOSIS, LOSS OF PERIPHERAL VISION, LEGALLY BLIND. SL GALENA. History of Any Multi-Drug Resistant Organisms: None Reported Past Surgical History: Heart Catheterization With Stent, Hernia Repair, Orthopedic Surgery, Tonsillectomy Additional Past Surgical History / Comment(s): EXC RFA, LYMPH NODE RESECTION, SPLENECTOMY 1974. UCHE ING HERNIA. ORIF RT ELBOW. Past Anesthesia/Blood Transfusion Reactions: No Reported Reaction Additional Past Anesthesia/Blood Transfusion Reaction / Comment(s): NO HISTORY OF BLOOD TRANSFUSION Date of Last Stent Placement:: 2009 Past Psychological History: No Psychological Hx Reported Additional Psychological History / Comment(s): Retired from [employer]. has adult son and [id number] who he lives with. Was in the [employer] stationed in [place]. Denies tobacco use or alcohol use. No recreational drug use. No animal exposures. 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 Patient is nontoxic and well- hydrated and is in mild distress. ENT: Neck is soft and supple. No significant lymphadenopathy is noted. Oropharynx is clear. Dry mucous membranes. Neck has full range of motion without eliciting any pain. EYES: The sclera were anicteric and conjunctiva were pink and moist. Extraocular movements were intact and pupils were equal round and reactive to light. Eyelids were unremarkable. PULMONARY: Unlabored respirations. Good breath sounds bilaterally. No audible rales rhonchi or wheezing was noted. CARDIOVASCULAR: There is a regular rate and rhythm without any murmurs gallops or rubs. ABDOMEN: Soft and nontender with normal bowel sounds. No palpable organomegaly was noted. There is no palpable pulsatile mass. SKIN: Skin is clear with no lesions or rashes and otherwise unremarkable. NEUROLOGIC: Patient is alert and oriented x3. Cranial nerves II through XII are grossly intact. Motor and sensory are also intact. Normal speech, volume and content. Symmetrical smile. MUSCULOSKELETAL: Normal extremities with adequate strength and full range of motion. No lower extremity swelling or edema. No calf tenderness. LYMPHATICS: No significant lymphadenopathy is noted PSYCHIATRIC: Normal psychiatric evaluation. Normal interpersonal interactions appears functionally intact in deals appropriately with others. No signs of depression. No signs of anxiety. Limitations: no limitations Course Vital Signs 09/18/16 09/18/16 09/18/16 09:41 10:51 12:09 Temperature 99.2 F 100.5 F H 97.7 F Pulse Rate 110 H 105 H 94 Respiratory 18 18 Rate Blood Pressure 125/60 134/65 159/74 O2 Sat by Pulse 99 97 100 Oximetry 09/18/16 09/18/16 13:09 14:19 Temperature 100.6 F H Pulse Rate 106 H 112 H Respiratory 18 18 Rate Blood Pressure 146/76 150/71 O2 Sat by Pulse 98 97 Oximetry Medical Decision Making - Medical Decision Making EKG shows sinus tachycardia at 112 bpm ID interval is 128 QRSs 82 QT interval 334 QTC is 455. Patient's EKG shows no ST segment elevation or depression or T- wave abdomen is noted. Patient's urine showed some bacteria and minimal white cells. Patient spiked a fever at 220/started the patient on Levaquin at this time and ordered blood cultures as well as lactic gas. I spoke with Dr. Moralez he agrees to admit the patient I wrote admitting orders - Lab Data Result diagrams: 09/18/16 10:40 09/18/16 10:40 Lab Results 09/18/16 09/18/16 09/18/16 Range/Units 10:40 10:40 10:40 WBC 0.1 L* (3.8-10.6) k/uL RBC 3.78 L (4.30-5.90) m/uL Hgb 12.9 L (13.0-17.5) gm/dL Hct 38.1 L (39.0-53.0) % MCV 101.0 H (80.0-100.0) fL MCH 34.2 (25.0-35.0) pg MCHC 33.9 (31.0-37.0) g/dL RDW 13.6 (11.5-15.5) % Plt Count 45 L* D (150-450) k/uL Differential Comment Manual Slide Review Performed Polychromasia Present Macrocytosis Slight PT (9.0-12.0) sec INR (<1.1) APTT (22.0-30.0) sec Sodium 141 (137-145) mmol/L Potassium 3.2 L (3.5-5.1) mmol/L Chloride 106 (98-107) mmol/L Carbon Dioxide 25 (22-30) mmol/L Anion Gap 10 mmol/L BUN 29 H (9-20) mg/dL Creatinine 1.02 (0.66-1.25) mg/dL Est GFR (MDRD) Af Amer >60 (>60 ml/min/1.73 sqM) Est GFR (MDRD) Non-Af >60 (>60 ml/min/1.73 sqM) Glucose 207 H (74-99) mg/dL Calcium 8.0 L (8.4-10.2) mg/dL Magnesium 1.5 L (1.6-2.3) mg/dL Total Bilirubin 2.6 H (0.2-1.3) mg/dL AST 38 (17-59) U/L ALT 100 H (21-72) U/L Alkaline Phosphatase 58 (38-126) U/L Total Creatine Kinase <20 L (55-170) U/L CK-MB (CK-2) <0.2 (0.0-2.4) ng/mL CK-MB (CK-2) Rel Index Troponin I 0.023 (0.000-0.034) ng/mL Total Protein 5.2 L (6.3-8.2) g/dL Albumin 2.7 L (3.5-5.0) g/dL Urine Color Urine Appearance (Clear) Urine pH (5.0-8.0) Ur Specific [place] (1.001-1.035) Urine Protein (Negative) Urine Glucose (UA) (Negative) Urine Ketones (Negative) Urine Blood (Negative) Urine Nitrite (Negative) Urine Bilirubin (Negative) Urine Urobilinogen (<2.0) mg/dL Ur Leukocyte Esterase (Negative) Urine WBC (0-5) /hpf Urine Bacteria (None) /hpf Urine Mucus (None) /hpf 09/18/16 09/18/16 Range/Units 10:40 12:35 WBC (3.8-10.6) k/uL RBC (4.30-5.90) m/uL Hgb (13.0-17.5) gm/dL Hct (39.0-53.0) % MCV (80.0-100.0) fL MCH (25.0-35.0) pg MCHC (31.0-37.0) g/dL RDW (11.5-15.5) % Plt Count (150-450) k/uL Differential Comment Manual Slide Review Polychromasia Macrocytosis PT 12.5 H (9.0-12.0) sec INR 1.3 (<1.1) APTT 40.0 H (22.0-30.0) sec Sodium (137-145) mmol/L Potassium (3.5-5.1) mmol/L Chloride (98-107) mmol/L Carbon Dioxide (22-30) mmol/L Anion Gap mmol/L BUN (9-20) mg/dL Creatinine (0.66-1.25) mg/dL Est GFR (MDRD) Af Amer (>60 ml/min/1.73 sqM) Est GFR (MDRD) Non-Af (>60 ml/min/1.73 sqM) Glucose (74-99) mg/dL Calcium (8.4-10.2) mg/dL Magnesium (1.6-2.3) mg/dL Total Bilirubin (0.2-1.3) mg/dL AST (17-59) U/L ALT (21-72) U/L Alkaline Phosphatase (38-126) U/L Total Creatine Kinase (55-170) U/L CK-MB (CK-2) (0.0-2.4) ng/mL CK-MB (CK-2) Rel Index Troponin I (0.000-0.034) ng/mL Total Protein (6.3-8.2) g/dL Albumin (3.5-5.0) g/dL Urine Color [place] Urine Appearance Cloudy (Clear) Urine pH 5.5 (5.0-8.0) Ur Specific [place] 1.013 (1.001-1.035) Urine Protein 1+ H (Negative) Urine Glucose (UA) Negative (Negative) Urine Ketones Negative (Negative) Urine Blood Moderate H (Negative) Urine Nitrite Negative (Negative) Urine Bilirubin 1+ H (Negative) Urine Urobilinogen 2.0 (<2.0) mg/dL Ur Leukocyte Esterase Small H (Negative) Urine WBC 14 H (0-5) /hpf Urine Bacteria Many H (None) /hpf Urine Mucus Rare H (None) /hpf Disposition Clinical Impression: Urinary tract infection, Generalized weakness, Neutropenia Disposition: ADMITTED IP TO THIS HOSP Referrals: Marta Ignacio MD [Primary Care Provider] - 1-2 days Time of Disposition: 14:32
[2016-09-18 11:06] LABS: ALT 100 U/L (21-72); AST 38 U/L (17-59); Alkaline Phosphatase 58 U/L (38-126); Anion Gap 10 mmol/L; Blood Urea Nitrogen 29 mg/dL (9-20); Carbon Dioxide 25 mmol/L (22-30); Chloride 106 mmol/L (98-107); Glucose 207 mg/dL (74-99); Magnesium 1.5 mg/dL (1.6-2.3); Non-African American GFR(MDRD) >60 (>60 ml/min/1.73 sqM); Potassium 3.2 mmol/L (3.5-5.1); Sodium 141 mmol/L (137-145); Total Bilirubin 2.6 mg/dL (0.2-1.3); Total Protein 5.2 g/dL (6.3-8.2)
[2016-09-18 11:14] LABS: Aty Lym Flag Marked; CHCM 34.7; HCT 38.1 % (39.0-53.0); HDW 2.24; HGB 12.9 gm/dL (13.0-17.5); Immature Gran Flag Marked; MCH 34.2 pg (25.0-35.0); MCHC 33.9 g/dL (31.0-37.0); Macrocytosis Slight; Mean Platelet Volume 9.1; RBC 3.78 m/uL (4.30-5.90); RDW 13.6 % (11.5-15.5); WBC (Perox) 0.04
--- NOTE | 2016-09-18 11:25 | XR ---
EXAMINATION TYPE: XR chest 2V DATE OF EXAM: 09/18/2016 11:22 AM COMPARISON: 12/10/2015 HISTORY: Shortness of breath TECHNIQUE: Frontal and lateral views of the chest are obtained. FINDINGS: Scattered senescent parenchymal changes noted. Hyperinflation compatible with COPD. No evidence for infiltrate. No evidence for atelectasis. Heart size is stable. Mediastinal structures are stable and grossly unremarkable. No evidence for hilar prominence. Degenerative changes dorsal spine. IMPRESSION: 1. No evidence for acute pulmonary disease.
[2016-09-18 11:35] LABS: INR 1.3 (<1.1); Prothrombin Time 12.5 sec (9.0-12.0)
[2016-09-18 11:43] LABS: WBC 0.1 k/uL (3.8-10.6)
[2016-09-18 11:44] LABS: Add Differential Manual Differential
[2016-09-18 11:46] LABS: Manual Review Performed; Polychromasia Present
[2016-09-18 11:56] LABS: Creatine Kinase <20 U/L (55-170)
[2016-09-18 12:08] LABS: Creatine Kinase MB <0.2 ng/mL (0.0-2.4); Troponin I 0.023 ng/mL (0.000-0.034)
[2016-09-18 12:57] LABS: Appearance,Urine Cloudy (Clear); Bacteria,Urine Many /hpf; Bilirubin,Urine 1+ (Negative); Glucose,Urine (UA) Negative (Negative); Ketones,Urine Negative (Negative); Leukocyte Esterase,Urine Small (Negative); Mucus,Urine Rare /hpf; Nitrite,Urine Negative (Negative); PH, Urine 5.5 (5.0-8.0); Particle Count 18210; Protein,Urine 1+ (Negative); Specific Gravity,Urine 1.013 (1.001-1.035); UA Billing (MACRO vs. MICRO) MICRO; WBC,Urine 14 /hpf (0-5)
[2016-09-18] MEDS ORDERED: LEVOFLOXACIN 750MG-D5W PMX 750 MG in DEXTROSE/WATER 1 150ML.BAG IVPB STA (13:14)
[2016-09-18] MEDS ORDERED: LEVOFLOXACIN 750MG-D5W PMX 750 MG in DEXTROSE/WATER 1 150ML.BAG IVPB SCH (13:15)
[2016-09-18] MEDS ORDERED: ACETAMINOPHEN TAB 500 MG TAB PO STA (14:26)
[2016-09-18] MEDS ORDERED: SODIUM CHLORIDE 0.9% 1,000 ML IV ONE ×3 (14:33→17:59)
[2016-09-18] MEDS ORDERED: IV VANCOMYCIN PER PHARMACY 1 EACH MISC MISCELLANE PRN (14:34)
[2016-09-18] MEDS ORDERED: CEFEPIME 2 GM in SODIUM CHLORIDE 0.9% 50 ML IVPB STA (14:34)
[2016-09-18] MEDS ORDERED: VANCOMYCIN 1,750 MG in SODIUM CHLORIDE 0.9% 250 ML IVPB STA (15:10)
[2016-09-18] MEDS ORDERED: POTASSIUM CHLORIDE ER 20 MEQ TAB.ER PO STA (16:25)
[2016-09-18 18:51] LABS: Glucose,Whole Blood 108 mg/dL (75-99)
[2016-09-18] MEDS: MAGNESIUM SULFATE-D5W PMX 1 GM in DEXTROSE/WATER 1 100ML.BAG IVPB SCH ×2 (19:04→20:42)
[2016-09-18] MEDS ORDERED: NALOXONE 0.4 MG/ML 1 ML VIAL IV PRN (20:00)
--- NOTE | 2016-09-18 21:34 | HP ---
DATE OF ADMISSION: Patient is an 81-year-old male with a past medical history significant for lymphoma. Patient received chemotherapy recently and patient is severely neutropenic and quite weak; unable to get much of the history from the patient. Patient started having diarrhea today; quite dehydrated. Patient has having chills and low-grade fever. Patient is admitted for neutropenic fever. Chest x-ray did not show any pneumonic process. UA showed 1+ protein, moderate amount of blood, 1+ bilirubin, small leukocyte esterase, 40 WBCs. UTI cannot be ruled out as a source. Since patient is having diarrhea, will obtain C difficile testing. That can be a source, too. Patient is severely neutropenic with total WBC count of 1000. I do not have an absolute neutrophil count available at this point of time. Patient has an elevated MCV and pancytopenia secondary to chemotherapy. Patient also has electrolyte abnormalities which will be corrected. Plasma lactic acid is 1.5. Patient appears to be quite a bit dehydrated. Patient was started on vancomycin and cefepime, which is appropriate. Patient is immunosuppressed secondary to neutropenia secondary to chemotherapy. ROS: All others systems were reviewed and were negative. Home medications include: 1. Losartan. 2. Metoprolol. 3. Omeprazole. 4. Simvastatin. 5. Trazodone. 6. Sertraline. 7. Tamsulosin. 8. Prednisone. Past medical history is significant for: 1. Coronary artery disease. 2. Patient is blind secondary to his previous what appears like radiation therapies. Patient is legally blind. 3. Gastroesophageal reflux disease. 4. Hearing disorder. 5. Hyperlipidemia. 6. Hypertension. 7. Patient apparently has bilateral retinitis pigmentosa with loss of peripheral vision and legally blind. 8. Melanoma of the chest. 9. Cardiac catheterization and stent placement. 10. Hernia repair. 11. Orthopedic surgery. 12. Tonsillectomy. SOCIAL HISTORY: Denied any smoking, alcohol abuse or any drug abuse. FAMILY HISTORY: Significant for CVA, TIA, DVT in father. PHYSICAL EXAMINATION: Temperature 97.9, pulse of 115, respiratory rate of 18. Blood pressure is 148/80. Saturating at 99% on 4 L of oxygen by nasal cannula. GENERAL: Very thin build. Alert. Shivering, shaking. Appears to be septic. HEENT: Patient's right eye is closed. Patient is also legally blind in the left eye. Patient keeps his left eye always closed, the right eye always closed apparently. Patient is very thin. Alert, oriented times almost 3. Normocephalic, atraumatic. No pharyngeal erythema. No thyromegaly. CARDIOVASCULAR: S1 and S2 present. Patient is tachycardic; appears to be sinus tachycardia. PULMONARY: Chest is clear to auscultation, no wheezing or crackles. ABDOMEN: Soft, nontender, nondistended, normoactive bowel sounds. No palpable organomegaly. MUSCULOSKELETAL: No joint swelling or deformity. EXTREMITIES: No cyanosis, clubbing, or pedal edema. NEUROLOGICAL: Gross neurological examination did not reveal any focal deficits. SKIN: No rashes. LABORATORY DATA: CBC, CMP are abnormal for low WBC count, low hemoglobin of 12.9 secondary to chemotherapy, low platelet count of 45,000. Potassium of 3.2. Lactic acid is 1.5. Magnesium 1.5, which will be supplemented. UA as mentioned above. Chest x-ray did not show any pneumonic process. ASSESSMENT AND PLAN: 1. Neutropenic fever and sepsis. Source can be urinary tract infection. Patient is also having diarrhea. Will obtain Clostridium difficile testing. Patient is on broad-spectrum antibiotics cefepime and vancomycin, which will be continued. Levofloxacin will be discontinued. 2. Pancytopenia secondary to chemotherapy. Not sure whether patient is receiving Neulasta or not. 3. Electrolyte abnormalities, including hypomagnesemia and hypokalemia which will be supplemented. 4. Coronary artery disease. Continue with beta brianda and statin. 5. Gastroesophageal reflux disease. 6. Retinitis pigmentosa. No further intervention at this point of time. 7. Hypertension. Hold off on the YENNI inhibitor. Continue with beta brianda. 8. Tachycardia secondary to sepsis. Patient will be on IV fluids. MTDD
[2016-09-18] MEDS: METOPROLOL SUCCINATE (ER) 25 MG TAB.ER.24H PO SCH (23:11)
[2016-09-18] MEDS: traZODone HCL 50 MG TAB PO PRN (23:11)
[2016-09-18] MEDS: ATORVASTATIN 20 MG TAB PO SCH (23:12)
[2016-09-18] MEDS ORDERED: ONDANSETRON 4 MG/2 ML VIAL IVP PRN (23:42)
[2016-09-19] MEDS: CEFEPIME 2 GM in SODIUM CHLORIDE 0.9% 50 ML IVPB SCH ×3 (00:04→16:44)
[2016-09-19 00:45] LABS: Amorphous Sediment,Urine Rare /hpf; Appearance,Urine Cloudy (Clear); Bacteria,Urine Many /hpf; Bilirubin,Urine Negative (Negative); Glucose,Urine (UA) Negative (Negative); Granular Casts,Urine 9 /lpf (0); Ketones,Urine Negative (Negative); Leukocyte Esterase,Urine Negative (Negative); Mucus,Urine Occasional /hpf; Nitrite,Urine Negative (Negative); PH, Urine 5.5 (5.0-8.0); Particle Count 17089; Protein,Urine 1+ (Negative); RBC,Urine 5 /hpf (0-5); Specific Gravity,Urine 1.014 (1.001-1.035); UA Billing (MACRO vs. MICRO) MICRO; Urobilinogen,Urine <2.0 mg/dL (<2.0); WBC,Urine 7 /hpf (0-5)
[2016-09-19] MEDS ORDERED: ONDANSETRON 4 MG/2 ML VIAL IVP STA (03:58)
[2016-09-19 06:02] LABS: Anion Gap 7 mmol/L; Blood Urea Nitrogen 35 mg/dL (9-20); Calcium 7.2 mg/dL (8.4-10.2); Carbon Dioxide 20 mmol/L (22-30); Chloride 114 mmol/L (98-107); Glucose 109 mg/dL (74-99); Magnesium 1.8 mg/dL (1.6-2.3); Non-African American GFR(MDRD) 53 (>60 ml/min/1.73 sqM); Phosphorous 2.4 mg/dL (2.5-4.5); Sodium 141 mmol/L (137-145)
[2016-09-19] MEDS: VANCOMYCIN 1,500 MG in SODIUM CHLORIDE 0.9% 250 ML IVPB SCH ×2 (06:26→21:20)
[2016-09-19 06:34] LABS: Potassium 2.8 mmol/L (3.5-5.1)
[2016-09-19 06:58] LABS: CH 34.5; CHCM 34.3; HCT 30.6 % (39.0-53.0); HDW 2.25; HGB 10.7 gm/dL (13.0-17.5); Immature Gran Flag Marked; MCH 35.1 pg (25.0-35.0); MCHC 34.8 g/dL (31.0-37.0); MCV 100.8 fL (80.0-100.0); Macrocytosis Slight; Mean Platelet Volume 9.7; RBC 3.04 m/uL (4.30-5.90); RDW 13.8 % (11.5-15.5); WBC (Perox) 0.09
[2016-09-19 07:06] LABS: WBC 0.1 k/uL (3.8-10.6)
[2016-09-19] MEDS ORDERED: POTASSIUM PHOSPHATE 10 MMOL in SODIUM CHLORIDE 0.9% 100 ML IV ONE (07:30)
--- NOTE | 2016-09-19 07:49 | XR ---
EXAMINATION TYPE: XR chest 1V DATE OF EXAM: 09/19/2016 6:44 AM COMPARISON: Prior chest x-ray fourth of September 2016 HISTORY: Lung status evaluation, lymphoma and shortness of breath TECHNIQUE: Single frontal view of the chest is obtained. FINDINGS: Patient is rotated. There is a port present in the right chest with the tip coursing to th e superior vena cava. Heart may be enlarged. Exam is expiratory. No evident pneumothorax or pleural e ffusion. High riding left shoulder compatible with chronic rotator cuff tear. IMPRESSION: Heart size accentuation may be due to technique. Expiratory rotated exam, follow-up as i ndicated
[2016-09-19] MEDS ORDERED: POTASSIUM CHLORIDE 20 MEQ in WATER FOR INJECTION 1 100ML.BAG IVPB ONE ×3 (08:00→15:16)
[2016-09-19] MEDS ORDERED: predniSONE 20 MG TAB PO SCH (09:00)
[2016-09-19] MEDS: SERTRALINE 100 MG TAB PO SCH (09:17)
[2016-09-19] MEDS: TAMSULOSIN 0.4 MG CAP.ER.24H PO SCH (09:17)
[2016-09-19] MEDS: PANTOPRAZOLE 40 MG TABLET PO SCH (09:17)
[2016-09-19] MEDS: MAGNESIUM SULFATE-D5W PMX 1 GM in DEXTROSE/WATER 1 100ML.BAG IVPB SCH ×2 (10:00→10:26)
[2016-09-19 10:16] LABS: Add Differential Manual Differential; Manual Review Performed
[2016-09-19 14:18] LABS: Anion Gap 7 mmol/L; Blood Urea Nitrogen 35 mg/dL (9-20); Calcium 7.4 mg/dL (8.4-10.2); Carbon Dioxide 22 mmol/L (22-30); Chloride 114 mmol/L (98-107); Glucose 117 mg/dL (74-99); Non-African American GFR(MDRD) 53 (>60 ml/min/1.73 sqM); Sodium 143 mmol/L (137-145)
[2016-09-19 14:26] LABS: Potassium 2.8 mmol/L (3.5-5.1)
--- NOTE | 2016-09-19 14:27 | P.CNPUL ---
History of Present Illness Consult date: 09/19/16 Requesting physician: Huy Mckinney Reason for consult: other (Acute neutropenic sepsis) Chief complaint: Weakness and shortness of breath. History of present illness: This is an 81-year-old white male who was initially diagnosed with lymphoma in 1974. At that time the patient presented with a large mass on medial aspect of right forearm. This was resected with a right axillary lymph node dissection and splenectomy with adjuvant radiation to the right upper extremity and right axilla. Patient presented to his primary care physician in October of 2015 with painless enlarging cervical nodule. Patient was referred to Dr. Rojo and computed tomography scan showed multiple lymph nodes hence recurrent lymphoma was suspected. 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 Patient was started on rituxan,/benedeka. Follow-up PET scan after 4 treatments showed significant improvement patient received a total of 7 cycles. In May of 2016, patient presented with right eye pain and redness. This, later turned out to be lymphoma involving the right eye. And required radiation treatment and chemotherapy 2 weeks ago.. Patient is now legally blind. Patient went back to see Dr. Penn, and couple of weeks ago, patient received chemotherapy again. Presented to the ER on 2016 and he was complaining of generalized weakness, felt dehydrated, no headache, no blurred vision, no dizziness, no fever, no chills, he had 1 episode of slight diarrhea. Workup in the ER included a CBC which showed WBC count of 0.1, hemoglobin 10.7, platelets 20,000, potassium of 2.8, BUN of 35, creatinine of 1.30, lactic acid of 1.5. Urinalysis is relatively unremarkable except for small blood, and many bacteria noted in the urine. Patient was admitted, required fluid boluses, and empiric antibiotics utilizing vancomycin and cefepime. And I was asked to see him on consultation. No hemodynamic instability noted during that admission, patient did not require any pressors, did receive 2 L of fluid boluses in the ER. Upon my evaluation, the patient was already feeling a bit better. Denies any headache no blurred vision no dizziness, no nausea no vomiting no chest pain no shortness of breath. 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 UCHE RETINITIS PIGMENTOSIS, LOSS OF PERIPHERAL VISION (UCHE), LEGALLY BLIND. SL TUSCARORA.2004 HEAD INJURY D/T FALL- DEVELOPED BLOOD CLOT ON BRAIN HAD SX. ANX,DEPRESSION History of Any Multi-Drug Resistant Organisms: None Reported Past Surgical History: Heart Catheterization With Stent, Hernia Repair, Orthopedic Surgery, Tonsillectomy Additional Past Surgical History / Comment(s): EXC RFA, LYMPH NODE RESECTION, SPLENECTOMY 1974. UCHE ING HERNIA. ORIF RT ELBOW Past Anesthesia/Blood Transfusion Reactions: No Reported Reaction Additional Past Anesthesia/Blood Transfusion Reaction / Comment(s): NO HISTORY OF BLOOD TRANSFUSION Date of Last Stent Placement:: 2009 Past Psychological History: No Psychological Hx Reported Additional Psychological History / Comment(s): Retired from [employer]. has adult son and [id number]-dr-fks who he lives with. Was in the [employer] stationed in [place]. Denies tobacco use or alcohol use. No recreational drug use. No animal exposures. 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 [employer] Smoking Status: Never smoker Past Alcohol Use History: None Reported Past Drug Use History: None Reported - Past Family History Mother Family Medical History: No Reported History Father Family Medical History: CVA/TIA, Deep Vein Thrombosis (DVT) Medications and Allergies Home Medications Medication Instructions Recorded Confirmed Type Losartan [Cozaar] 25 mg PO DAILY 12/07/15 09/18/16 History Metoprolol Succinate (ER) [Toprol 25 mg PO HS 12/07/15 09/18/16 History XL] Omeprazole 20 mg PO DAILY 12/07/15 09/18/16 History Simvastatin [Zocor] 40 mg PO HS 12/07/15 09/18/16 History traZODone HCL [Desyrel] 50 - 100 mg PO HS 12/07/15 09/18/16 History Gluten Aid 1 tab PO DAILY 07/09/16 09/18/16 History Sertraline [Zoloft] 100 mg PO QAM 07/09/16 09/18/16 History Tamsulosin [Flomax] 0.4 mg PO DAILY 09/18/16 09/18/16 History predniSONE [Deltasone] 100 mg PO DAILY 09/18/16 09/18/16 History Allergies Allergy/AdvReac Type Severity Reaction Status Date / Time gluten AdvReac Severe Diarrhea Verified 09/18/16 10:15 Physical Exam Vitals: Vital Signs Temp Pulse Pulse Pulse Resp BP BP 09/19/16 13:00 109 H 19 155/60 09/19/16 12:00 109 H 19 142/59 09/19/16 11:00 114 H 25 H 136/60 09/19/16 10:00 110 H 24 119/76 09/19/16 09:00 114 H 22 148/69 09/19/16 08:00 98.4 F 109 H 19 09/19/16 06:30 110 H 24 09/19/16 06:00 114 H 24 09/19/16 05:30 114 H 26 H 09/19/16 05:00 110 H 24 09/19/16 04:30 98.2 F 112 H 26 H 09/19/16 04:00 112 H 26 H 09/19/16 03:30 104 H 26 H 09/19/16 03:00 98 24 09/19/16 02:30 98 22 09/19/16 02:00 100 24 09/19/16 01:30 99 16 102/59 09/19/16 01:15 100 21 108/58 09/19/16 01:00 98 18 95/58 09/19/16 00:45 101 H 21 109/58 09/19/16 00:30 99 13 108/74 09/19/16 00:00 98 24 73/24 09/18/16 23:30 97.0 F L 98 28 H 98/57 09/18/16 23:00 104 H 22 95/54 09/18/16 22:30 106 H 23 90/61 09/18/16 22:00 113 H 17 97/54 09/18/16 21:30 119 H 23 101/48 09/18/16 21:00 92 23 102/51 09/18/16 20:30 96.9 F L 110 H 27 H 93/51 09/18/16 20:00 108 H 24 105/45 09/18/16 19:30 106 H 20 97/49 09/18/16 19:05 123 H 23 91/45 09/18/16 19:00 118 H 25 H /45 09/18/16 18:59 98.3 F 119 H 24 /45 09/18/16 18:15 148 H 36 H 09/18/16 17:10 98.3 F 158 H 28 H 09/18/16 16:05 97.9 F 115 H 18 148/80 BP Pulse Ox 09/19/16 13:00 09/19/16 12:00 99 09/19/16 11:00 99 09/19/16 10:00 92 L 09/19/16 09:00 09/19/16 08:00 144/69 09/19/16 06:30 139/65 95 09/19/16 06:00 137/56 98 09/19/16 05:30 118/63 91 L 09/19/16 05:00 115/60 95 09/19/16 04:30 120/80 93 L 09/19/16 04:00 137/76 94 L 09/19/16 03:30 124/64 97 09/19/16 03:00 131/78 94 L 09/19/16 02:30 119/59 91 L 09/19/16 02:00 109/70 93 L 09/19/16 01:30 90 L 09/19/16 01:15 90 L 09/19/16 01:00 99 09/19/16 00:45 90 L 09/19/16 00:30 90 L 09/19/16 00:00 99 09/18/16 23:30 90 L 09/18/16 23:00 97 09/18/16 22:30 98 09/18/16 22:00 91 L 09/18/16 21:30 95 09/18/16 21:00 95 09/18/16 20:30 97 09/18/16 20:00 97 09/18/16 19:30 95 09/18/16 19:05 96 09/18/16 19:00 96 09/18/16 18:59 96 09/18/16 18:15 105/62 94 L 09/18/16 17:10 115/77 96 09/18/16 16:05 99 Intake and Output 09/18/16 09/19/16 09/19/16 22:59 06:59 14:59 Intake Total 2710 2115 1505 Output Total 1390 440 Balance 2710 725 1065 Intake: IV 1300 1875 1025 Cefepime 2 gm In Sodium 50 100 Chloride 0.9% 50 ml @ 100 mls/hr IVPB ONCE STA Rx# :[id number] Magnesium Sulfate-D5w Pmx 100 1 gm In Dextrose/Water 1 100ml.bag @ 100 mls/hr IVPB Q1H [facility] Rx#: [id number] Sodium Chloride 0.9% 1, 200 1700 800 000 ml @ 100 mls/hr IV . Q10H [facility] Rx#:[id number] Sodium Chloride 0.9% 1, 1000 000 ml @ 999 mls/hr IV . Q1H1M [facility] Rx#:[id number] Vancomycin 1,500 mg In 125 125 Sodium Chloride 0.9% 250 ml @ 125 mls/hr IVPB Q16H [facility] Rx#:[id number] Intake, IV Titration 1350 400 Amount Magnesium Sulfate-D5w Pmx 100 1 gm In Dextrose/Water 1 100ml.bag @ 100 mls/hr IVPB Q1H [facility] Rx#: [id number] Magnesium Sulfate-D5w Pmx 200 1 gm In Dextrose/Water 1 100ml.bag @ 100 mls/hr IVPB Q1H [facility] Rx#: [id number] Potassium Chloride 20 meq 100 In Water For Injection 1 100ml.bag @ 50 mls/hr IVPB ONCE ONE Rx#: [id number] Potassium Phosphate 10 100 mmol In Sodium Chloride 0 .9% 100 ml @ 50 mls/hr IV ONCE ONE Rx#:[id number] Sodium Chloride 0.9% 1, 1000 000 ml @ 999 mls/hr IV . Q1H1M [facility] Rx#:[id number] Vancomycin 1,750 mg In 250 Sodium Chloride 0.9% 250 ml @ 125 mls/hr IVPB ONCE STA Rx#:[id number] Oral 60 240 80 Output: Urine 390 440 Emesis 1000 Other: Voiding Method Urinal Indwelling Catheter Indwelling Catheter # Voids 1 # Bowel Movements 1 1 1 Weight 82.1 kg 82.1 kg Patient Weight 09/20/16 06:59 Weight 82.1 kg Physical Exam: Revealed an 81-year-old white male in no distress. Dry mucous membranes were noted. HEENT:[Neck is supple.] [No neck masses.] [No thyromegaly.] [No JVD.] Complete shutdown of the right eye was noted related to lymphoma Chest: [Clear throughout, no crackles, no rhonchi, no wheezes.] Cardiac Exam: [Normal S1 and S2, no S3 gallop, no murmur.] Abdomen: [Soft, nontender, no megaly, no rebound, no guarding, normal bowel sounds.] Extremities: [No clubbing, no edema, no cyanosis.] Neurological Exam: [No focal neurologic deficit.] Results - Laboratory Findings CBC and BMP: 09/19/16 05:15 09/19/16 05:15 PT/INR, D-dimer PT 12.5 sec (9.0-12.0) H 09/18/16 10:40 INR 1.3 (<1.1) 09/18/16 10:40 Abnormal lab findings: Abnormal Labs 09/18/16 09/18/16 09/19/16 18:49 23:30 05:15 WBC 0.1 L* RBC 3.04 L Hgb 10.7 L Hct 30.6 L MCV 100.8 H MCH 35.1 H Plt Count 20 L* D Potassium Chloride Carbon Dioxide BUN Creatinine Glucose POC Glucose (mg/dL) 108 H Calcium Phosphorus Urine Protein 1+ H Urine Blood Small H Urine WBC 7 H Amorphous Sediment Rare H Urine Bacteria Many H Hyaline Casts 9 H Urine Mucus Occasional H 09/19/16 05:15 WBC RBC Hgb Hct MCV MCH Plt Count Potassium 2.8 L* Chloride 114 H Carbon Dioxide 20 L BUN 35 H Creatinine 1.30 H Glucose 109 H POC Glucose (mg/dL) Calcium 7.2 L Phosphorus 2.4 L Urine Protein Urine Blood Urine WBC Amorphous Sediment Urine Bacteria Hyaline Casts Urine Mucus - Diagnostic Findings Chest x-ray: image reviewed (No evidence of active disease noted.) Assessment and Plan Plan: Impression: 1 acute neutropenic sepsis. 2 pancytopenia secondary to recent chemotherapy for B-cell lymphoma with bone marrow suppression. 3 electrolytes imbalance and dehydration 4 multiple comorbidities including B-cell lymphoma, right eyelid lymphoma involvement, coronary artery disease and previous stent placement, hypertension , hyperlipidemia, history of retinitis pigmentosa, legal blindness, history of GERD, Recommendation: I fully agree with the present treatment plan including broad- spectrum antibiotics, patient is presently on vancomycin and cefepime, continue GI and DVT prophylaxis, fluids, await final cultures from blood and urine, and we will monitor the patient in the intensive care unit. Time with Patient: Greater than 30
[2016-09-19] MEDS: POTASSIUM CHLORIDE ER 20 MEQ TAB.ER PO SCH ×3 (15:36→18:26)
[2016-09-19] MEDS: SODIUM CHLORIDE 0.9% 1,000 ML IV SCH (15:36)
[2016-09-19] MEDS ORDERED: LEVOFLOXACIN 750MG-D5W PMX 750 MG in DEXTROSE/WATER 1 150ML.BAG IVPB SCH (16:00)
[2016-09-19] MEDS: POTASSIUM CHLORIDE 20 MEQ in WATER FOR INJECTION 1 100ML.BAG IVPB SCH ×2 (16:35→18:18)
[2016-09-19] MEDS ORDERED: POTASSIUM CHLORIDE 10 MEQ in WATER FOR INJECTION 1 100ML.BAG IVPB ONE (17:00)
--- NOTE | 2016-09-19 17:01 | PN ---
Patient is an 81-year-old with neutropenic fever and sepsis, probably due to urinary tract infection. Because of severe sepsis, patient was admitted to ICU. Patient's blood pressure improved. Patient will be transferred out of ICU today. Patient is still having quite a bit of diarrhea. C difficile is negative. Patient is feeling much better today. His fever is improved. I will increase the IV fluids to 150 mL/hour. Patient will be started on Questran. Patient will be transferred out of ICU. Patient continues to be neutropenic. Patient has electrolyte imbalances due to diarrhea, which will be corrected; that is, basically patient has low potassium, which will be corrected. REVIEW OF SYSTEMS: CARDIOVASCULAR: No chest pain, no orthopnea, no PND, no palpitations. PULMONARY: Denied any shortness of breath. No cough or hemoptysis. GASTROINTESTINAL: No diarrhea, nausea or vomiting. No abdominal pain. Normoactive bowel sounds. NEUROLOGIC: No headaches, no weakness, no numbness. Medications were reviewed. PHYSICAL EXAMINATION: VITAL SIGNS: Temperature 98.0, pulse of 107, respiratory rate of 23. Blood pressure is 146/60. Saturating at 97% on 3 L of oxygen by nasal cannula. GENERAL: Thin build. Alert and oriented x3. Not shaking. Patient looks much better compared to yesterday. HEENT: No significant change compared to yesterday. CARDIOVASCULAR: S1 and S2 present. No murmurs, rubs, or gallops. PULMONARY: Chest is clear to auscultation, no wheezing or crackles. ABDOMEN: Soft, nontender, nondistended, normoactive bowel sounds. No palpable organomegaly. MUSCULOSKELETAL: No joint swelling or deformity. EXTREMITIES: No cyanosis, clubbing, or pedal edema. NEUROLOGICAL: Gross neurological examination did not reveal any focal deficits. SKIN: No rashes. Patient has a [place] catheter in place. LABORATORY DATA: CBC, CMP are abnormal for continued pancytopenia, potassium 2.8, which will be supplemented, chloride of 114, creatinine of 1.3. His chloride is expected to go even higher tomorrow. ASSESSMENT AND PLAN: 1. Neutropenic fever. Source of sepsis can be urinary tract infection. Clostridium difficile was ruled out. 2. Pancytopenia secondary to chemotherapy. 3. Electrolyte abnormalities, which are being corrected at this point of time. 4. Coronary artery disease. 5. Gastroesophageal reflux disease. 6. 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 7. Hypertension. Hold off antihypertensives because of his hypotension issue yesterday. Continue with beta brianda, though. I believe patient's beta brainda is being held as well, which we will go ahead and continue. 8. Tachycardia, probably reflex tachycardia from not getting beta brianda yesterday because of his hypotension issues.
[2016-09-19] MEDS: CHOLESTYRAMINE (WITH SUGAR) 4 GM PACKET PO SCH (18:19)
--- NOTE | 2016-09-19 18:45 | P.CONS ---
History of Present Illness - Reason for Consult Consult date: 09/19/16 [facility] Requesting physician: James Dye - Chief Complaint weakness - History of Present Illness Mr. Coley is a very pleasant 81-year-old male patient of Dr. Penn who was initially diagnosed with lymphoma back in 1974. At that time he presented with a large mass on the medial aspect of his right forearm. This was resected with right axillary lymph node dissection as well as a splenectomy. He was treated with adjuvant radiation to the right upper extremity and right axilla. He presented to his primary care physician in October 2015 with complaints of painless, enlarging cervical nodules. He was referred to Dr. Sapp, computed tomography scan was suggestive of multiple lymph node involvement suspect recurrent lymphoma. Patient had an FNA on 11/15/2015. Path revealed large B-cell lymphoma. Patient was otherwise asymptomatic. Patient received Rituxan and Bendeka starting November 2015. Follow-up PET scan after 4 treatment which showed significant improvement. Patient had had 7 of 8 planned cycles when, in May 2016 patient unfortunately started having right eye pain, swelling and redness. He was treated for conjunctivitis without improvement. In July patient was hospitalized due to progressive symptoms as well as significant eye lid swelling. He was having hallucinations at that time. He was transferred to a tertiary facility for management of the eye. The findings were confirmed to be progressive lymphoma. Patient did have careful radiation to that eye lid with significant improvements in swelling. Patient is unable to open the eye on his own. Patient was resumed on treatment and received his first cycle of R-CHOP with Neulasta on September 12. Over the last week patient has had progressive weakness, he was in the office and did receive some hydration but, his weakness did not improve and in fact progressed so he came to the hospital. Patient denied known fever or having chills at home , no oral irritation, nausea, vomiting, chest pain, shortness of breath, cough, abdominal pain, indigestion or dysuria. Patient is not in any pain at this time , he is just very tired and weak Review of Systems All systems: negative Constitutional: Reports as per HPI Past Medical History Past Medical History: Coronary Artery Disease (CAD), Cancer, Eye Disorder, GERD/ Reflux, Hearing Disorder / Deafness, Hyperlipidemia, Hypertension, Memory Impairment, Prostate Disorder Additional Past Medical History / Comment(s): 1974 LYMPHOMA, TREATED W/ RADIATION; 11/2015 B-CELL LYMPHOMA-"PER FAMILY-PT HAS SEVERAL AREAS FROM HEAD TO GROIN".RECENTLY HAD 7 RADIATION TX RT EYE AND STARTED CHEMO LAST Thu09-10-16 HX MELANOMA CHEST. UCHE RETINITIS PIGMENTOSIS, LOSS OF PERIPHERAL VISION (UCHE), LEGALLY BLIND. [facility].2004 HEAD INJURY D/T FALL- DEVELOPED BLOOD CLOT ON BRAIN HAD SX. ANX,DEPRESSION History of Any Multi-Drug Resistant Organisms: None Reported Past Surgical History: Heart Catheterization With Stent, Hernia Repair, Orthopedic Surgery, Tonsillectomy Additional Past Surgical History / Comment(s): EXC RFA, LYMPH NODE RESECTION, SPLENECTOMY 1974. UCHE ING HERNIA. ORIF RT ELBOW Past Anesthesia/Blood Transfusion Reactions: No Reported Reaction Additional Past Anesthesia/Blood Transfusion Reaction / Comm: NO HISTORY OF BLOOD TRANSFUSION Date of Last Stent Placement:: 2009 Past Psychological History: No Psychological Hx Reported Additional Psychological History / Comment(s): Retired from [employer]. has adult son and [id number] who he lives with. Was in the [employer] stationed in [place]. Denies tobacco use or alcohol use. No recreational drug use. No animal exposures. 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 [employer] Smoking Status: Never smoker Past Alcohol Use History: None Reported Past Drug Use History: None Reported - Past Family History Mother Family Medical History: No Reported History Father Family Medical History: CVA/TIA, Deep Vein Thrombosis (DVT) Medications and Allergies Home Medications Medication Instructions Recorded Confirmed Type Losartan [Cozaar] 25 mg PO DAILY 12/07/15 09/18/16 History Metoprolol Succinate (ER) [Toprol 25 mg PO HS 12/07/15 09/18/16 History XL] Omeprazole 20 mg PO DAILY 12/07/15 09/18/16 History Simvastatin [Zocor] 40 mg PO HS 12/07/15 09/18/16 History traZODone HCL [Desyrel] 50 - 100 mg PO HS 12/07/15 09/18/16 History Gluten Aid 1 tab PO DAILY 07/09/16 09/18/16 History Sertraline [Zoloft] 100 mg PO QAM 07/09/16 09/18/16 History Tamsulosin [Flomax] 0.4 mg PO DAILY 09/18/16 09/18/16 History predniSONE [Deltasone] 100 mg PO DAILY 09/18/16 09/18/16 History Allergies Allergy/AdvReac Type Severity Reaction Status Date / Time gluten AdvReac Severe Diarrhea Verified 09/18/16 10:15 Physical Exam Vitals: Vital Signs Temp Pulse Pulse Resp BP BP BP 09/19/16 18:00 106 H 23 154/68 09/19/16 17:00 107 H 27 H 149/67 09/19/16 16:00 98.3 F 109 H 25 H 129/62 09/19/16 15:00 107 H 23 146/60 09/19/16 14:00 112 H 29 H 147/66 09/19/16 13:00 107 H 109 H 25 H 155/60 155/60 09/19/16 12:00 98.3 F 111 H 109 H 24 131/61 142/59 09/19/16 11:00 116 H 114 H 26 H 136/60 136/60 09/19/16 10:00 108 H 110 H 26 H 144/61 119/76 09/19/16 09:00 116 H 114 H 26 H 142/67 148/69 09/19/16 08:00 98.4 F 106 H 109 H 22 144/69 144/69 09/19/16 07:00 106 H 25 H 139/65 09/19/16 06:30 110 H 24 139/65 09/19/16 06:00 119 H 114 H 29 H 118/63 137/56 09/19/16 05:30 114 H 26 H 118/63 09/19/16 05:00 111 H 110 H 23 120/50 115/60 09/19/16 04:30 98.2 F 112 H 26 H 120/80 09/19/16 04:00 116 H 112 H 29 H 125/62 137/76 09/19/16 03:30 104 H 26 H 124/64 09/19/16 03:00 104 H 98 33 H 131/78 131/78 09/19/16 02:30 98 22 119/59 09/19/16 02:00 100 100 32 H 109/70 109/70 09/19/16 01:30 99 16 102/59 09/19/16 01:15 100 21 108/58 09/19/16 01:00 98 18 95/58 09/19/16 00:45 101 H 21 109/58 09/19/16 00:30 99 13 108/74 09/19/16 00:00 98 24 73/24 09/18/16 23:30 97.0 F L 98 28 H 98/57 09/18/16 23:00 104 H 22 95/54 09/18/16 22:30 106 H 23 90/61 09/18/16 22:00 113 H 17 97/54 09/18/16 21:30 119 H 23 101/48 09/18/16 21:00 92 23 102/51 09/18/16 20:30 96.9 F L 110 H 27 H 93/51 09/18/16 20:00 108 H 24 105/45 09/18/16 19:30 106 H 20 97/49 09/18/16 19:05 123 H 23 91/45 09/18/16 19:00 118 H 25 H 91/45 09/18/16 18:59 98.3 F 119 H 24 91/45 Pulse Ox 09/19/16 18:00 96 09/19/16 17:00 97 09/19/16 16:00 97 09/19/16 15:00 97 09/19/16 14:00 99 09/19/16 13:00 98 09/19/16 12:00 94 L 09/19/16 11:00 99 09/19/16 10:00 91 L 09/19/16 09:00 96 09/19/16 08:00 95 09/19/16 07:00 98 09/19/16 06:30 95 09/19/16 06:00 95 09/19/16 05:30 91 L 09/19/16 05:00 96 09/19/16 04:30 93 L 09/19/16 04:00 100 09/19/16 03:30 97 09/19/16 03:00 95 09/19/16 02:30 91 L 09/19/16 02:00 92 L 09/19/16 01:30 90 L 09/19/16 01:15 90 L 09/19/16 01:00 99 09/19/16 00:45 90 L 09/19/16 00:30 90 L 09/19/16 00:00 99 09/18/16 23:30 90 L 09/18/16 23:00 97 09/18/16 22:30 98 09/18/16 22:00 91 L 09/18/16 21:30 95 09/18/16 21:00 95 09/18/16 20:30 97 09/18/16 20:00 97 09/18/16 19:30 95 09/18/16 19:05 96 09/18/16 19:00 96 09/18/16 18:59 96 Intake and Output 09/19/16 09/19/16 09/19/16 06:59 14:59 22:59 Intake Total 2115 1505 800 Output Total 1390 440 205 Balance 725 1065 595 Intake: IV 1875 1025 450 Cefepime 2 gm In Sodium 50 100 Chloride 0.9% 50 ml @ 100 mls/hr IVPB ONCE STA Rx# :[id number] Sodium Chloride 0.9% 1, 1700 800 450 000 ml @ 100 mls/hr IV . Q10H [facility] Rx#:[id number] Vancomycin 1,500 mg In 125 125 Sodium Chloride 0.9% 250 ml @ 125 mls/hr IVPB Q16H [facility] Rx#:[id number] Intake, IV Titration 400 350 Amount Cefepime 2 gm In Sodium 100 Chloride 0.9% 50 ml @ 100 mls/hr IVPB Q8HR [facility] Rx# :[id number] Magnesium Sulfate-D5w Pmx 200 1 gm In Dextrose/Water 1 100ml.bag @ 100 mls/hr IVPB Q1H [facility] Rx#: [id number] Potassium Chloride 20 meq 100 In Water For Injection 1 100ml.bag @ 50 mls/hr IVPB ONCE ONE Rx#: [id number] Potassium Chloride 20 meq 100 In Water For Injection 1 100ml.bag @ 50 mls/hr IVPB ONCE ONE Rx#: [id number] Potassium Phosphate 10 100 mmol In Sodium Chloride 0 .9% 100 ml @ 50 mls/hr IV ONCE ONE Rx#:[id number] Sodium Chloride 0.9% 1, 150 000 ml @ 150 mls/hr IV . Q6H40M [facility] Rx#:[id number] Oral 240 80 Output: Urine 390 440 205 Emesis 1000 Other: Voiding Method Indwelling Catheter Indwelling Catheter # Bowel Movements 1 1 Weight 82.1 kg 82.1 kg 82.1 kg Patient Weight 09/20/16 06:59 Weight 82.1 kg - Constitutional General appearance: average body habitus, cooperative, no acute distress - EENT right eye lid is not functional - Neck Neck: no lymphadenopathy - Respiratory Respiratory: bilateral: CTA, diminished - Cardiovascular Rhythm: regular Heart sounds: normal: S1, S2 leg Peripheral Edema: bilateral: None - Gastrointestinal General gastrointestinal: no absent bowel sounds, no decreased bowel sounds, no distended, no hepatomegaly, no hyperactive bowel sounds, normal bowel sounds, no organomegaly, no rigid, no scaphoid, soft, no splenomegaly, no tenderness, no umbilical hernia, no ventral hernia - Integumentary Pale - Musculoskeletal Musculoskeletal: generalized weakness - Psychiatric Psychiatric: A&O x's 3, appropriate affect, intact judgment & insight Results CBC & Chem 7: 09/19/16 05:15 09/19/16 13:28 Labs: Abnormal Lab Results - Last 24 Hours (Table) 09/18/16 09/18/16 09/19/16 Range/Units 18:49 23:30 05:15 WBC 0.1 L* (3.8-10.6) k/uL RBC 3.04 L (4.30-5.90) m/uL Hgb 10.7 L (13.0-17.5) gm/dL Hct 30.6 L (39.0-53.0) % MCV 100.8 H (80.0-100.0) fL MCH 35.1 H (25.0-35.0) pg Plt Count 20 L* D (150-450) k/uL Potassium (3.5-5.1) mmol/L Chloride (98-107) mmol/L Carbon Dioxide (22-30) mmol/L BUN (9-20) mg/dL Creatinine (0.66-1.25) mg/dL Glucose (74-99) mg/dL POC Glucose (mg/dL) 108 H (75-99) mg/dL Calcium (8.4-10.2) mg/dL Phosphorus (2.5-4.5) mg/dL Urine Protein 1+ H (Negative) Urine Blood Small H (Negative) Urine WBC 7 H (0-5) /hpf Amorphous Sediment Rare H (None) /hpf Urine Bacteria Many H (None) /hpf Hyaline Casts 9 H (0-2) /lpf Urine Mucus Occasional H (None) /hpf 09/19/16 09/19/16 Range/Units 05:15 13:28 WBC (3.8-10.6) k/uL RBC (4.30-5.90) m/uL Hgb (13.0-17.5) gm/dL Hct (39.0-53.0) % MCV (80.0-100.0) fL MCH (25.0-35.0) pg Plt Count (150-450) k/uL Potassium 2.8 L* 2.8 L* (3.5-5.1) mmol/L Chloride 114 H 114 H (98-107) mmol/L Carbon Dioxide 20 L (22-30) mmol/L BUN 35 H 35 H (9-20) mg/dL Creatinine 1.30 H 1.30 H (0.66-1.25) mg/dL Glucose 109 H 117 H (74-99) mg/dL POC Glucose (mg/dL) (75-99) mg/dL Calcium 7.2 L 7.4 L (8.4-10.2) mg/dL Phosphorus 2.4 L (2.5-4.5) mg/dL Urine Protein (Negative) Urine Blood (Negative) Urine WBC (0-5) /hpf Amorphous Sediment (None) /hpf Urine Bacteria (None) /hpf Hyaline Casts (0-2) /lpf Urine Mucus (None) /hpf Microbiology - Last 24 Hours (Table) 09/18/16 23:30 Urine Culture - Preliminary Urine,Catheterized Chest x-ray: report reviewed Assessment and Plan (1) Generalized weakness Narrative/Plan: This weakness is due to chemotherapy as well as low blood counts. Will implement PT/OT as soon as patient has had the opportunity to recover a little bit. Status: Acute (2) Pancytopenia due to antineoplastic chemotherapy Narrative/Plan: Patient received G-CSF on or about 09/12. Patient's WBC would be expected to recover from this medication in the next 2-3 days. We will continue to monitor his counts, no additional growth factor support at this time. Platelet count 20,000, no NSAIDs, aspirin or anticoagulants at this time. No acute need for transfusion. No acute intervention for hemoglobin of 10.7. Labs daily. Status: Acute (3) B-cell lymphoma Narrative/Plan: Patient is status post first cycle of R CHOP for right eyelid recurrence of B- cell lymphoma. Hematological and physical toxicities secondary to treatment are very significant. Patient will require reevaluation with Dr. Penn prior to any further treatment. No treatment is planned at this time. Status: Chronic (4) Febrile neutropenia Narrative/Plan: Patient had temperature maximum of 100.6F. Velázquez cultures have been obtained. Blood cultures are preliminarily positive for gram-negative rods and gram- negative bacilli. Patient is currently on empiric antibiotics and under intensive care monitoring and management. Status: Acute
[2016-09-19] MEDS: METOPROLOL SUCCINATE (ER) 25 MG TAB.ER.24H PO SCH (20:09)
[2016-09-19] MEDS: traZODone HCL 50 MG TAB PO PRN (20:09)
[2016-09-19] MEDS: ATORVASTATIN 20 MG TAB PO SCH (20:09)
[2016-09-19 23:54] LABS: CHCM 32.5; HCT 28.1 % (39.0-53.0); HDW 2.19; MCH 34.4 pg (25.0-35.0); MCHC 32.8 g/dL (31.0-37.0); Macrocytosis Moderate; Mean Platelet Volume 9.3; RBC 2.67 m/uL (4.30-5.90); RDW 14.1 % (11.5-15.5)
[2016-09-20 00:01] LABS: WBC 0.1 k/uL (3.8-10.6)
[2016-09-20 00:02] LABS: HGB 9.2 gm/dL (13.0-17.5)
[2016-09-20] MEDS ORDERED: Potassium Replacement Protocol 1 EACH MISC MISCELLANE PRN (00:50)
[2016-09-20] MEDS ORDERED: POTASSIUM CHLORIDE 20 MEQ in WATER FOR INJECTION 1 100ML.BAG IVPB ONE ×2 (01:00→09:39)
[2016-09-20] MEDS: SODIUM CHLORIDE 0.9% 1,000 ML IV SCH ×2 (01:52→05:02)
[2016-09-20] MEDS: CEFEPIME 2 GM in SODIUM CHLORIDE 0.9% 50 ML IVPB SCH ×3 (02:06→17:02)
[2016-09-20 06:16] LABS: CH 34.1; CHCM 33.2; HCT 29.6 % (39.0-53.0); HDW 2.37; HGB 10.1 gm/dL (13.0-17.5); Immature Gran Flag Slight; MCH 35.3 pg (25.0-35.0); MCHC 34.2 g/dL (31.0-37.0); MCV 103.1 fL (80.0-100.0); Macrocytosis Slight; Mean Platelet Volume 9.8; RBC 2.87 m/uL (4.30-5.90); RDW 14.1 % (11.5-15.5); WBC (Perox) 0.11
[2016-09-20 06:31] LABS: WBC 0.1 k/uL (3.8-10.6)
[2016-09-20 06:41] LABS: Anion Gap 7 mmol/L; Blood Urea Nitrogen 30 mg/dL (9-20); Calcium 7.4 mg/dL (8.4-10.2); Carbon Dioxide 17 mmol/L (22-30); Glucose 117 mg/dL (74-99); Magnesium 2.1 mg/dL (1.6-2.3); Non-African American GFR(MDRD) 58 (>60 ml/min/1.73 sqM); Phosphorous 2.8 mg/dL (2.5-4.5); Sodium 147 mmol/L (137-145)
[2016-09-20 07:30] LABS: Chloride 123 mmol/L (98-107); Potassium 2.9 mmol/L (3.5-5.1)
[2016-09-20 07:42] LABS: Add Differential Manual Differential; Manual Review Performed
--- NOTE | 2016-09-20 08:45 | XR ---
EXAMINATION TYPE: XR chest 1V DATE OF EXAM: 09/20/2016 8:38 AM COMPARISON: Prior chest x-ray 19 Sep 2016 HISTORY: Abnormal chest x-ray, lymphoma TECHNIQUE: frontal view of the chest is obtained on 3 images. FINDINGS: Findings are similar to prior exam. The right shoulder is high riding suggestive of chroni c rotator cuff tear as on the left. Arthropathy noted in the shoulders. Postop change noted to the ri ght humerus. IMPRESSION: There are some interstitial changes. There may be some basilar atelectasis, correlate to exclude pneumonia. Follow-up as indicated.
[2016-09-20] MEDS: TAMSULOSIN 0.4 MG CAP.ER.24H PO SCH (09:11)
[2016-09-20] MEDS: CHOLESTYRAMINE (WITH SUGAR) 4 GM PACKET PO SCH ×3 (09:11→17:51)
[2016-09-20] MEDS: PANTOPRAZOLE 40 MG TABLET PO SCH (09:12)
[2016-09-20] MEDS: SERTRALINE 100 MG TAB PO SCH (09:12)
[2016-09-20] MEDS ORDERED: POTASSIUM CHLORIDE 10 MEQ in WATER FOR INJECTION 1 100ML.BAG IVPB ONE (09:39)
[2016-09-20] MEDS ORDERED: POTASSIUM CHLORIDE ER 20 MEQ TAB.ER PO STA ×2 (10:27→16:50)
[2016-09-20] MEDS ORDERED: LACTATED RINGERS 1,000 ML IV SCH (10:30)
--- NOTE | 2016-09-20 11:47 | P.PN ---
Subjective Principal diagnosis: Acute neutropenic sepsis and pancytopenia secondary to bone marrow suppression secondary to chemotherapy. his is an 81-year-old white male who was initially diagnosed with lymphoma in 1974. At that time the patient presented with a large mass on medial aspect of right forearm. This was resected with a right axillary lymph node dissection and splenectomy with adjuvant radiation to the right upper extremity and right axilla. Patient presented to his primary care physician in October of 2015 with painless enlarging cervical nodule. Patient was referred to Dr. Rojo and computed tomography scan showed multiple lymph nodes hence recurrent lymphoma was suspected. 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 Patient was started on rituxan,/benedeka. Follow-up PET scan after 4 treatments showed significant improvement patient received a total of 7 cycles. In May of 2016, patient presented with right eye pain and redness. This, later turned out to be lymphoma involving the right eye. And required radiation treatment and chemotherapy 2 weeks ago.. Patient is now legally blind. Patient went back to see Dr. Penn, and couple of weeks ago, patient received chemotherapy again. Presented to the ER on 2016 and he was complaining of generalized weakness, felt dehydrated, no headache, no blurred vision, no dizziness, no fever, no chills, he had 1 episode of slight diarrhea. Workup in the ER included a CBC which showed WBC count of 0.1, hemoglobin 10.7, platelets 20,000, potassium of 2.8, BUN of 35, creatinine of 1.30, lactic acid of 1.5. Urinalysis is relatively unremarkable except for small blood, and many bacteria noted in the urine. Patient was admitted, required fluid boluses, and empiric antibiotics utilizing vancomycin and cefepime. And I was asked to see him on consultation. No hemodynamic instability noted during that admission, patient did not require any pressors, did receive 2 L of fluid boluses in the ER. Upon my evaluation, the patient was already feeling a bit better. Denies any headache no blurred vision no dizziness, no nausea no vomiting no chest pain no shortness of breath. Patient was reevaluated today on 09/20/2016, doing quite well, no cough no fever no chills no hemoptysis no nausea no vomiting no abdominal pain no melena no hematemesis no dysuria and no frequency no urgency. CBC is about the same, WBC count is 0.1, hemoglobin is 10.1, platelets are 8000. Sodium is elevated at 147 potassium is 2.9 bicarb is 17 chloride is 123 BUN is 30 creatinine is 1.20. Objective - Vital Signs Vital signs: Vital Signs Temp 98.4 F 09/20/16 08:17 Pulse 104 H 09/20/16 08:17 Resp 18 09/20/16 08:17 BP 147/70 09/20/16 08:17 Pulse Ox 93 L 09/20/16 08:17 Intake & Output 09/19/16 09/20/16 09/20/16 18:59 06:59 18:59 Intake Total 2305 550 Output Total 743 007 1461 Balance 1660 330 -1500 Weight 82.1 kg 82.4 kg Intake: IV 1475 Cefepime 2 gm In Sodium 100 Chloride 0.9% 50 ml @ 100 mls/hr IVPB ONCE STA Rx# :[id number] Sodium Chloride 0.9% 1, 1250 000 ml @ 100 mls/hr IV . Q10H [facility] Rx#:[id number] Vancomycin 1,500 mg In 125 Sodium Chloride 0.9% 250 ml @ 125 mls/hr IVPB Q16H [facility] Rx#:[id number] Intake, IV Titration 750 550 Amount Cefepime 2 gm In Sodium 100 Chloride 0.9% 50 ml @ 100 mls/hr IVPB Q8HR [facility] Rx# :[id number] Magnesium Sulfate-D5w Pmx 200 1 gm In Dextrose/Water 1 100ml.bag @ 100 mls/hr IVPB Q1H [facility] Rx#: [id number] Potassium Chloride 20 meq 100 In Water For Injection 1 100ml.bag @ 50 mls/hr IVPB ONCE ONE Rx#: [id number] Potassium Chloride 20 meq 100 100 In Water For Injection 1 100ml.bag @ 50 mls/hr IVPB ONCE [facility] Rx#: [id number] Potassium Phosphate 10 100 mmol In Sodium Chloride 0 .9% 100 ml @ 50 mls/hr IV ONCE [facility] Rx#:[id number] Sodium Chloride 0.9% 1, 150 450 000 ml @ 150 mls/hr IV . Q6H40M [facility] Rx#:[id number] Oral 80 Output: Urine 645 220 Stool 1500 Other: Voiding Method Indwelling Catheter Indwelling Catheter Indwelling Catheter # Voids 1 # Bowel Movements 1 - Exam Physical Exam: Revealed an 81-year-old white male in no distress. Dry mucous membranes were noted. HEENT:[Neck is supple.] [No neck masses.] [No thyromegaly.] [No JVD.] Complete shutdown of the right eye was noted related to lymphoma Chest: [Clear throughout, no crackles, no rhonchi, no wheezes.] Cardiac Exam: [Normal S1 and S2, no S3 gallop, no murmur.] Abdomen: [Soft, nontender, no megaly, no rebound, no guarding, normal bowel sounds.] Extremities: [No clubbing, no edema, no cyanosis.] Neurological Exam: [No focal neurologic deficit.] - Labs CBC & Chem 7: 09/20/16 05:50 09/20/16 05:50 Labs: Abnormal Lab Results - Last 24 Hours (Table) 09/19/16 09/19/16 09/19/16 Range/Units 13:28 23:45 23:45 WBC 0.1 L* (3.8-10.6) k/uL RBC 2.67 L (4.30-5.90) m/uL Hgb 9.2 L D (13.0-17.5) gm/dL Hct 28.1 L (39.0-53.0) % MCV 105.0 H (80.0-100.0) fL MCH (25.0-35.0) pg Plt Count 13 L* (150-450) k/uL Sodium (137-145) mmol/L Potassium 2.8 L* 3.0 L* (3.5-5.1) mmol/L Chloride 114 H (98-107) mmol/L Carbon Dioxide (22-30) mmol/L BUN 35 H (9-20) mg/dL Creatinine 1.30 H (0.66-1.25) mg/dL Glucose 117 H (74-99) mg/dL Calcium 7.4 L (8.4-10.2) mg/dL 09/20/16 09/20/16 Range/Units 05:50 05:50 WBC 0.1 L* (3.8-10.6) k/uL RBC 2.87 L (4.30-5.90) m/uL Hgb 10.1 L (13.0-17.5) gm/dL Hct 29.6 L (39.0-53.0) % MCV 103.1 H (80.0-100.0) fL MCH 35.3 H (25.0-35.0) pg Plt Count 8 L* (150-450) k/uL Sodium 147 H (137-145) mmol/L Potassium 2.9 L* (3.5-5.1) mmol/L Chloride 123 H* (98-107) mmol/L Carbon Dioxide 17 L (22-30) mmol/L BUN 30 H (9-20) mg/dL Creatinine (0.66-1.25) mg/dL Glucose 117 H (74-99) mg/dL Calcium 7.4 L (8.4-10.2) mg/dL Microbiology - Last 24 Hours (Table) 09/18/16 23:30 Urine Culture - Preliminary Urine,Catheterized Assessment and Plan Plan: Impression: 1 acute neutropenic fever, and sepsis with bacteremia secondary to gram- negative bacilli noted on the positive blood cultures from yesterday. 2 pancytopenia secondary to recent chemotherapy for B-cell lymphoma with bone marrow suppression. 3 electrolytes imbalance and dehydration, being addressed. 4 multiple comorbidities including B-cell lymphoma, right eyelid lymphoma involvement, coronary artery disease and previous stent placement, hypertension , hyperlipidemia, history of retinitis pigmentosa, legal blindness, history of GERD, Recommendation: I fully agree with the present treatment plan including broad- spectrum antibiotics, patient is presently on vancomycin and cefepime, continue GI and DVT prophylaxis, fluids, await final cultures from blood and urine, and we will monitor the patient in the intensive care unit. Time with Patient: Less than 30
[2016-09-20] MEDS: LOPERAMIDE 2 MG CAP PO SCH ×3 (12:10→20:12)
[2016-09-20] MEDS: VANCOMYCIN 1,500 MG in SODIUM CHLORIDE 0.9% 250 ML IVPB SCH (14:03)
--- NOTE | 2016-09-20 15:17 | PN ---
The patient is an 81-year-old admitted with severe sepsis secondary to urinary tract infection. Patient has significant improvement clinically. Patient has hyperchloremia, because of which I am switching his fluids to lactate Ringers. Patient is still having quite a bit of diarrhea in the fecal management system about 1.5 L liquid stool in today's fecal management system bag because of which patient will still need aggressive fluid hydration. Since C. difficile is negative, we will go ahead and add Lomotil for diarrhea. REVIEW OF SYSTEMS: CARDIOVASCULAR: No chest pain, no orthopnea, no PND, no palpitations. PULMONARY: Denied any shortness of breath. No cough or hemoptysis. GASTROINTESTINAL: No diarrhea, nausea or vomiting. No abdominal pain. Normoactive bowel sounds. NEUROLOGIC: No headaches, no weakness, no numbness. Medications were reviewed. PHYSICAL EXAMINATION: Temperature 98.4, pulse of 104, respiratory rate of 18, blood pressure is 147/70, saturating at 93% on 3 L of O2 nasal cannula. GENERAL: The patient is alert and oriented x3, is blind secondary to retinitis pigmentosa. HEENT: Pupils are round and equally reacting to light. EOMI. No scleral icterus. No conjunctival pallor. Normocephalic, atraumatic. No pharyngeal erythema. No thyromegaly. CARDIOVASCULAR: S1 and S2 present. No murmurs, rubs, or gallops. PULMONARY: Chest is clear to auscultation, no wheezing or crackles. ABDOMEN: The patient has a management system. Hyperactive bowel sounds. Diarrhea is secondary to antibiotics. MUSCULOSKELETAL: No joint swelling or deformity. EXTREMITIES: No cyanosis, clubbing, or pedal edema. NEUROLOGICAL: Gross neurological examination did not reveal any focal deficits. SKIN: No rashes. ASSESSMENT AND PLAN: 1. Neutropenic fever, possible source of sepsis being urinary tract infection. Cultures are still pending. Blood cultures actually have come back positive for gram-negative bacilli, possible source being urinary tract infection. Will obtain repeat blood cultures for today and tomorrow. Continue with cefepime until we get the finalization of the cultures. 2. Severe sepsis and bacteremia secondary to urinary tract infection. 3. Pancytopenia secondary to chemotherapy and patient is immunosuppressive because of that. 4. Electrolyte imbalances which will be corrected and patient will be started on lactated Ringer's. 5. Diarrhea secondary to antibiotics. 6. Coronary artery disease. 7. Gastroesophageal reflux disease. 8. 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 9. Tachycardia secondary to intravascular volume depletion. Patient will be continued on IV fluids as mentioned above. 10. We will use Imodium and Questran for his constipation as Clostridium difficile is negative.
--- NOTE | 2016-09-20 16:02 | PN ---
DATE OF SERVICE: 09/20/2016 CHIEF COMPLAINT: Tired. Hema is seen today as a followup. He feels very tired, weak, no appetite. He denies any melena, hematochezia, hematuria, hemoptysis, or hematemesis. His blood culture was positive for gram-negative bacilli. He also complains of diarrhea. His medications were reviewed in his electronic medical records. On physical examination, he is alert and oriented x3. He appears sick looking, tired. He does not appear to be in distress. His vital signs are temperature 98.3, afebrile, pulse 111, respirations 24, blood pressure 131/61. HEENT: Oral mucosa dry. NECK: Supple. CHEST: Equal expansion bilaterally. LUNGS: Clear to auscultation. HEART: Regular rate and rhythm. ABDOMEN: Soft. No tenderness. Extremities revealed no significant edema. Skin revealed multiple bruises. LABORATORY DATA: WBC of 0.1, hemoglobin 10.1, hematocrit 29.6, platelets are 8. Sodium 147, potassium 2.9, chloride 123, CO2 is 17, BUN 30, creatinine 1.2. IMPRESSION: 1. 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 He received one cycle of R-CHOP on 09/10/2016 after he progressed while he was on bendamustine and Rituxan. 2. Neutropenic fever and sepsis with bacteremia. Blood culture was positive for gram-negative bacilli. 3. Diarrhea. Previous stool for Clostridium difficile toxin was negative. 4. Electrolyte imbalance and dehydration secondary to diarrhea. RECOMMENDATIONS: 1. We may discontinue the vancomycin since his blood culture was positive for gram-negative bacilli. 2. Continue cefepime and obtain infectious disease consultation. 3. Repeat stool for C. difficile studies. 4. Replace electrolytes. 5. Continue IV hydration. The above was discussed with the patient and his family at bedside. I have answered all their questions. ADDENDUM: 1. Patient already received Neulasta in the outpatient setting. There is no need for Neupogen at this time. 2. Given his significant thrombocytopenia with platelet count less 10,000, he will be transfused with platelet today.
[2016-09-20] MEDS ORDERED: LACTATED RINGERS 1,000 ML with POTASSIUM CHLORIDE 20 MEQ IV SCH ×2 (16:48)
[2016-09-20] MEDS: POTASSIUM CHLORIDE ER 20 MEQ TAB.ER PO SCH ×2 (18:15→20:07)
[2016-09-20] MEDS: LACTATED RINGERS 1,000 ML with POTASSIUM CHLORIDE 40 MEQ IV SCH ×2 (18:15)
[2016-09-20] MEDS: ATORVASTATIN 20 MG TAB PO SCH (20:07)
[2016-09-20] MEDS: METOPROLOL SUCCINATE (ER) 25 MG TAB.ER.24H PO SCH (20:08)
[2016-09-20] MEDS: traZODone HCL 50 MG TAB PO PRN (21:17)
--- NOTE | 2016-09-20 23:42 | P.CONS ---
History of Present Illness - Reason for Consult Consult date: 09/20/16 - Chief Complaint fever and sepsis - History of Present Illness 81-year-old male that has a history of B-cell lymphoma. Has had recent hospitalization there is having difficulty with his right eye. He was receiving chemotherapy for his B-cell lymphoma. But due to difficulties infection that was placed on hold. He then developed appear to be a significant change in status to his right eye. Imaging studies reveal evidence of a masslike process that was retro-orbital. Upon biopsy turned out to be the B-cell lymphoma. He is now had some localized radiation therapy as well as ongoing chemotherapy. He is feeling somewhat better. But now presents with significant fever and chills and generalized malaise. He is certainly a poor historian at this point in time. But does seem to more comfortable during the last day. Review of Systems HEENT:Denies headache he has baseline poor vision. Denies sinus or mouth discomforts. Denies neck stiffness or pain. Denies significant oral cavity pain. Denies difficulty on swallowing. As per the HPI has improvement to severe swelling to the right eye. Lungs: Denies significant shortness of breath, cough, sputum production, or hemoptysis. Cardiovascular: Denies significant shortness of breath, chest pain, chest wall pain, orthopnea, dyspnea on exertion, syncope Gastrointestinal:Denies nausea, vomiting, constipation, hematemesis, melena, hematochezia. As noted is having diarrhea. Musculoskeletal: denies significant myalgias or arthralgias. No new joint swelling. Denies new back pain. Skin: Denies new rash or lesions. No new ulcers or wounds are related.. Neuro: Denies headache or visual change. Denies any new onset weakness or difficulty with ambulation. Denies falls or seizures. Psychiatric:Denies anxiety or depression. Endocrine: Denies significant fatigue, denies significant weight loss or weight gain. Past Medical History Past Medical History: Coronary Artery Disease (CAD), Cancer, Eye Disorder, GERD/ Reflux, Hearing Disorder / Deafness, Hyperlipidemia, Hypertension, Memory Impairment, Prostate Disorder Additional Past Medical History / Comment(s): 1975 LYMPHOMA, TREATED W/ RADIATION; 11/2015 B-CELL LYMPHOMA-"PER FAMILY-PT HAS SEVERAL AREAS FROM HEAD TO GROIN".RECENTLY HAD 7 RADIATION TX RT EYE AND STARTED CHEMO LAST WED 4-26-17 HX MELANOMA CHEST. UCHE RETINITIS PIGMENTOSIS, LOSS OF PERIPHERAL VISION (UCHE), LEGALLY BLIND. [facility].2004 HEAD INJURY D/T FALL- DEVELOPED BLOOD CLOT ON BRAIN HAD SX. ANX,DEPRESSION History of Any Multi-Drug Resistant Organisms: None Reported Past Surgical History: Heart Catheterization With Stent, Hernia Repair, Orthopedic Surgery, Tonsillectomy Additional Past Surgical History / Comment(s): EXC RFA, LYMPH NODE RESECTION, SPLENECTOMY 1974. UCHE ING HERNIA. ORIF RT ELBOW Past Anesthesia/Blood Transfusion Reactions: No Reported Reaction Additional Past Anesthesia/Blood Transfusion Reaction / Comm: NO HISTORY OF BLOOD TRANSFUSION Date of Last Stent Placement:: 2009 Past Psychological History: No Psychological Hx Reported Additional Psychological History / Comment(s): Retired from [employer]. has adult son and [id number] who he lives with. Was in the [employer] stationed in [place]. Denies tobacco use or alcohol use. No recreational drug use. No animal exposures. 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 [employer] Smoking Status: Never smoker Past Alcohol Use History: None Reported Past Drug Use History: None Reported - Past Family History Mother Family Medical History: No Reported History Father Family Medical History: CVA/TIA, Deep Vein Thrombosis (DVT) Medications and Allergies Home Medications and Allergies Comment(s): Current Medications Atorvastatin Calcium (Lipitor) 20 mg PO [facility] Last Admin: 09/20/16 20:07 Dose: 20 mg Cholestyramine Resin (Questran) 4 gm PO TID BETWEEN MEALS [facility] Last Admin: 09/20/16 17:51 Dose: Not Given Cefepime HCl 2 gm/ Sodium (Chloride) 50 mls @ 100 mls/hr IVPB Q8HR [facility] Last Admin: 09/20/16 17:02 Dose: 100 mls/hr Potassium Chloride 40 meq/ (Lactated Ringer's) 1,020 mls @ 100 mls/hr IV .[id number] [facility] Last Admin: 09/20/16 18:15 Dose: 100 mls/hr Loperamide HCl (Imodium) 2 mg PO QID [facility] Last Admin: 09/20/16 20:12 Dose: 2 mg Metoprolol Succinate (Toprol Xl) 25 mg PO [facility] Last Admin: 09/20/16 20:08 Dose: 25 mg Miscellaneous Information (Potassium Per Protocol) 1 each MISCELLANE DAILY PRN ; Protocol PRN Reason: Per Protocol Naloxone HCl (Narcan) 0.2 mg IV Q2M PRN PRN Reason: Opioid Reversal Ondansetron HCl (Zofran) 4 mg IVP Q6HR PRN PRN Reason: Nausea And Vomiting Last Admin: 09/19/16 00:04 Dose: 4 mg Pantoprazole Sodium (Protonix) 40 mg PO AC-BRKFST [facility] Last Admin: 09/20/16 09:12 Dose: 40 mg Sertraline HCl (Zoloft) 100 mg PO QAM [facility] Last Admin: 09/20/16 09:12 Dose: 100 mg Tamsulosin HCl (Flomax) 0.4 mg PO DAILY [facility] Last Admin: 09/20/16 09:11 Dose: 0.4 mg Trazodone HCl (Desyrel) 50 mg PO PRN PRN Reason: Insomnia Last Admin: 09/20/16 21:17 Dose: 50 mg Home Medications Medication Instructions Recorded Confirmed Type Losartan [Cozaar] 25 mg PO DAILY 12/07/15 09/18/16 History Metoprolol Succinate (ER) [Toprol 25 mg PO 12/07/15 09/18/16 History XL] Omeprazole 20 mg PO DAILY 12/07/15 09/18/16 History Simvastatin [Zocor] 40 mg PO HS 12/07/15 09/18/16 History traZODone HCL [Desyrel] 50 - 100 mg PO HS 12/07/15 09/18/16 History Gluten Aid 1 tab PO DAILY 07/09/16 09/18/16 History Sertraline [Zoloft] 100 mg PO QAM 07/09/16 09/18/16 History Tamsulosin [Flomax] 0.4 mg PO DAILY 09/18/16 09/18/16 History predniSONE [Deltasone] 100 mg PO DAILY 09/18/16 09/18/16 History Allergies Allergy/AdvReac Type Severity Reaction Status Date / Time gluten AdvReac Severe Diarrhea Verified 09/18/16 10:15 Physical Exam Vitals: Vital Signs Temp Pulse Pulse Resp BP BP Pulse Ox 09/20/16 18:10 98.3 F 128 H 18 119/83 09/20/16 17:59 98.7 F 123 H 16 132/68 94 L 09/20/16 17:29 98.5 F 122 H 16 158/66 96 05/06/17 17:14 98.1 F 115 H 16 154/68 96 09/20/16 15:00 98.0 F 95 18 142/68 95 09/20/16 08:17 98.4 F 104 H 18 147/70 93 L Intake and Output 09/20/16 09/20/16 09/21/16 14:59 22:59 06:59 Intake Total 206 Output Total 2100 Balance -2099 Intake: Blood Product 206 Platelet Pheresis Acda1 206 Unit [id number] Output: Urine 600 Stool 1500 Other: Voiding Method Indwelling Catheter Indwelling Catheter 81-year-old male relates to minimal discomfort but has improvement in thesignificant swelling to his right eye. HEENT: Left eye without abnormalities. the right eye drainage is improved. Thesignificant swelling is definitely improved. It is also less tender. There is no significant lesions seen on the nares ,below the eye, also no lesions seen on the right auricle or within the external auditory canal. No lesions on the scalp. nasal mucosa grossly intact without significant lesions, there is no thrush. Neck: The neck is supple without significant lymphadenopathy or thyromegaly. Lungs: Good bilateral air entry without significant crackles or wheezing. There is no significant bronchial sounds. There is no egophony or dullness. Heart: Regular rate and rhythm with an audible S1-S2, no S3 no S4. There is no significant murmur click or rub, PMI was nondisplaced. Abdomen: Positive bowel sounds soft and nontender without palpable masses or organomegaly. There was no guarding or rebound. Extremities: The upper extremities have excellent pulses they are symmetric, no significant petechiae or telangiectasia. No splinter hemorrhages were noted. The lower extremities are free from significant edema. The peripheral pulses were 2+ and symmetric. Neuro: Awake alert oriented to person place and time. There are no acute new gross focal sensory motor deficits. The patient has hand motion only upon approach I exam which is not new. Results CBC & Chem 7: 09/20/16 05:50 09/20/16 22:30 Labs: Abnormal Lab Results - Last 24 Hours (Table) 09/19/16 09/19/16 09/20/16 Range/Units 23:45 23:45 05:50 WBC 0.1 L* 0.1 L* (3.8-10.6) k/uL RBC 2.67 L 2.87 L (4.30-5.90) m/uL Hgb 9.2 L D 10.1 L (13.0-17.5) gm/dL Hct 28.1 L 29.6 L (39.0-53.0) % MCV 105.0 H 103.1 H (80.0-100.0) fL MCH 35.3 H (25.0-35.0) pg Plt Count 13 L* 8 L* (150-450) k/uL Sodium (137-145) mmol/L Potassium 3.0 L* (3.5-5.1) mmol/L Chloride (98-107) mmol/L Carbon Dioxide (22-30) mmol/L BUN (9-20) mg/dL Glucose (74-99) mg/dL Calcium (8.4-10.2) mg/dL 09/20/16 09/20/16 09/20/16 Range/Units 05:50 15:18 22:30 WBC (3.8-10.6) k/uL RBC (4.30-5.90) m/uL Hgb (13.0-17.5) gm/dL Hct (39.0-53.0) % MCV (80.0-100.0) fL MCH (25.0-35.0) pg Plt Count (150-450) k/uL Sodium 147 H (137-145) mmol/L Potassium 2.9 L* 2.8 L* 3.0 L* (3.5-5.1) mmol/L Chloride 123 H* (98-107) mmol/L Carbon Dioxide 17 L (22-30) mmol/L BUN 30 H (9-20) mg/dL Glucose 117 H (74-99) mg/dL Calcium 7.4 L (8.4-10.2) mg/dL Microbiology - Last 24 Hours (Table) 09/18/16 23:30 Urine Culture - Final Urine,Catheterized Laboratory Results WBC 0.1 k/uL (3.8-10.6) L* 09/20/16 05:50 RBC 2.87 m/uL (4.30-5.90) L 09/20/16 05:50 Hgb 10.1 gm/dL (13.0-17.5) L 09/20/16 05:50 Hct 29.6 % (39.0-53.0) L 09/20/16 05:50 MCV 103.1 fL (80.0-100.0) H 09/20/16 05:50 MCH 35.3 pg (25.0-35.0) H 09/20/16 05:50 MCHC 34.2 g/dL (31.0-37.0) 09/20/16 05:50 RDW 14.1 % (11.5-15.5) 09/20/16 05:50 Plt Count 8 k/uL (150-450) L* 09/20/16 05:50 Differential Comment 09/20/16 05:50 Manual Slide Review Performed 09/20/16 05:50 Polychromasia Present 09/18/16 10:40 Poikilocytosis (manual Present 09/20/16 05:50 Macrocytosis Slight 09/20/16 05:50 Fragmented RBCs Present 09/20/16 05:50 PT 12.5 sec (9.0-12.0) H 09/18/16 10:40 INR 1.3 (<1.1) 09/18/16 10:40 APTT 40.0 sec (22.0-30.0) H 09/18/16 10:40 Sodium 147 mmol/L (137-145) H 09/20/16 05:50 Potassium 3.0 mmol/L (3.5-5.1) L* 09/20/16 22:30 Chloride 123 mmol/L (98-107) H* 09/20/16 05:50 Carbon Dioxide 17 mmol/L (22-30) L 09/20/16 05:50 Anion Gap 7 mmol/L 09/20/16 05:50 BUN 30 mg/dL (9-20) H 09/20/16 05:50 Creatinine 1.20 mg/dL (0.66-1.25) 09/20/16 05:50 Est GFR (MDRD) Af Amer >60 (>60 ml/min/1.73 sqM) 09/20/16 05:50 Est GFR (MDRD) Non-Af 58 (>60 ml/min/1.73 sqM) 09/20/16 05:50 Glucose 117 mg/dL (74-99) H 09/20/16 05:50 POC Glucose (mg/dL) 108 mg/dL (75-99) H 09/18/16 18:49 POC Glu Formula Mixer ID Maty Murdock 09/18/16 18:49 Plasma Lactic Acid [place] 1.4 mmol/L (0.7-2.0) 09/19/16 05:15 Calcium 7.4 mg/dL (8.4-10.2) L 09/20/16 05:50 Phosphorus 2.8 mg/dL (2.5-4.5) 09/20/16 05:50 Magnesium 2.1 mg/dL (1.6-2.3) 09/20/16 05:50 Total Bilirubin 2.6 mg/dL (0.2-1.3) H 09/18/16 10:40 AST 38 U/L (17-59) 09/18/16 10:40 ALT 100 U/L (21-72) H 09/18/16 10:40 Alkaline Phosphatase 58 U/L (38-126) 09/18/16 10:40 Total Creatine Kinase <20 U/L (55-170) L 09/18/16 10:40 CK-MB (CK-2) <0.2 ng/mL (0.0-2.4) 09/18/16 10:40 CK-MB (CK-2) Rel Index 09/18/16 10:40 Troponin I 0.023 ng/mL (0.000-0.034) 09/18/16 10:40 Total Protein 5.2 g/dL (6.3-8.2) L 09/18/16 10:40 Albumin 2.7 g/dL (3.5-5.0) L 09/18/16 10:40 Cortisol 113 ug/dL 09/19/16 05:15 Urine Color [place] 09/18/16 23:30 Urine Appearance Cloudy (Clear) 09/18/16 23:30 Urine pH 5.5 (5.0-8.0) 09/18/16 23:30 Ur Specific [place] 1.014 (1.001-1.035) 09/18/16 23:30 Urine Protein 1+ (Negative) H 09/18/16 23:30 Urine Glucose (UA) Negative (Negative) 09/18/16 23:30 Urine Ketones Negative (Negative) 09/18/16 23:30 Urine Blood Small (Negative) H 09/18/16 23:30 Urine Nitrite Negative (Negative) 09/18/16 23:30 Urine Bilirubin Negative (Negative) 09/18/16 23:30 Urine Urobilinogen <2.0 mg/dL (<2.0) 09/18/16 23:30 Ur Leukocyte Esterase Negative (Negative) 09/18/16 23:30 Urine RBC 5 /hpf (0-5) 09/18/16 23:30 Urine WBC 7 /hpf (0-5) H 09/18/16 23:30 Amorphous Sediment Rare /hpf (None) H 09/18/16 23:30 Urine Bacteria Many /hpf (None) H 09/18/16 23:30 Hyaline Casts 9 /lpf (0-2) H 09/18/16 23:30 Granular Casts 9 /lpf (0) 09/18/16 23:30 Urine Mucus Occasional /hpf (None) H 09/18/16 23:30 C. difficile (EIA) Intrp Negative (Negative) 09/19/16 00:00 C. difficile Tox (PCR) Not Detected (Not Detectd) 09/20/16 15:30 Blood Type O Positive 09/20/16 15:18 Blood Type Recheck No 09/20/16 15:18 Antibody Screen NEGATIVE 09/20/16 15:18 Transfuse Platelets 09/20/2016 09/20/16 15:18 Spec Expiration Date 09/23/2016 - 1016 09/20/16 15:18 Microbiology 09/18/16 14:15 Blood Blood Culture Gram Stain - Final 09/18/16 14:15 Blood Blood Culture - Final Escherichia coli 09/18/16 23:30 Urine,Catheterized Urine Culture - Final 09/18/16 14:15 Blood Blood Culture - Final Assessment and Plan (1) Febrile neutropenia Narrative/Plan: 81-year-old male with his known history of B-cell lymphoma who recently had significant difficulty with his right eye. He was treated for an infectious process. However failed to improve. Imaging studies reveal evidence of a significant involvement of the B-cell lymphoma to the eye that was proven by biopsy. He is now had radiation therapy and systemic chemotherapy. Now presents to Hospital significant fever and appears to have febrile neutropenia. Antimicrobial therapy with cefepime and vancomycin is being utilized. This is while cultures are pending. Continue ongoing supportive care. Important that he has nutritional supplementation. It is of a protein supplement present he is instructed again the importance of taking these 3 times per day to help with his healing process. His pain fortunately is well controlled at this time. The extensive swelling to the eye has had remarkable improvement after the radiation therapy and chemotherapy. Status: Acute (2) Pancytopenia due to antineoplastic chemotherapy Status: Acute
[2016-09-21] MEDS ORDERED: POTASSIUM CHLORIDE 10 MEQ, LIDOCAINE 2% INJ 10 MG in SODIUM CHLORIDE 0.9% 100 ML IVPB STA (00:08)
[2016-09-21] MEDS: CEFEPIME 2 GM in SODIUM CHLORIDE 0.9% 50 ML IVPB SCH ×3 (02:32→16:12)
[2016-09-21] MEDS ORDERED: VANCOMYCIN TROUGH DUE 1 EACH MISC MISCELLANE ONE (05:00)
[2016-09-21 06:39] LABS: CH 33.7; CHCM 32.4; HCT 29.9 % (39.0-53.0); HDW 2.39; HGB 9.7 gm/dL (13.0-17.5); Immature Gran Flag Marked; MCH 34.2 pg (25.0-35.0); MCHC 32.6 g/dL (31.0-37.0); MCV 104.7 fL (80.0-100.0); Macrocytosis Moderate; Mean Platelet Volume 7.3; RBC 2.85 m/uL (4.30-5.90); RDW 14.5 % (11.5-15.5); WBC (Perox) 0.22
[2016-09-21 06:53] LABS: Anion Gap 6 mmol/L; Blood Urea Nitrogen 34 mg/dL (9-20); Carbon Dioxide 14 mmol/L (22-30); Glucose 111 mg/dL (74-99); Non-African American GFR(MDRD) 55 (>60 ml/min/1.73 sqM); Phosphorous 1.9 mg/dL (2.5-4.5); Sodium 150 mmol/L (137-145)
[2016-09-21 06:55] LABS: Chloride 130 mmol/L (98-107)
[2016-09-21 07:10] LABS: WBC 0.2 k/uL (3.8-10.6)
[2016-09-21] MEDS: LACTATED RINGERS 1,000 ML with POTASSIUM CHLORIDE 40 MEQ IV SCH ×2 (07:50)
[2016-09-21] MEDS: SERTRALINE 100 MG TAB PO SCH (07:52)
[2016-09-21] MEDS: PANTOPRAZOLE 40 MG TABLET PO SCH (07:52)
[2016-09-21] MEDS: POTASSIUM CHLORIDE ER 20 MEQ TAB.ER PO SCH ×5 (07:52→14:13)
[2016-09-21] MEDS: TAMSULOSIN 0.4 MG CAP.ER.24H PO SCH (07:52)
[2016-09-21] MEDS: LOPERAMIDE 2 MG CAP PO SCH ×4 (07:56→20:45)
[2016-09-21 09:02] LABS: Add Differential Manual Differential
[2016-09-21 09:03] LABS: Manual Review Performed
[2016-09-21 09:04] LABS: Target Cells Present
[2016-09-21] MEDS: CHOLESTYRAMINE (WITH SUGAR) 4 GM PACKET PO SCH ×3 (09:29→17:57)
[2016-09-21] MEDS: D5W WITH KCL 20 MEQ/L 1,000 ML IV SCH ×2 (11:00→18:02)
[2016-09-21] MEDS ORDERED: POTASSIUM CHLORIDE ER 20 MEQ TAB.ER PO STA (11:11)
--- NOTE | 2016-09-21 11:25 | P.PN ---
Subjective Principal diagnosis: Acute neutropenic sepsis and pancytopenia secondary to bone marrow suppression secondary to chemotherapy. his is an 81-year-old white male who was initially diagnosed with lymphoma in 1974. At that time the patient presented with a large mass on medial aspect of right forearm. This was resected with a right axillary lymph node dissection and splenectomy with adjuvant radiation to the right upper extremity and right axilla. Patient presented to his primary care physician in October of 2015 with painless enlarging cervical nodule. Patient was referred to Dr. Rojo and computed tomography scan showed multiple lymph nodes hence recurrent lymphoma was suspected. 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 Patient was started on rituxan,/benedeka. Follow-up PET scan after 4 treatments showed significant improvement patient received a total of 7 cycles. In May of 2016, patient presented with right eye pain and redness. This, later turned out to be lymphoma involving the right eye. And required radiation treatment and chemotherapy 2 weeks ago.. Patient is now legally blind. Patient went back to see Dr. Penn, and couple of weeks ago, patient received chemotherapy again. Presented to the ER on 2016 and he was complaining of generalized weakness, felt dehydrated, no headache, no blurred vision, no dizziness, no fever, no chills, he had 1 episode of slight diarrhea. Workup in the ER included a CBC which showed WBC count of 0.1, hemoglobin 10.7, platelets 20,000, potassium of 2.8, BUN of 35, creatinine of 1.30, lactic acid of 1.5. Urinalysis is relatively unremarkable except for small blood, and many bacteria noted in the urine. Patient was admitted, required fluid boluses, and empiric antibiotics utilizing vancomycin and cefepime. And I was asked to see him on consultation. No hemodynamic instability noted during that admission, patient did not require any pressors, did receive 2 L of fluid boluses in the ER. Upon my evaluation, the patient was already feeling a bit better. Denies any headache no blurred vision no dizziness, no nausea no vomiting no chest pain no shortness of breath. Patient was reevaluated today on 09/20/2016, doing quite well, no cough no fever no chills no hemoptysis no nausea no vomiting no abdominal pain no melena no hematemesis no dysuria and no frequency no urgency. CBC is about the same, WBC count is 0.1, hemoglobin is 10.1, platelets are 8000. Sodium is elevated at 147 potassium is 2.9 bicarb is 17 chloride is 123 BUN is 30 creatinine is 1.20. Patient was reevaluated today on 09/21/2016, patient was admitted with febrile neutropenia and pancytopenia secondary to chemotherapy. Patient feels generally weak, denies shortness of breath, seems to be dehydrated, and his sodium seems to be climbing up today up to 150. Hence I recommended switching his lactated Ringer's to D5W at 1 25 mL/h which will hopefully correct his hypernatremia. Rest of the labs were all reviewed, patient remains neutropenic , pancytopenic, WBC count today is 0.2 hemoglobin is 9.7 platelets 9000, sodium 150 potassium of 3.0 BUN is 34 creatinine is 1.25/climbing. Patient remains on antibiotics for his febrile neutropenia. Objective - Vital Signs Vital signs: Vital Signs Temp 97.5 F L 09/21/16 07:00 Pulse 115 H 09/21/16 07:00 Resp 22 09/21/16 07:00 BP 145/70 09/21/16 07:00 Pulse Ox 94 L 09/21/16 07:00 Intake & Output 09/20/16 09/21/16 09/21/16 18:59 06:59 18:59 Intake Total 206 1180 Output Total 2100 4800 Balance -0117 -2160 Weight 82.4 kg Intake: Oral 1180 Blood Product 206 Platelet Pheresis Acda1 206 Unit [id number] Output: Urine 600 1800 Stool 1500 3000 Other: Voiding Method Indwelling Catheter Indwelling Catheter Indwelling Catheter # Voids 1 - Exam Physical Exam: Revealed an 81-year-old white male in no distress. Dry mucous membranes were noted. HEENT:[Neck is supple.] [No neck masses.] [No thyromegaly.] [No JVD.] Complete shutdown of the right eye was noted related to lymphoma Chest: [Clear throughout, no crackles, no rhonchi, no wheezes.] Cardiac Exam: [Normal S1 and S2, no S3 gallop, no murmur.] Abdomen: [Soft, nontender, no megaly, no rebound, no guarding, normal bowel sounds.] Extremities: [No clubbing, no edema, no cyanosis.] Neurological Exam: [No focal neurologic deficit.] - Labs CBC & Chem 7: 09/21/16 06:15 09/21/16 06:15 Labs: Abnormal Lab Results - Last 24 Hours (Table) 09/20/16 09/20/16 09/21/16 Range/Units 15:18 22:30 06:15 WBC 0.2 L* (3.8-10.6) k/uL RBC 2.85 L (4.30-5.90) m/uL Hgb 9.7 L (13.0-17.5) gm/dL Hct 29.9 L (39.0-53.0) % MCV 104.7 H (80.0-100.0) fL Plt Count 9 L* (150-450) k/uL Sodium (137-145) mmol/L Potassium 2.8 L* 3.0 L* (3.5-5.1) mmol/L Chloride (98-107) mmol/L Carbon Dioxide (22-30) mmol/L BUN (9-20) mg/dL Glucose (74-99) mg/dL Calcium (8.4-10.2) mg/dL Phosphorus (2.5-4.5) mg/dL 09/21/16 Range/Units 06:15 WBC (3.8-10.6) k/uL RBC (4.30-5.90) m/uL Hgb (13.0-17.5) gm/dL Hct (39.0-53.0) % MCV (80.0-100.0) fL Plt Count (150-450) k/uL Sodium 150 H (137-145) mmol/L Potassium 3.0 L* (3.5-5.1) mmol/L Chloride 130 H* (98-107) mmol/L Carbon Dioxide 14 L (22-30) mmol/L BUN 34 H (9-20) mg/dL Glucose 111 H (74-99) mg/dL Calcium 8.0 L (8.4-10.2) mg/dL Phosphorus 1.9 L (2.5-4.5) mg/dL Microbiology - Last 24 Hours (Table) 09/18/16 23:30 Urine Culture - Final Urine,Catheterized Assessment and Plan Plan: Impression: 1 acute neutropenic fever, and sepsis with bacteremia secondary to gram- negative bacilli noted on the positive blood cultures from yesterday. 2 pancytopenia secondary to recent chemotherapy for B-cell lymphoma with bone marrow suppression. 3 electrolytes imbalance including hypernatremia and hypokalemia and dehydration , being addressed. 4 multiple comorbidities including B-cell lymphoma, right eyelid lymphoma involvement, coronary artery disease and previous stent placement, hypertension , hyperlipidemia, history of retinitis pigmentosa, legal blindness, history of GERD, Recommendation: I fully agree with the present treatment plan including broad- spectrum antibiotics, patient is presently on vancomycin and cefepime, continue GI and DVT prophylaxis, fluids, await final cultures from blood and urine, and we will monitor the patient in the intensive care unit. Time with Patient: Less than 30
--- NOTE | 2016-09-21 11:57 | XR ---
EXAMINATION TYPE: XR chest 1V DATE OF EXAM: 09/21/2016 11:46 AM COMPARISON: 09/20/2016 HISTORY: Weakness and shortness of breath TECHNIQUE: Single frontal view of the chest is obtained. FINDINGS: There is no focal air space opacity, pleural effusion, or pneumothorax seen. Right-sided Mediport with a single Heubner needle is unchanged in location with its distal tip in the superior ve na cava. Low lung volumes are present. Left basilar atelectasis has developed in the interim. Degener ative changes of the glenohumeral joint and visualized thoracic spine are seen. The cardiac silhouett e size is within normal limits. The osseous structures are intact. IMPRESSION: Left basilar atelectasis with no focal consolidation.
--- NOTE | 2016-09-21 13:31 | PN ---
81-year-old admitted with sepsis and bacteremia secondary to urinary tract infection. Patient is neutropenic, continues to be neutropenic with minimal improvement in WBC count at 200. Patient still looks quite sick and patient is still tachycardic, with significant amount of diarrhea in fecal management system, mildly elevated with high sodium and chloride, because of which patient IV fluids are being switched to D5 water. REVIEW OF SYSTEMS: CARDIOVASCULAR: No chest pain, no orthopnea, no PND, no palpitations. PULMONARY: Denied any shortness of breath. No cough or hemoptysis. GASTROINTESTINAL: No diarrhea, nausea or vomiting. No abdominal pain. Normoactive bowel sounds. NEUROLOGIC: No headaches, no weakness, no numbness. Medications are reviewed. PHYSICAL EXAMINATION: VITAL SIGNS: Temperature 97.5, pulse of 115, respiratory rate of 22, patient is having occasional PVCs. Blood pressure is 145/70, saturating at 94% on 3 L O2 by nasal cannula. GENERAL: Very thin built, alert and oriented x3. 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 HEENT: No significant change compared to yesterday. Legally blind. CARDIOVASCULAR: S1 and S2 tachycardic. Regular rhythm. On the monitor, patient is having occasional PACs and PVCs. PULMONARY: Chest is clear to auscultation, no wheezing or crackles. ABDOMEN: Soft, nontender, nondistended, normoactive bowel sounds. No palpable organomegaly. MUSCULOSKELETAL: No joint swelling or deformity. EXTREMITIES: No cyanosis, clubbing, or pedal edema. NEUROLOGICAL: Gross neurological examination did not reveal any focal deficits. SKIN: No rashes. LABORATORY DATA: CBC, CMP are abnormal for continue low WBC count of 200, platelet count 9000. Sodium of 150, potassium 3.0, which is being supplemented, chloride of 130, bicarbonate of 14. This is due to elevated chloride, creatinine 1.25. ASSESSMENT AND PLAN: 1. Neutropenic fever and severe sepsis secondary to possible urinary tract infection. Patient has E. coli bacteremia. Patient Cefepime will be discontinued. Patient will be started on ceftriaxone. Patient's E. coli is pansensitive. 2. Severe sepsis and bacteremia secondary to a urinary tract infection. 3. Pancytopenia secondary to chemotherapy and very low platelet count, we will watch for any bleeding diathesis. 4. Electrolyte imbalances due to IV fluids and patient will be switched to D5 water because of continued elevation of sodium and chloride. Potassium will be supplemented. 5. Acute renal failure secondary to severe loss from gastrointestinal tract. Patient has fecal management, C. difficile is negative. 6. 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 7. Coronary artery disease. 8. Tachycardia due to severe intravascular depletion. No significant improvement with ( ) Imodium C. difficile is negative.
[2016-09-21] MEDS ORDERED: HYDROcodone/APAP 5-325MG 1 EACH TAB PO PRN (14:44)
--- NOTE | 2016-09-21 15:05 | P.PN ---
Subjective Principal diagnosis: Current sepsis 81-year-old male that has a history of B-cell lymphoma. Has had recent hospitalization there is having difficulty with his right eye. He was receiving chemotherapy for his B-cell lymphoma. But due to difficulties infection that was placed on hold. He then developed appear to be a significant change in status to his right eye. Imaging studies reveal evidence of a masslike process that was retro-orbital. Upon biopsy turned out to be the B-cell lymphoma. He is now had some localized radiation therapy as well as ongoing chemotherapy. He is feeling somewhat better. But now presents with significant fever and chills and generalized malaise. He is certainly a poor historian at this point in time. But does seem to more comfortable during the last day. Family present, agree he slightly better. But he is not eating. Objective - Vital Signs Vital signs: Vital Signs Temp 97.5 F L 09/21/16 07:00 Pulse 115 H 09/21/16 07:00 Resp 22 09/21/16 07:00 BP 145/70 09/21/16 07:00 Pulse Ox 94 L 09/21/16 07:00 Intake & Output 09/20/16 09/21/16 09/21/16 18:59 06:59 18:59 Intake Total 206 1180 Output Total 2100 4800 Balance -1894 -3620 Weight 82.4 kg Intake: Oral 1180 Blood Product 206 Platelet Pheresis Acda1 206 Unit [id number] Output: Urine 600 1800 Stool 1500 3000 Other: Voiding Method Indwelling Catheter Indwelling Catheter Indwelling Catheter # Voids 1 - Exam 81-year-old male relates to minimal discomfort but has improvement in thesignificant swelling to his right eye. HEENT: Left eye without abnormalities. the right eye drainage is improved. Thesignificant swelling is definitely improved. It is also less tender. There is no significant lesions seen on the nares ,below the eye, also no lesions seen on the right auricle or within the external auditory canal. No lesions on the scalp. nasal mucosa grossly intact without significant lesions, there is no thrush. Neck: The neck is supple without significant lymphadenopathy or thyromegaly. Lungs: Good bilateral air entry without significant crackles or wheezing. There is no significant bronchial sounds. There is no egophony or dullness. Heart: Regular rate and rhythm with an audible S1-S2, no S3 no S4. There is no significant murmur click or rub, PMI was nondisplaced. Abdomen: Positive bowel sounds soft and now has evidence some left lower quadrant tenderness which is new without palpable masses or organomegaly. There was no guarding or rebound. Extremities: The upper extremities have excellent pulses they are symmetric, no significant petechiae or telangiectasia. No splinter hemorrhages were noted. The lower extremities are free from significant edema. The peripheral pulses were 2+ and symmetric. Neuro: Awake alert oriented to person place and time. There are no acute new gross focal sensory motor deficits. The patient has hand motion only upon approach I exam which is not new. - Labs CBC & Chem 7: 09/21/16 06:15 09/21/16 06:15 Labs: Abnormal Lab Results - Last 24 Hours (Table) 09/20/16 09/20/16 09/21/16 Range/Units 15:18 22:30 06:15 WBC 0.2 L* (3.8-10.6) k/uL RBC 2.85 L (4.30-5.90) m/uL Hgb 9.7 L (13.0-17.5) gm/dL Hct 29.9 L (39.0-53.0) % MCV 104.7 H (80.0-100.0) fL Plt Count 9 L* (150-450) k/uL Sodium (137-145) mmol/L Potassium 2.8 L* 3.0 L* (3.5-5.1) mmol/L Chloride (98-107) mmol/L Carbon Dioxide (22-30) mmol/L BUN (9-20) mg/dL Glucose (74-99) mg/dL Calcium (8.4-10.2) mg/dL Phosphorus (2.5-4.5) mg/dL 09/21/16 Range/Units 06:15 WBC (3.8-10.6) k/uL RBC (4.30-5.90) m/uL Hgb (13.0-17.5) gm/dL Hct (39.0-53.0) % MCV (80.0-100.0) fL Plt Count (150-450) k/uL Sodium 150 H (137-145) mmol/L Potassium 3.0 L* (3.5-5.1) mmol/L Chloride 130 H* (98-107) mmol/L Carbon Dioxide 14 L (22-30) mmol/L BUN 34 H (9-20) mg/dL Glucose 111 H (74-99) mg/dL Calcium 8.0 L (8.4-10.2) mg/dL Phosphorus 1.9 L (2.5-4.5) mg/dL Microbiology - Last 24 Hours (Table) 09/18/16 23:30 Urine Culture - Final Urine,Catheterized Laboratory Results WBC 0.2 k/uL (3.8-10.6) L* 09/21/16 06:15 RBC 2.85 m/uL (4.30-5.90) L 09/21/16 06:15 Hgb 9.7 gm/dL (13.0-17.5) L 09/21/16 06:15 Hct 29.9 % (39.0-53.0) L 09/21/16 06:15 MCV 104.7 fL (80.0-100.0) H 09/21/16 06:15 MCH 34.2 pg (25.0-35.0) 09/21/16 06:15 MCHC 32.6 g/dL (31.0-37.0) 09/21/16 06:15 RDW 14.5 % (11.5-15.5) 09/21/16 06:15 Plt Count 9 k/uL (150-450) L* 09/21/16 06:15 Differential Comment 09/21/16 06:15 Manual Slide Review Performed 09/21/16 06:15 Polychromasia Present 09/18/16 10:40 Poikilocytosis (manual Present 09/21/16 06:15 Macrocytosis Moderate 09/21/16 06:15 Target Cells Present 09/21/16 06:15 Fragmented RBCs Present 09/21/16 06:15 PT 12.5 sec (9.0-12.0) H 09/18/16 10:40 INR 1.3 (<1.1) 09/18/16 10:40 APTT 40.0 sec (22.0-30.0) H 09/18/16 10:40 Sodium 150 mmol/L (137-145) H 09/21/16 06:15 Potassium 3.0 mmol/L (3.5-5.1) L* 09/21/16 06:15 Chloride 130 mmol/L (98-107) H* 09/21/16 06:15 Carbon Dioxide 14 mmol/L (22-30) L 09/21/16 06:15 Anion Gap 6 mmol/L 09/21/16 06:15 BUN 34 mg/dL (9-20) H 09/21/16 06:15 Creatinine 1.25 mg/dL (0.66-1.25) 09/21/16 06:15 Est GFR (MDRD) Af Amer >60 (>60 ml/min/1.73 sqM) 09/21/16 06:15 Est GFR (MDRD) Non-Af 55 (>60 ml/min/1.73 sqM) 09/21/16 06:15 Glucose 111 mg/dL (74-99) H 09/21/16 06:15 POC Glucose (mg/dL) 108 mg/dL (75-99) H 09/18/16 18:49 POC Glu Prop And Effects Designer ID Maty Murdock 09/18/16 18:49 Plasma Lactic Acid [place] 1.4 mmol/L (0.7-2.0) 09/19/16 05:15 Calcium 8.0 mg/dL (8.4-10.2) L 09/21/16 06:15 Phosphorus 1.9 mg/dL (2.5-4.5) L 09/21/16 06:15 Magnesium 2.0 mg/dL (1.6-2.3) 09/21/16 06:15 Total Bilirubin 2.6 mg/dL (0.2-1.3) H 09/18/16 10:40 AST 38 U/L (17-59) 09/18/16 10:40 ALT 100 U/L (21-72) H 09/18/16 10:40 Alkaline Phosphatase 58 U/L (38-126) 09/18/16 10:40 Total Creatine Kinase <20 U/L (55-170) L 09/18/16 10:40 CK-MB (CK-2) <0.2 ng/mL (0.0-2.4) 09/18/16 10:40 CK-MB (CK-2) Rel Index 09/18/16 10:40 Troponin I 0.023 ng/mL (0.000-0.034) 09/18/16 10:40 Total Protein 5.2 g/dL (6.3-8.2) L 09/18/16 10:40 Albumin 2.7 g/dL (3.5-5.0) L 09/18/16 10:40 Cortisol 113 ug/dL 09/19/16 05:15 Urine Color [place] 09/18/16 23:30 Urine Appearance Cloudy (Clear) 09/18/16 23:30 Urine pH 5.5 (5.0-8.0) 09/18/16 23:30 Ur Specific [place] 1.014 (1.001-1.035) 09/18/16 23:30 Urine Protein 1+ (Negative) H 09/18/16 23:30 Urine Glucose (UA) Negative (Negative) 09/18/16 23:30 Urine Ketones Negative (Negative) 09/18/16 23:30 Urine Blood Small (Negative) H 09/18/16 23:30 Urine Nitrite Negative (Negative) 09/18/16 23:30 Urine Bilirubin Negative (Negative) 09/18/16 23:30 Urine Urobilinogen <2.0 mg/dL (<2.0) 09/18/16 23:30 Ur Leukocyte Esterase Negative (Negative) 09/18/16 23:30 Urine RBC 5 /hpf (0-5) 09/18/16 23:30 Urine WBC 7 /hpf (0-5) H 09/18/16 23:30 Amorphous Sediment Rare /hpf (None) H 09/18/16 23:30 Urine Bacteria Many /hpf (None) H 09/18/16 23:30 Hyaline Casts 9 /lpf (0-2) H 09/18/16 23:30 Granular Casts 9 /lpf (0) 09/18/16 23:30 Urine Mucus Occasional /hpf (None) H 09/18/16 23:30 Vancomycin Trough 17.4 ug/mL 09/21/16 06:15 C. difficile (EIA) Intrp Negative (Negative) 09/19/16 00:00 C. difficile Tox (PCR) Not Detected (Not Detectd) 09/20/16 15:30 Blood Type O Positive 09/20/16 15:18 Blood Type Recheck No 09/20/16 15:18 Antibody Screen NEGATIVE 09/20/16 15:18 Transfuse Platelets 09/21/16 09/21/16 11:17 Spec Expiration Date 09/23/2016 - 2318 09/20/16 15:18 Microbiology 09/18/16 14:15 Blood Blood Culture Gram Stain - Final 09/18/16 14:15 Blood Blood Culture - Final Escherichia coli 09/18/16 23:30 Urine,Catheterized Urine Culture - Final 09/18/16 14:15 Blood Blood Culture - Final Assessment and Plan (1) Febrile neutropenia Narrative/Plan: 81-year-old male with his known history of B-cell lymphoma who recently had significant difficulty with his right eye. He was treated for an infectious process. However failed to improve. Imaging studies reveal evidence of a significant involvement of the B-cell lymphoma to the eye that was proven by biopsy. He is now had radiation therapy and systemic chemotherapy. Now presents to Hospital significant fever and appears to have febrile neutropenia. Antimicrobial therapy with cefepime be continued although E. coli has been isolated there still is significant neutropenia. Vancomycin is discontinued and there is no evidence of any gram-positive sepsis at this time. Continue ongoing supportive care. Important that he has nutritional supplementation. It is of a protein supplement present he is instructed again the importance of taking these 3 times per day to help with his healing process. His pain fortunately is well controlled at this time. The extensive swelling to the eye has had remarkable improvement after the radiation therapy and chemotherapy. Lacri-Lube to the right eye Abdominal x-ray since he is having some left lower quadrant tenderness. Status: Acute (2) Pancytopenia due to antineoplastic chemotherapy Status: Acute
--- NOTE | 2016-09-21 15:46 | XR ---
2 view abdomen HISTORY: Pain and neutropenia 2 views of the abdomen Comparison PET/CT 06 September 2016 Lung bases are clear. Surgical clips present in the abdomen. No pneumoperitoneum or bowel obstruction . Indeterminate calcification left hemiabdomen measuring approximately 7 to 8 mm corresponds to left- sided renal calculus. IMPRESSION: No abnormality evident to account for patient's symptoms. Left-sided nephrolithiasis.
[2016-09-21] MEDS ORDERED: ARTIFICIAL TEARS OINTMENT 3.5 GM TUBE RIGHT EYE PRN (17:15)
[2016-09-21] MEDS ORDERED: POTASSIUM CHLORIDE 20 MEQ in WATER FOR INJECTION 1 100ML.BAG IVPB ONE (17:30)
[2016-09-21] MEDS: METOPROLOL SUCCINATE (ER) 25 MG TAB.ER.24H PO SCH (20:44)
[2016-09-21] MEDS: ATORVASTATIN 20 MG TAB PO SCH (20:44)
[2016-09-21] MEDS: POTASSIUM CHLORIDE 10 MEQ, LIDOCAINE 2% INJ 10 MG in SODIUM CHLORIDE 0.9% 100 ML IVPB SCH ×2 (22:30→23:52)
[2016-09-22] MEDS: CEFEPIME 2 GM in SODIUM CHLORIDE 0.9% 50 ML IVPB SCH ×3 (00:43→22:42)
[2016-09-22] MEDS: D5W WITH KCL 20 MEQ/L 1,000 ML IV SCH ×3 (04:30→17:21)
[2016-09-22 06:21] LABS: CHCM 32.1; HCT 24.8 % (39.0-53.0); HDW 2.42; Immature Gran Flag Marked; MCH 33.8 pg (25.0-35.0); MCHC 31.7 g/dL (31.0-37.0); MCV 106.5 fL (80.0-100.0); Macrocytosis Moderate; Mean Platelet Volume 11.1; RBC 2.33 m/uL (4.30-5.90); RDW 14.8 % (11.5-15.5); WBC (Perox) 0.46
[2016-09-22 06:23] LABS: WBC 0.4 k/uL (3.8-10.6)
[2016-09-22 06:24] LABS: HGB 7.9 gm/dL (13.0-17.5)
[2016-09-22 06:39] LABS: Add Differential Manual Differential
[2016-09-22 06:40] LABS: Manual Review Performed
[2016-09-22 07:20] LABS: Calcium 7.6 mg/dL (8.4-10.2); Magnesium 2.2 mg/dL (1.6-2.3); Phosphorous 1.7 mg/dL (2.5-4.5); Potassium 3.6 mmol/L (3.5-5.1)
--- NOTE | 2016-09-22 08:14 | XR ---
EXAMINATION TYPE: XR chest 1V DATE OF EXAM: 09/22/2016 7:27 AM COMPARISON: 09/21/2016 HISTORY: Abnormal x-ray FINDINGS: There are bilateral pleural effusions with cardiomegaly and bibasilar infiltrate. There is a diffuse interstitial pattern. Arthropathy of the shoulders seen. Mediport catheter noted. Surgical clips in the abdomen. Hypertrophic change of the spine. IMPRESSION: 1. Persistent bilateral pleural effusions, infiltrate and interstitial pattern. Correlate for CHF.
[2016-09-22] MEDS ORDERED: Potassium Replacement Protocol 1 EACH MISC MISCELLANE PRN (08:32)
[2016-09-22] MEDS: POTASSIUM CHLORIDE 10 MEQ in WATER FOR INJECTION 1 100ML.BAG IVPB SCH ×2 (10:02→10:55)
[2016-09-22] MEDS: LOPERAMIDE 2 MG CAP PO SCH ×4 (11:28→22:43)
[2016-09-22] MEDS: PANTOPRAZOLE 40 MG TABLET PO SCH (11:28)
[2016-09-22] MEDS: TAMSULOSIN 0.4 MG CAP.ER.24H PO SCH (11:28)
[2016-09-22] MEDS: SERTRALINE 100 MG TAB PO SCH (11:28)
[2016-09-22] MEDS: CHOLESTYRAMINE (WITH SUGAR) 4 GM PACKET PO SCH ×3 (11:28→16:42)
--- NOTE | 2016-09-22 11:59 | PN ---
This is an 81-year-old gentleman seen by my partner yesterday. Was admitted with febrile neutropenia and pancytopenia secondary to chemotherapy. The patient is very, very delirious, not oriented at all. Very agitated, trying to climb out of bed. Physical therapy was in the room but he is not going to be a physical therapy candidate at this point. He is a DNR, NO CODE patient. The patient did have a chest x-ray dated September 22. The chest x-ray shows persistent bilateral pleural effusions in an interstitial pattern consistent with CHF. The patient does have a history of acute neutropenic fever secondary to chemotherapy with some gram-negative bacilli apparently noted on blood cultures, pancytopenia, secondary to recent chemotherapy for B-cell lymphoma with bone marrow suppression, and history of electrolyte disturbance, right eyelid lymphoma, CAD, melanoma, hypertension, hyperlipidemia, retinitis pigmentosa and GERD. Current vital signs include temperature which is 100, heart rate 95, respiratory rate 16, blood pressure 143/65, mean 91 and a saturation of mid 90s on 3 L, very agitated and very restless. HEENT examination is grossly unremarkable. Nasal O2 in place. NECK: Supple. Cardiovascular examination reveals regular rhythm and rate. He is tachycardic. Lungs reveal coarse rhonchi. Breath sounds diminished. He does not take deep breaths. ABDOMEN: Soft. Extremities are intact. Mild edema. Labs are reviewed. White count 0.4, up from 0.2. Hemoglobin 7.9 down from 9.7, hematocrit 24.8, and platelet count 9000, which was what it was yesterday. Sodium 150, potassium 3.6, chloride 130, CO2 of 14. Anion gap is 6. BUN and creatinine 37 and 1.48. This represents hypernatremia in non-anion gap hyperchloremic metabolic acidosis. His glucose was 148. Medications are reviewed. Microbiology is positive for blood cultures being positive on September 18 for E. coli with sensitivity showing it is sensitive to everything tested. ASSESSMENT: 1. Neutropenic fever with sepsis secondary to Escherichia coli. 2. Pancytopenia secondary to recent chemotherapy for B-cell lymphoma with bone marrow suppression. 3. Electrolyte disturbance. 4. Acute kidney injury. 5. Non- anion gap metabolic acidosis, hyperchloremic. 6. History of B-cell lymphoma. 7. Coronary artery disease with previous stent. 8. Hypertension. 9. Hyperlipidemia. 10. History of retinitis pigmentosa with legal blindness. 11. Gastroesophageal reflux disease. PLAN: Overall, the patient's prognosis is poor. He is a DNR. I am not sure when that order was made. Will continue to follow. The patient is currently on cefepime. Dr. Rothman is on the case. Currently not on vancomycin. Additional recommendations and suggestions are forthcoming. Prognosis is poor.
--- NOTE | 2016-09-22 13:22 | P.PN ---
Subjective Date of service 09/22/2016. Progress note being dictated for Dr. Mckinney. Interval history: This 81-year-old gentleman admitted with sepsis, bacteremia secondary to UTI, febrile neutropenia, acute renal failure, electrolyte imbalances and dehydration secondary to diarrhea in a patient with recurrent B- cell non-Hodgkin's lymphoma. Initial Blood cultures positive for E. coli with repeat blood cultures currently negative. Maintained on cefepime, as per ID. Diarrhea tested negative for C. difficile. IV hydration continues on D5W given elevated sodium and chloride. Creatinine worsening. Diarrhea improving,FMS present. Chest x-ray reported bilateral pleural effusions, interstitial pattern ,CHF.Remains extremely weak, restless, delirious, agitated, refusing meds. Initially scheduled for swelling evaluation, which has been canceled per family' s wishes, as well as NPO status . Febrile, T-max 100F, WBC 0.4, neutrophils unreportable. Objective - Vital Signs Vital signs: Vital Signs Temp 100 F H 09/22/16 07:00 Pulse 95 09/22/16 08:00 Resp 16 09/22/16 08:00 BP 143/65 09/22/16 07:00 Pulse Ox 94 L 09/22/16 07:00 Intake & Output 09/21/16 09/22/16 09/22/16 18:59 06:59 18:59 Intake Total 293 1000 Output Total 6126 992 0464 Balance -1157 400 -1600 Weight 82.5 kg 82.5 kg Intake: Intake, IV Titration 1000 Amount D5w with KCl 20 Meq/l 1, 1000 000 ml @ 125 mls/hr IV . Q8H [facility] Rx#:[id number] Oral 0 Blood Product 293 Platelet Pheresis Acda2 293 Unit [id number] Output: Urine 450 600 600 Uretheral ([place]) 450 Stool 1000 1000 Other: Voiding Method Indwelling Catheter Indwelling Catheter Indwelling Catheter # Voids 1 1 - Exam PHYSICAL EXAM: VITAL SIGNS: [As above] GENERAL: [Lying in bed, confused, delirious, anxious,] HEENT: Unchanged from yesterday, crusty right lid/lashes, Legally blind,] NECK: [Supple, no JVD] RESPIRATORY EFFORT:[Increased] LUNGS: [Diminished, rhonchi scattered throughout, no wheezing or crackles] CARDIOVASCULAR[regular S1 and S2, tachycardic, positive edema] GI: [Abdomen soft, nontender, positive bowel sounds. No guarding, no rigidity] PSYCH: [Alert and oriented -1-2, confused, agitated NEURO: Confused, refusing nursing care, refusing meds currently; unable to assess. Microbiology 09/21/16 06:15 Blood Blood Culture - Preliminary No Growth after 24 hours 09/20/16 19:40 Blood Blood Culture - Preliminary No Growth after 24 hours 09/20/16 15:18 Blood Blood Culture - Preliminary No Growth after 24 hours 09/18/16 14:15 Blood Blood Culture Gram Stain - Final 09/18/16 14:15 Blood Blood Culture - Final Escherichia coli 09/18/16 23:30 Urine,Catheterized Urine Culture - Final 09/18/16 14:15 Blood Blood Culture - Final - Labs CBC & Chem 7: 09/22/16 06:10 09/22/16 06:10 Labs: Abnormal Lab Results - Last 24 Hours (Table) 09/21/16 09/21/16 09/22/16 Range/Units 15:46 21:00 06:10 WBC 0.4 L* (3.8-10.6) k/uL RBC 2.33 L (4.30-5.90) m/uL Hgb 7.9 L D (13.0-17.5) gm/dL Hct 24.8 L (39.0-53.0) % MCV 106.5 H (80.0-100.0) fL Plt Count 9 L* (150-450) k/uL Sodium (137-145) mmol/L Potassium 3.1 L 3.4 L (3.5-5.1) mmol/L Chloride (98-107) mmol/L Carbon Dioxide (22-30) mmol/L BUN (9-20) mg/dL Creatinine (0.66-1.25) mg/dL Glucose (74-99) mg/dL Calcium (8.4-10.2) mg/dL Phosphorus (2.5-4.5) mg/dL 09/22/16 Range/Units 06:10 WBC (3.8-10.6) k/uL RBC (4.30-5.90) m/uL Hgb (13.0-17.5) gm/dL Hct (39.0-53.0) % MCV (80.0-100.0) fL Plt Count (150-450) k/uL Sodium 150 H (137-145) mmol/L Potassium (3.5-5.1) mmol/L Chloride 130 H* (98-107) mmol/L Carbon Dioxide 14 L (22-30) mmol/L BUN 37 H (9-20) mg/dL Creatinine 1.48 H (0.66-1.25) mg/dL Glucose 158 H (74-99) mg/dL Calcium 7.6 L (8.4-10.2) mg/dL Phosphorus 1.7 L (2.5-4.5) mg/dL Microbiology - Last 24 Hours (Table) 09/21/16 06:15 Blood Culture - Preliminary Blood No Growth after 24 hours 09/20/16 19:40 Blood Culture - Preliminary Blood No Growth after 24 hours 09/20/16 15:18 Blood Culture - Preliminary Blood No Growth after 24 hours Assessment and Plan Plan: 1. [Neutropenic fever with severe sepsis secondary to E. coli bacteremia, urine culture negative 2. Pancytopenia secondary to chemotherapy with bone marrow suppression, in a patient with history of B-cell lymphoma 3. [Hypernatremia]. 4. [Hyperchloremia]. 5. [Retinitis pigmentosa, legally blind]. 6. [CAD]. 7. [Tachycardia secondary to severe intravascular depletion]. 8. Acute Renal failure, worsening 9. Gastroesophageal reflux disease Plan: Continue on current medication regime ,monitoring and symptomatic treatment. Worsening renal function. IV fluids increased. Antibiotics continue as per ID, currently on cefepime. As stated above patient is refusing nursing care, medications. Prognosis guarded. Family meeting with oncology pending. Further recommendations to follow. The impression and plan of care has been dictated as directed. : I performed a H&P examination of this patient and discussed the same with the dictator. I agree with the dictator's note. Any additional findings/opinions/ etc. will be noted.
[2016-09-22 15:28] VITALS: BMI 23.3
[2016-09-22] MEDS: MAG HYDROX/AL HYDROX/SIMETH 30 ML, LIDOCAINE VISCOUS 30 ML, diphenhydrAMINE ELIXIR 75 M... PO SCH ×8 (17:18→22:43)
[2016-09-22] MEDS: LORazepam 2 MG/ML SYRINGE IV PRN (19:13)
[2016-09-22] MEDS: MORPHINE SULFATE 2 MG/ML SYRINGE IVP PRN (22:41)
[2016-09-22] MEDS: ATORVASTATIN 20 MG TAB PO SCH (22:42)
[2016-09-22] MEDS: METOPROLOL SUCCINATE (ER) 25 MG TAB.ER.24H PO SCH (22:42)
--- NOTE | 2016-09-22 23:28 | P.PN ---
Subjective Principal diagnosis: Current sepsis 81-year-old male that has a history of B-cell lymphoma. Has had recent hospitalization there is having difficulty with his right eye. He was receiving chemotherapy for his B-cell lymphoma. But due to difficulties infection that was placed on hold. He then developed appear to be a significant change in status to his right eye. Imaging studies reveal evidence of a masslike process that was retro-orbital. Upon biopsy turned out to be the B-cell lymphoma. He is now had some localized radiation therapy as well as ongoing chemotherapy. He is feeling somewhat better. But now presents with significant fever and chills and generalized malaise. He is certainly a poor historian at this point in time. But does seem to more comfortable during the last day. Family present, agree he slightly better. But he is not eating. Objective - Vital Signs Vital signs: Vital Signs Temp 99.4 F 09/22/16 15:00 Pulse 95 09/22/16 16:00 Resp 16 09/22/16 16:00 BP 150/100 09/22/16 15:00 Pulse Ox 90 L 09/22/16 15:00 Intake & Output 09/22/16 09/22/16 09/23/16 06:59 18:59 06:59 Intake Total 1000 1580 Output Total 600 3300 Balance 400 -1720 Weight 82.5 kg 82.5 kg Intake: Intake, IV Titration 1000 1580 Amount Cefepime 2 gm In Sodium 100 Chloride 0.9% 50 ml @ 100 mls/hr IVPB Q12HR [facility] Rx #:[id number] Cefepime 2 gm In Sodium 100 Chloride 0.9% 50 ml @ 100 mls/hr IVPB Q8HR [facility] Rx# :[id number] D5w with KCl 20 Meq/l 1, 1000 800 000 ml @ 125 mls/hr IV . Q8H [facility] Rx#:[id number] Potassium Chloride 10 meq 100 In Water For Injection 1 100ml.bag @ 100 mls/hr IVPB Q1H [facility] Rx#: [id number] Potassium Chloride 10 meq 100 Lidocaine 2% Inj 10 mg In Sodium Chloride 0.9% 100 ml @ 100 mls/hr IVPB Q1HR [facility] Rx#:[id number] Potassium Chloride 20 meq 380 In Water For Injection 1 100ml.bag @ 50 mls/hr IVPB ONCE ONE Rx#: [id number] Oral 0 Output: Urine 600 1300 Uretheral ([place]) 700 Stool 2000 Other: Voiding Method Indwelling Catheter Indwelling Catheter # Voids 1 1 - Exam 81-year-old male relates to minimal discomfort but has improvement in thesignificant swelling to his right eye. HEENT: Left eye without abnormalities. the right eye drainage is improved. Thesignificant swelling is definitely improved. It is also less tender. There is no significant lesions seen on the nares ,below the eye, also no lesions seen on the right auricle or within the external auditory canal. No lesions on the scalp. nasal mucosa grossly intact without significant lesions, there is no thrush. Neck: The neck is supple without significant lymphadenopathy or thyromegaly. Lungs: Good bilateral air entry without significant crackles or wheezing. There is no significant bronchial sounds. There is no egophony or dullness. Heart: Regular rate and rhythm with an audible S1-S2, no S3 no S4. There is no significant murmur click or rub, PMI was nondisplaced. Abdomen: Positive bowel sounds soft and now has evidence some left lower quadrant tenderness which is new without palpable masses or organomegaly. There was no guarding or rebound. Extremities: The upper extremities have excellent pulses they are symmetric, no significant petechiae or telangiectasia. No splinter hemorrhages were noted. The lower extremities are free from significant edema. The peripheral pulses were 2+ and symmetric. Neuro: Awake alert oriented to person place and time. There are no acute new gross focal sensory motor deficits. The patient has hand motion only upon approach I exam which is not new. - Labs CBC & Chem 7: 09/22/16 06:10 09/22/16 06:10 Labs: Abnormal Lab Results - Last 24 Hours (Table) 09/22/16 09/22/16 Range/Units 06:10 06:10 WBC 0.4 L* (3.8-10.6) k/uL RBC 2.33 L (4.30-5.90) m/uL Hgb 7.9 L D (13.0-17.5) gm/dL Hct 24.8 L (39.0-53.0) % MCV 106.5 H (80.0-100.0) fL Plt Count 9 L* (150-450) k/uL Sodium 150 H (137-145) mmol/L Chloride 130 H* (98-107) mmol/L Carbon Dioxide 14 L (22-30) mmol/L BUN 37 H (9-20) mg/dL Creatinine 1.48 H (0.66-1.25) mg/dL Glucose 158 H (74-99) mg/dL Calcium 7.6 L (8.4-10.2) mg/dL Phosphorus 1.7 L (2.5-4.5) mg/dL Microbiology - Last 24 Hours (Table) 09/20/16 19:40 Blood Culture - Preliminary Blood No Growth after 48 hours 09/20/16 15:18 Blood Culture - Preliminary Blood No Growth after 48 hours 09/21/16 06:15 Blood Culture - Preliminary Blood No Growth after 24 hours Laboratory Results WBC 0.4 k/uL (3.8-10.6) L* 09/22/16 06:10 RBC 2.33 m/uL (4.30-5.90) L 09/22/16 06:10 Hgb 7.9 gm/dL (13.0-17.5) L D 09/22/16 06:10 Hct 24.8 % (39.0-53.0) L 09/22/16 06:10 MCV 106.5 fL (80.0-100.0) H 09/22/16 06:10 MCH 33.8 pg (25.0-35.0) 09/22/16 06:10 MCHC 31.7 g/dL (31.0-37.0) 09/22/16 06:10 RDW 14.8 % (11.5-15.5) 09/22/16 06:10 Plt Count 9 k/uL (150-450) L* 09/22/16 06:10 Neutrophils % Not Reportable 09/22/16 06:10 Lymphocytes % Not Reportable 09/22/16 06:10 Monocytes % Not Reportable 09/22/16 06:10 Eosinophils % Not Reportable 09/22/16 06:10 Basophils % Not Reportable 09/22/16 06:10 Neutrophils # Not Reportable 09/22/16 06:10 Lymphocytes # Not Reportable 09/22/16 06:10 Monocytes # Not Reportable 09/22/16 06:10 Eosinophils # Not Reportable 09/22/16 06:10 Basophils # Not Reportable 09/22/16 06:10 Differential Comment 09/22/16 06:10 Manual Slide Review Performed 09/22/16 06:10 Polychromasia Present 09/18/16 10:40 Poikilocytosis (manual Present 09/22/16 06:10 Anisocytosis (manual) Present 09/22/16 06:10 Macrocytosis Moderate 09/22/16 06:10 Target Cells Present 09/21/16 06:15 Fragmented RBCs Present 09/21/16 06:15 PT 12.5 sec (9.0-12.0) H 09/18/16 10:40 INR 1.3 (<1.1) 09/18/16 10:40 APTT 40.0 sec (22.0-30.0) H 09/18/16 10:40 Sodium 150 mmol/L (137-145) H 09/22/16 06:10 Potassium 3.6 mmol/L (3.5-5.1) 09/22/16 06:10 Chloride 130 mmol/L (98-107) H* 09/22/16 06:10 Carbon Dioxide 14 mmol/L (22-30) L 09/22/16 06:10 Anion Gap 6 mmol/L 09/22/16 06:10 BUN 37 mg/dL (9-20) H 09/22/16 06:10 Creatinine 1.48 mg/dL (0.66-1.25) H 09/22/16 06:10 Est GFR (MDRD) Af Amer 55 (>60 ml/min/1.73 sqM) 09/22/16 06:10 Est GFR (MDRD) Non-Af 46 (>60 ml/min/1.73 sqM) 09/22/16 06:10 Glucose 158 mg/dL (74-99) H 09/22/16 06:10 POC Glucose (mg/dL) 108 mg/dL (75-99) H 09/18/16 18:49 POC Glu Personal Lines Agent ID Maty Murdock 09/18/16 18:49 Plasma Lactic Acid [place] 1.4 mmol/L (0.7-2.0) 09/19/16 05:15 Calcium 7.6 mg/dL (8.4-10.2) L 09/22/16 06:10 Phosphorus 1.7 mg/dL (2.5-4.5) L 09/22/16 06:10 Magnesium 2.2 mg/dL (1.6-2.3) 09/22/16 06:10 Total Bilirubin 2.6 mg/dL (0.2-1.3) H 09/18/16 10:40 AST 38 U/L (17-59) 09/18/16 10:40 ALT 100 U/L (21-72) H 09/18/16 10:40 Alkaline Phosphatase 58 U/L (38-126) 09/18/16 10:40 Total Creatine Kinase <20 U/L (55-170) L 09/18/16 10:40 CK-MB (CK-2) <0.2 ng/mL (0.0-2.4) 09/18/16 10:40 CK-MB (CK-2) Rel Index 09/18/16 10:40 Troponin I 0.023 ng/mL (0.000-0.034) 09/18/16 10:40 Total Protein 5.2 g/dL (6.3-8.2) L 09/18/16 10:40 Albumin 2.7 g/dL (3.5-5.0) L 09/18/16 10:40 Cortisol 113 ug/dL 09/19/16 05:15 Urine Color [place] 09/18/16 23:30 Urine Appearance Cloudy (Clear) 09/18/16 23:30 Urine pH 5.5 (5.0-8.0) 09/18/16 23:30 Ur Specific [place] 1.014 (1.001-1.035) 09/18/16 23:30 Urine Protein 1+ (Negative) H 09/18/16 23:30 Urine Glucose (UA) Negative (Negative) 09/18/16 23:30 Urine Ketones Negative (Negative) 09/18/16 23:30 Urine Blood Small (Negative) H 09/18/16 23:30 Urine Nitrite Negative (Negative) 09/18/16 23:30 Urine Bilirubin Negative (Negative) 09/18/16 23:30 Urine Urobilinogen <2.0 mg/dL (<2.0) 09/18/16 23:30 Ur Leukocyte Esterase Negative (Negative) 09/18/16 23:30 Urine RBC 5 /hpf (0-5) 09/18/16 23:30 Urine WBC 7 /hpf (0-5) H 09/18/16 23:30 Amorphous Sediment Rare /hpf (None) H 09/18/16 23:30 Urine Bacteria Many /hpf (None) H 09/18/16 23:30 Hyaline Casts 9 /lpf (0-2) H 09/18/16 23:30 Granular Casts 9 /lpf (0) 09/18/16 23:30 Urine Mucus Occasional /hpf (None) H 09/18/16 23:30 Vancomycin Trough 17.4 ug/mL 09/21/16 06:15 C. difficile (EIA) Intrp Negative (Negative) 09/19/16 00:00 C. difficile Tox (PCR) Not Detected (Not Detectd) 09/20/16 15:30 Blood Type O Positive 09/20/16 15:18 Blood Type Recheck No 09/20/16 15:18 Antibody Screen NEGATIVE 09/20/16 15:18 Transfuse Platelets 09/21/16 09/21/16 11:17 Spec Expiration Date 09/23/2016 - 2318 09/20/16 15:18 Microbiology 09/20/16 19:40 Blood Blood Culture - Preliminary No Growth after 48 hours 09/20/16 15:18 Blood Blood Culture - Preliminary No Growth after 48 hours 09/21/16 06:15 Blood Blood Culture - Preliminary No Growth after 24 hours 09/18/16 14:15 Blood Blood Culture Gram Stain - Final 09/18/16 14:15 Blood Blood Culture - Final Escherichia coli 09/18/16 23:30 Urine,Catheterized Urine Culture - Final 09/18/16 14:15 Blood Blood Culture - Final Assessment and Plan (1) Febrile neutropenia Narrative/Plan: 81-year-old male with his known history of B-cell lymphoma who recently had significant difficulty with his right eye. He was treated for an infectious process. However failed to improve. Imaging studies reveal evidence of a significant involvement of the B-cell lymphoma to the eye that was proven by biopsy. He is now had radiation therapy and systemic chemotherapy. Now presents to Hospital significant fever and appears to have febrile neutropenia. Antimicrobial therapy with cefepime be continued although E. coli has been isolated there still is significant neutropenia. Vancomycin is discontinued and there is no evidence of any gram-positive sepsis at this time. Continue ongoing supportive care. Important that he has nutritional supplementation. It is of a protein supplement present he is instructed again the importance of taking these 3 times per day to help with his healing process. His pain fortunately is well controlled at this time. The extensive swelling to the eye has had remarkable improvement after the radiation therapy and chemotherapy. Lacri-Lube to the right eye Abdominal x-ray Was performed because he was having left lower quadrant tenderness. Only nephrolithiasis was seen. No acute obstructive process. No evidence of typhlitis. Status: Acute (2) Pancytopenia due to antineoplastic chemotherapy Status: Acute
[2016-09-23] MEDS: MORPHINE SULFATE 2 MG/ML SYRINGE IVP PRN ×2 (04:12→19:48)
[2016-09-23 06:26] LABS: CH 33.6; CHCM 31.7; HCT 24.1 % (39.0-53.0); HDW 2.45; HGB 7.9 gm/dL (13.0-17.5); Immature Gran Flag Moderate; Large Platelets Flag Marked; MCHC 32.8 g/dL (31.0-37.0); MCV 106.7 fL (80.0-100.0); Macrocytosis Moderate; Mean Platelet Volume 13.7; RBC 2.25 m/uL (4.30-5.90); RDW 14.8 % (11.5-15.5); WBC (Perox) 0.85
[2016-09-23] MEDS: D5W WITH KCL 20 MEQ/L 1,000 ML IV SCH ×3 (06:29→17:15)
[2016-09-23 06:40] LABS: WBC 0.8 k/uL (3.8-10.6)
[2016-09-23 06:45] LABS: Calcium 8.1 mg/dL (8.4-10.2); Magnesium 1.9 mg/dL (1.6-2.3); Phosphorous 2.2 mg/dL (2.5-4.5); Potassium 4.2 mmol/L (3.5-5.1)
[2016-09-23 08:13] LABS: Add Differential Manual Differential
[2016-09-23] MEDS: CEFEPIME 2 GM in SODIUM CHLORIDE 0.9% 50 ML IVPB SCH ×2 (08:15→21:45)
[2016-09-23] MEDS: MAG HYDROX/AL HYDROX/SIMETH 30 ML, LIDOCAINE VISCOUS 30 ML, diphenhydrAMINE ELIXIR 75 M... PO SCH ×12 (08:16→23:42)
[2016-09-23 08:18] LABS: Large Platelets Present
--- NOTE | 2016-09-23 10:25 | PN ---
This is an 81-year-old male with a history neutropenic fever with sepsis secondary to Escherichia coli, pancytopenia, secondary to recent chemotherapy therapy for B-cell lymphoma, electrolyte disturbance, acute kidney injury, non-anion gap metabolic acidosis, CAD with previous stent, hypertension, hyperlipidemia, retinitis pigmentosa with legal blindness and GERD. The patient's overall condition continues to be poor. He is very restless and agitated. He is not able to give much of a history. He is a DNR/NO CODE patient. The patient is just very agitated and restless and he is really unchanged from yesterday. The chest x-ray that was done on September 22 showed bilateral pleural effusions in an interstitial pattern consistent with CHF. Current vital signs include temperature 97.2, heart rate 100, respiratory rate 24, blood pressure 128/60, mean 82, 3 L saturation 94%. Appears in no acute distress. No respiratory difficulty. Very agitated. Somewhat delirious. Unable to really respond appropriately to questions. HEENT examination is grossly unremarkable. Nasal O2 in place. Neck is supple. Full range of motion. No adenopathy. No neck vein distention. Cardiovascular examination reveals tachycardia. It is regular. S1, S2 normal. Lungs reveal coarse rhonchi. Breath sounds are diminished. No wheezes. No crackles. Abdomen is soft. Bowel sounds are heard. Extremities are intact. No edema. Lab data includes a white count of 0.8 up from 0.4, hemoglobin 7.9, hematocrit 24.1, platelet count 6,000. Sodium is down from 150 to 147, potassium 4.2, chloride 127, CO2 is 16 and anion gap is 4, BUN and creatinine were 39 and 1.5 compared to 37 and 1.48 yesterday. No additional laboratory data to report. No recent x-ray to report. Medications are reviewed. ASSESSMENT: 1. Neutropenic fever with sepsis secondary to Escherichia coli. 2. Pancytopenia secondary to recent chemotherapy for B-cell lymphoma with significant bone marrow suppression. 3. Electrolyte disturbance. 4. Hyperchloremic non-anion gap metabolic acidosis. 5. Acute kidney injury. 6. Hypernatremia with a significant body water deficit. 7. History of B-cell lymphoma. 8. Coronary artery disease with previous stent. 9. Hypertension. 10. Hyperlipidemia. 11. History of retinitis pigmentosa with legal blindness. 12. Gastroesophageal reflux disease. PLAN: Patient's overall situation is poor. His mental status is poor. He is currently on cefepime as his antibiotic is guided by Infectious Disease. His E. coli is sensitive to everything. Will continue to follow. Prognosis is guarded. No additional recommendations are made.
[2016-09-23] MEDS: LORazepam 2 MG/ML SYRINGE IV PRN ×3 (10:51→18:17)
[2016-09-23] MEDS: PANTOPRAZOLE 40 MG TABLET PO SCH (12:03)
[2016-09-23] MEDS: SERTRALINE 100 MG TAB PO SCH (12:03)
[2016-09-23] MEDS: TAMSULOSIN 0.4 MG CAP.ER.24H PO SCH (12:03)
[2016-09-23] MEDS: LOPERAMIDE 2 MG CAP PO SCH ×4 (12:03→23:42)
[2016-09-23] MEDS: CHOLESTYRAMINE (WITH SUGAR) 4 GM PACKET PO SCH ×3 (12:04→17:15)
--- NOTE | 2016-09-23 12:08 | P.PN ---
Subjective Date of service 09/23/2016. Progress note being dictated for Dr. Lu Interval history: This 81-year-old gentleman admitted with sepsis, E coli bacteremia secondary to UTI, febrile neutropenia, acute renal failure, electrolyte imbalances and dehydration secondary to diarrhea in a patient with recurrent B-cell non-Hodgkin's lymphoma.Remains delirious.Tachycardic. Preliminary repeat blood cultures currently negative. Continues on cefepime and IV hydration of D5W R/T elevated sodium and chloride. Creatinine continues to decline.worsening. Hemoglobin 7.9, platelets 6. Scheduled to receive platelets today.Family currently having meeting with Dr. Martin from Oncology. Past medical history reviewed. Review systems unable to obtain as patient delirious as mentioned above Active Medications Hydrocodone Bitart/Acetaminophen ([place] 5-325) 1 each PO Q4HR PRN PRN Reason: Pain Atorvastatin Calcium (Lipitor) 20 mg PO HS [facility] Last Admin: 09/22/16 22:42 Dose: Not Given Cholestyramine Resin (Questran) 4 gm PO TID BETWEEN MEALS [facility] Last Admin: 09/22/16 16:42 Dose: Not Given Al Hydroxide/Mg Hydroxide 30 ml/ Lidocaine HCl 30 ml/Diphenhydramine HCl 75 mg/ Nystatin 3,000,000 unit 0 ml PO TID [facility] Last Admin: 09/23/16 08:16 Dose: 5 ml Potassium Chloride/Dextrose (D5%-Kcl 20 Meq/L Iv Solution) 1,000 mls @ 125 mls/ hr IV .Q8H [facility] Last Admin: 09/23/16 06:29 Dose: Not Given Cefepime HCl 2 gm/ Sodium (Chloride) 50 mls @ 100 mls/hr IVPB Q12HR [facility] Last Admin: 09/23/16 08:15 Dose: 100 mls/hr Loperamide HCl (Imodium) 2 mg PO QID [facility] Last Admin: 09/22/16 22:43 Dose: Not Given Lorazepam (Ativan) 1 mg IV Q4HR PRN PRN Reason: Anxiety Last Admin: 09/23/16 10:51 Dose: 1 mg Metoprolol Succinate (Toprol Xl) 25 mg PO HS [facility] Last Admin: 09/22/16 22:42 Dose: Not Given Miscellaneous Information (Potassium Per Protocol) 1 each MISCELLANE DAILY PRN ; Protocol PRN Reason: Per Protocol Morphine Sulfate (Morphine Sulfate (Inj)) 2 mg IVP Q2H PRN PRN Reason: Pain/Discomfort Last Admin: 09/23/16 04:12 Dose: 2 mg Multi-Ingred Cream/Lotion/Oil/Oint (Lubrifresh Pm Ointment) 1 applic RIGHT EYE TID PRN PRN Reason: Dry Eye(s) Last Admin: 09/23/16 08:15 Dose: 1 applic Naloxone HCl (Narcan) 0.2 mg IV Q2M PRN PRN Reason: Opioid Reversal Ondansetron HCl (Zofran) 4 mg IVP Q6HR PRN PRN Reason: Nausea And Vomiting Last Admin: 09/19/16 00:04 Dose: 4 mg Pantoprazole Sodium (Protonix) 40 mg PO AC-BRKFST [facility] Last Admin: 09/22/16 11:28 Dose: Not Given Sertraline HCl (Zoloft) 100 mg PO QAM [facility] Last Admin: 09/22/16 11:28 Dose: Not Given Tamsulosin HCl (Flomax) 0.4 mg PO DAILY [facility] Last Admin: 09/22/16 11:28 Dose: Not Given Trazodone HCl (Desyrel) 50 mg PO HS PRN PRN Reason: Insomnia Last Admin: 09/20/16 21:17 Dose: 50 mg Objective - Vital Signs Vital signs: Vital Signs Temp 98.4 F 09/23/16 10:59 Pulse 123 H 09/23/16 10:59 Resp 24 09/23/16 10:59 BP 126/65 09/23/16 10:59 Pulse Ox 92 L 09/23/16 10:59 Intake & Output 09/22/16 09/23/16 09/23/16 18:59 06:59 18:59 Intake Total 1580 450 0 Output Total 3300 5300 Balance -1720 -4850 0 Weight 82.5 kg 110.5 kg Intake: IV 450 D5w with KCl 20 Meq/l 1, 450 000 ml @ 125 mls/hr IV . Q8H [facility] Rx#:[id number] Intake, IV Titration 1580 Amount Cefepime 2 gm In Sodium 100 Chloride 0.9% 50 ml @ 100 mls/hr IVPB Q12HR [facility] Rx #:[id number] Cefepime 2 gm In Sodium 100 Chloride 0.9% 50 ml @ 100 mls/hr IVPB Q8HR [facility] Rx# :[id number] D5w with KCl 20 Meq/l 1, 800 000 ml @ 125 mls/hr IV . Q8H [facility] Rx#:[id number] Potassium Chloride 10 meq 100 In Water For Injection 1 100ml.bag @ 100 mls/hr IVPB Q1H [facility] Rx#: [id number] Potassium Chloride 10 meq 100 Lidocaine 2% Inj 10 mg In Sodium Chloride 0.9% 100 ml @ 100 mls/hr IVPB Q1HR [facility] Rx#:[id number] Potassium Chloride 20 meq 380 In Water For Injection 1 100ml.bag @ 50 mls/hr IVPB ONCE ONE Rx#: [id number] Blood Product 0 Platelet Pheresis Acda1 0 Unit [id number] Output: Urine 1300 3300 Uretheral ([place]) 700 700 Stool 2000 2000 Other: Voiding Method Indwelling Catheter Indwelling Catheter # Voids 1 1 - Exam PHYSICAL EXAM: VITAL SIGNS: [As above] GENERAL: [Lying in bed, confused, delirious] HEENT: unchanged, crusty right lid Legally blind,] NECK: [Supple, no JVD] RESPIRATORY EFFORT:[Increased] LUNGS: [Diminished, rhonchi scattered throughout, no wheezing or crackles] CARDIOVASCULAR[regular S1 and S2, tachycardic, positive edema] GI: [Abdomen soft, nontender, positive bowel sounds. No guarding, no rigidity] PSYCH: [Alert and oriented -1, confused,restless at times NEURO: Confused, refusing nursing care, refusing meds currently; unable to assess. Microbiology 09/21/16 06:15 Blood Blood Culture - Preliminary No Growth after 48 hours 09/20/16 19:40 Blood Blood Culture - Preliminary No Growth after 48 hours 09/20/16 15:18 Blood Blood Culture - Preliminary No Growth after 48 hours 09/18/16 14:15 Blood Blood Culture Gram Stain - Final 09/18/16 14:15 Blood Blood Culture - Final Escherichia coli 09/18/16 23:30 Urine,Catheterized Urine Culture - Final 09/18/16 14:15 Blood Blood Culture - Final - Labs CBC & Chem 7: 09/23/16 06:10 09/23/16 06:10 Labs: Abnormal Lab Results - Last 24 Hours (Table) 09/23/16 09/23/16 Range/Units 06:10 06:10 WBC 0.8 L* (3.8-10.6) k/uL RBC 2.25 L (4.30-5.90) m/uL Hgb 7.9 L (13.0-17.5) gm/dL Hct 24.1 L (39.0-53.0) % MCV 106.7 H (80.0-100.0) fL Plt Count 6 L* (150-450) k/uL Sodium 147 H (137-145) mmol/L Chloride 127 H* (98-107) mmol/L Carbon Dioxide 16 L (22-30) mmol/L BUN 39 H (9-20) mg/dL Creatinine 1.50 H (0.66-1.25) mg/dL Glucose 119 H (74-99) mg/dL Calcium 8.1 L (8.4-10.2) mg/dL Phosphorus 2.2 L (2.5-4.5) mg/dL Microbiology - Last 24 Hours (Table) 09/21/16 06:15 Blood Culture - Preliminary Blood No Growth after 48 hours 09/20/16 19:40 Blood Culture - Preliminary Blood No Growth after 48 hours 09/20/16 15:18 Blood Culture - Preliminary Blood No Growth after 48 hours Assessment and Plan Plan: 1. [Neutropenic fever with severe sepsis secondary to E. coli bacteremia, urine culture negative 2. Pancytopenia secondary to chemotherapy with bone marrow suppression, in a patient with history of B-cell lymphoma 3. [Hypernatremia]. 4. [Hyperchloremia]. 5. Acute metabolic encephalopathy, multifactorial; secondary to sepsis, infection, llyte imbalance... 6. Retinitis pigmentosa, legally blind]. 7. [Tachycardia secondary to severe intravascular depletion]. 8. Acute Renal failure, worsening 9. Gastroesophageal reflux disease 10. CAD Plan: Continue on current medication regime ,monitoring and symptomatic treatment. Worsening renal function. Antibiotics as per ID, currently on cefepime. As mentioned above family meeting in progress with oncology. Prognosis guarded. Family meeting with oncology pending. Further recommendations to follow. The impression and plan of care has been dictated as directed. : I performed a H&P examination of this patient and discussed the same with the dictator. I agree with the dictator's note. Any additional findings/opinions/ etc. will be noted.
[2016-09-23] MEDS: FILGRASTIM-SNDZ 480 MCG/0.8 ML SYRINGE SQ SCH (14:47)
--- NOTE | 2016-09-23 18:05 | P.PN ---
Subjective Principal diagnosis: weakness, fall Pt seen on follow up, he is sleeping, unable to arouse to talk to pt, family is at bedside with many questions. Objective - Vital Signs Vital signs: Vital Signs Temp 99.6 F 09/23/16 15:00 Pulse 120 H 09/23/16 15:00 Resp 28 H 09/23/16 15:00 BP 128/70 09/23/16 15:00 Pulse Ox 99 09/23/16 15:00 Intake & Output 09/22/16 09/23/16 09/23/16 18:59 06:59 18:59 Intake Total 1580 450 289 Output Total 3300 5300 900 Balance -2090 -3583 -861 Weight 82.5 kg 110.5 kg Intake: IV 450 D5w with KCl 20 Meq/l 1, 450 000 ml @ 125 mls/hr IV . Q8H [facility] Rx#:[id number] Intake, IV Titration 1580 Amount Cefepime 2 gm In Sodium 100 Chloride 0.9% 50 ml @ 100 mls/hr IVPB Q12HR [facility] Rx #:[id number] Cefepime 2 gm In Sodium 100 Chloride 0.9% 50 ml @ 100 mls/hr IVPB Q8HR [facility] Rx# :[id number] D5w with KCl 20 Meq/l 1, 800 000 ml @ 125 mls/hr IV . Q8H [facility] Rx#:[id number] Potassium Chloride 10 meq 100 In Water For Injection 1 100ml.bag @ 100 mls/hr IVPB Q1H [facility] Rx#: [id number] Potassium Chloride 10 meq 100 Lidocaine 2% Inj 10 mg In Sodium Chloride 0.9% 100 ml @ 100 mls/hr IVPB Q1HR [facility] Rx#:[id number] Potassium Chloride 20 meq 380 In Water For Injection 1 100ml.bag @ 50 mls/hr IVPB ONCE ONE Rx#: [id number] Blood Product 289 Platelet Pheresis Acda1 289 Unit [id number] Output: Urine 1300 3300 900 Uretheral ([place]) 700 700 900 Stool 2000 2000 Other: Voiding Method Indwelling Catheter Indwelling Catheter Indwelling Catheter # Voids 1 1 - Constitutional Constitutional Comment(s): Thin, frail, cachetic - Respiratory Respiratory: bilateral: CTA - Cardiovascular Details: palpable apical pulsations Heart sounds: normal: S1, S2 - Gastrointestinal General gastrointestinal: Present: normal bowel sounds, soft - Integumentary Integumentary: Present: pale - Labs CBC & Chem 7: 09/23/16 06:10 09/23/16 06:10 Labs: Abnormal Lab Results - Last 24 Hours (Table) 09/23/16 09/23/16 Range/Units 06:10 06:10 WBC 0.8 L* (3.8-10.6) k/uL RBC 2.25 L (4.30-5.90) m/uL Hgb 7.9 L (13.0-17.5) gm/dL Hct 24.1 L (39.0-53.0) % MCV 106.7 H (80.0-100.0) fL Plt Count 6 L* (150-450) k/uL Sodium 147 H (137-145) mmol/L Chloride 127 H* (98-107) mmol/L Carbon Dioxide 16 L (22-30) mmol/L BUN 39 H (9-20) mg/dL Creatinine 1.50 H (0.66-1.25) mg/dL Glucose 119 H (74-99) mg/dL Calcium 8.1 L (8.4-10.2) mg/dL Phosphorus 2.2 L (2.5-4.5) mg/dL Microbiology - Last 24 Hours (Table) 09/20/16 15:18 Blood Culture - Preliminary Blood No Growth after 72 hours 09/22/16 15:05 Blood Culture - Preliminary Blood No Growth after 24 hours 09/21/16 06:15 Blood Culture - Preliminary Blood No Growth after 48 hours 09/20/16 19:40 Blood Culture - Preliminary Blood No Growth after 48 hours - Imaging and Cardiology Chest x-ray: report reviewed Assessment and Plan (1) Generalized weakness Narrative/Plan: Pt is not alert enough at this time to consider PT/OT, will cont to evaluate pt progress and order as appropriate Status: Acute (2) Pancytopenia due to antineoplastic chemotherapy Narrative/Plan: Zarixo ordered for leukopenia, he is 10 days out from receiving GCSF. Platelets ordered, Hgb stable, no transfusion, CBC daily Status: Acute (3) B-cell lymphoma Narrative/Plan: Pt had 1st cycle of R-CHOP with significant hematological and physical toxicities. At this time treatment is on hold. He will have to be evaluated prior resuming any treatment and will likely require rehabilitation. Status: Chronic (4) Febrile neutropenia Narrative/Plan: Tmax 100F, no other fevers. Blood cultures from 5/ were positive for Ecoli, most recent cultures negative. ID following, abx are ordered. Status: Acute Plan: >30 min was spent talking with family about pt current condition and concerns for progressive decline. Most likely pt current presentation is due to infection, dehydration and low blood counts. Pt is being treated for all the aformentioned conditions. Plan is to cont with current aggressive treatments. If the pt condition does not improve in the next 2-3 days or worsens we will contact the family and have another discussion about direction of care. Pt family asked about TPN and PEG tube. TPN will be considered based on pt progress over the next 2-3 days, PEG tube was not recommended at this time as it is an invasive procedure and pt is not stable and blood counts are not adequate at this time. LP is being considered as there are concerns for possible [employer]ER involvement, pt mental status did change rather suddenly. Will review case with Dr. Penn/ Dr. Martin. Pt will require platelet transfusions prior to procedure. Will follow up in AM.
[2016-09-23] MEDS ORDERED: ARTIFICIAL TEARS-HYPROMELLOSE DROPS 15 ML BTL BOTH EYES PRN (21:29)
[2016-09-23] MEDS ORDERED: DRY MOUTH SPRAY 44.3 SPRAY/44.3 ML SPRAY MUCOUS MEM PRN (21:29)
[2016-09-23] MEDS ORDERED: ATROPINE OPHTH SOLN 1% 5ML BTL SUBLINGUAL PRN (21:29)
[2016-09-23] MEDS ORDERED: MORPHINE SULFATE (100 MG/2 ML) 100 MG in SODIUM CHLORIDE 0.9% 100 ML IV SCH (21:30)
[2016-09-23] MEDS ORDERED: ACETAMINOPHEN SUPPOSITORY 650 MG SUPP RECTAL PRN (21:32)
[2016-09-23] MEDS ORDERED: LORazepam 2 MG/ML SYRINGE IV PRN (21:33)
[2016-09-23] MEDS ORDERED: SCOPOLAMINE 1.5MG/72HR PATCH TRANSDERM SCH (21:45)
[2016-09-23] MEDS: SODIUM CHLORIDE 0.9% 1,000 ML IV SCH (22:00)
--- NOTE | 2016-09-23 22:07 | P.PN ---
Subjective Principal diagnosis: Current sepsis 81-year-old male that has a history of B-cell lymphoma. Has had recent hospitalization there is having difficulty with his right eye. He was receiving chemotherapy for his B-cell lymphoma. But due to difficulties infection that was placed on hold. He then developed appear to be a significant change in status to his right eye. Imaging studies reveal evidence of a masslike process that was retro-orbital. Upon biopsy turned out to be the B-cell lymphoma. He is now had some localized radiation therapy as well as ongoing chemotherapy. He is feeling somewhat better. But now presents with significant fever and chills and generalized malaise. He is certainly a poor historian at this point in time. But does seem to more comfortable during the last day. Family present, agree he slightly better. But he is not eating.Continues to decline Objective - Vital Signs Vital signs: Vital Signs Temp 99.6 F 09/23/16 15:00 Pulse 120 H 09/23/16 15:00 Resp 28 H 09/23/16 15:00 BP 128/70 09/23/16 15:00 Pulse Ox 99 09/23/16 15:00 Intake & Output 09/23/16 09/23/16 09/24/16 06:59 18:59 06:59 Intake Total 450 289 Output Total 5300 900 Balance -4850 -611 Weight 110.5 kg Intake: IV 450 D5w with KCl 20 Meq/l 1, 450 000 ml @ 125 mls/hr IV . Q8H [facility] Rx#:[id number] Blood Product 289 Platelet Pheresis Acda1 289 Unit [id number] Output: Urine 3300 900 Uretheral ([place]) 700 900 Stool 2000 Other: Voiding Method Indwelling Catheter Indwelling Catheter # Voids 1 - Exam 81-year-old male relates to minimal discomfort but has improvement in thesignificant swelling to his right eye. HEENT: Left eye without abnormalities. the right eye drainage is improved. Thesignificant swelling is definitely improved. It is also less tender. There is no significant lesions seen on the nares ,below the eye, also no lesions seen on the right auricle or within the external auditory canal. No lesions on the scalp. nasal mucosa grossly intact without significant lesions, there is no thrush. Neck: The neck is supple without significant lymphadenopathy or thyromegaly. Lungs: Good bilateral air entry without significant crackles or wheezing. There is no significant bronchial sounds. There is no egophony or dullness. Heart: Regular rate and rhythm with an audible S1-S2, no S3 no S4. There is no significant murmur click or rub, PMI was nondisplaced. Abdomen: Positive bowel sounds soft and now has evidence some left lower quadrant tenderness which is new without palpable masses or organomegaly. There was no guarding or rebound. Extremities: The upper extremities have excellent pulses they are symmetric, no significant petechiae or telangiectasia. No splinter hemorrhages were noted. The lower extremities are free from significant edema. The peripheral pulses were 2+ and symmetric. Neuro: arouses to stimulation but nonverbal - Labs CBC & Chem 7: 09/23/16 06:10 09/23/16 06:10 Labs: Abnormal Lab Results - Last 24 Hours (Table) 09/23/16 09/23/16 Range/Units 06:10 06:10 WBC 0.8 L* (3.8-10.6) k/uL RBC 2.25 L (4.30-5.90) m/uL Hgb 7.9 L (13.0-17.5) gm/dL Hct 24.1 L (39.0-53.0) % MCV 106.7 H (80.0-100.0) fL Plt Count 6 L* (150-450) k/uL Sodium 147 H (137-145) mmol/L Chloride 127 H* (98-107) mmol/L Carbon Dioxide 16 L (22-30) mmol/L BUN 39 H (9-20) mg/dL Creatinine 1.50 H (0.66-1.25) mg/dL Glucose 119 H (74-99) mg/dL Calcium 8.1 L (8.4-10.2) mg/dL Phosphorus 2.2 L (2.5-4.5) mg/dL Microbiology - Last 24 Hours (Table) 09/20/16 19:40 Blood Culture - Preliminary Blood No Growth after 72 hours 09/20/16 15:18 Blood Culture - Preliminary Blood No Growth after 72 hours 09/22/16 15:05 Blood Culture - Preliminary Blood No Growth after 24 hours 09/21/16 06:15 Blood Culture - Preliminary Blood No Growth after 48 hours Laboratory Results WBC 0.8 k/uL (3.8-10.6) L* 09/23/16 06:10 RBC 2.25 m/uL (4.30-5.90) L 09/23/16 06:10 Hgb 7.9 gm/dL (13.0-17.5) L 09/23/16 06:10 Hct 24.1 % (39.0-53.0) L 09/23/16 06:10 MCV 106.7 fL (80.0-100.0) H 09/23/16 06:10 MCH 35.0 pg (25.0-35.0) 09/23/16 06:10 MCHC 32.8 g/dL (31.0-37.0) 09/23/16 06:10 RDW 14.8 % (11.5-15.5) 09/23/16 06:10 Plt Count 6 k/uL (150-450) L* 09/23/16 06:10 Neutrophils % Not Reportable 09/22/16 06:10 Lymphocytes % Not Reportable 09/22/16 06:10 Monocytes % Not Reportable 09/22/16 06:10 Eosinophils % Not Reportable 09/22/16 06:10 Basophils % Not Reportable 09/22/16 06:10 Neutrophils # Not Reportable 09/22/16 06:10 Lymphocytes # Not Reportable 09/22/16 06:10 Monocytes # Not Reportable 09/22/16 06:10 Eosinophils # Not Reportable 09/22/16 06:10 Basophils # Not Reportable 09/22/16 06:10 Differential Comment 09/23/16 06:10 Manual Slide Review Performed 09/22/16 06:10 Large Platelets Present 09/23/16 06:10 Polychromasia Present 09/18/16 10:40 Poikilocytosis (manual Present 09/23/16 06:10 Anisocytosis (manual) Present 09/23/16 06:10 Macrocytosis Moderate 09/23/16 06:10 Target Cells Present 09/21/16 06:15 Fragmented RBCs Present 09/23/16 06:10 PT 12.5 sec (9.0-12.0) H 09/18/16 10:40 INR 1.3 (<1.1) 09/18/16 10:40 APTT 40.0 sec (22.0-30.0) H 09/18/16 10:40 Sodium 147 mmol/L (137-145) H 09/23/16 06:10 Potassium 4.2 mmol/L (3.5-5.1) 09/23/16 06:10 Chloride 127 mmol/L (98-107) H* 09/23/16 06:10 Carbon Dioxide 16 mmol/L (22-30) L 09/23/16 06:10 Anion Gap 4 mmol/L 09/23/16 06:10 BUN 39 mg/dL (9-20) H 09/23/16 06:10 Creatinine 1.50 mg/dL (0.66-1.25) H 09/23/16 06:10 Est GFR (MDRD) Af Amer 54 (>60 ml/min/1.73 sqM) 09/23/16 06:10 Est GFR (MDRD) Non-Af 45 (>60 ml/min/1.73 sqM) 09/23/16 06:10 Glucose 119 mg/dL (74-99) H 09/23/16 06:10 POC Glucose (mg/dL) 108 mg/dL (75-99) H 09/18/16 18:49 POC Glu C[employer] Supervisor ID Maty Murdock 09/18/16 18:49 Plasma Lactic Acid [place] 1.4 mmol/L (0.7-2.0) 09/19/16 05:15 Calcium 8.1 mg/dL (8.4-10.2) L 09/23/16 06:10 Phosphorus 2.2 mg/dL (2.5-4.5) L 09/23/16 06:10 Magnesium 1.9 mg/dL (1.6-2.3) 09/23/16 06:10 Total Bilirubin 2.6 mg/dL (0.2-1.3) H 09/18/16 10:40 AST 38 U/L (17-59) 09/18/16 10:40 ALT 100 U/L (21-72) H 09/18/16 10:40 Alkaline Phosphatase 58 U/L (38-126) 09/18/16 10:40 Total Creatine Kinase <20 U/L (55-170) L 09/18/16 10:40 CK-MB (CK-2) <0.2 ng/mL (0.0-2.4) 09/18/16 10:40 CK-MB (CK-2) Rel Index 09/18/16 10:40 Troponin I 0.023 ng/mL (0.000-0.034) 09/18/16 10:40 Total Protein 5.2 g/dL (6.3-8.2) L 09/18/16 10:40 Albumin 2.7 g/dL (3.5-5.0) L 09/18/16 10:40 Cortisol 113 ug/dL 09/19/16 05:15 Urine Color [place] 09/18/16 23:30 Urine Appearance Cloudy (Clear) 09/18/16 23:30 Urine pH 5.5 (5.0-8.0) 09/18/16 23:30 Ur Specific [place] 1.014 (1.001-1.035) 09/18/16 23:30 Urine Protein 1+ (Negative) H 09/18/16 23:30 Urine Glucose (UA) Negative (Negative) 09/18/16 23:30 Urine Ketones Negative (Negative) 09/18/16 23:30 Urine Blood Small (Negative) H 09/18/16 23:30 Urine Nitrite Negative (Negative) 09/18/16 23:30 Urine Bilirubin Negative (Negative) 09/18/16 23:30 Urine Urobilinogen <2.0 mg/dL (<2.0) 09/18/16 23:30 Ur Leukocyte Esterase Negative (Negative) 09/18/16 23:30 Urine RBC 5 /hpf (0-5) 09/18/16 23:30 Urine WBC 7 /hpf (0-5) H 09/18/16 23:30 Amorphous Sediment Rare /hpf (None) H 09/18/16 23:30 Urine Bacteria Many /hpf (None) H 09/18/16 23:30 Hyaline Casts 9 /lpf (0-2) H 09/18/16 23:30 Granular Casts 9 /lpf (0) 09/18/16 23:30 Urine Mucus Occasional /hpf (None) H 09/18/16 23:30 Vancomycin Trough 17.4 ug/mL 09/21/16 06:15 C. difficile (EIA) Intrp Negative (Negative) 09/19/16 00:00 C. difficile Tox (PCR) Not Detected (Not Detectd) 09/20/16 15:30 Blood Type O Positive 09/20/16 15:18 Blood Type Recheck No 09/20/16 15:18 Antibody Screen NEGATIVE 09/20/16 15:18 Transfuse Platelets 09/23/16 09/23/16 08:03 Spec Expiration Date 09/23/2016 - 2318 09/20/16 15:18 Microbiology 09/20/16 19:40 Blood Blood Culture - Preliminary No Growth after 72 hours 09/20/16 15:18 Blood Blood Culture - Preliminary No Growth after 72 hours 09/22/16 15:05 Blood Blood Culture - Preliminary No Growth after 24 hours 09/21/16 06:15 Blood Blood Culture - Preliminary No Growth after 48 hours 09/18/16 14:15 Blood Blood Culture Gram Stain - Final 09/18/16 14:15 Blood Blood Culture - Final Escherichia coli 09/18/16 23:30 Urine,Catheterized Urine Culture - Final 09/18/16 14:15 Blood Blood Culture - Final Assessment and Plan (1) Febrile neutropenia Narrative/Plan: 81-year-old male with his known history of B-cell lymphoma who recently had significant difficulty with his right eye. He was treated for an infectious process. However failed to improve. Imaging studies reveal evidence of a significant involvement of the B-cell lymphoma to the eye that was proven by biopsy. He is now had radiation therapy and systemic chemotherapy. Now presents to Hospital significant fever and appears to have febrile neutropenia. Antimicrobial therapy with cefepime be continued although E. coli has been isolated there still is significant neutropenia. Vancomycin is discontinued and there is no evidence of any gram-positive sepsis at this time. Continue ongoing supportive care. Important that he has nutritional recovery to help with his healing process. His pain fortunately is well controlled at this time. The extensive swelling to the eye has had remarkable improvement after the radiation therapy and chemotherapy. Lacri-Lube to the right eye Abdominal x-ray Was performed because he was having left lower quadrant tenderness. Only nephrolithiasis was seen. No acute obstructive process. No evidence of typhlitis. May need alternative feeding, and agree if no recovery is candidate for hospice Status: Acute (2) Pancytopenia due to antineoplastic chemotherapy Status: Acute
--- NOTE | 2016-09-23 22:27 | PN ---
DATE OF SERVICE: 09/23/2016 This 81-year-old gentleman who was admitted with possible neutropenic sepsis, is being closely monitored. The patient is on broad spectrum IV antibiotics. The patient has history of lymphoma also. The patient is currently unresponsive. Seen and evaluated the patient along with nurse practitioner. Please refer to the nurse practitioner notes and impression documented as a scribe for further information. Discussed with staff. Discussed with Dr. Martin also. Prognosis guarded and continue antibiotics and the rest of the medications. Further recommendations to follow.
[2016-09-23] MEDS: MORPHINE SULFATE 100 MG in SODIUM CHLORIDE 0.9% 100 ML IV SCH (23:26)
[2016-09-23] MEDS: METOPROLOL SUCCINATE (ER) 25 MG TAB.ER.24H PO SCH (23:42)
[2016-09-23] MEDS: ATORVASTATIN 20 MG TAB PO SCH (23:42)
[2016-09-24 08:32] VITALS: RESP 20
[2016-09-24 09:06] LABS: CH 33.8; CHCM 30.9; HCT 24.9 % (39.0-53.0); HDW 2.57; HGB 7.8 gm/dL (13.0-17.5); Hypochromasia Slight; Immature Gran Flag Marked; Large Platelets Flag Marked; MCH 34.6 pg (25.0-35.0); MCHC 31.4 g/dL (31.0-37.0); MCV 110.1 fL (80.0-100.0); Macrocytosis Marked; Mean Platelet Volume 12.8; RBC 2.26 m/uL (4.30-5.90); RDW 14.7 % (11.5-15.5); WBC (Perox) 1.12
[2016-09-24 09:13] LABS: WBC 1.2 k/uL (3.8-10.6)
[2016-09-24] MEDS: SERTRALINE 100 MG TAB PO SCH (09:40)
[2016-09-24] MEDS: LOPERAMIDE 2 MG CAP PO SCH ×2 (09:40→12:47)
[2016-09-24] MEDS: CHOLESTYRAMINE (WITH SUGAR) 4 GM PACKET PO SCH (09:40)
[2016-09-24] MEDS: TAMSULOSIN 0.4 MG CAP.ER.24H PO SCH (09:40)
[2016-09-24] MEDS: PANTOPRAZOLE 40 MG TABLET PO SCH (09:40)
[2016-09-24] MEDS: CEFEPIME 2 GM in SODIUM CHLORIDE 0.9% 50 ML IVPB SCH ×2 (09:43→20:38)
[2016-09-24] MEDS: MAG HYDROX/AL HYDROX/SIMETH 30 ML, LIDOCAINE VISCOUS 30 ML, diphenhydrAMINE ELIXIR 75 M... PO SCH ×4 (09:45)
[2016-09-24 10:21] LABS: Add Differential Manual Differential
[2016-09-24 10:27] LABS: Dohle Bodies Present; Manual Review Performed; Nucleated Red Blood Cells 0 /100 WBC (0-0); Total Cells Counted 100
[2016-09-24 10:28] LABS: Large Platelets Present; Toxic Granulation Present
[2016-09-24] MEDS: MORPHINE SULFATE 100 MG in SODIUM CHLORIDE 0.9% 100 ML IV SCH (12:18)
[2016-09-24] MEDS: FILGRASTIM-SNDZ 480 MCG/0.8 ML SYRINGE SQ SCH (12:18)
--- NOTE | 2016-09-24 15:03 | P.PN ---
Subjective Date of service 09/24/2016. Progress note being dictated for Dr. Lu Interval history: This 81-year-old gentleman admitted with sepsis, E coli bacteremia secondary to UTI, febrile neutropenia, acute renal failure, electrolyte imbalances and dehydration secondary to diarrhea in a patient with recurrent B-cell non-Hodgkin's lymphoma.Remains delirious.Tachycardic. Maintained on cefepime. Last night patient's condition continued to decline. Oncology, Dr. Penn was notified, spoke with the patient's son regarding poor prognosis. Son chose to proceed with comfort care/hospice. morphine drip initiated per oncology, with hospice consult initiated. Dr. Martin, oncology, again met with the family this morning. Past medical history reviewed. Review systems unable to obtain as patient is unresponsive on morphine drip. Active Medications Generic Name Dose Route Start Last Admin Trade Name Freq PRN Reason Stop Dose Admin Acetaminophen 650 mg 09/23/16 21:32 Tylenol Suppository RECTAL Q4HR PRN Fever and/ or Pain Artificial Tears 1 drops 09/23/16 21:29 Artificial Tear Drops BOTH EYES Q2HR PRN Dry Eye(s) Atropine Sulfate 2 drops 09/23/16 21:29 Isopto Atropine 1% 5ml SUBLINGUAL Q4HR PRN Excess Secretions Filgrastim 480 mcg 09/23/16 14:00 09/24/16 12:18 Zarxio SQ 480 mcg DAILY [facility] Administration Cefepime HCl 2 gm/ Sodium 50 mls @ 100 mls/hr 09/22/16 21:00 09/24/16 09:43 Chloride IVPB 100 mls/hr Q12HR [facility] Administration Morphine Sulfate 100 mg/ 104 mls @ 0 mls/hr 09/23/16 21:45 09/24/16 12:18 Sodium Chloride IV 6.73 mg/hr .Q0M [facility] 6.99 mls/hr Protocol Administration Titrate Sodium Chloride 1,000 mls @ 10 mls/hr 09/23/16 21:30 09/23/16 22:00 Saline 0.9% IV 10 mls/hr .Q24H [facility] Administration Lorazepam 1 mg 09/23/16 21:33 09/24/16 01:19 Ativan IV 1 mg Q2H PRN Administration Anxiety Multi-Ingred Cream/Lotion/Oil/Oint 1 applic 09/21/16 17:15 09/23/16 08:15 Lubrifresh Pm Ointment RIGHT EYE 1 applic TID PRN Administration Dry Eye(s) Saliva Substitute 1 spray 09/23/16 21:29 Mouthkote Solution MUCOUS MEM QID PRN Dry Mouth Scopolamine 1 patch 09/23/16 21:45 09/23/16 23:31 Transderm-Scop 1.5mg/72hr Patch TRANSDERM 1 patch Q72H [facility] Administration Objective - Vital Signs Vital signs: Vital Signs Temp 98.5 F 09/24/16 08:31 Pulse 125 H 09/24/16 08:31 Resp 20 09/24/16 08:31 BP 110/52 09/24/16 08:31 Pulse Ox 92 L 09/24/16 08:31 Intake & Output 09/23/16 09/24/16 09/24/16 18:59 06:59 18:59 Intake Total 289 224.917 77.117 Output Total 900 Balance -611 224.917 77.117 Intake: IV 215 Cefepime 2 gm In Sodium 50 Chloride 0.9% 50 ml @ 100 mls/hr IVPB Q12HR [facility] Rx #:[id number] D5w with KCl 20 Meq/l 1, 125 000 ml @ 125 mls/hr IV . Q8H [facility] Rx#:[id number] Sodium Chloride 0.9% 1, 40 000 ml @ 10 mls/hr IV . Q24H [facility] Rx#:[id number] Intake, IV Titration 9.917 77.117 Amount Morphine Sulfate 100 mg 9.917 77.117 In Sodium Chloride 0.9% 100 ml @ Titrate IV .Q0M [facility] Rx#:[id number] Blood Product 289 Platelet Pheresis Acda1 289 Unit [id number] Output: Urine 900 Uretheral ([place]) 900 Other: Voiding Method Indwelling Catheter Indwelling Catheter Indwelling Catheter - Exam PHYSICAL EXAM: VITAL SIGNS: [As above] GENERAL: [Lying in bed, unresponsive on morphine drip HEENT: crusty right lid, eyes closed NECK: [Supple, no JVD] RESPIRATORY EFFORT:[Increased] LUNGS: [Diminished, rhonchi scattered throughout CARDIOVASCULAR[regular S1 and S2, tachycardic, positive edema] GI: [Abdomen soft, nontender, positive bowel sounds. No guarding, no rigidity] PSYCH/NEURO: Unable to assess as patient unresponsive on morphine drip Microbiology 09/21/16 06:15 Blood Blood Culture - Preliminary No Growth after 72 hours 09/20/16 19:40 Blood Blood Culture - Preliminary No Growth after 72 hours 09/20/16 15:18 Blood Blood Culture - Preliminary No Growth after 72 hours 09/22/16 15:05 Blood Blood Culture - Preliminary No Growth after 24 hours 09/18/16 14:15 Blood Blood Culture Gram Stain - Final 09/18/16 14:15 Blood Blood Culture - Final Escherichia coli 09/18/16 23:30 Urine,Catheterized Urine Culture - Final 09/18/16 14:15 Blood Blood Culture - Final - Labs CBC & Chem 7: 09/24/16 08:40 09/23/16 06:10 Labs: Abnormal Lab Results - Last 24 Hours (Table) 09/24/16 Range/Units 08:40 WBC 1.2 L* (3.8-10.6) k/uL RBC 2.26 L (4.30-5.90) m/uL Hgb 7.8 L (13.0-17.5) gm/dL Hct 24.9 L (39.0-53.0) % MCV 110.1 H (80.0-100.0) fL Plt Count 14 L* D (150-450) k/uL Neutrophils # (Manual) 1.0 L (1.3-7.7) k/uL Lymphocytes # (Manual) 0.1 L (1.0-4.8) k/uL Microbiology - Last 24 Hours (Table) 09/21/16 06:15 Blood Culture - Preliminary Blood No Growth after 72 hours 09/20/16 19:40 Blood Culture - Preliminary Blood No Growth after 72 hours 09/20/16 15:18 Blood Culture - Preliminary Blood No Growth after 72 hours 09/22/16 15:05 Blood Culture - Preliminary Blood No Growth after 24 hours Assessment and Plan Plan: 1. [Neutropenic fever with severe sepsis secondary to E. coli bacteremia, urine culture negative 2. Pancytopenia secondary to chemotherapy with bone marrow suppression, in a patient with history of B-cell lymphoma 3. [Hypernatremia]. 4. [Hyperchloremia]. 5. Acute metabolic encephalopathy, multifactorial; secondary to sepsis, infection, llyte imbalance... 6. Retinitis pigmentosa, legally blind]. 7. [Tachycardia secondary to severe intravascular depletion]. 8. Acute Renal failure, worsening 9. Gastroesophageal reflux disease 10. CAD Plan: Continue on current medication regime , cefepime, monitoring and symptomatic treatment. As mentioned above oncology, Dr. Penn spoke with family last night, Son chose to proceed with comfort care/hospice. Morphine drip initiated/ managed per oncology, with hospice consult initiated. Further recommendations to follow. The impression and plan of care has been dictated as directed. : I performed a H&P examination of this patient and discussed the same with the dictator. I agree with the dictator's note. Any additional findings/opinions/ etc. will be noted.
--- NOTE | 2016-09-24 16:44 | CT ---
EXAMINATION TYPE: CT brain wo con DATE OF EXAM: 09/24/2016 4:09 PM COMPARISON: 07/27/2016 HISTORY: 81-year-old male altered mental status, confusion, history of B cell lymphoma. TECHNIQUE: Examination was done in axial plane without intravenous contrast. Coronal and sagittal r econstructions performed. CT DLP: 1183.00 mGycm Automated exposure control for dose reduction was used. FINDINGS: There is no evidence of acute intracranial hemorrhage, acute ischemic changes, mass, mass-effect, or extra-axial fluid collection. There is no effacement of cerebral sulci or basal subarachnoid cister ns. There is no hydrocephalus. There is no midline shift. [place]-white matter distinction is preserv ed. There is moderate generalized supratentorial volume loss with moderate confluent white matter hypoden sities. Suspect old anterior frontal lobe infarct given density the same as CSF. There is mild residual soft tissue thickening in the right preseptal region, considerably improved fr om 07/27/2016. Paranasal sinuses and mastoid air cells are clear. IMPRESSION: 1. No acute intracranial abnormality seen. 2. Similar moderate atrophy and moderate confluent changes of chronic small vessel ischemic disease. 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 3. Some soft tissue thickening in the right preseptal region of the eye, considerably improved from . Clinically correlate.
--- NOTE | 2016-09-24 17:12 | PN ---
DATE OF SERVICE: 09/24/2016 This 81-year-old gentleman who was admitted with neutropenic sepsis has got worsening change in mental status secondary to metabolic encephalopathy. Seen and evaluated the patient along with the nurse practitioner. Please refer to the nurse practitioner's notes and impressions documented as a scribe for further information. The patient is currently NO CODE. Patient is on morphine drip per Hematology/Oncology directives. Continue to monitor. Further recommendations to follow.
[2016-09-24] MEDS: SODIUM CHLORIDE 0.9% 1,000 ML IV SCH (20:48)
--- NOTE | 2016-09-24 23:57 | P.PN ---
Subjective The pt declined significantly over the past 24 hrs, with decreased responsiveness and increasingly labored breathing. He was started on a morphine drip and Hospice consult requested Objective - Vital Signs Vital signs: Vital Signs Temp 98.4 F 09/24/16 16:34 Pulse 121 H 09/24/16 16:34 Resp 20 09/24/16 16:34 BP 95/54 09/24/16 16:34 Pulse Ox 94 L 09/24/16 16:34 Intake & Output 09/24/16 09/24/16 09/25/16 06:59 18:59 06:59 Intake Total 224.917 77.117 Output Total 500 Balance 224.917 -422.883 Intake: IV 215 Cefepime 2 gm In Sodium 50 Chloride 0.9% 50 ml @ 100 mls/hr IVPB Q12HR [facility] Rx #:[id number] D5w with KCl 20 Meq/l 1, 125 000 ml @ 125 mls/hr IV . Q8H [facility] Rx#:[id number] Sodium Chloride 0.9% 1, 40 000 ml @ 10 mls/hr IV . Q24H [facility] Rx#:[id number] Intake, IV Titration 9.917 77.117 Amount Morphine Sulfate 100 mg 9.917 77.117 In Sodium Chloride 0.9% 100 ml @ Titrate IV .Q0M [facility] Rx#:[id number] Output: Urine 500 Uretheral (Montelongo) 500 Other: Voiding Method Indwelling Catheter Indwelling Catheter - Constitutional General appearance: Present: no acute distress - Respiratory Respiratory: bilateral: diminished - Cardiovascular Rhythm: regular Heart sounds: normal: S1, S2 - Gastrointestinal General gastrointestinal: Present: normal bowel sounds, soft - Neurologic Neurologic Comment(s): Sedated, unarousable on morphine drip - Labs CBC & Chem 7: 09/24/16 08:40 09/23/16 06:10 Labs: Abnormal Lab Results - Last 24 Hours (Table) 09/24/16 Range/Units 08:40 WBC 1.2 L* (3.8-10.6) k/uL RBC 2.26 L (4.30-5.90) m/uL Hgb 7.8 L (13.0-17.5) gm/dL Hct 24.9 L (39.0-53.0) % MCV 110.1 H (80.0-100.0) fL Plt Count 14 L* D (150-450) k/uL Neutrophils # (Manual) 1.0 L (1.3-7.7) k/uL Lymphocytes # (Manual) 0.1 L (1.0-4.8) k/uL Microbiology - Last 24 Hours (Table) 09/20/16 19:40 Blood Culture - Preliminary Blood No Growth after 96 hours 09/20/16 15:18 Blood Culture - Preliminary Blood No Growth after 96 hours 09/22/16 15:05 Blood Culture - Preliminary Blood No Growth after 48 hours 09/21/16 06:15 Blood Culture - Preliminary Blood No Growth after 72 hours Assessment and Plan (1) Altered mental state Narrative/Plan: This was accompanied by respiratory distress, leading to initiation of a morphine drip and Hospice consult. I had a detailed discussion with the family at the bedside. At this time the cause is not clear. He does not appear to have progressive sepsis, with improvement in hemodynamics, and resolution of fever since admission. He has continued on antibiotics, to which the E coli isolated from his cultures is sensitive to. Possibilities include, though are not limited to, intracranial bleeding, GUIDE CRUISE involvement with lymphoma and atypical infection ( less likely given no fever). He is also having increase in Cr. - I discussed a CT brain to check for bleed. The information would be likely academic as he would not be a candidate for any aggressive intervention, if a bleed was found. After detailed consideration the family refused - We had considered GUIDE CRUISE progression of his lymphoma, but the pt is not good candidate for a contrast MRI due to his Cr, or an LP due to low plt. Again the pt would not be a candidate for aggressive intervention in case of positive findings Status: Acute (2) Febrile neutropenia Narrative/Plan: Fever has resolved. he continues on antibiotics and Filgrastim, with increase in WBC. However, his condition has worsened despite the same Status: Acute (3) Pancytopenia due to antineoplastic chemotherapy Narrative/Plan: He received plt yesterday with increase in count to 14 today. Hgb is acceptable at > 7 Status: Acute Plan: Given his deterioration, as well as his underlying disease, with very poor tolerance of his 1st cycle of chemo, comfort care appears reasonable. The family were in agreement. Continue antibiotics and filgrastim in the meantime. Case d/w IM
[2016-09-25] MEDS: MORPHINE SULFATE 100 MG in SODIUM CHLORIDE 0.9% 100 ML IV SCH ×2 (01:32→18:40)
[2016-09-25 06:35] LABS: Basophils % (A) 0 %; CH 33.4; CHCM 30.3; Eosinophils % (A) 0 %; HCT 25.2 % (39.0-53.0); HDW 2.62; HGB 8.1 gm/dL (13.0-17.5); Hypochromasia Moderate; Large Platelets Flag Moderate; Luc # (Auto) 0.02; Luc % (Auto) 1; Lymphocytes # (A) 0.1 k/uL (1.0-4.8); Lymphocytes % (A) 7 %; MCH 35.4 pg (25.0-35.0); MCV 110.7 fL (80.0-100.0); Macrocytosis Marked; Monocytes # (A) 0.1 k/uL (0-1.0); Monocytes % (A) 4 %; Neutrophils # (A) 1.4 k/uL (1.3-7.7); Neutrophils % (A) 87 %; RBC 2.27 m/uL (4.30-5.90); RDW 14.7 % (11.5-15.5); WBC (Perox) 1.63
[2016-09-25 06:40] LABS: Calcium 8.1 mg/dL (8.4-10.2); Potassium 5.9 mmol/L (3.5-5.1); Total Bilirubin 0.7 mg/dL (0.2-1.3); Total Protein 3.8 g/dL (6.3-8.2)
[2016-09-25 08:39] VITALS: BP 102/48; PULSE 115; TEMP 98.1
[2016-09-25] MEDS: FILGRASTIM-SNDZ 480 MCG/0.8 ML SYRINGE SQ SCH (08:55)
[2016-09-25] MEDS: CEFEPIME 2 GM in SODIUM CHLORIDE 0.9% 50 ML IVPB SCH (08:55)
[2016-09-25] MEDS ORDERED: INSULIN REGULAR 100 UNIT/ML VIAL IV ONE (11:32)
[2016-09-25] MEDS ORDERED: DEXTROSE 50%-WATER 50 ML SYRINGE IVP STA (11:32)
[2016-09-25] MEDS ORDERED: SODIUM ACETATE 50 MEQ in WATER FOR INJECTION, STERILE 250 ML IV ONE (11:34)
[2016-09-25] MEDS ORDERED: SODIUM POLYSTYRENE SULFONATE 30 GM/120 ML BOTTLE RECTAL STA (11:34)
--- NOTE | 2016-09-25 11:42 | P.NPCON ---
History of Present Illness - Reason for Consult acute renal failure - History of Present Illness Reason for consultation: Acute kidney injury History of present illness: Should is a 81-year-old male seen in renal consultation for acute kidney injury. 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 He did receive first cycle of R CHOP in the last 2 weeks and has been deteriorating since. He presented to the hospital with progressive weakness and severe dehydration. He was also noted to have E. coli bacteremia for which she is currently maintained on IV antibiotics. He is not able to tolerate oral intake. His baseline creatinine appears to be 1 and has been rising over the last few days and is up to 2.47 this morning. His sodium level is also elevated at 155. Additionally he's acidotic as well as hyperkalemic. He's currently maintained on a morphine drip and there has been discussion of comfort care as well. Patient appears extremely lethargic and is unresponsive. History is obtained mostly from the son was present at bedside. Vital signs are stable. General: The patient appears extremely lethargic and malnourished. HEENT: Head exam is unremarkable. Neck is without jugular venous distension. LUNGS: Lungs are clear to auscultation and percussion. Breath sounds decreased. HEART: Rate and Rhythm are regular. First and second heart sounds normal. No murmurs, rubs or gallops. ABDOMEN: Abdominal exam reveals normal bowel sounds. Non-tender and non- distended. No evidence of peritonitis. EXTREMITITES: No clubbing, cyanosis, or edema. 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 UCHE RETINITIS PIGMENTOSIS, LOSS OF PERIPHERAL VISION (UCHE), LEGALLY BLIND. [facility] [place] [facility].2004 HEAD INJURY D/T FALL- DEVELOPED BLOOD CLOT ON BRAIN HAD SX. ANX,DEPRESSION History of Any Multi-Drug Resistant Organisms: None Reported Past Surgical History: Heart Catheterization With Stent, Hernia Repair, Orthopedic Surgery, Tonsillectomy Additional Past Surgical History / Comment(s): EXC RFA, LYMPH NODE RESECTION, SPLENECTOMY 1974. UCHE ING HERNIA. ORIF RT ELBOW Past Anesthesia/Blood Transfusion Reactions: No Reported Reaction Additional Past Anesthesia/Blood Transfusion Reaction / Comment(s): NO HISTORY OF BLOOD TRANSFUSION Date of Last Stent Placement:: 2009 Past Psychological History: No Psychological Hx Reported Additional Psychological History / Comment(s): Retired from [employer]. has adult son and [id number] who he lives with. Was in the [employer] stationed in [employer]. Denies tobacco use or alcohol use. No recreational drug use. No animal exposures. 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 [employer] Smoking Status: Never smoker Past Alcohol Use History: None Reported Past Drug Use History: None Reported - Past Family History Mother Family Medical History: No Reported History Father Family Medical History: CVA/TIA, Deep Vein Thrombosis (DVT) Medications and Allergies Allergies Allergy/AdvReac Type Severity Reaction Status Date / Time gluten AdvReac Severe Diarrhea Verified 09/18/16 10:15 Physical Exam Vitals: Vital Signs Temp Pulse Resp BP Pulse Ox 09/25/16 08:00 98.1 F 115 H 20 102/48 95 09/24/16 16:34 98.4 F 121 H 20 95/54 94 L Intake and Output 09/24/16 09/25/16 09/25/16 22:59 06:59 14:59 Intake Total 232.501 Output Total 500 Balance -500 232.501 Intake: IV 140 Cefepime 2 gm In Sodium 50 Chloride 0.9% 50 ml @ 100 mls/hr IVPB Q12HR [facility] Rx #:[id number] Sodium Chloride 0.9% 1, 90 000 ml @ 10 mls/hr IV . Q24H [facility] Rx#:[id number] Intake, IV Titration 92.501 Amount Morphine Sulfate 100 mg 92.501 In Sodium Chloride 0.9% 100 ml @ Titrate IV .Q0M [facility] Rx#:[id number] Output: Urine 500 Uretheral (Montelongo) 500 Other: Voiding Method Indwelling Catheter Indwelling Catheter Results - Lab Results Most recent lab results Calcium 8.1 mg/dL (8.4-10.2) L 09/25/16 06:13 Phosphorus 2.2 mg/dL (2.5-4.5) L 09/23/16 06:10 Magnesium 1.9 mg/dL (1.6-2.3) 09/23/16 06:10 09/25/16 06:13 09/25/16 06:13 Assessment and Plan Plan: Assessment: #1. Nonoliguric acute kidney injury secondary to ischemic ATN secondary to severe intravascular volume depletion from bacteremia as well as poor oral intake. Creatinine up to 2.47 today. Baseline creatinine is near 1. #2. Hypovolemic hypernatremia with sodium level of 155 this morning. #3. Hyperkalemia secondary to acute kidney injury and metabolic acidosis. #4. Metabolic acidosis secondary to acute kidney injury. #5. E. coli bacteremia with blood cultures positive on 09/18/2016. #6. Recurrent lymphoma. Plan: Start half normal saline to be run at 125 mL an hour. I will medically treat hyperkalemia with 10 units of IV insulin with amp of D50 as well as 30 g of Kayexalate rectally. Oral sodium bicarbonate supplementation if able to tolerate oral intake. Antibiotics per infectious disease recommendations. Repeat BMP at 7 PM today. Prognosis appears to be poor. Thank you for the consultation. I will continue to follow the patient with you during his hospital stay.
[2016-09-25] MEDS ORDERED: SODIUM BICARBONATE TAB 650 MG TAB PO SCH (11:45)
[2016-09-25] MEDS: SODIUM CHLORIDE 0.45% 1,000 ML IV SCH ×2 (12:39→23:48)
--- NOTE | 2016-09-25 17:26 | P.PN ---
Subjective Date of service 09/25/2016. Progress note being dictated for Dr. Lu Interval history: This 81-year-old gentleman admitted with sepsis, E coli bacteremia secondary to UTI, febrile neutropenia, acute renal failure, electrolyte imbalances and dehydration secondary to diarrhea in a patient with recurrent B-cell non-Hodgkin's lymphoma.Remains delirious.Tachycardic. Maintained on cefepime. initially placed on morphine drip with comfort care orders as per Oncology and son. Yesterday morning, family stated patient was not hospice/comfort care. Continues on morphine drip as per oncology. Patient's condition continues to decline, worsening renal function, creatinine 2.47, elevated sodium, elevated chloride, hyperkalemic. Patient unresponsive, does not respond to noxious stimuli. Oncology met with the family again this morning. Past medical history reviewed. Review systems unable to obtain as patient is unresponsive on morphine drip. Active Medications Acetaminophen (Tylenol Suppository) 650 mg RECTAL Q4HR PRN PRN Reason: Fever and/ or Pain Artificial Tears (Artificial Tear Drops) 1 drops BOTH EYES Q2HR PRN PRN Reason: Dry Eye(s) Atropine Sulfate (Isopto Atropine 1% 5ml) 2 drops SUBLINGUAL Q4HR PRN PRN Reason: Excess Secretions Filgrastim (Zarxio) 480 mcg SQ DAILY [facility] Last Admin: 09/25/16 08:55 Dose: 480 mcg Morphine Sulfate 100 mg/ (Sodium Chloride) 104 mls @ 0 mls/hr IV .Q0M [facility]; Titrate PRN Reason: Protocol Last Titration: 09/25/16 12:11 Dose: 4.8 mg/hr, 5 mls/hr Sodium Chloride (Saline 0.9%) 1,000 mls @ 10 mls/hr IV .Q24H [facility] Last Admin: 09/24/16 20:48 Dose: 10 mls/hr Sodium Chloride (Saline 0.45%) 1,000 mls @ 125 mls/hr IV .Q8H [facility] Last Admin: 09/25/16 12:39 Dose: 125 mls/hr Cefepime HCl 2 gm/ Sodium (Chloride) 50 mls @ 100 mls/hr IVPB Q24HR [facility] Lorazepam (Ativan) 1 mg IV Q2H PRN PRN Reason: Anxiety Last Admin: 09/24/16 01:19 Dose: 1 mg Multi-Ingred Cream/Lotion/Oil/Oint (Lubrifresh Pm Ointment) 1 applic RIGHT EYE TID PRN PRN Reason: Dry Eye(s) Last Admin: 09/23/16 08:15 Dose: 1 applic Saliva Substitute (Mouthkote Solution) 1 spray MUCOUS MEM QID PRN PRN Reason: Dry Mouth Scopolamine (Transderm-Scop 1.5mg/72hr Patch) 1 patch TRANSDERM Q72H [facility] Last Admin: 09/23/16 23:31 Dose: 1 patch Sodium Bicarbonate (Sodium Bicarbonate Tab) 650 mg PO BID [facility] Last Admin: 09/25/16 12:40 Dose: Not Given Objective - Vital Signs Vital signs: Vital Signs Temp 98.1 F 09/25/16 08:00 Pulse 115 H 09/25/16 08:00 Resp 20 09/25/16 16:00 BP 102/48 09/25/16 08:00 Pulse Ox 95 09/25/16 08:00 Intake & Output 09/24/16 09/25/16 09/25/16 18:59 06:59 18:59 Intake Total 77.117 232.501 74.55 Output Total 500 Balance -422.883 232.501 74.55 Intake: IV 140 Cefepime 2 gm In Sodium 50 Chloride 0.9% 50 ml @ 100 mls/hr IVPB Q12HR [facility] Rx #:[id number] Sodium Chloride 0.9% 1, 90 000 ml @ 10 mls/hr IV . Q24H [facility] Rx#:[id number] Intake, IV Titration 77.117 92.501 74.55 Amount Morphine Sulfate 100 mg 77.117 92.501 74.55 In Sodium Chloride 0.9% 100 ml @ Titrate IV .Q0M [facility] Rx#:[id number] Output: Urine 500 Uretheral (Montelongo) 500 Other: Voiding Method Indwelling Catheter Indwelling Catheter Indwelling Catheter - Exam PHYSICAL EXAM: VITAL SIGNS: [As above] GENERAL: [Lying in bed, unresponsive on morphine drip, no response to turning/ noxious stimuli HEENT: eyes closed NECK: [Supple, no JVD] RESPIRATORY EFFORT:[Increased] LUNGS: [Diminished, rhonchi scattered throughout CARDIOVASCULAR[regular S1 and S2, tachycardic, positive edema] GI: [Abdomen soft, nontender, positive bowel sounds. ] PSYCH/NEURO: Unable to assess as patient unresponsive on morphine drip Microbiology 09/21/16 06:15 Blood Blood Culture - Preliminary No Growth after 96 hours 09/20/16 19:40 Blood Blood Culture - Preliminary No Growth after 96 hours 09/20/16 15:18 Blood Blood Culture - Preliminary No Growth after 96 hours 09/22/16 15:05 Blood Blood Culture - Preliminary No Growth after 48 hours 09/18/16 14:15 Blood Blood Culture Gram Stain - Final 09/18/16 14:15 Blood Blood Culture - Final Escherichia coli 09/18/16 23:30 Urine,Catheterized Urine Culture - Final 09/18/16 14:15 Blood Blood Culture - Final - Labs CBC & Chem 7: 09/25/16 06:13 09/25/16 06:13 Labs: Abnormal Lab Results - Last 24 Hours (Table) 09/25/16 09/25/16 Range/Units 06:13 06:13 WBC 1.7 L* (3.8-10.6) k/uL RBC 2.27 L (4.30-5.90) m/uL Hgb 8.1 L (13.0-17.5) gm/dL Hct 25.2 L (39.0-53.0) % MCV 110.7 H (80.0-100.0) fL MCH 35.4 H (25.0-35.0) pg Plt Count 16 L* (150-450) k/uL Lymphocytes # 0.1 L (1.0-4.8) k/uL Sodium 155 H (137-145) mmol/L Potassium 5.9 H (3.5-5.1) mmol/L Chloride 131 H* (98-107) mmol/L Carbon Dioxide 17 L (22-30) mmol/L BUN 76 H (9-20) mg/dL Creatinine 2.47 H (0.66-1.25) mg/dL Calcium 8.1 L (8.4-10.2) mg/dL AST 16 L (17-59) U/L Total Protein 3.8 L (6.3-8.2) g/dL Albumin 1.7 L (3.5-5.0) g/dL Microbiology - Last 24 Hours (Table) 09/21/16 06:15 Blood Culture - Preliminary Blood No Growth after 96 hours 09/20/16 19:40 Blood Culture - Preliminary Blood No Growth after 96 hours 09/20/16 15:18 Blood Culture - Preliminary Blood No Growth after 96 hours 09/22/16 15:05 Blood Culture - Preliminary Blood No Growth after 48 hours Assessment and Plan Plan: 1. [Neutropenic fever with severe sepsis secondary to E. coli bacteremia, urine culture negative 2. Pancytopenia secondary to chemotherapy with bone marrow suppression, in a patient with history of B-cell lymphoma 3. [Hypernatremia, hypovolemic]. 4. [Hyperchloremia]. 5. Acute metabolic encephalopathy, multifactorial; secondary to sepsis, infection, llyte imbalance... 6. Retinitis pigmentosa, legally blind]. 7. [Tachycardia secondary to severe intravascular depletion]. 8. Acute Renal failure, worsening 9. Gastroesophageal reflux disease 10. CAD 11. Metabolic acidosis secondary to acute renal failure 12. Hyperkalemic Plan: Continue on current medication regime , cefepime, monitoring and symptomatic treatment. Kayexalate and fluids as per nephrology. Morphine drip management as per oncology. Prognosis poor. Maintain supportive care. Further recommendations to follow. The impression and plan of care has been dictated as directed. : I performed a H&P examination of this patient and discussed the same with the dictator. I agree with the dictator's note. Any additional findings/opinions/ etc. will be noted.
--- NOTE | 2016-09-25 18:11 | PN ---
DATE OF SERVICE: 09/25/2016 This 81-year-old gentleman who was admitted neutropenic sepsis, also had change in mental status. Seen and evaluated the patient along with the nurse practitioner. Please refer to the nurse practitioner notes and impression documented for further information. CT scan of the brain was repeated yesterday, which showed no acute abnormality. The renal function is gradually worsening. At this time will obtain Nephrology consultation. See orders for details.
--- NOTE | 2016-09-25 21:25 | P.PN ---
Subjective The pt remains unresponsive. His respiratory distress is improved. He continues to have some diarrhea. No f/c Objective - Vital Signs Vital signs: Vital Signs Temp 98.1 F 09/25/16 08:00 Pulse 115 H 09/25/16 08:00 Resp 20 09/25/16 16:00 BP 102/48 09/25/16 08:00 Pulse Ox 95 09/25/16 08:00 Intake & Output 09/25/16 09/25/16 09/26/16 06:59 18:59 06:59 Intake Total 232.501 104.00 Balance 232.501 104.00 Intake: IV 140 Cefepime 2 gm In Sodium 50 Chloride 0.9% 50 ml @ 100 mls/hr IVPB Q12HR [facility] Rx #:[id number] Sodium Chloride 0.9% 1, 90 000 ml @ 10 mls/hr IV . Q24H [facility] Rx#:[id number] Intake, IV Titration 92.501 104.00 Amount Morphine Sulfate 100 mg 92.501 104.00 In Sodium Chloride 0.9% 100 ml @ Titrate IV .Q0M [facility] Rx#:[id number] Other: Voiding Method Indwelling Catheter Indwelling Catheter - Exam unresponsive, even to noxious stimuli - EENT Eyes: Present: ptosis - Respiratory Respiratory: bilateral: CTA - Cardiovascular Rhythm: regular Heart sounds: normal: S1, S2 - Gastrointestinal General gastrointestinal: Present: normal bowel sounds, soft - Integumentary Integumentary: Present: normal - Neurologic Neurologic Comment(s): sedated on vent - Musculoskeletal Musculoskeletal: Present: generalized weakness - Labs CBC & Chem 7: 09/25/16 06:13 09/25/16 06:13 Labs: Abnormal Lab Results - Last 24 Hours (Table) 09/25/16 09/25/16 Range/Units 06:13 06:13 WBC 1.7 L* (3.8-10.6) k/uL RBC 2.27 L (4.30-5.90) m/uL Hgb 8.1 L (13.0-17.5) gm/dL Hct 25.2 L (39.0-53.0) % MCV 110.7 H (80.0-100.0) fL MCH 35.4 H (25.0-35.0) pg Plt Count 16 L* (150-450) k/uL Lymphocytes # 0.1 L (1.0-4.8) k/uL Sodium 155 H (137-145) mmol/L Potassium 5.9 H (3.5-5.1) mmol/L Chloride 131 H* (98-107) mmol/L Carbon Dioxide 17 L (22-30) mmol/L BUN 76 H (9-20) mg/dL Creatinine 2.47 H (0.66-1.25) mg/dL Calcium 8.1 L (8.4-10.2) mg/dL AST 16 L (17-59) U/L Total Protein 3.8 L (6.3-8.2) g/dL Albumin 1.7 L (3.5-5.0) g/dL Microbiology - Last 24 Hours (Table) 09/20/16 15:18 Blood Culture - Preliminary Blood No Growth after 120 hours 09/22/16 15:05 Blood Culture - Preliminary Blood No Growth after 72 hours 09/21/16 06:15 Blood Culture - Preliminary Blood No Growth after 96 hours 09/20/16 19:40 Blood Culture - Preliminary Blood No Growth after 96 hours Assessment and Plan (1) Altered mental state Narrative/Plan: Pt remains unresponsive. The family rescinded his comfort care status, as they felt he was doing better! however the pt remains unresponsive still. CT brain was ordered, which was negative for bleed or CVA. Etiology is still not definite , but options are limited. FINISH CARPENTER, including leptomeningeal disease are possibilities, but the pt is not a candidate for a contrast study such ass MRI, due to his renal function. LP would also carry high risk, due to his low plt, and anticipated decrease in plt function, due to renal dysfunction. I discussed with the family that given the lack of treatment options for FINISH CARPENTER disease, performing the procedure just for diagnosis, given high risk , would not be justified in my opinion. The son was in agreement - Will attempt to wean MS as tolerated - Uremia as a cause is less likely, as his status has changed even when his Cr was much better - Case d/w ID. They will reassess the pt for possible viral encephalitis. However prognosis in that case would also be generally very poor. Status: Acute (2) Febrile neutropenia Narrative/Plan: Fever has resolved, and ANC is increasing. Repeat cultures have been negative Status: Acute (3) Pancytopenia due to antineoplastic chemotherapy Narrative/Plan: Counts today were all improved. Pt is continuing on Filgrastim and Cefepime. Status: Acute Plan: Consult placed for Nephrology for AURORA. Case d/w them Case was discussed in detail with the family. Despite the marginal improvement in respiration, his overall condition remains very poor. This is despite improvement in sepsis parameters, and in his counts. He has now developed AURORA in addition. Even if he were able to reccover from the current situation, he would be at high risk to resume lymphoma treatment given very poor tolerance of cycle 1 itself.All questions were answered to the best of my ability. At this time, they do want to continue current medical management. His son again expressed understanding that overall prognosis is poor, and the pt will continue to be No CODE
--- NOTE | 2016-09-25 23:37 | P.PN ---
Subjective Principal diagnosis: Current sepsis 81-year-old male that has a history of B-cell lymphoma. Has had recent hospitalization there is having difficulty with his right eye. He was receiving chemotherapy for his B-cell lymphoma. But due to difficulties infection that was placed on hold. He then developed appear to be a significant change in status to his right eye. Imaging studies reveal evidence of a masslike process that was retro-orbital. Upon biopsy turned out to be the B-cell lymphoma. He is now had some localized radiation therapy as well as ongoing chemotherapy. He is feeling somewhat better. But now presents with significant fever and chills and generalized malaise. Statuses continue to decline. He is encephalopathic. Family is present which his son and daughter. Extensive conversation occurs regarding the patient's overall status. He's been seen by nephrology relates that he is not a candidate for any type of interventions. If chemotherapy was to continue some free water would be given for his hypernatremia is developing. Objective - Vital Signs Vital signs: Vital Signs Temp 98.1 F 09/25/16 08:00 Pulse 115 H 09/25/16 08:00 Resp 20 09/25/16 16:00 BP 102/48 09/25/16 08:00 Pulse Ox 95 09/25/16 08:00 Intake & Output 09/25/16 09/25/16 09/26/16 06:59 18:59 06:59 Intake Total 232.501 104.00 Balance 232.501 104.00 Intake: IV 140 Cefepime 2 gm In Sodium 50 Chloride 0.9% 50 ml @ 100 mls/hr IVPB Q12HR [facility] Rx #:[id number] Sodium Chloride 0.9% 1, 90 000 ml @ 10 mls/hr IV . Q24H [facility] Rx#:[id number] Intake, IV Titration 92.501 104.00 Amount Morphine Sulfate 100 mg 92.501 104.00 In Sodium Chloride 0.9% 100 ml @ Titrate IV .Q0M [facility] Rx#:[id number] Other: Voiding Method Indwelling Catheter Indwelling Catheter - Exam 81-year-old male relates to minimal discomfort but has improvement in thesignificant swelling to his right eye. HEENT: Left eye without abnormalities. the right eye drainage is improved. Thesignificant swelling is definitely improved. It is also less tender. There is no significant lesions seen on the nares ,below the eye, also no lesions seen on the right auricle or within the external auditory canal. No lesions on the scalp. nasal mucosa grossly intact without significant lesions, there is no thrush. Neck: The neck is supple without significant lymphadenopathy or thyromegaly. Lungs: Good bilateral air entry without significant crackles or wheezing. There is no significant bronchial sounds. There is no egophony or dullness. Heart: Regular rate and rhythm with an audible S1-S2, no S3 no S4. There is no significant murmur click or rub, PMI was nondisplaced. Abdomen: Positive bowel sounds soft and now has evidence some left lower quadrant tenderness which is new without palpable masses or organomegaly. There was no guarding or rebound. Extremities: The upper extremities have excellent pulses they are symmetric, no significant petechiae or telangiectasia. No splinter hemorrhages were noted. The lower extremities are free from significant edema. The peripheral pulses were 2+ and symmetric. Neuro: aencephalopathic positive gag - Labs CBC & Chem 7: 09/25/16 06:13 09/25/16 06:13 Labs: Abnormal Lab Results - Last 24 Hours (Table) 09/25/16 09/25/16 Range/Units 06:13 06:13 WBC 1.7 L* (3.8-10.6) k/uL RBC 2.27 L (4.30-5.90) m/uL Hgb 8.1 L (13.0-17.5) gm/dL Hct 25.2 L (39.0-53.0) % MCV 110.7 H (80.0-100.0) fL MCH 35.4 H (25.0-35.0) pg Plt Count 16 L* (150-450) k/uL Lymphocytes # 0.1 L (1.0-4.8) k/uL Sodium 155 H (137-145) mmol/L Potassium 5.9 H (3.5-5.1) mmol/L Chloride 131 H* (98-107) mmol/L Carbon Dioxide 17 L (22-30) mmol/L BUN 76 H (9-20) mg/dL Creatinine 2.47 H (0.66-1.25) mg/dL Calcium 8.1 L (8.4-10.2) mg/dL AST 16 L (17-59) U/L Total Protein 3.8 L (6.3-8.2) g/dL Albumin 1.7 L (3.5-5.0) g/dL Microbiology - Last 24 Hours (Table) 09/20/16 19:40 Blood Culture - Preliminary Blood No Growth after 120 hours 09/20/16 15:18 Blood Culture - Preliminary Blood No Growth after 120 hours 09/22/16 15:05 Blood Culture - Preliminary Blood No Growth after 72 hours 09/21/16 06:15 Blood Culture - Preliminary Blood No Growth after 96 hours Laboratory Results WBC 1.7 k/uL (3.8-10.6) L* 09/25/16 06:13 RBC 2.27 m/uL (4.30-5.90) L 09/25/16 06:13 Hgb 8.1 gm/dL (13.0-17.5) L 09/25/16 06:13 Hct 25.2 % (39.0-53.0) L 09/25/16 06:13 MCV 110.7 fL (80.0-100.0) H 09/25/16 06:13 MCH 35.4 pg (25.0-35.0) H 09/25/16 06:13 MCHC 32.0 g/dL (31.0-37.0) 09/25/16 06:13 RDW 14.7 % (11.5-15.5) 09/25/16 06:13 Plt Count 16 k/uL (150-450) L* 09/25/16 06:13 Neutrophils % 87 % 09/25/16 06:13 Neutrophils % (Manual) 69.0 % 09/24/16 08:40 Band Neutrophils % 14.0 % 09/24/16 08:40 Lymphocytes % 7 % 09/25/16 06:13 Lymphocytes % (Manual) 8.0 % 09/24/16 08:40 Monocytes % 4 % 09/25/16 06:13 Monocytes % (Manual) 9.0 % 09/24/16 08:40 Eosinophils % 0 % 09/25/16 06:13 Basophils % 0 % 09/25/16 06:13 Neutrophils # 1.4 k/uL (1.3-7.7) 09/25/16 06:13 Neutrophils # (Manual) 1.0 k/uL (1.3-7.7) L 09/24/16 08:40 Lymphocytes # 0.1 k/uL (1.0-4.8) L 09/25/16 06:13 Lymphocytes # (Manual) 0.1 k/uL (1.0-4.8) L 09/24/16 08:40 Monocytes # 0.1 k/uL (0-1.0) 09/25/16 06:13 Monocytes # (Manual) 0.1 k/uL (0-1.0) 09/24/16 08:40 Eosinophils # 0.0 k/uL (0-0.7) 09/25/16 06:13 Basophils # 0.0 k/uL (0-0.2) 09/25/16 06:13 Nucleated RBCs 0 /100 WBC (0-0) 09/24/16 08:40 Differential Comment 09/23/16 06:10 Manual Slide Review Performed 09/24/16 08:40 Toxic Granulation Present 09/24/16 08:40 Dohle Bodies Present 09/24/16 08:40 Large Platelets Present 09/24/16 08:40 Polychromasia Present 09/18/16 10:40 Hypochromasia Moderate 09/25/16 06:13 Poikilocytosis (manual Present 09/24/16 08:40 Anisocytosis (manual) Present 09/23/16 06:10 Macrocytosis Marked 09/25/16 06:13 Target Cells Present 09/21/16 06:15 Fragmented RBCs Present 09/24/16 08:40 PT 12.5 sec (9.0-12.0) H 09/18/16 10:40 INR 1.3 (<1.1) 09/18/16 10:40 APTT 40.0 sec (22.0-30.0) H 09/18/16 10:40 Sodium 155 mmol/L (137-145) H 09/25/16 06:13 Potassium 5.9 mmol/L (3.5-5.1) H 09/25/16 06:13 Chloride 131 mmol/L (98-107) H* 09/25/16 06:13 Carbon Dioxide 17 mmol/L (22-30) L 09/25/16 06:13 Anion Gap 7 mmol/L 09/25/16 06:13 BUN 76 mg/dL (9-20) H 09/25/16 06:13 Creatinine 2.47 mg/dL (0.66-1.25) H 09/25/16 06:13 Est GFR (MDRD) Af Amer 31 (>60 ml/min/1.73 sqM) 09/25/16 06:13 Est GFR (MDRD) Non-Af 25 (>60 ml/min/1.73 sqM) 09/25/16 06:13 Glucose 81 mg/dL (74-99) 09/25/16 06:13 POC Glucose (mg/dL) 108 mg/dL (75-99) H 09/18/16 18:49 POC Glu [employer] ID Maty Murdock 09/18/16 18:49 Plasma Lactic Acid [place] 1.4 mmol/L (0.7-2.0) 09/19/16 05:15 Calcium 8.1 mg/dL (8.4-10.2) L 09/25/16 06:13 Phosphorus 2.2 mg/dL (2.5-4.5) L 09/23/16 06:10 Magnesium 1.9 mg/dL (1.6-2.3) 09/23/16 06:10 Total Bilirubin 0.7 mg/dL (0.2-1.3) 09/25/16 06:13 AST 16 U/L (17-59) L 09/25/16 06:13 ALT 40 U/L (21-72) 09/25/16 06:13 Alkaline Phosphatase 45 U/L (38-126) 09/25/16 06:13 Total Creatine Kinase <20 U/L (55-170) L 09/18/16 10:40 CK-MB (CK-2) <0.2 ng/mL (0.0-2.4) 09/18/16 10:40 CK-MB (CK-2) Rel Index 09/18/16 10:40 Troponin I 0.023 ng/mL (0.000-0.034) 09/18/16 10:40 Total Protein 3.8 g/dL (6.3-8.2) L 09/25/16 06:13 Albumin 1.7 g/dL (3.5-5.0) L 09/25/16 06:13 Cortisol 113 ug/dL 09/19/16 05:15 Urine Color Bath 09/18/16 23:30 Urine Appearance Cloudy (Clear) 09/18/16 23:30 Urine pH 5.5 (5.0-8.0) 09/18/16 23:30 Ur Specific [place] 1.014 (1.001-1.035) 09/18/16 23:30 Urine Protein 1+ (Negative) H 09/18/16 23:30 Urine Glucose (UA) Negative (Negative) 09/18/16 23:30 Urine Ketones Negative (Negative) 09/18/16 23:30 Urine Blood Small (Negative) H 09/18/16 23:30 Urine Nitrite Negative (Negative) 09/18/16 23:30 Urine Bilirubin Negative (Negative) 09/18/16 23:30 Urine Urobilinogen <2.0 mg/dL (<2.0) 09/18/16 23:30 Ur Leukocyte Esterase Negative (Negative) 09/18/16 23:30 Urine RBC 5 /hpf (0-5) 09/18/16 23:30 Urine WBC 7 /hpf (0-5) H 09/18/16 23:30 Amorphous Sediment Rare /hpf (None) H 09/18/16 23:30 Urine Bacteria Many /hpf (None) H 09/18/16 23:30 Hyaline Casts 9 /lpf (0-2) H 09/18/16 23:30 Granular Casts 9 /lpf (0) 09/18/16 23:30 Urine Mucus Occasional /hpf (None) H 09/18/16 23:30 Vancomycin Trough 17.4 ug/mL 09/21/16 06:15 C. difficile (EIA) Intrp Negative (Negative) 09/19/16 00:00 C. difficile Tox (PCR) Not Detected (Not Detectd) 09/20/16 15:30 Blood Type O Positive 09/20/16 15:18 Blood Type Recheck No 09/20/16 15:18 Antibody Screen NEGATIVE 09/20/16 15:18 Transfuse Platelets 09/23/16 09/23/16 08:03 Spec Expiration Date 09/23/2016 - 231709/20/16 15:18 Microbiology 09/20/16 19:40 Blood Blood Culture - Preliminary No Growth after 120 hours 05/06/17 15:18 Blood Blood Culture - Preliminary No Growth after 120 hours 09/22/16 15:05 Blood Blood Culture - Preliminary No Growth after 72 hours 09/21/16 06:15 Blood Blood Culture - Preliminary No Growth after 96 hours 09/18/16 14:15 Blood Blood Culture Gram Stain - Final 09/18/16 14:15 Blood Blood Culture - Final Escherichia coli 09/18/16 23:30 Urine,Catheterized Urine Culture - Final 09/18/16 14:15 Blood Blood Culture - Final Assessment and Plan (1) Febrile neutropenia Narrative/Plan: 81-year-old male with his known history of B-cell lymphoma who recently had significant difficulty with his right eye. He was treated for an infectious process. However failed to improve. Imaging studies reveal evidence of a significant involvement of the B-cell lymphoma to the eye that was proven by biopsy. He is now had radiation therapy and systemic chemotherapy. Now presents to Hospital significant fever and appears to have febrile neutropenia. Antimicrobial therapy with cefepime be continued although E. coli has been isolated there still is significant neutropenia. Vancomycin is discontinued and there is no evidence of any gram-positive sepsis at this time. Continue ongoing supportive care. Important that he has nutritional recovery to help with his healing process. His pain fortunately is well controlled at this time. The extensive swelling to the eye has had remarkable improvement after the radiation therapy and chemotherapy. Lacri-Lube to the right eye Abdominal x-ray Was performed because he was having left lower quadrant tenderness. Only nephrolithiasis was seen. No acute obstructive process. No evidence of typhlitis. Extensive discussion occurs with the patient's children. At this time the patient is having ongoing declining status. He is having significant encephalopathy. 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 The patient is developing organ failure. It is discussed that he is started the dying process. It would be certainly appropriate to proceed to hospice. As somewhat like the patient received some fluids and see if he improves by the morning. If he has a miraculous improvement he would then consider further interventions. Otherwise will proceed to hospice placement. We try to relate that his tachypnea would be a source of significant distress. Ensuring that this is well-controlled this point in time with morphine is important and they do agree. If no further improvement by tomorrow but then converted to a comfort care process only. The daughter is very anxious and wants to ensure that he would not have to go home. Nephrology and I both agree that without aggressive therapeutic interventions he likely would not continue more than a day or 2. Information is related to oncology. At this time additional antimicrobial therapy is not indicated. Status: Acute (2) Pancytopenia due to antineoplastic chemotherapy Status: Acute
[2016-09-25] MEDS: SODIUM CHLORIDE 0.9% 1,000 ML IV SCH (23:48)
[2016-09-26 08:09] LABS: WBC 1.7 k/uL (3.8-10.6)
[2016-09-26] MEDS ORDERED: CEFEPIME 2 GM in SODIUM CHLORIDE 0.9% 50 ML IVPB SCH (09:00)
--- NOTE | 2016-09-26 22:20 | DS ---
DATE OF ADMISSION: 09/18/2016 DATE OF EXPIRATION: 09/25/2016 PRIMARY CAUSE OF : B-cell lymphoma. OTHER CONTRIBUTING FACTORS AND ASSOCIATED DIAGNOSES: 1. Neutropenic fever with severe sepsis secondary to Escherichia coli bacteremia, present on admission. 2. Pancytopenia secondary to chemotherapy with bone marrow suppression, present on admission. 3. Hyponatremia, hypovolemic. 4. Hypochloremia. 5. Change in mental status secondary to acute metabolic encephalopathy, multifactorial secondary to sepsis and electrolyte imbalance. 6. legally blind. 7. Tachycardia secondary to intravascular volume depletion. 8. Acute renal failure. 9. Possible prerenal factors and acute tubular necrosis. 10. Gastroesophageal reflux disease. 11. Coronary artery disease. 12. Metabolic acidosis to acute renal failure. 13. Hyperkalemia secondary to renal failure. 14. NO CODE, NO CARDIOPULMONARY RESUSCITATION, NO VENTILATOR. HISTORY OF PRESENT ILLNESS: This is an 81-year-old gentleman with a past medical history of multiple medical problems was admitted with features of pancytopenia, neutropenic sepsis, E. coli sepsis and bacteremia was diagnosed. Patient was treated symptomatically. Patient was on antibiotic; however, the patient's condition deteriorated. The patient had change in mental status. Patient became unresponsive despite intensive antibiotic treatment. Multiple consultants, including Oncology and Infectious Disease Service were seeing the patient. Cultures are as previously. Please refer to multiple consultations, progress notes so far for further evaluation; however, despite intensive treatment, the patient's condition did not improve and the patient succumbed to his medical illness. Prognosis remained guarded throughout the hospital stay. Discussed with the family on multiple occasions. The patient also had worsened renal failure later. MTDD
== END 2016-09-25 21:25 | disposition expired | DRG 871 ==
LOC: EC 09:33 → 5ONC 14:33 → 6ICU 18:45 → 5ONC 09-19 22:58
PROVIDERS: ADMIT Internal Medicine; ATTEND Internal Medicine
PROC: 30243K1 Transfusion of Nonautologous Frozen Plasma into Central Vein, Percutaneous Approach (ICD-10-PCS; principal; 2016-09-20)
DX: A41.51 Sepsis due to Escherichia coli [E. coli] (principal); D61.810 Antineoplastic chemotherapy induced pancytopenia; N17.0 Acute kidney failure with tubular necrosis; G93.41 Metabolic encephalopathy; E87.0 Hyperosmolality and hypernatremia; K52.1 Toxic gastroenteritis and colitis; C83.30 Diffuse large B-cell lymphoma, unspecified site; E87.2 Acidosis; N39.0 Urinary tract infection, site not specified; E83.42 Hypomagnesemia; Z51.5 Encounter for palliative care; E86.0 Dehydration; E78.5 Hyperlipidemia, unspecified; E86.1 Hypovolemia; E87.5 Hyperkalemia; E87.6 Hypokalemia; E87.8 Other disorders of electrolyte and fluid balance, not elsewhere classified; F41.9 Anxiety disorder, unspecified; H35.52 Pigmentary retinal dystrophy; H54.8 Legal blindness, as defined in USA; H91.90 Unspecified hearing loss, unspecified ear; I25.10 Atherosclerotic heart disease of native coronary artery without angina pectoris; K21.9 Gastro-esophageal reflux disease without esophagitis; N20.0 Calculus of kidney; R65.20 Severe sepsis without septic shock; T36.95XA Adverse effect of unspecified systemic antibiotic, initial encounter; T45.1X5A Adverse effect of antineoplastic and immunosuppressive drugs, initial encounter; I10 Essential (primary) hypertension; R00.0 Tachycardia, unspecified; Z66 Do not resuscitate; Z79.899 Other long term (current) drug therapy; Z79.52 Long term (current) use of systemic steroids; Z85.820 Personal history of malignant melanoma of skin; Z95.5 Presence of coronary angioplasty implant and graft; Y92.239 Unspecified place in hospital as the place of occurrence of the external cause
CPT/HCPCS: 36415; 70450; 71010; 71020; 74020; 80048; 80053; 80202; 81001; 82533; 82550; 82553; 83605; 83735; 84100; 84132; 84484; 85025; 85027; 85610; 85730; 86850; 86900; 86901; 87040; 87077; 87086; 87186; 87324; 87493; 93005; 96361; 96365; 99285